=== PATIENT | male | born 1955 | race Caucasian/White ===

== ENCOUNTER 2017-08-03 15:54 | Inpatient (IN) | payer MEDICAID ==
[~2017-08-03] VITALS: Ht 175.3 cm; Wt 81.0 kg
[2017-08-03] MEDS ORDERED: WARFARIN SODIUM1 MG ORAL ×2 (16:07)
[2017-08-03] MEDS ORDERED: SIMVASTATIN20 MG ORAL (16:16)
[2017-08-03] MEDS ORDERED: PROAIR HFA8.5 GM INH (16:16)
[2017-08-03] MEDS ORDERED: SPIRIVA18 MCG INH (16:16)
[2017-08-03] MEDS ORDERED: TRAZODONE HCL150 MG ORAL (16:16)
[2017-08-03] MEDS ORDERED: DEPAKOTE250 MG PO (16:16)
[2017-08-03] MEDS ORDERED: RISPERDAL2 MG ORAL (16:16)
[2017-08-03] MEDS ORDERED: VITAMIN D400 INTLU ORAL (16:16)
[2017-08-03] MEDS ORDERED: CITALOPRAM HBR40 M1 ORAL (16:16)
[2017-08-03] MEDS ORDERED: Ampicillin/Sulbactam Sod 3 GM in NS 110 ML IV ONE (16:30)
[2017-08-03 16:40] LABS: BASOPHILS % (AUTO) 2.1 % (0.0-2.0); EOSINOPHILS % (AUTO) 0.2 % (0.0-3.0); HEMATOCRIT 51.7 % (42.0-52.0); HEMOGLOBIN 16.6 G/DL (14.2-18.0); LYMPHOCYTES % (AUTO) 15.5 % (20.0-45.0); MEAN CORPUSCULAR VOLUME 94 FL (80-99); MONOCYTES % (AUTO) 15.9 % (1.0-10.0); NEUTROPHILS % (AUTO) 66.4 % (45.0-75.0); PLATELET COUNT 142 K/UL (150-450); RED BLOOD COUNT 5.53 M/UL (4.70-6.10); RED CELL DISTRIBUTION WIDTH 15.4 % (11.6-14.8); WHITE BLOOD COUNT 5.3 K/UL (4.8-10.8)
[2017-08-03 16:42] VITALS: BP 136/78
[2017-08-03] MEDS ORDERED: Albuterol/Ipratropium 3ml neb HHN ONE (16:45)
--- NOTE | 2017-08-03 17:04 | Emergency Room Report ---
History of Present Illness General Chief Complaint: Shortness of breath Source: Patient, EMS Present Illness HPI Patient is a 62-year-old male brought in by EMS after increased difficulty breathing. Patient had been noted to have decreased oxygen saturation was started on nonrebreather by EMS. The patient had prior history of psychiatric disease as well as COPD. The patient had been noted to be on steroid inhalers as well as albuterol. Patient noted have increased difficulty with breathing. The per EMS patient had the crackles or his lung ramon.History is markedly limited by patient being poor historian Allergies: Coded Allergies: No Known Allergies (Unverified , 08/03/17) Patient History Past Medical History: see triage record Reviewed Nursing Documentation: PMH: Agreed; PSxH: Agreed Nursing Documentation-PMH Past Medical History: No History, Except For Hx Cardiac Problems: Yes Hx Asthma: Yes Review of Systems All Other Systems: negative except mentioned in HPI Physical Exam Vital Signs Date Time Temp Pulse Resp B/P (MAP) Pulse Ox O2 Delivery O2 Flow Rate FiO2 08/03/17 15:53 98.5 108 20 126/81 95 Non-Rebreather 98.4 08/03/17 16:00 100 08/03/17 16:00 15.0 Sp02 EP Interpretation: reviewed, normal General Appearance: normal inspection, alert, moderate distress, Chronically Ill Head: atraumatic ENT: normal ENT inspection, hearing grossly normal, normal voice Neck: normal inspection, full range of motion, supple, no bony tend Respiratory: normal inspection, no respiratory distress, no retraction, no wheezing, rhonchi Cardiovascular #1: regular rate, rhythm, no edema Gastrointestinal: normal inspection, normal bowel sounds, non tender, soft, no guarding, no hernia Genitourinary: no CVA tenderness Musculoskeletal: normal inspection, back normal, normal range of motion Neurologic: normal inspection, alert, responsive Psychiatric: normal inspection, judgement/insight normal, mood/affect normal Skin: normal inspection, normal color, no rash Medical Decision Making Diagnostic Impression: Primary Impression: Pleural effusion, right Additional Impression: COPD (chronic obstructive pulmonary disease) ER Course patient presented for shortness of breath. Differential included but was not limited to anemia, pneumonia, pneumothorax, myocardial infarction, pericardial effusion, congestive heart failure, acidosis. Because of complexity of patient' s case laboratory testing and imaging studies were ordered.EKG interpreted by me showed normal sinus rhythm patient was noted to have incomplete right bundle -branch block. Chest x-ray one view interpreted by me showed large right-sided pleural effusion versus complete atelectasis. The trachea is deviated to the right. The patient was continued on supplemental oxygen. Dr. Richardson Mitchell was contacted for capitated physician Labs Test 08/03/17 16:25 White Blood Count 5.3 K/UL (4.8-10.8) Red Blood Count 5.53 M/UL (4.70-6.10) Hemoglobin 16.6 G/DL (14.2-18.0) Hematocrit 51.7 % (42.0-52.0) Mean Corpuscular Volume 94 FL (80-99) Mean Corpuscular Hemoglobin 30.1 PG (27.0-31.0) Mean Corpuscular Hemoglobin Concent 32.1 G/DL (32.0-36.0) Red Cell Distribution Width 15.4 % (11.6-14.8) Platelet Count 142 K/UL (150-450) Mean Platelet Volume 6.2 FL (6.5-10.1) Neutrophils (%) (Auto) 66.4 % (45.0-75.0) Lymphocytes (%) (Auto) 15.5 % (20.0-45.0) Monocytes (%) (Auto) 15.9 % (1.0-10.0) Eosinophils (%) (Auto) 0.2 % (0.0-3.0) Basophils (%) (Auto) 2.1 % (0.0-2.0) Prothrombin Time 77.1 SEC (9.30-11.50) Prothromb Time International Ratio 7.2 (0.9-1.1) Activated Partial Thromboplast Time 83 SEC (23-33) Urine Color Yellow Urine Appearance Clear Urine pH 6 (4.5-8.0) Urine Specific [place] 1.020 (1.005-1.035) Urine Protein Negative (NEGATIVE) Urine Glucose (UA) Negative (NEGATIVE) Urine Ketones 1+ (NEGATIVE) Urine Occult Blood 1+ (NEGATIVE) Urine Nitrite Negative (NEGATIVE) Urine Bilirubin Negative (NEGATIVE) Urine Urobilinogen 1 MG/DL (0.0-1.0) Urine Leukocyte Esterase 1+ (NEGATIVE) Lactic Acid Level 0.60 mmol/L (0.66-2.22) Troponin I 0.005 ng/mL (0.000-0.056) Last Vital Signs Date Time Temp Pulse Resp B/P (MAP) Pulse Ox O2 Delivery O2 Flow Rate FiO2 08/03/17 16:42 107 31 Non-Rebreather 15.0 08/03/17 16:42 97.2 136/78 97 97.2 08/03/17 16:00 94 Status: unchanged Disposition: XFER SHT-TRM HOSP Condition: Serious Referrals: NOT CHOSEN IPA/,REFERRING (PCP) Dilip Huerta MD August 03, 2017 17:04
[2017-08-03 17:05] LABS: INR 7.2 (0.9-1.1)
[2017-08-03 17:34] LABS: APPEARANCE,URINE CLEAR; BILIRUBIN, URINE NEGATIVE (NEGATIVE); GLUCOSE, URINE (UA) NEGATIVE (NEGATIVE); KETONES,URINE 1+ (NEGATIVE); LEUKOCYTE ESTERASE ,URINE 1+ (NEGATIVE); NITRITE,URINE NEGATIVE (NEGATIVE); PH,URINE 6 (4.5-8.0); PROTEIN,URINE NEGATIVE (NEGATIVE); UROBILINOGEN,URINE 1 MG/DL (0.0-1.0)
[2017-08-03 17:36] LABS: ALANINE AMINOTRANSFERASE 18 U/L (12-78); ALBUMIN 2.7 G/DL (3.4-5.0); ALBUMIN/GLOBULIN RATIO 0.7 (1.0-2.7); ALKALINE PHOSPHATASE 65 U/L (46-116); ANION GAP 0 mmol/L (5-15); ASPARTATE AMINO TRANSFERASE 20 U/L (15-37); BILIRUBIN,TOTAL 0.3 MG/DL (0.2-1.0); BLOOD UREA NITROGEN 9 mg/dL (7-18); CALCIUM 8.6 MG/DL (8.5-10.1); CHLORIDE 96 MMOL/L (98-107); CKMB 0.7 NG/ML (0.0-3.6); COLOR,URINE YELLOW; CREATINE KINASE 70 U/L (26-308); CREATININE 0.6 MG/DL (0.55-1.30); POTASSIUM 5.3 MMOL/L (3.5-5.1); SODIUM 137 MMOL/L (136-145)
[2017-08-03 17:38] LABS: CARBON DIOXIDE 41 MMOL/L (21-32)
[2017-08-03] MEDS ORDERED: Phytonadione 10 mg/mL 1ml amp SUBQ ONE (17:45)
[2017-08-03 19:30] VITALS: BP 131/76
[2017-08-03 20:15] VITALS: BP 131/80
[2017-08-03] MEDS ORDERED: Albuterol 90mcg Inhaler 8gm INH SCH (22:00)
[2017-08-03] MEDS ORDERED: TraZODone 100mg tab ORAL SCH ×2 (22:00→22:30)
[2017-08-03] MEDS ORDERED: Albuterol 90mcg Inhaler 8gm INH PRN ×3 (22:15→22:30)
[2017-08-04] VITALS (21 sets, daily range): BP systolic 105–151; BP diastolic 64–85
--- NOTE | 2017-08-04 04:37 | Emergency Room Report ---
History of Present Illness General Chief Complaint: Upper Respiratory Illness Source: Medical Record, EMS Present Illness HPI This is a 62-year-old male with a history of schizophrenia, COPD, 3 packs a day smoker, atrial ablation on Coumadin who presents to the ER with rest or distress and was admitted to stepdown unit on BiPAP. He continue to have rest or distress and not improving. I received a call from respiratory therapist who said that even on BiPAP he was desaturating in the repeat ABG showed a pH of 7.11 with CO2 of 142. Because of this, I decided to intubate the patient. Patient was intubated and transferred to the ICU. Allergies: Coded Allergies: No Known Allergies (Unverified , 08/03/17) Patient History Past Medical History: see triage record, old chart reviewed, CHF, AFib, COPD, psych hx Past Surgical History: other - tracheostomy Pertinent Family History: none Social History: Reports: smoking - 3ppd Immunizations: other Reviewed Nursing Documentation: PMH: Agreed; PSxH: Agreed Nursing Documentation-PMH Past Medical History: No History, Except For Hx Cardiac Problems: Yes Hx Hypertension: Yes Hx Asthma: Yes Hx COPD: Yes Hx Cancer: No Hx Gastrointestinal Problems: No Hx Neurological Problems: No Review of Systems Respiratory: Reports: shortness of breath All Other Systems: limited - secondary to his condition/respiratory distress Physical Exam Vital Signs Date Time Temp Pulse Resp B/P (MAP) Pulse Ox O2 Delivery O2 Flow Rate FiO2 08/03/17 15:53 98.5 108 20 126/81 95 Non-Rebreather 98.4 08/03/17 16:00 100 08/03/17 16:00 15.0 vitals showed hypoxia Sp02 EP Interpretation: abnormal General Appearance: severe distress, Stupor - on BiPAP Head: normocephalic, atraumatic Eyes: bilateral eye EOMI ENT: dry mucus membranes Neck: supple, tracheotomy Respiratory: respiratory distress, decreased breath sounds, accessory muscle use, wheezing Cardiovascular #1: regular rate, rhythm, tachycardia Gastrointestinal: soft, other - abdominal breathing Musculoskeletal: back normal Neurologic: grossly normal - patient moving all extremities Skin: no rash Procedures Critical Care Time Critical Care Time Critical care is mandated in this patient who presented with respiratory failure. Patient require my urgent intervention to attenuate the risks of metabolic collapse which may lead to cardiovascular collapse and . Critical care time is 35 minutes excluding any reportable procedure. Critical care time included evaluation, multiple reevaluation, looking at old charts, interpreting laboratory and diagnostic data, discussing case with patient and family and consultants, and charting. Intubation Intubation : Consent: Emergent Intubation Method: orotracheal Tube Size (cm): 7.0 Medications: Etomidate, Succinylcholine Breath Sounds after Intubation: equal Intubation Complications: no complications Post Intubation Xray: Yes Progress/Xray Impression: endotracheal tube at level of sternal notch. no ptx Attempts: One Patient Tolerated: Well Complications: None Medical Decision Making Diagnostic Impression: Primary Impression: Pleural effusion, right Additional Impressions: COPD (chronic obstructive pulmonary disease) Qualified Codes: J44.9 - Chronic obstructive pulmonary disease, unspecified Respiratory failure requiring intubation Respiratory failure with hypoxia and hypercapnia Qualified Codes: J96.21 - Acute and chronic respiratory failure with hypoxia; J96.22 - Acute and chronic respiratory failure with hypercapnia ER Course Patient with respiratory failure requiring intubation. Patient intubated with a 7.0 endotracheal tube because of his tracheostomy. There was some slight stenosis with me pushing the endotracheal tube through the vocal cord. There was no evidence of fluid overloaded or frothy sputum with intubation. I suspect that he has a mass causing an obstructive process/malignant effusion to the right lungs. There is tracheal deviation to the right from a mediastinal mass. Patient is smoking history this may be pulmonary neoplasm. Discussed the case with Dr. Mitchell. Chest X-Ray Diagnostic Results Chest X-Ray Diagnostic Results : Chest X-Ray Ordered: Yes # of Views/Limited/Complete: 1 View Indication: Shortness of Breath EP Interpretation: Yes Interpretation: no pneumothorax, other - Endotracheal tube at level of the sternal notch. This will be pushed further 2 cm. There is tracheal deviation to the right. There is almost complete opacification of the right lung. Large gastric bubble. No pneumothorax. Impression: Other - Post intubation. no ptx. ETT at sternal notch Electronically Signed by: Efren Jung MD Last Vital Signs Date Time Temp Pulse Resp B/P (MAP) Pulse Ox O2 Delivery O2 Flow Rate FiO2 08/04/17 00:39 105 20 92 Facial 100 08/04/17 00:00 97.5 134/85 15.0 97.5 Status: improved Disposition: ADMITTED INPATIENT Condition: Critical Referrals: NOT CHOSEN IPA/,REFERRING (PCP) EFREN JUNG M.D. August 04, 2017 04:37
[2017-08-04] MEDS: LORazepam Inj 2mg/ml 1ml IV PRN ×3 (07:48→20:47)
[2017-08-04] MEDS ORDERED: Albuterol 90mcg Inhaler 8gm INH PRN (09:00)
[2017-08-04] MEDS ORDERED: Citalopram 20mg Tab ORAL SCH (09:00)
[2017-08-04] MEDS: Depakote 500mg tab ORAL SCH ×2 (09:27→20:40)
[2017-08-04 09:57] LABS: EOSINOPHILS % (AUTO) 0.1 % (0.0-3.0); HEMATOCRIT 50.2 % (42.0-52.0); HEMOGLOBIN 15.3 G/DL (14.2-18.0); LYMPHOCYTES % (AUTO) 6.6 % (20.0-45.0); MEAN CORPUSCULAR VOLUME 96 FL (80-99); MONOCYTES % (AUTO) 15.1 % (1.0-10.0); NEUTROPHILS % (AUTO) 77.3 % (45.0-75.0); PLATELET COUNT 134 K/UL (150-450); RED BLOOD COUNT 5.21 M/UL (4.70-6.10); RED CELL DISTRIBUTION WIDTH 15.6 % (11.6-14.8); WHITE BLOOD COUNT 7.6 K/UL (4.8-10.8)
[2017-08-04 10:04] LABS: INR 3.7 (0.9-1.1)
--- NOTE | 2017-08-04 10:23 | Diagnostic Imaging Report ---
Indication: Headache Technique: Contiguous 5 mm thick transaxial imaging of the head obtained in a Siemens Sensation [address] scanner. Soft tissue and bone windows generated. Automatic Exposure Control was utilized. Total Dose length Product (DLP): 1590.[address] Dose Index Volume (CTDIvol): 70.38 mGy Comparison: none Findings: The size and configuration of the cortical sulci, basal cisterns, and ventricles are within normal limits for age. There is no mass effect, midline shift, or edema identified. There is no evidence of acute hemorrhage or abnormal intra-axial or extra-axial fluid collections. The bones and soft tissues are unremarkable. Impression: No mass effect, edema or acute bleed. Note: The study is significantly degraded by motion [facility] has communicated the preliminary results to the Emergency Department. Their findings are largely concordant with this report. The CT scanner at [facility] is accredited by the [employer] and the scans are performed using dose optimization techniques as appropriate to a performed exam including Automatic Exposure control.
[2017-08-04 10:31] LABS: ALBUMIN 2.3 G/DL (3.4-5.0); ALBUMIN/GLOBULIN RATIO 0.7 (1.0-2.7); ALKALINE PHOSPHATASE 59 U/L (46-116); ANION GAP 0 mmol/L (5-15); ASPARTATE AMINO TRANSFERASE 13 U/L (15-37); BILIRUBIN,TOTAL 0.5 MG/DL (0.2-1.0); BLOOD UREA NITROGEN 10 mg/dL (7-18); CALCIUM 8.4 MG/DL (8.5-10.1); CARBON DIOXIDE 39 MMOL/L (21-32); CHLORIDE 98 MMOL/L (98-107); CREATININE 0.5 MG/DL (0.55-1.30); PHOSPHORUS 2.8 MG/DL (2.5-4.9); POTASSIUM 4.9 MMOL/L (3.5-5.1); SODIUM 137 MMOL/L (136-145)
--- NOTE | 2017-08-04 10:39 | Diagnostic Imaging Report ---
Indication: Intubation Comparison: 08/03/2017 A single view chest radiograph was obtained. Findings: Endotracheal tube is in good position about 4 cm above the joelle. There is persistent complete opacification of the right hemithorax. Little to no shift of the mediastinum and heart to the right. NG tube tip is in the stomach which is distended. The proximal port is just above the stomach. IMPRESSION: Endotracheal tube in good position. No significant change otherwise
[2017-08-04 10:45] LABS: ALANINE AMINOTRANSFERASE 21 U/L (12-78)
[2017-08-04] MEDS: Citalopram 20mg Tab ORAL SCH (10:52)
--- NOTE | 2017-08-04 10:54 | Diagnostic Imaging Report ---
Indication: Dyspnea Comparison: None A single view chest radiograph was obtained. Findings: The right hemithorax is completely opacified. There is mild volume loss in the upper lobe with slight deviation of the trachea toward the right. There is suggestion of interstitial edema within the left lung. Bones are osteopenic. IMPRESSION: Completely opacified right hemithorax. Suspect pleural effusion and atelectasis. Pneumonia not excluded. Suspected interstitial edema
[2017-08-04] MEDS: Piperacillin/Tazobactam 3.375 GM in D5W 110 ML IVPB SCH ×2 (11:00→21:52)
--- NOTE | 2017-08-04 13:00 | History and Physical Report ---
DATE OF ADMISSION: 08/03/2017 HISTORY OF PRESENT ILLNESS: The patient is a 62-year-old male, who was brought to the emergency room with difficulty breathing. He was found to be hypoxic. There is no other history obtainable from [facility] or by paramedics. The patient apparently has a previous history of COPD and underlying psychiatric condition. He is noted to be on inhalers. He was admitted to the hospital. Overnight the patient decompensated and was started on BiPAP and early this morning was intubated by the ER physician. Per review of his old records, I note the patient has a history of long-term Coumadin usage, etiology of use unknown. He has previously had a gastrostomy and tracheostomy. He has a history of schizophrenia, hypertension, cardiomyopathy, cardiac arrhythmias, COPD, previous gastrointestinal bleeding, scoliosis, previous urinary tract infection, previous history of respiratory failure, previous pleural effusion diagnosed as far back as 2011, atrial fibrillation, anemia, oxygen dependence. MEDICATIONS: His list of home medications include Coumadin, vitamin D3, Spiriva, Celexa, risperidone, ProAir, simvastatin, Depakote and trazodone. His primary physician listed as DINA Bailey at [phone]. REVIEW OF SYSTEMS: Unobtainable. PHYSICAL EXAMINATION: GENERAL: Reveals a middle-aged male. At this time, he is intubated. Old tracheostomy NG-tube site is noted. VITAL SIGNS: Blood pressure 120/80, heart rate 104, respirations 26, afebrile. CHEST: Decreased breath sounds bilaterally. ABDOMEN: Soft. EXTREMITIES: There is no edema. NEUROLOGIC: Exam at this time is difficult because of intubation. LABORATORY DATA: Lab testing shows normal CBC. Platelet count is 140,000. ABG, pH 7.31, pCO2 72, PO2 54. Chemistries are notable for bicarb 41, potassium 5.3, glucose 120, proBNP 984. Coags INR 7.2. Toxicology is negative. negative. Chest x-ray shows a complete opacification of right lung field with some aeration of the right apex. Endotracheal tube is in place. Trachea's deviation towards the right indicative of loss of volume. There is also shift to the right. Left lung field is clear. IMPRESSION: 1. Acute respiratory failure. 2. Right hemithorax opacification. 3. History of right pleural effusion. 4. Schizophrenia, chronic Coumadin usage. DISCUSSION: The patient is a candidate for bronchoscopy. I need to get old records. I will attempt to contact his family physician to obtain more information. Start broad-spectrum antibiotics. Continue vent, intravenous fluids, Protonix. We will follow carefully. Richardson Mitchell M.D. DR: TEZ JOB#: [id number] CC:
--- NOTE | 2017-08-04 13:11 | Diagnostic Imaging Report ---
APPROVED REPORT CPT Code: 42571 Present Symptoms Shortness of breath BILATERAL: Imaging reveals a patent deep venous system bilaterally. There is no evidence of thrombus within the femoral, popliteal or tibial segments. The greater saphenous veins are also within normal limits. Doppler indicates normal spontaneous flow within these segments.
--- NOTE | 2017-08-04 13:18 | Cardiology Report ---
APPROVED REPORT EXAM: Two-dimensional and M-mode echocardiogram with Doppler and color Doppler. INDICATION ALTERED MENTAL STATUS M-Mode DIMENSIONS IVSd1.3 (0.7-1.1cm)Left Atrium (MM)4.7 (1.6-4.0cm) LVDd7.4 (3.5-5.6cm)Aortic Root4.1 (2.0-3.7cm) PWd1.5 (0.7-1.1cm)Aortic Cusp Exc.2.1 (1.5-2.0cm) IVSs2.1 cm LVDs5.1 (2.5-4.0cm) PWs1.6 cm Normal left ventricular chamber size, systolic function and wall motion. Left ventricular ejection fraction estimated to be 65-70 %. No evidence of left ventricular hypertrophy. Small posterior pericardial effusion. Mild left atrial enlargements . Right cardiac chamber sizes are within normal limits. Focal aortic valve sclerosis with adequate cusp excursion. Moderately Thickened mitral valve leaflets with normal excursion. Moderately Mitral annulus and aortic root calcification. Normal pulmonic valve structure. Normal tricuspid valve structure. IVC dilated at 2.7cm with physiologic collapse suggestive of increased RA pressure. A color flow and spectral Doppler study was performed and revealed: No aortic regurgitation. Trace mitral regurgitation. Mitral diastolic velocities suggest reduced left ventricular relaxation c/w mild LV diastolic dysfunction (Grade I ). Mild tricuspid regurgitation. Tricuspid systolic velocities suggests peak right ventricular systolic pressure of 36 mmHg,consistent with mild pulmonary hypertension. No Pulmonic regurgitation present.
--- NOTE | 2017-08-04 13:50 | Cardiology Report ---
APPROVED REPORT EKG Measurement Heart [id number] PA [id number] Normal sinus rhythm Incomplete right bundle branch block Borderline ECG
[2017-08-04] MEDS: TraZODone 100mg tab ORAL SCH (20:41)
[2017-08-04] MEDS ORDERED: TraZODone 100mg tab ORAL SCH (21:00)
[2017-08-05] VITALS (24 sets, daily range): BP systolic 100–128; BP diastolic 64–87
[2017-08-05] MEDS: Piperacillin/Tazobactam 3.375 GM in D5W 110 ML IVPB SCH ×3 (05:33→22:17)
[2017-08-05 06:09] LABS: EOSINOPHILS % (AUTO) 0.9 % (0.0-3.0); LYMPHOCYTES % (AUTO) 12.3 % (20.0-45.0); MEAN CORPUSCULAR VOLUME 94 FL (80-99); MONOCYTES % (AUTO) 12.7 % (1.0-10.0); NEUTROPHILS % (AUTO) 73.1 % (45.0-75.0); PLATELET COUNT 129 K/UL (150-450); RED BLOOD COUNT 5.31 M/UL (4.70-6.10); RED CELL DISTRIBUTION WIDTH 15.1 % (11.6-14.8); WHITE BLOOD COUNT 5.9 K/UL (4.8-10.8)
[2017-08-05 06:19] LABS: ANION GAP 2 mmol/L (5-15); BLOOD UREA NITROGEN 12 mg/dL (7-18); CALCIUM 8.5 MG/DL (8.5-10.1); CARBON DIOXIDE 36 MMOL/L (21-32); CHLORIDE 96 MMOL/L (98-107); CREATININE 0.6 MG/DL (0.55-1.30); POTASSIUM 4.6 MMOL/L (3.5-5.1); SODIUM 134 MMOL/L (136-145)
[2017-08-05] MEDS: Depakote 500mg tab ORAL SCH (08:21)
[2017-08-05] MEDS: LORazepam Inj 2mg/ml 1ml IV PRN ×3 (08:21→22:58)
[2017-08-05] MEDS: Citalopram 20mg Tab ORAL SCH (08:22)
--- NOTE | 2017-08-05 09:40 | Pulmonology Progress Note ---
Assessment/Plan Assessment/Plan 1. Acute respiratory failure. 2. Right hemithorax opacification. 3. History of right pleural effusion. 4. Schizophrenia, chronic Coumadin usage. DISCUSSION: Will do bronchoscopy. I still need to get old records. I will attempt to contact his family physician to obtain more information. Start broad-spectrum antibiotics. Continue vent, intravenous fluids, Protonix. I will follow carefully. Cons[facility] bronch [facility] from [facility] Subjective Interval Events: Much better overall; still intubated Constitutional: Reports: no symptoms HEENT: Repors: no symptoms Respiratory: Reports: no symptoms Gastrointestinal/Abdominal: Reports: no symptoms Allergies: Coded Allergies: No Known Allergies (Unverified , 08/03/17) Objective Last 24 Hour Vital Signs Date Time Temp Pulse Resp B/P (MAP) Pulse Ox O2 Delivery O2 Flow Rate FiO2 08/05/17 09:16 94 15 100 08/05/17 09:00 95 15 110/71 95 Mechanical Ventilator 100 08/05/17 08:00 99 08/05/17 08:00 100 08/05/17 08:00 98.3 95 15 121/75 95 Mechanical Ventilator 100 98.3 08/05/17 07:00 114 21 128/87 95 Mechanical Ventilator 100 08/05/17 06:57 93 15 100 08/05/17 06:00 94 16 120/78 95 Mechanical Ventilator 100 08/05/17 05:00 95 16 100 08/05/17 05:00 97 16 128/77 91 Mechanical Ventilator 100 08/05/17 04:04 75 08/05/17 04:04 86 08/05/17 04:00 98.0 90 15 117/73 96 Mechanical Ventilator 75 98.0 08/05/17 03:00 89 15 126/74 97 Mechanical Ventilator 75 08/05/17 02:51 85 16 80 08/05/17 02:00 90 15 127/76 96 Mechanical Ventilator 80 08/05/17 01:00 87 15 122/73 97 Mechanical Ventilator 80 08/05/17 00:43 88 15 80 08/05/17 00:00 98.6 86 15 119/69 97 Mechanical Ventilator 90 98.6 08/05/17 00:00 90 08/04/17 23:04 91 15 90 08/04/17 23:00 90 15 124/74 97 Mechanical Ventilator 100 08/04/17 22:00 89 15 119/68 97 Mechanical Ventilator 100 08/04/17 21:13 92 15 100 08/04/17 21:00 93 15 127/74 98 Mechanical Ventilator 100 08/04/17 20:00 90 08/04/17 20:00 100 08/04/17 20:00 98.5 90 15 124/74 97 Mechanical Ventilator 100 98.5 08/04/17 19:39 91 15 100 08/04/17 19:00 91 15 124/76 96 Mechanical Ventilator 100 08/04/17 18:00 89 16 126/75 96 Mechanical Ventilator 100 08/04/17 17:00 95 16 116/68 96 Mechanical Ventilator 100 08/04/17 16:12 100 20 100 08/04/17 16:00 85 08/04/17 16:00 108 16 148/85 94 Mechanical Ventilator 100 08/04/17 15:20 101 20 100 08/04/17 15:00 101 16 143/77 94 Mechanical Ventilator 100 08/04/17 14:00 85 15 128/74 94 Mechanical Ventilator 100 08/04/17 13:00 84 15 121/69 95 Mechanical Ventilator 100 08/04/17 12:33 79 15 100 08/04/17 12:00 91 08/04/17 12:00 98.9 84 15 123/74 95 Mechanical Ventilator 100 98.9 08/04/17 11:00 81 15 120/70 95 Mechanical Ventilator 100 08/04/17 10:31 81 15 100 08/04/17 10:00 81 15 120/69 94 Mechanical Ventilator 100 Intake and Output 08/04/17 08/05/17 19:00 07:00 Intake Total 480 ml 167.5 ml Output Total 350 ml 640 ml Balance 130 ml -472.5 ml Intake IV Total 330 ml 137.5 ml Other 150 ml 30 ml Output Urine Total 350 ml 640 ml General Appearance: no acute distress HEENT: normocephalic Respiratory/Chest: chest wall non-tender, decreased breath sounds Cardiovascular: normal peripheral pulses, normal rate Abdomen: normal bowel sounds Microbiology Date/Time Source Procedure Growth Status 08/03/17 16:25 Blood Blood Culture - Preliminary NO GROWTH AFTER 24 HOURS Resulted 08/03/17 16:15 Blood Blood Culture - Preliminary NO GROWTH AFTER 24 HOURS Resulted 08/04/17 04:00 Sputum Induced Gram Stain Pending Resulted 08/04/17 04:00 Sputum Culture - Preliminary Gram Negative Bacillus 1 Resulted Laboratory Tests 08/05/17 05:10: White Blood Count 5.9, Red Blood Count 5.31, Hemoglobin 16.0, Hematocrit 50.0, Mean Corpuscular Volume 94, Mean Corpuscular Hemoglobin 30.2, Mean Corpuscular Hemoglobin Concent 32.0, Red Cell Distribution Width 15.1H, Platelet Count 129L , Mean Platelet Volume 6.4L, Neutrophils (%) (Auto) 73.1, Lymphocytes (%) (Auto ) 12.3L, Monocytes (%) (Auto) 12.7H, Eosinophils (%) (Auto) 0.9, Basophils (%) ( Auto) 1.0, Sodium Level 134L, Potassium Level 4.6, Chloride Level 96L, Carbon Dioxide Level 36H, Anion Gap 2L, Blood Urea Nitrogen 12, Creatinine 0.6, Estimat Glomerular Filtration Rate > 60, Glucose Level 68L, Calcium Level 8.5 Current Medications Medications (Trade) Dose Ordered Sig/Kika Route PRN Reason Start Time Stop Time Status Last Admin Dose Admin Albuterol Sulfate (Proventil MDI) 2 puff Q6H PRN INH shortness of breath or wheezin 08/04/17 09:00 09/03/17 08:59 Atorvastatin Calcium (Lipitor) 10 mg BEDTIME ORAL 08/04/17 21:00 09/02/17 21:59 08/04/17 20:41 Citalopram Hydrobromide (celeXA) 40 mg DAILY ORAL 08/04/17 09:00 09/03/17 08:59 08/05/17 08:22 Dextrose/Sodium Chloride 1,000 ml @ 50 mls/hr Q20H IV 08/05/17 09:45 09/04/17 09:44 UNV Divalproex Sodium (Depakote) 500 mg Q12HR ORAL 08/04/17 09:00 09/03/17 08:59 08/05/17 08:21 Lorazepam (Ativan 2mg/ml 1ml) 2 mg Q2H PRN IV For Anxiety 08/04/17 07:15 08/11/17 07:14 08/05/17 08:21 Piperacillin Sod/ Tazobactam Sod 3.375 gm/Dextrose 110 ml @ 27.5 mls/hr EVERY 8 HOURS IVPB 08/04/17 11:00 08/09/17 10:59 08/05/17 05:33 Risperidone (RisperDAL) 2 mg BID ORAL 08/04/17 09:00 09/02/17 21:59 08/05/17 08:21 Trazodone HCl (Desyrel) 200 mg BEDTIME ORAL 08/04/17 21:00 09/02/17 22:29 08/04/17 20:41 Richardson Mitchell MD August 05, 2017 09:40
--- NOTE | 2017-08-05 09:42 | Pre-Procedure Note/Attestation ---
Pre-Procedure Note/Attestation Complete Prior to Procedure Planned Procedure: bilateral Procedure Narrative: Bronchoscopy Indications for Procedure Pre-Operative Diagnosis: R lung collapse Attestation I attest that I discussed the nature of the procedure; its benefits; risks and complications; and alternatives (and the risks and benefits of such alternatives ), prior to the procedure, with the patient (or the patient's legal human resources hr representative). I attest that, if there was a reasonable possibility of needing a blood transfusion, the patient (or the patient's legal human resources hr representative) was given the [facility] standardized written summary, pursuant to the Nicolas Dayanara Blood Safety Act ([place] Health and Safety Code # 1645, as amended). I attest that I re-evaluated the patient just prior to the surgery and that there has been no change in the patient's H&P, except as documented below: Richardson Mitchell MD August 05, 2017 09:42
[2017-08-05] MEDS: Heparin 5000 units/ml inj SUBQ SCH ×2 (09:45→20:15)
[2017-08-05] MEDS: D5NS 1,000 ML IV SCH (09:45)
--- NOTE | 2017-08-05 11:09 | Diagnostic Imaging Report ---
Indication: Dyspnea Technique: One view of the chest Comparison: 08/04/2017 Findings: There is markedly improved aeration of the right lung. Hazy opacity is seen in the right mid and lower lung. The right upper lung is currently clear. There is also left perihilar hazy opacity which is increased from the prior study. The heart is enlarged. Endotracheal and nasogastric tubes are again demonstrated Impression: Over one day, marked improvement of previously essentially completely opacified right lung. Residual hazy opacity over the right mid and lower lung may reflect infiltrate, pleural fluid, or both Suggestion of increased hazy left perihilar and basilar infiltrate Other findings as noted
--- NOTE | 2017-08-05 13:00 | Procedure Note ---
DATE OF PROCEDURE: 08/05/2017 SURGEON: Richardson Mitchell M.D. PROCEDURE: Bronchoscopy. INDICATION: Right lung collapse. DESCRIPTION OF PROCEDURE: After informed consent was obtained from the patient's shelter/windows administrator, a disposable bronchoscope was inserted through the existing endotracheal tube down to the left joelle. Joelle was sharp. The right and left side bronchial tubes inspected sequentially and copious secretion removed from the right side. These were lavaged. Post-lavage, the second bronchi remained open without any obvious mucus plugging, irregular masses noted. Procedure was completed and a postprocedure x-ray was ordered. Richardson Mitchell M.D. DR: SOCO JOB#: [id number] CC:
[2017-08-05] MEDS: TraZODone 100mg tab ORAL SCH (20:03)
[2017-08-05] MEDS: Pantoprazole Inj IVP SCH (20:15)
[2017-08-05] MEDS: Depakote 125mg Sprinkles GT SCH (20:15)
[2017-08-06] VITALS (25 sets, daily range): BP systolic 102–154; BP diastolic 65–90
[2017-08-06 04:50] LABS: BASOPHILS % (AUTO) 0.6 % (0.0-2.0); EOSINOPHILS % (AUTO) 1.5 % (0.0-3.0); HEMATOCRIT 50.3 % (42.0-52.0); HEMOGLOBIN 15.9 G/DL (14.2-18.0); LYMPHOCYTES % (AUTO) 14.4 % (20.0-45.0); MEAN CORPUSCULAR VOLUME 93 FL (80-99); NEUTROPHILS % (AUTO) 65.5 % (45.0-75.0); PLATELET COUNT 143 K/UL (150-450); RED BLOOD COUNT 5.38 M/UL (4.70-6.10); RED CELL DISTRIBUTION WIDTH 15.2 % (11.6-14.8); WHITE BLOOD COUNT 5.1 K/UL (4.8-10.8)
[2017-08-06 05:11] LABS: ANION GAP 1 mmol/L (5-15); BLOOD UREA NITROGEN 9 mg/dL (7-18); CALCIUM 8.7 MG/DL (8.5-10.1); CARBON DIOXIDE 36 MMOL/L (21-32); CHLORIDE 95 MMOL/L (98-107); CREATININE 0.6 MG/DL (0.55-1.30); POTASSIUM 4.5 MMOL/L (3.5-5.1); SODIUM 132 MMOL/L (136-145)
[2017-08-06] MEDS: D5NS 1,000 ML IV SCH (05:30)
[2017-08-06] MEDS: Piperacillin/Tazobactam 3.375 GM in D5W 110 ML IVPB SCH ×3 (05:31→22:09)
[2017-08-06] MEDS: Pantoprazole Inj IVP SCH ×2 (08:50→21:58)
[2017-08-06] MEDS: Depakote 125mg Sprinkles GT SCH ×2 (08:51→21:00)
[2017-08-06] MEDS: Citalopram 20mg Tab ORAL SCH (08:51)
[2017-08-06] MEDS: Heparin 5000 units/ml inj SUBQ SCH ×2 (08:53→22:02)
--- NOTE | 2017-08-06 09:23 | Pulmonology Progress Note ---
Assessment/Plan Assessment/Plan 1. Acute respiratory failure. 2. Right hemithorax opacification. Now resolved after bronchoscopy 3. History of right pleural effusion. 4. Schizophrenia, chronic Coumadin usage. DISCUSSION: Continue Zosyn Further history obtainerd from Dr Negrete Has history of PE in 2011 Will wean Subjective Interval Events: Remains intubated; CXR much improved Constitutional: Reports: no symptoms HEENT: Repors: no symptoms Cardiovascular: Reports: no symptoms Gastrointestinal/Abdominal: Reports: no symptoms Allergies: Coded Allergies: No Known Allergies (Unverified , 08/03/17) Objective Last 24 Hour Vital Signs Date Time Temp Pulse Resp B/P (MAP) Pulse Ox O2 Delivery O2 Flow Rate FiO2 08/06/17 08:00 98.4 94 17 125/75 96 Mechanical Ventilator 70 98.4 08/06/17 07:29 90 15 70 08/06/17 07:00 91 15 132/79 96 Mechanical Ventilator 70 08/06/17 06:00 85 15 126/79 94 Mechanical Ventilator 70 08/06/17 05:25 78 15 70 08/06/17 05:00 84 16 109/69 95 Mechanical Ventilator 70 08/06/17 04:00 98.6 80 16 137/90 94 Mechanical Ventilator 70 98.6 08/06/17 04:00 74 08/06/17 04:00 70 08/06/17 03:18 76 15 70 08/06/17 03:00 72 15 109/70 94 Mechanical Ventilator 70 08/06/17 02:00 74 16 102/65 92 Mechanical Ventilator 70 08/06/17 01:00 78 15 109/69 93 Mechanical Ventilator 70 08/06/17 00:56 73 15 70 08/06/17 00:00 72 08/06/17 00:00 97.5 72 15 109/71 95 Mechanical Ventilator 70 97.5 08/06/17 00:00 70 08/05/17 23:00 98.3 76 15 100/64 94 Mechanical Ventilator 70 98.3 08/05/17 22:40 79 15 70 08/05/17 22:17 99.8 08/05/17 22:00 77 16 102/65 94 Mechanical Ventilator 70 08/05/17 21:10 91 15 70 08/05/17 21:00 85 16 120/70 93 Mechanical Ventilator 70 08/05/17 20:02 100.5 08/05/17 20:00 87 08/05/17 20:00 100.5 94 15 114/66 93 Mechanical Ventilator 70 100.5 08/05/17 19:29 97 15 70 08/05/17 19:00 96 16 118/74 93 Mechanical Ventilator 70 08/05/17 18:00 95 16 106/72 93 Mechanical Ventilator 70 08/05/17 17:00 70 08/05/17 17:00 94 15 119/76 93 Mechanical Ventilator 70 08/05/17 16:46 99 16 70 08/05/17 16:30 70 08/05/17 16:00 101 08/05/17 16:00 98.6 100 15 105/65 93 Mechanical Ventilator 70 98.6 08/05/17 15:30 70 08/05/17 15:18 109 19 70 08/05/17 15:11 101 13 70 08/05/17 15:00 101 13 110/79 92 Mechanical Ventilator 70 08/05/17 14:00 70 08/05/17 14:00 99 16 124/78 94 Mechanical Ventilator 70 08/05/17 13:25 98 14 70 08/05/17 13:00 99 16 119/76 94 Mechanical Ventilator 75 08/05/17 12:00 75 08/05/17 12:00 98 08/05/17 12:00 98.6 99 15 123/74 94 Mechanical Ventilator 75 98.6 08/05/17 11:20 75 08/05/17 11:16 100 14 80 08/05/17 11:00 99 13 115/71 93 Mechanical Ventilator 75 08/05/17 10:00 108 16 128/68 95 Mechanical Ventilator 100 08/05/17 10:00 75 08/05/17 09:41 80 Intake and Output 08/05/17 08/06/17 19:00 07:00 Intake Total 1140 ml 382.5 ml Output Total 960 ml 175 ml Balance 180 ml 207.5 ml Intake IV Total 940 ml 382.5 ml Other 200 ml Output Urine Total 960 ml 175 ml General Appearance: no acute distress HEENT: normocephalic Respiratory/Chest: chest wall non-tender, lungs clear Cardiovascular: normal peripheral pulses, normal rate Microbiology Date/Time Source Procedure Growth Status 08/03/17 16:25 Blood Blood Culture - Preliminary NO GROWTH AFTER 48 HOURS Resulted 08/03/17 16:15 Blood Blood Culture - Preliminary NO GROWTH AFTER 48 HOURS Resulted 08/04/17 04:00 Sputum Induced Gram Stain - Final Complete 08/04/17 04:00 Sputum Culture - Final Klebsiella Pneumoniae Complete 08/03/17 19:15 Nasal Nares MRSA Culture - Final NO METHICILLIN RESISTANT STAPH AUREUS... Complete 08/03/17 19:15 Rectum VRE Culture - Final NO VANCOMYCIN RESISTANT ENTEROCOCCUS ... Complete Laboratory Tests 08/05/17 16:30: Arterial Blood pH 7.350, Arterial Blood Partial Pressure CO2 70.5*H, Arterial Blood Partial Pressure O2 60.4L, Arterial Blood HCO3 38.1H, Arterial Blood Oxygen Saturation 88.8L, Arterial Blood Base Excess 9.1, Roosevelt Test Positive 08/06/17 04:00: White Blood Count 5.1, Red Blood Count 5.38, Hemoglobin 15.9, Hematocrit 50.3, Mean Corpuscular Volume 93, Mean Corpuscular Hemoglobin 29.5, Mean Corpuscular Hemoglobin Concent 31.6L, Red Cell Distribution Width 15.2H, Platelet Count 143L , Mean Platelet Volume 6.5, Neutrophils (%) (Auto) 65.5, Lymphocytes (%) (Auto) 14.4L, Monocytes (%) (Auto) 18.0H, Eosinophils (%) (Auto) 1.5, Basophils (%) ( Auto) 0.6, Sodium Level 132L, Potassium Level 4.5, Chloride Level 95L, Carbon Dioxide Level 36H, Anion Gap 1L, Blood Urea Nitrogen 9, Creatinine 0.6, Estimat Glomerular Filtration Rate > 60, Glucose Level 88, Calcium Level 8.7 Current Medications Medications (Trade) Dose Ordered Sig/Kika Route PRN Reason Start Time Stop Time Status Last Admin Dose Admin Acetaminophen (Tylenol) 650 mg Q4H PRN ORAL Mild Pain/Temp > 100.5 08/05/17 19:30 09/04/17 19:29 08/05/17 20:02 Albuterol Sulfate (Proventil MDI) 2 puff Q6H PRN INH shortness of breath or wheezin 08/04/17 09:00 09/03/17 08:59 Atorvastatin Calcium (Lipitor) 10 mg BEDTIME ORAL 08/04/17 21:00 09/02/17 21:59 08/05/17 20:03 Citalopram Hydrobromide (celeXA) 40 mg DAILY ORAL 08/04/17 09:00 09/03/17 08:59 08/06/17 08:51 Dextrose/Sodium Chloride 1,000 ml @ 50 mls/hr Q20H IV 08/05/17 09:45 09/04/17 09:44 08/06/17 05:30 Divalproex Sodium (Depakote Sprinkles) 500 mg EVERY 12 HOURS GT 08/05/17 21:00 09/04/17 20:59 08/06/17 08:51 Heparin Sodium (Porcine) (Heparin 5000 units/ml) 5,000 units EVERY 12 HOURS SUBQ 08/05/17 09:45 09/04/17 09:44 08/06/17 08:53 Lorazepam (Ativan 2mg/ml 1ml) 2 mg Q2H PRN IV For Anxiety 08/04/17 07:15 08/11/17 07:14 08/05/17 22:58 Pantoprazole (Protonix) 40 mg EVERY 12 HOURS IVP 08/05/17 21:00 09/04/17 20:59 08/06/17 08:50 Piperacillin Sod/ Tazobactam Sod 3.375 gm/Dextrose 110 ml @ 27.5 mls/hr EVERY 8 HOURS IVPB 08/04/17 11:00 08/09/17 10:59 08/06/17 05:31 Risperidone (RisperDAL) 2 mg BID ORAL 08/04/17 09:00 09/02/17 21:59 08/06/17 08:51 Trazodone HCl (Desyrel) 200 mg BEDTIME ORAL 08/04/17 21:00 09/02/17 22:29 08/05/17 20:03 Richardson Mitchell MD August 06, 2017 09:23
--- NOTE | 2017-08-06 11:42 | Diagnostic Imaging Report ---
Indication: Abnormal breath sounds Comparison: 08/05/2017 A single view chest radiograph was obtained. Findings: Prominent vascularity and interstitial edema demonstrated. Hazy basilar opacities noted. The heart is enlarged. Endotracheal tube in good position. Nasogastric tube is slightly high and should be advanced about 5 6 cm further. IMPRESSION: Congestive heart failure. Bilateral pleural effusion suspected.
[2017-08-06] MEDS: LORazepam Inj 2mg/ml 1ml IV PRN (12:45)
[2017-08-06] MEDS: TraZODone 100mg tab ORAL SCH (22:00)
[2017-08-07] VITALS (25 sets, daily range): BP systolic 98–134; BP diastolic 63–88
[2017-08-07] MEDS: D5NS 1,000 ML IV SCH (01:45)
[2017-08-07 06:06] LABS: HEMATOCRIT 49.9 % (42.0-52.0); HEMOGLOBIN 16.3 G/DL (14.2-18.0); MEAN CORPUSCULAR VOLUME 92 FL (80-99); PLATELET COUNT 159 K/UL (150-450); RED BLOOD COUNT 5.41 M/UL (4.70-6.10); RED CELL DISTRIBUTION WIDTH 15.2 % (11.6-14.8); WHITE BLOOD COUNT 4.8 K/UL (4.8-10.8)
[2017-08-07] MEDS: Piperacillin/Tazobactam 3.375 GM in D5W 110 ML IVPB SCH ×3 (06:14→22:03)
[2017-08-07 06:29] LABS: ANION GAP 3 mmol/L (5-15); BLOOD UREA NITROGEN 7 mg/dL (7-18); CALCIUM 8.9 MG/DL (8.5-10.1); CARBON DIOXIDE 35 MMOL/L (21-32); CHLORIDE 96 MMOL/L (98-107); CREATININE 0.6 MG/DL (0.55-1.30); POTASSIUM 4.2 MMOL/L (3.5-5.1); SODIUM 134 MMOL/L (136-145)
[2017-08-07] MEDS: Citalopram 20mg Tab ORAL SCH (09:24)
[2017-08-07] MEDS: Pantoprazole Inj IVP SCH ×2 (09:25→21:05)
[2017-08-07] MEDS: Heparin 5000 units/ml inj SUBQ SCH ×2 (09:32→21:10)
--- NOTE | 2017-08-07 09:38 | Pulmonology Progress Note ---
Assessment/Plan Assessment/Plan 1. Acute respiratory failure. 2. Right hemithorax opacification. Now resolved after bronchoscopy 3. History of right pleural effusion. 4. Schizophrenia, chronic Coumadin usage. DISCUSSION: Continue Zosyn Further history obtained from Dr Negrete Has history of PE in 2011 Will continue weaning attempts Previous tracheostomy noted Will begin feeding ID eval Subjective Interval Events: Unable to wean Constitutional: Reports: no symptoms HEENT: Repors: no symptoms Respiratory: Reports: no symptoms Cardiovascular: Reports: no symptoms Genitourinary: Reports: no symptoms Allergies: Coded Allergies: No Known Allergies (Unverified , 08/03/17) Objective Last 24 Hour Vital Signs Date Time Temp Pulse Resp B/P (MAP) Pulse Ox O2 Delivery O2 Flow Rate FiO2 08/07/17 08:30 80 15 70 08/07/17 08:00 70 08/07/17 06:54 83 15 70 08/07/17 06:00 88 18 121/72 Mechanical Ventilator 08/07/17 05:13 80 15 70 08/07/17 05:00 90 18 104/64 Mechanical Ventilator 08/07/17 04:05 Mechanical Ventilator 08/07/17 04:00 70 08/07/17 04:00 98.0 82 15 134/88 92 Mechanical Ventilator 70 98.0 08/07/17 04:00 80 08/07/17 03:29 78 15 70 08/07/17 03:00 81 15 134/88 92 Mechanical Ventilator 70 08/07/17 02:00 80 15 98/63 92 Mechanical Ventilator 70 08/07/17 01:29 81 15 70 08/07/17 01:02 80 15 108/71 92 Mechanical Ventilator 70 08/07/17 00:00 70 08/07/17 00:00 80 08/07/17 00:00 97.6 80 15 109/69 92 Mechanical Ventilator 70 97.6 08/06/17 23:00 82 15 104/70 93 Mechanical Ventilator 70 08/06/17 22:48 85 15 70 08/06/17 22:00 82 15 107/69 93 Mechanical Ventilator 70 08/06/17 21:00 84 15 107/68 93 Mechanical Ventilator 70 08/06/17 20:54 91 15 70 08/06/17 20:32 98.2 109 18 121/79 93 Mechanical Ventilator 70 98.2 08/06/17 20:00 109 08/06/17 20:00 98.2 95 18 121/79 93 Mechanical Ventilator 70 98.2 08/06/17 20:00 70 08/06/17 19:02 106 19 70 08/06/17 19:00 95 18 109/70 93 Mechanical Ventilator 70 08/06/17 18:00 97 18 111/72 93 Mechanical Ventilator 70 08/06/17 17:31 92 16 70 08/06/17 17:00 96 15 118/74 93 Mechanical Ventilator 70 08/06/17 16:00 99 08/06/17 16:00 99.2 95 16 117/70 93 Mechanical Ventilator 70 99.2 08/06/17 16:00 70 08/06/17 15:20 98 17 70 08/06/17 15:00 98 15 120/78 96 Mechanical Ventilator 70 08/06/17 14:00 89 15 120/74 96 Mechanical Ventilator 70 08/06/17 13:26 90 15 70 08/06/17 13:00 99.3 85 17 132/81 96 Mechanical Ventilator 70 99.3 08/06/17 12:00 93 15 143/82 96 Mechanical Ventilator 70 08/06/17 12:00 70 08/06/17 12:00 84 08/06/17 11:29 85 15 70 08/06/17 11:00 92 15 122/77 96 Mechanical Ventilator 70 08/06/17 10:00 94 15 118/76 96 Mechanical Ventilator 70 Intake and Output 08/06/17 08/07/17 19:00 07:00 Intake Total 477.5 ml 560.0 ml Output Total 1320 ml 750 ml Balance -842.5 ml -190.0 ml Intake IV Total 477.5 ml 560.0 ml Output Urine Total 1320 ml 750 ml General Appearance: no acute distress HEENT: normocephalic Respiratory/Chest: chest wall non-tender, lungs clear, chest wall tender Cardiovascular: normal rate Abdomen: normal bowel sounds Laboratory Tests 08/06/17 09:38: Arterial Blood pH 7.380, Arterial Blood Partial Pressure CO2 64.7*H, Arterial Blood Partial Pressure O2 56.5L, Arterial Blood HCO3 37.6H, Arterial Blood Oxygen Saturation 88.3L, Arterial Blood Base Excess 9.4, Roosevelt Test Positive 08/07/17 05:05: White Blood Count 4.8, Red Blood Count 5.41, Hemoglobin 16.3, Hematocrit 49.9, Mean Corpuscular Volume 92, Mean Corpuscular Hemoglobin 30.2, Mean Corpuscular Hemoglobin Concent 32.7, Red Cell Distribution Width 15.2H, Platelet Count 159, Mean Platelet Volume 7.2, Neutrophils (%) (Auto) , Lymphocytes (%) (Auto) , Monocytes (%) (Auto) , Eosinophils (%) (Auto) , Basophils (%) (Auto) , Sodium Level 134L, Potassium Level 4.2, Chloride Level 96L, Carbon Dioxide Level 35H, Anion Gap 3L, Blood Urea Nitrogen 7, Creatinine 0.6, Estimat Glomerular Filtration Rate > 60, Glucose Level 89, Calcium Level 8.9 08/07/17 08:25: Arterial Blood pH 7.380, Arterial Blood Partial Pressure CO2 66.3*H, Arterial Blood Partial Pressure O2 61.2L, Arterial Blood HCO3 38.3H, Arterial Blood Oxygen Saturation 88.1L, Arterial Blood Base Excess 9.8, Roosevelt Test Positive Current Medications Medications (Trade) Dose Ordered Sig/Kika Route PRN Reason Start Time Stop Time Status Last Admin Dose Admin Acetaminophen (Tylenol) 650 mg Q4H PRN ORAL Mild Pain/Temp > 100.5 08/05/17 19:30 09/04/17 19:29 08/05/17 20:02 Albuterol Sulfate (Proventil MDI) 2 puff Q6H PRN INH shortness of breath or wheezin 08/04/17 09:00 09/03/17 08:59 Atorvastatin Calcium (Lipitor) 10 mg BEDTIME ORAL 08/04/17 21:00 09/02/17 21:59 08/06/17 21:58 Citalopram Hydrobromide (celeXA) 40 mg DAILY ORAL 08/04/17 09:00 09/03/17 08:59 08/07/17 09:24 Dextrose/Sodium Chloride 1,000 ml @ 50 mls/hr Q20H IV 08/05/17 09:45 09/04/17 09:44 08/07/17 01:45 Divalproex Sodium (Depakote Sprinkles) 500 mg EVERY 12 HOURS GT 08/05/17 21:00 09/04/17 20:59 08/06/17 21:00 Heparin Sodium (Porcine) (Heparin 5000 units/ml) 5,000 units EVERY 12 HOURS SUBQ 08/05/17 09:45 09/04/17 09:44 08/07/17 09:32 Lorazepam (Ativan 2mg/ml 1ml) 2 mg Q2H PRN IV For Anxiety 08/04/17 07:15 08/11/17 07:14 08/06/17 12:45 Pantoprazole (Protonix) 40 mg EVERY 12 HOURS IVP 08/05/17 21:00 09/04/17 20:59 08/07/17 09:25 Piperacillin Sod/ Tazobactam Sod 3.375 gm/Dextrose 110 ml @ 27.5 mls/hr EVERY 8 HOURS IVPB 08/04/17 11:00 08/09/17 10:59 08/07/17 06:14 Risperidone (RisperDAL) 2 mg BID ORAL 08/07/17 09:00 09/05/17 18:29 08/07/17 09:25 Trazodone HCl (Desyrel) 200 mg BEDTIME ORAL 08/04/17 21:00 09/02/17 22:29 08/06/17 22:00 Richardson Mitchell MD August 07, 2017 09:38
[2017-08-07] MEDS: Depakote 125mg Sprinkles GT SCH ×2 (10:02→21:05)
--- NOTE | 2017-08-07 11:17 | Diagnostic Imaging Report ---
Indication: Dyspnea Comparison: 08/06/2017 A single view chest radiograph was obtained. Findings: Similar findings demonstrated with hazy basilar opacities likely pleural effusions especially on the right. Heart is enlarged. Interstitial edema is suspected although probably slightly improved. IMPRESSION: Marginal improvement in interstitial edema.
[2017-08-07] MEDS: LORazepam Inj 2mg/ml 1ml IV PRN ×2 (11:22→16:14)
[2017-08-07] MEDS: TraZODone 100mg tab ORAL SCH (21:06)
[2017-08-08] VITALS (24 sets, daily range): BP systolic 91–132; BP diastolic 62–86
[2017-08-08] MEDS: Piperacillin/Tazobactam 3.375 GM in D5W 110 ML IVPB SCH (05:31)
[2017-08-08 06:03] LABS: HEMATOCRIT 51.4 % (42.0-52.0); HEMOGLOBIN 16.3 G/DL (14.2-18.0); MEAN CORPUSCULAR VOLUME 92 FL (80-99); PLATELET COUNT 174 K/UL (150-450); RED BLOOD COUNT 5.56 M/UL (4.70-6.10); RED CELL DISTRIBUTION WIDTH 15.6 % (11.6-14.8); WHITE BLOOD COUNT 4.7 K/UL (4.8-10.8)
[2017-08-08 06:15] LABS: ANION GAP 2 mmol/L (5-15); BLOOD UREA NITROGEN 9 mg/dL (7-18); CALCIUM 8.9 MG/DL (8.5-10.1); CARBON DIOXIDE 36 MMOL/L (21-32); CHLORIDE 97 MMOL/L (98-107); CREATININE 0.6 MG/DL (0.55-1.30); SODIUM 135 MMOL/L (136-145)
[2017-08-08] MEDS: Pantoprazole Inj IVP SCH ×2 (08:20→20:45)
[2017-08-08] MEDS: Citalopram 20mg Tab ORAL SCH (08:21)
[2017-08-08] MEDS: Depakote 125mg Sprinkles GT SCH ×2 (08:27→20:45)
--- NOTE | 2017-08-08 08:43 | Pulmonology Progress Note ---
Assessment/Plan Assessment/Plan 1. Acute respiratory failure. 2. Right hemithorax opacification. Now resolved after bronchoscopy 3. History of right pleural effusion. 4. Schizophrenia, chronic Coumadin usage. DISCUSSION: Continue abx Further history obtained from Dr Negrete Has history of PE in 2011 Will continue weaning attempts Previous tracheostomy noted Will begin feeding ID eval requested Begin Lasix gtt Subjective Interval Events: Unable to wean; still on 100% FiO2 Constitutional: Reports: no symptoms HEENT: Repors: no symptoms Respiratory: Reports: no symptoms Cardiovascular: Reports: no symptoms Gastrointestinal/Abdominal: Reports: no symptoms Genitourinary: Reports: no symptoms Neurologic: Reports: no symptoms Allergies: Coded Allergies: No Known Allergies (Unverified , 08/03/17) Objective Last 24 Hour Vital Signs Date Time Temp Pulse Resp B/P (MAP) Pulse Ox O2 Delivery O2 Flow Rate FiO2 08/08/17 07:00 98.1 95 15 115/72 90 Mechanical Ventilator 90 98.1 08/08/17 06:59 99 18 90 08/08/17 06:00 82 15 119/78 90 Mechanical Ventilator 90 08/08/17 05:30 79 16 70 08/08/17 05:00 81 15 126/65 90 Mechanical Ventilator 90 08/08/17 04:00 83 08/08/17 04:00 90 08/08/17 04:00 98.6 83 15 132/74 90 Mechanical Ventilator 90 98.6 08/08/17 03:30 91 15 70 08/08/17 03:00 82 15 108/67 90 Mechanical Ventilator 90 08/08/17 02:00 82 15 96/65 90 Mechanical Ventilator 90 08/08/17 01:30 83 14 70 08/08/17 01:00 82 15 118/75 90 Mechanical Ventilator 90 08/08/17 00:00 98.4 82 15 104/70 90 Mechanical Ventilator 90 98.4 08/08/17 00:00 90 08/07/17 23:30 89 15 70 08/07/17 23:00 80 15 117/73 90 Mechanical Ventilator 90 08/07/17 22:00 80 15 98/68 92 Mechanical Ventilator 90 08/07/17 21:30 84 15 70 08/07/17 21:00 80 16 113/76 92 Mechanical Ventilator 70 08/07/17 20:00 98.5 82 15 102/71 92 Mechanical Ventilator 70 98.5 5/24/18 20:00 70 08/07/17 20:00 82 08/07/17 19:30 81 15 70 08/07/17 19:00 80 17 112/76 92 Mechanical Ventilator 70 08/07/17 18:00 77 17 115/75 92 Mechanical Ventilator 70 08/07/17 17:15 92 15 70 08/07/17 17:00 81 17 105/69 92 Mechanical Ventilator 70 08/07/17 16:00 70 08/07/17 16:00 94 08/07/17 16:00 98.2 99 15 112/79 92 Mechanical Ventilator 70 98.2 08/07/17 15:23 93 15 70 08/07/17 15:00 93 16 120/80 92 Mechanical Ventilator 70 08/07/17 14:00 87 15 115/67 96 Mechanical Ventilator 70 08/07/17 13:00 90 15 114/75 93 Mechanical Ventilator 70 08/07/17 12:44 93 15 70 08/07/17 12:00 98.4 82 15 107/79 97 Mechanical Ventilator 70 98.4 08/07/17 12:00 70 08/07/17 12:00 82 08/07/17 11:01 100 16 70 08/07/17 11:00 91 15 106/73 95 Mechanical Ventilator 70 08/07/17 10:00 100 16 101/77 94 Mechanical Ventilator 70 08/07/17 09:00 94 16 123/75 98 Mechanical Ventilator 70 Intake and Output 08/07/17 08/08/17 19:00 07:00 Intake Total 592.5 ml 977.5 ml Output Total 2070 ml 2370 ml Balance -1477.5 ml -1392.5 ml Intake Free Water 50 ml IV Total 332.5 ml 487.5 ml Tube Feeding 60 ml 440 ml Other 200 ml Output Urine Total 2070 ml 2370 ml General Appearance: no acute distress HEENT: normocephalic Respiratory/Chest: chest wall non-tender, lungs clear Cardiovascular: normal peripheral pulses, normal rate Laboratory Tests 08/08/17 04:35: White Blood Count 4.7L, Red Blood Count 5.56, Hemoglobin 16.3, Hematocrit 51.4, Mean Corpuscular Volume 92, Mean Corpuscular Hemoglobin 29.2, Mean Corpuscular Hemoglobin Concent 31.7L, Red Cell Distribution Width 15.6H, Platelet Count 174 , Mean Platelet Volume 6.5, Neutrophils (%) (Auto) , Lymphocytes (%) (Auto) , Monocytes (%) (Auto) , Eosinophils (%) (Auto) , Basophils (%) (Auto) , Sodium Level 135L, Potassium Level 4.0, Chloride Level 97L, Carbon Dioxide Level 36H, Anion Gap 2L, Blood Urea Nitrogen 9, Creatinine 0.6, Estimat Glomerular Filtration Rate > 60, Glucose Level 125H, Calcium Level 8.9, Pro-B-Type Natriuretic Peptide 129H 08/08/17 07:35: Arterial Blood pH 7.440, Arterial Blood Partial Pressure CO2 57.2*H, Arterial Blood Partial Pressure O2 53.1L, Arterial Blood HCO3 38.3H, Arterial Blood Oxygen Saturation 86.3L, Arterial Blood Base Excess 11.3, Roosevelt Test Positive Current Medications Medications (Trade) Dose Ordered Sig/Kika Route PRN Reason Start Time Stop Time Status Last Admin Dose Admin Acetaminophen (Tylenol) 650 mg Q4H PRN ORAL Mild Pain/Temp > 100.5 08/05/17 19:30 09/04/17 19:29 08/05/17 20:02 Albuterol Sulfate (Proventil MDI) 2 puff Q6H PRN INH shortness of breath or wheezin 08/04/17 09:00 09/03/17 08:59 Atorvastatin Calcium (Lipitor) 10 mg BEDTIME ORAL 08/04/17 21:00 09/02/17 21:59 08/07/17 21:07 Citalopram Hydrobromide (celeXA) 40 mg DAILY ORAL 08/04/17 09:00 09/03/17 08:59 08/07/17 09:24 Dextrose/ Electrolytes 1,000 ml @ 50 mls/hr Q20H IV 08/07/17 11:00 09/06/17 10:59 08/07/17 12:00 Divalproex Sodium (Depakote Sprinkles) 500 mg EVERY 12 HOURS GT 08/05/17 21:00 09/04/17 20:59 08/07/17 21:05 Furosemide (Lasix) 40 mg EVERY 8 HOURS IV 08/07/17 14:00 09/06/17 13:59 08/08/17 05:32 Heparin Sodium (Porcine) (Heparin 5000 units/ml) 5,000 units EVERY 12 HOURS SUBQ 08/05/17 09:45 09/04/17 09:44 08/07/17 21:10 Lorazepam (Ativan 2mg/ml 1ml) 2 mg Q2H PRN IV For Anxiety 08/04/17 07:15 08/11/17 07:14 08/07/17 16:14 Pantoprazole (Protonix) 40 mg EVERY 12 HOURS IVP 08/05/17 21:00 09/04/17 20:59 08/07/17 21:05 Piperacillin Sod/ Tazobactam Sod 3.375 gm/Dextrose 110 ml @ 27.5 mls/hr EVERY 8 HOURS IVPB 08/04/17 11:00 08/09/17 10:59 08/08/17 05:31 Risperidone (RisperDAL) 2 mg BID ORAL 08/07/17 09:00 09/05/17 18:29 08/07/17 18:30 Trazodone HCl (Desyrel) 200 mg BEDTIME ORAL 08/04/17 21:00 09/02/17 22:29 08/07/17 21:06 Richardson Mitchell MD August 08, 2017 08:43
[2017-08-08] MEDS: Heparin 5000 units/ml inj SUBQ SCH (09:10)
[2017-08-08] MEDS: cefTRIAXone 1 GM in D5W 110 ML IVPB SCH (12:30)
--- NOTE | 2017-08-08 13:31 | Diagnostic Imaging Report ---
Indication: Dyspnea Technique: One view of the chest Comparison: 08/07/2017 Findings: The heart size is normal. There are again demonstrated are bilateral pleural effusions and bilateral interstitial edema. Stable satisfactory position of endotracheal tube. There is a nasogastric tube in place, proximal port of which is probably above the gastroesophageal junction. Impression: Somewhat high position of nasogastric tube. Advancement recommended Otherwise stable over one day, findings as described
--- NOTE | 2017-08-08 16:23 | Diagnostic Imaging Report ---
Indication: Status post advancement of nasogastric tube Technique: One view of the chest Comparison: 7 1/2 hours earlier Findings: . Advancement of nasogastric tube, tip which now projects beyond the edge of image, presumably well within the stomach. Bilateral pleural effusions and congestive changes and cardiomegaly are unchanged. Stable satisfactory position of endotracheal tube Impression: Improved and now satisfactory position of nasogastric
--- NOTE | 2017-08-08 18:00 | Consultation ---
DATE OF CONSULTATION: 08/08/2017 INFECTIOUS DISEASES CONSULTATION CONSULTING PHYSICIAN: Noel Yan M.D. REFERRING PHYSICIAN: Richardson Mitchell M.D. REASON FOR CONSULTATION: Pneumonia. HISTORY OF PRESENTING ILLNESS: This is a 62-year-old gentleman with history of COPD and a psychiatric condition, who came in because he had difficulty breathing. He was started on a BiPAP, but then was subsequently intubated in the emergency room. He has been admitted to the ICU and an Infectious Diseases consultation has been obtained for antibiotics. PAST MEDICAL HISTORY: 1. History of schizophrenia. 2. Prior history of tracheostomy. 3. History of G-tube placement. 4. History of hypertension. 5. Cardiomyopathy. 6. Cardiac arrhythmia. 7. COPD. 8. GI bleeding. 9. Scoliosis. 10. Urinary tract infection. 11. Pleural effusion. 12. Atrial fibrillation. 13. Anemia. SOCIAL HISTORY: Unknown. FAMILY HISTORY: Unknown. REVIEW OF SYSTEMS: Unable to obtain currently. MEDICATIONS: As an inpatient, he is on furosemide, warfarin, Risperdal, Protonix, Depakote, Tylenol, subcutaneous heparin, Lipitor, trazodone, Zosyn, albuterol, Celexa, Ativan. ALLERGIES: No known drug allergies. PHYSICAL EXAMINATION: VITAL SIGNS: Temperature of 98.1, T-max of 98.6, pulse of 91, respiratory rate 15, blood pressure 102/67, O2 saturation of 92%. HEENT: Pupils equally reactive to light and accommodation. Mouth appears clean. The patient is intubated. NECK: Supple. No adenopathy. No JVD. CARDIOVASCULAR: Regular rate and rhythm. No murmurs. LUNGS: Clear to auscultation bilaterally. No crackles. No wheezes. ABDOMEN: Soft and nontender. No organomegaly. EXTREMITIES: No cyanosis, no clubbing, no edema. LABORATORY DATA: White count 4.7, hemoglobin 16.3, hematocrit 51.4, MCV 92, platelet count of 174,000. Sodium 135, potassium 4, chloride 97, bicarbonate 36, BUN 9, creatinine 0.6, glucose 125, calcium 8.9. Beta-natriuretic peptide 129. On 08/04/2017, total protein 5.8, albumin 2.3, AST 13, ALT 21, alkaline phosphatase 59. UA showing 0 to 2 white cells on 08/03/2017. Blood cultures are negative on 08/03/2017. On 08/03/2017, nasal swab was negative for MRSA. On 08/03/2017, rectal swab was negative for VRE. On 08/04/2017, sputum culture is growing Klebsiella which is susceptible to ceftriaxone, Cipro, ertapenem, imipenem, Levaquin, piperacillin, tazobactam. Chest x-ray showing marginal improvement in interstitial edema, hazy basilar opacities like pleural effusions noted. Echocardiogram done on 08/04/2017, showed trace mitral regurgitation, mild tricuspid regurgitation. CT of head showing no mass effect, edema, or bleed. ASSESSMENT: This is a 62-year-old gentleman with history of schizophrenia, COPD, hypertension, who comes in and was found to have: 1. Klebsiella pneumonia. 2. Respiratory failure. 3. Hypertension. PLAN: 1. Discontinue Zosyn. 2. We will start the patient on ceftriaxone. 3. We will follow up cultures. I would like to thank, Dr. Mitchell, for this consultation. Noel Yan M.D. DR: Clair JOB#: [id number] CC: Richardson Mitchell M.D.; Fax#: [phone]
[2017-08-08] MEDS ORDERED: Warfarin Sodium 2.5mg ORAL ONE (20:00)
[2017-08-08] MEDS: TraZODone 100mg tab ORAL SCH (20:46)
[2017-08-09] VITALS (24 sets, daily range): BP systolic 96–135; BP diastolic 63–81
[2017-08-09 06:02] LABS: INR 1.1 (0.9-1.1)
[2017-08-09 06:05] LABS: HEMATOCRIT 53.7 % (42.0-52.0); HEMOGLOBIN 16.8 G/DL (14.2-18.0); MEAN CORPUSCULAR VOLUME 93 FL (80-99); PLATELET COUNT 178 K/UL (150-450); RED BLOOD COUNT 5.78 M/UL (4.70-6.10); RED CELL DISTRIBUTION WIDTH 16.2 % (11.6-14.8); WHITE BLOOD COUNT 7.4 K/UL (4.8-10.8)
[2017-08-09 06:19] LABS: ANION GAP 3 mmol/L (5-15); BLOOD UREA NITROGEN 10 mg/dL (7-18); CALCIUM 9.3 MG/DL (8.5-10.1); CARBON DIOXIDE 39 MMOL/L (21-32); CHLORIDE 94 MMOL/L (98-107); CREATININE 0.7 MG/DL (0.55-1.30); POTASSIUM 4.1 MMOL/L (3.5-5.1); SODIUM 136 MMOL/L (136-145)
[2017-08-09] MEDS: Albuterol/Ipratropium 3ml neb IN-LINE SCH ×3 (06:57→19:30)
--- NOTE | 2017-08-09 09:00 | Diagnostic Imaging Report ---
PORTABLE AP CXR: HISTORY: 62-year-old male with SOB. COMPARISON: 08/08/2017, 08/04/2017. FINDINGS: Compared to the most recent exam, there has been further decreased density and extent of ill-defined confluent opacity in the right lung base; the right hemidiaphragm is now visible. There is persistent minimal ill-defined groundglass and reticular opacity in the left lung base as well, also mildly decreased. There is minimal blunting of the lateral costophrenic sulci bilaterally. Cardiomegaly is grossly stable. Endotracheal and enteric tubes are in grossly stable and satisfactory positions. IMPRESSION: Decreased bibasilar lung opacities, right greater than left, since the recent exam; otherwise, no significant interval change.
[2017-08-09] MEDS: Citalopram 20mg Tab ORAL SCH (09:57)
[2017-08-09] MEDS: Pantoprazole Inj IVP SCH ×2 (09:57→20:22)
[2017-08-09] MEDS: Depakote 125mg Sprinkles GT SCH ×2 (09:57→20:23)
[2017-08-09] MEDS ORDERED: Tubing IV Secondary IV ONE ×2 (11:05→11:07)
[2017-08-09] MEDS ORDERED: NS 500ML ONE (11:05)
[2017-08-09] MEDS ORDERED: D5NS 1000ml IV ONE (11:07)
[2017-08-09] MEDS ORDERED: NS 275ml ONE (11:07)
[2017-08-09] MEDS ORDERED: D5W 275ml ONE (11:07)
[2017-08-09] MEDS: cefTRIAXone 1 GM in D5W 110 ML IVPB SCH (12:30)
[2017-08-09] MEDS: LORazepam Inj 2mg/ml 1ml IV PRN ×2 (14:27→17:21)
--- NOTE | 2017-08-09 16:09 | Pulmonology Progress Note ---
Assessment/Plan Assessment/Plan 1. Chronic respiratory failure. with hypoxemia 2. hypotension 3. History of right pleural effusion. 4. Schizophrenia, PLAN vent add PEEP on coumadin feeds likely needs trach and gt impression, plan, and exam edited and reviewed in detail care discussed with RN Subjective Allergies: Coded Allergies: No Known Allergies (Unverified , 08/03/17) Subjective on vent on 100% Objective Last 24 Hour Vital Signs Date Time Temp Pulse Resp B/P (MAP) Pulse Ox O2 Delivery O2 Flow Rate FiO2 08/09/17 15:00 96 17 116/66 93 Mechanical Ventilator 100 08/09/17 14:43 87 20 100 08/09/17 14:00 98 17 104/67 90 Mechanical Ventilator 100 08/09/17 13:00 91 15 111/69 91 Mechanical Ventilator 100 08/09/17 12:45 102 16 92 Mechanical Ventilator 100 08/09/17 12:35 100 21 90 Mechanical Ventilator 100 08/09/17 12:32 98 23 100 08/09/17 12:00 100 15 118/72 91 Mechanical Ventilator 100 08/09/17 12:00 93 08/09/17 12:00 100 08/09/17 11:00 93 15 103/68 90 Mechanical Ventilator 100 08/09/17 10:47 103 14 100 08/09/17 10:00 99 15 101/70 89 Mechanical Ventilator 100 08/09/17 09:00 84 15 97/63 89 Mechanical Ventilator 100 08/09/17 08:58 84 18 100 08/09/17 08:00 95 08/09/17 08:00 100 08/09/17 08:00 99.1 90 15 110/68 89 Mechanical Ventilator 100 99.1 08/09/17 07:08 86 15 90 Mechanical Ventilator 100 08/09/17 07:00 83 15 96/64 89 Mechanical Ventilator 100 08/09/17 06:57 83 15 89 Mechanical Ventilator 100 08/09/17 06:54 84 15 100 08/09/17 06:00 84 15 97/63 88 Mechanical Ventilator 100 08/09/17 05:11 83 16 100 08/09/17 05:00 83 15 135/81 87 Mechanical Ventilator 100 08/09/17 04:00 98.7 84 15 109/70 88 Mechanical Ventilator 100 98.7 08/09/17 04:00 100 08/09/17 04:00 84 08/09/17 03:07 85 15 100 08/09/17 03:00 84 15 107/68 88 Mechanical Ventilator 100 08/09/17 02:00 86 15 110/71 88 Mechanical Ventilator 100 08/09/17 01:21 86 15 100 08/09/17 01:00 87 15 107/70 88 Mechanical Ventilator 100 08/09/17 00:00 100 08/09/17 00:00 98.6 85 15 97/65 91 Mechanical Ventilator 100 98.6 08/09/17 00:00 87 08/08/17 23:00 95 15 105/69 89 Mechanical Ventilator 100 08/08/17 22:54 93 17 100 08/08/17 22:00 91 16 95/63 90 Mechanical Ventilator 100 08/08/17 21:16 91 15 100 08/08/17 21:00 93 17 102/65 89 Mechanical Ventilator 100 08/08/17 20:00 98.3 104 21 119/67 90 Mechanical Ventilator 100 98.3 08/08/17 20:00 100 08/08/17 20:00 104 08/08/17 19:16 107 26 100 08/08/17 19:00 94 17 105/70 88 Mechanical Ventilator 100 08/08/17 18:00 93 16 103/68 91 Mechanical Ventilator 100 08/08/17 17:27 96 18 100 08/08/17 17:00 96 17 117/86 91 Mechanical Ventilator 100 Intake and Output 08/08/17 08/09/17 19:00 07:00 Intake Total 1418.25 ml 1320.0 ml Output Total 1370 ml 1180 ml Balance 48.25 ml 140.0 ml Intake Free Water 60 ml 80 ml IV Total 808.25 ml 690.0 ml Tube Feeding 550 ml 550 ml Output Urine Total 1370 ml 1180 ml Objective WDWN oral ETT reduced breath sounds bilaterally without rhonchi or wheeze [id number] without MRG NABS nontender no HSM no CC; mild edema weak Laboratory Tests 08/08/17 17:25: Prothrombin Time 10.9, Prothromb Time International Ratio 1.0 08/09/17 04:00: Arterial Blood pH 7.440, Arterial Blood Partial Pressure CO2 58.4*H, Arterial Blood Partial Pressure O2 59.0L, Arterial Blood HCO3 39.4H, Arterial Blood Oxygen Saturation 87.9L, Arterial Blood Base Excess 12.2, [place] Test Positive 08/09/17 04:30: Prothrombin Time 11.2, Prothromb Time International Ratio 1.1, White Blood Count 7.4#, Red Blood Count 5.78, Hemoglobin 16.8, Hematocrit 53.7H, Mean Corpuscular Volume 93, Mean Corpuscular Hemoglobin 29.0, Mean Corpuscular Hemoglobin Concent 31.2L, Red Cell Distribution Width 16.2H, Platelet Count 178 , Mean Platelet Volume 6.9, Neutrophils (%) (Auto) , Lymphocytes (%) (Auto) , Monocytes (%) (Auto) , Eosinophils (%) (Auto) , Basophils (%) (Auto) , Differential Total Cells Counted 100, Neutrophils % (Manual) 67, Lymphocytes % ( Manual) 12L, Monocytes % (Manual) 19H, Eosinophils % (Manual) 1, Basophils % ( Manual) 0, Band Neutrophils 1, Platelet Estimate Adequate, Platelet Morphology Normal, Anisocytosis 1+, D-Dimer 0.44, Sodium Level 136, Potassium Level 4.1, Chloride Level 94L, Carbon Dioxide Level 39H, Anion Gap 3L, Blood Urea Nitrogen 10, Creatinine 0.7, Estimat Glomerular Filtration Rate > 60, Glucose Level 85, Calcium Level 9.3, Pro-B-Type Natriuretic Peptide 80 Current Medications Medications (Trade) Dose Ordered Sig/Kika Route PRN Reason Start Time Stop Time Status Last Admin Dose Admin Acetaminophen (Tylenol) 650 mg Q4H PRN ORAL Mild Pain/Temp > 100.5 08/05/17 19:30 09/04/17 19:29 08/05/17 20:02 Albuterol Sulfate (Proventil MDI) 2 puff Q6H PRN INH shortness of breath or wheezin 08/04/17 09:00 09/03/17 08:59 Albuterol/ Ipratropium (Albuterol/ Ipratropium) 3 ml Q6HRT IN-LINE 08/09/17 07:00 08/14/17 06:59 08/09/17 12:35 Atorvastatin Calcium (Lipitor) 10 mg BEDTIME ORAL 08/04/17 21:00 09/02/17 21:59 08/08/17 20:46 Ceftriaxone Sodium 1 gm/ Dextrose 110 ml @ 220 mls/hr Q24H IVPB 08/08/17 12:30 08/15/17 12:29 08/09/17 12:30 Citalopram Hydrobromide (celeXA) 40 mg DAILY ORAL 08/04/17 09:00 09/03/17 08:59 08/09/17 09:57 Dextrose/ Electrolytes 1,000 ml @ 50 mls/hr Q20H IV 08/07/17 11:00 09/06/17 10:59 08/09/17 03:01 Divalproex Sodium (Depakote Sprinkles) 500 mg EVERY 12 HOURS GT 08/05/17 21:00 09/04/17 20:59 08/09/17 09:57 Furosemide 100 mg/ Dextrose 100 ml @ 7.5 mls/hr [id number] IV 08/08/17 11:30 09/07/17 11:29 08/09/17 14:08 Lorazepam (Ativan 2mg/ml 1ml) 2 mg Q2H PRN IV For Anxiety 08/04/17 07:15 08/11/17 07:14 08/09/17 14:27 Pantoprazole (Protonix) 40 mg EVERY 12 HOURS IVP 08/05/17 21:00 09/04/17 20:59 08/09/17 09:57 Risperidone (RisperDAL) 2 mg BID ORAL 08/07/17 09:00 09/05/17 18:29 08/09/17 09:58 Trazodone HCl (Desyrel) 200 mg BEDTIME ORAL 08/04/17 21:00 09/02/17 22:29 08/08/17 20:46 Warfarin Sodium (Coumadin per pharmacy) 1 ea DAILY PRN MISC Per rx protocol 08/08/17 08:45 09/07/17 08:44 Warfarin Sodium (Coumadin) 3 mg COUMADIN ONCE ORAL 08/09/17 17:00 08/09/17 17:01 Ramana Flores MD August 09, 2017 16:09
[2017-08-09] MEDS ORDERED: Warfarin Sodium 3mg ORAL ONE (17:00)
[2017-08-09] MEDS: TraZODone 100mg tab ORAL SCH (20:23)
[2017-08-10] VITALS (24 sets, daily range): BP systolic 91–126; BP diastolic 56–83
[2017-08-10] MEDS: Albuterol/Ipratropium 3ml neb IN-LINE SCH ×4 (01:12→19:19)
[2017-08-10 06:38] LABS: INR 1.2 (0.9-1.1)
--- NOTE | 2017-08-10 07:05 | Pulmonology Progress Note ---
Assessment/Plan Assessment/Plan 1. Chronic respiratory failure. with hypoxemia, diffuse pulmonary infiltrates 2. hypotension 3. History of right pleural effusion. 4. Schizophrenia, PLAN vent on PEEP on coumadin feeds likely needs trach and gt if unable to wean taper oxygen as able monitor imaging for change ID follow up impression, plan, and exam edited and reviewed in detail care discussed with RN Subjective ROS Limited/Unobtainable: Yes Allergies: Coded Allergies: No Known Allergies (Unverified , 08/03/17) Subjective on vent on 100% and PEEP Objective Last 24 Hour Vital Signs Date Time Temp Pulse Resp B/P (MAP) Pulse Ox O2 Delivery O2 Flow Rate FiO2 08/10/17 06:00 101 15 98/63 92 Mechanical Ventilator 100 08/10/17 05:27 94 21 100 08/10/17 05:00 104 18 126/67 92 Mechanical Ventilator 100 08/10/17 04:00 96 08/10/17 04:00 100 08/10/17 04:00 98.3 96 15 106/71 91 Mechanical Ventilator 100 98.3 08/10/17 03:01 101 16 100 08/10/17 03:00 103 16 106/65 90 Mechanical Ventilator 100 08/10/17 02:00 96 15 106/65 91 Mechanical Ventilator 100 08/10/17 01:18 92 20 91 Mechanical Ventilator 100 08/10/17 01:17 94 19 100 08/10/17 01:11 94 19 88 Mechanical Ventilator 100 08/10/17 01:00 92 15 99/64 89 Mechanical Ventilator 100 08/10/17 00:00 94 08/10/17 00:00 100 08/10/17 00:00 97.6 94 16 104/65 88 Mechanical Ventilator 100 97.6 08/09/17 23:29 96 22 100 08/09/17 23:00 101 17 108/64 92 Mechanical Ventilator 100 08/09/17 22:00 97 17 109/66 93 Mechanical Ventilator 100 08/09/17 21:26 97 20 100 08/09/17 21:00 100 16 113/68 93 Mechanical Ventilator 100 08/09/17 20:00 97.8 101 17 117/72 92 Mechanical Ventilator 100 97.8 08/09/17 20:00 101 08/09/17 20:00 100 08/09/17 19:16 100 15 92 Mechanical Ventilator 100 08/09/17 19:11 98 16 92 Mechanical Ventilator 100 08/09/17 19:10 102 16 100 08/09/17 19:00 100 16 113/69 92 Mechanical Ventilator 100 08/09/17 18:00 90 22 111/73 94 Mechanical Ventilator 100 08/09/17 17:00 97.6 98 20 105/64 91 Mechanical Ventilator 100 97.6 08/09/17 16:34 96 19 100 08/09/17 16:00 98 17 119/65 88 Mechanical Ventilator 100 08/09/17 16:00 102 08/09/17 16:00 100 08/09/17 15:00 96 17 116/66 93 Mechanical Ventilator 100 08/09/17 14:43 87 20 100 08/09/17 14:00 98 17 104/67 90 Mechanical Ventilator 100 08/09/17 13:00 91 15 111/69 91 Mechanical Ventilator 100 08/09/17 12:45 102 16 92 Mechanical Ventilator 100 08/09/17 12:35 100 21 90 Mechanical Ventilator 100 08/09/17 12:32 98 23 100 08/09/17 12:00 100 15 118/72 91 Mechanical Ventilator 100 08/09/17 12:00 93 08/09/17 12:00 100 08/09/17 11:00 93 15 103/68 90 Mechanical Ventilator 100 08/09/17 10:47 103 14 100 08/09/17 10:00 99 15 101/70 89 Mechanical Ventilator 100 08/09/17 09:00 84 15 97/63 89 Mechanical Ventilator 100 08/09/17 08:58 84 18 100 08/09/17 08:00 95 08/09/17 08:00 100 08/09/17 08:00 99.1 90 15 110/68 89 Mechanical Ventilator 100 99.1 08/09/17 07:08 86 15 90 Mechanical Ventilator 100 Intake and Output 08/09/17 08/10/17 19:00 07:00 Intake Total 1392.5 ml 1292.5 ml Output Total 1280 ml 1350 ml Balance 112.5 ml -57.5 ml Intake Free Water 110 ml IV Total 792.5 ml 632.5 ml Tube Feeding 600 ml 550 ml Output Urine Total 1280 ml 1350 ml # Bowel Movements 1 Objective WDWN oral ETT reduced breath sounds bilaterally without rhonchi or wheeze [id number] without MRG NABS nontender no HSM no CC; mild edema weak Laboratory Tests 08/10/17 04:00: Prothrombin Time 12.7H, Prothromb Time International Ratio 1.2H Current Medications Medications (Trade) Dose Ordered Sig/Kika Route PRN Reason Start Time Stop Time Status Last Admin Dose Admin Acetaminophen (Tylenol) 650 mg Q4H PRN ORAL Mild Pain/Temp > 100.5 08/05/17 19:30 09/04/17 19:29 08/05/17 20:02 Albuterol Sulfate (Proventil MDI) 2 puff Q6H PRN INH shortness of breath or wheezin 08/04/17 09:00 09/03/17 08:59 Albuterol/ Ipratropium (Albuterol/ Ipratropium) 3 ml Q6HRT IN-LINE 08/09/17 07:00 08/14/17 06:59 08/10/17 01:12 Atorvastatin Calcium (Lipitor) 10 mg BEDTIME ORAL 08/04/17 21:00 09/02/17 21:59 08/09/17 20:23 Ceftriaxone Sodium 1 gm/ Dextrose 110 ml @ 220 mls/hr Q24H IVPB 08/08/17 12:30 08/15/17 12:29 08/09/17 12:30 Citalopram Hydrobromide (celeXA) 40 mg DAILY ORAL 08/04/17 09:00 09/03/17 08:59 08/09/17 09:57 Dextrose/ Electrolytes 1,000 ml @ 50 mls/hr Q20H IV 08/07/17 11:00 09/06/17 10:59 08/09/17 22:52 Divalproex Sodium (Depakote Sprinkles) 500 mg EVERY 12 HOURS GT 08/05/17 21:00 09/04/17 20:59 08/09/17 20:23 Furosemide 100 mg/ Dextrose 100 ml @ 7.5 mls/hr [id number] IV 08/08/17 11:30 09/07/17 11:29 08/10/17 06:19 Lorazepam (Ativan 2mg/ml 1ml) 2 mg Q2H PRN IV For Anxiety 08/04/17 07:15 08/11/17 07:14 08/09/17 17:21 Pantoprazole (Protonix) 40 mg EVERY 12 HOURS IVP 08/05/17 21:00 09/04/17 20:59 08/09/17 20:22 Risperidone (RisperDAL) 2 mg BID ORAL 08/07/17 09:00 09/05/17 18:29 08/09/17 17:21 Trazodone HCl (Desyrel) 200 mg BEDTIME ORAL 08/04/17 21:00 09/02/17 22:29 08/09/17 20:23 Warfarin Sodium (Coumadin per pharmacy) 1 ea DAILY PRN MISC Per rx protocol 08/08/17 08:45 09/07/17 08:44 Ramana Flores MD August 10, 2017 07:05
[2017-08-10] MEDS: Pantoprazole Inj IVP SCH ×2 (08:32→21:27)
[2017-08-10] MEDS: Depakote 125mg Sprinkles GT SCH ×2 (08:33→21:27)
[2017-08-10] MEDS ORDERED: Citalopram Hydrobromide 10mg Tab ORAL SCH (10:00)
--- NOTE | 2017-08-10 11:13 | Infectious Diseases Prog Note ---
Assessment/Plan Assessment/Plan A; Pneumonia New fever Hypercapnic respiratory failure COPD Schizophrenia P: Continue Rocephin add Vancomycin Repeat CXR, UA, UC & blood cultures Subjective ROS Limited/Unobtainable: Yes Constitutional: Reports: fever Neurologic: Reports: confusion, other - on restraint Allergies: Coded Allergies: No Known Allergies (Unverified , 08/03/17) Objective Vital Signs Last 24 Hour Vital Signs Date Time Temp Pulse Resp B/P (MAP) Pulse Ox O2 Delivery O2 Flow Rate FiO2 08/10/17 10:40 101 17 100 08/10/17 10:07 102.3 08/10/17 10:00 107 15 109/67 92 Mechanical Ventilator 94 08/10/17 09:14 102 17 100 08/10/17 09:00 102.3 101 13 102/68 92 Mechanical Ventilator 100 102.3 08/10/17 08:00 102.2 101 15 108/83 92 Mechanical Ventilator 100 102.2 08/10/17 08:00 100 08/10/17 08:00 100 08/10/17 07:36 101 16 91 Mechanical Ventilator 100 08/10/17 07:27 104 19 92 Mechanical Ventilator 100 08/10/17 07:20 104 19 100 08/10/17 07:00 101 15 111/66 92 Mechanical Ventilator 100 08/10/17 06:00 101 15 98/63 92 Mechanical Ventilator 100 08/10/17 05:27 94 21 100 08/10/17 05:00 104 18 126/67 92 Mechanical Ventilator 100 08/10/17 04:00 96 08/10/17 04:00 100 08/10/17 04:00 98.3 96 15 106/71 91 Mechanical Ventilator 100 98.3 08/10/17 03:01 101 16 100 08/10/17 03:00 103 16 106/65 90 Mechanical Ventilator 100 08/10/17 02:00 96 15 106/65 91 Mechanical Ventilator 100 08/10/17 01:18 92 20 91 Mechanical Ventilator 100 08/10/17 01:17 94 19 100 08/10/17 01:11 94 19 88 Mechanical Ventilator 100 08/10/17 01:00 92 15 99/64 89 Mechanical Ventilator 100 08/10/17 00:00 94 08/10/17 00:00 100 08/10/17 00:00 97.6 94 16 104/65 88 Mechanical Ventilator 100 97.6 08/09/17 23:29 96 22 100 08/09/17 23:00 101 17 108/64 92 Mechanical Ventilator 100 08/09/17 22:00 97 17 109/66 93 Mechanical Ventilator 100 08/09/17 21:26 97 20 100 08/09/17 21:00 100 16 113/68 93 Mechanical Ventilator 100 08/09/17 20:00 97.8 101 17 117/72 92 Mechanical Ventilator 100 97.8 08/09/17 20:00 101 08/09/17 20:00 100 08/09/17 19:16 100 15 92 Mechanical Ventilator 100 08/09/17 19:11 98 16 92 Mechanical Ventilator 100 08/09/17 19:10 102 16 100 08/09/17 19:00 100 16 113/69 92 Mechanical Ventilator 100 08/09/17 18:00 90 22 111/73 94 Mechanical Ventilator 100 08/09/17 17:00 97.6 98 20 105/64 91 Mechanical Ventilator 100 97.6 08/09/17 16:34 96 19 100 08/09/17 16:00 98 17 119/65 88 Mechanical Ventilator 100 08/09/17 16:00 102 08/09/17 16:00 100 08/09/17 15:00 96 17 116/66 93 Mechanical Ventilator 100 08/09/17 14:43 87 20 100 08/09/17 14:00 98 17 104/67 90 Mechanical Ventilator 100 08/09/17 13:00 91 15 111/69 91 Mechanical Ventilator 100 08/09/17 12:45 102 16 92 Mechanical Ventilator 100 08/09/17 12:35 100 21 90 Mechanical Ventilator 100 08/09/17 12:32 98 23 100 08/09/17 12:00 100 15 118/72 91 Mechanical Ventilator 100 08/09/17 12:00 93 08/09/17 12:00 100 Height (Feet): 5 Height (Inches): 9.00 Weight (Pounds): 178 HEENT: other - orally intubated Respiratory/Chest: lungs clear, other - on ventiltor Cardiovascular: tachycardia Abdomen: soft, non tender, other - orogstric tube feeding Genitourinary: other - condom catheter Extremities: no edema Neurologic/Psychiatric: disoriented Laboratory Tests Test 08/10/17 04:00 Prothrombin Time 12.7 SEC (9.30-11.50) H Prothromb Time International Ratio 1.2 (0.9-1.1) H Current Medications Medications (Trade) Dose Ordered Sig/Kika Route PRN Reason Start Time Stop Time Status Last Admin Dose Admin Acetaminophen (Tylenol) 650 mg Q4H PRN ORAL Mild Pain/Temp > 100.5 08/05/17 19:30 09/04/17 19:29 08/10/17 10:07 Albuterol Sulfate (Proventil MDI) 2 puff Q6H PRN INH shortness of breath or wheezin 08/04/17 09:00 09/03/17 08:59 Albuterol/ Ipratropium (Albuterol/ Ipratropium) 3 ml Q6HRT IN-LINE 08/09/17 07:00 08/14/17 06:59 08/10/17 07:26 Atorvastatin Calcium (Lipitor) 10 mg BEDTIME ORAL 08/04/17 21:00 09/02/17 21:59 08/09/17 20:23 Ceftriaxone Sodium 1 gm/ Dextrose 110 ml @ 220 mls/hr Q24H IVPB 08/08/17 12:30 08/15/17 12:29 08/09/17 12:30 Citalopram Hydrobromide (celeXA) 40 mg DAILY ORAL 08/11/17 09:00 09/10/17 08:59 Dextrose/ Electrolytes 1,000 ml @ 50 mls/hr Q20H IV 08/07/17 11:00 09/06/17 10:59 08/09/17 22:52 Divalproex Sodium (Depakote Sprinkles) 500 mg EVERY 12 HOURS GT 08/05/17 21:00 09/04/17 20:59 08/10/17 08:33 Furosemide 100 mg/ Dextrose 100 ml @ 7.5 mls/hr [id number] IV 08/08/17 11:30 09/07/17 11:29 08/10/17 06:19 Lorazepam (Ativan 2mg/ml 1ml) 2 mg Q2H PRN IV For Anxiety 08/04/17 07:15 08/11/17 07:14 08/09/17 17:21 Pantoprazole (Protonix) 40 mg EVERY 12 HOURS IVP 08/05/17 21:00 09/04/17 20:59 08/10/17 08:32 Risperidone (RisperDAL) 2 mg BID ORAL 08/07/17 09:00 09/05/17 18:29 08/10/17 08:33 Trazodone HCl (Desyrel) 200 mg BEDTIME ORAL 08/04/17 21:00 09/02/17 22:29 08/09/17 20:23 Warfarin Sodium (Coumadin per pharmacy) 1 ea DAILY PRN MISC Per rx protocol 08/08/17 08:45 09/07/17 08:44 Warfarin Sodium (Coumadin) 3 mg COUMADIN ONCE ORAL 08/10/17 17:00 08/10/17 17:01 ROMARIO AVALOS August 10, 2017 11:13
[2017-08-10] MEDS: LORazepam Inj 2mg/ml 1ml IV PRN ×2 (13:09→16:49)
[2017-08-10] MEDS: cefTRIAXone 1 GM in D5W 110 ML IVPB SCH (13:13)
[2017-08-10] MEDS: Vancomycin 1gm/D5W 275ml IVPB SCH ×4 (14:44→21:27)
[2017-08-10] MEDS ORDERED: Warfarin Sodium 3mg ORAL ONE (17:00)
[2017-08-10] MEDS: TraZODone 100mg tab ORAL SCH (21:27)
[2017-08-10 21:59] LABS: APPEARANCE,URINE SLIGHTLY CLOUDY; BILIRUBIN, URINE NEGATIVE (NEGATIVE); GLUCOSE, URINE (UA) NEGATIVE (NEGATIVE); KETONES,URINE NEGATIVE (NEGATIVE); LEUKOCYTE ESTERASE ,URINE 1+ (NEGATIVE); NITRITE,URINE NEGATIVE (NEGATIVE); PH,URINE 5 (4.5-8.0); PROTEIN,URINE 1+ (NEGATIVE); UROBILINOGEN,URINE 1 MG/DL (0.0-1.0)
[2017-08-10 22:06] LABS: COLOR,URINE YELLOW
[2017-08-11] VITALS (24 sets, daily range): BP systolic 80–148; BP diastolic 53–86
[2017-08-11] MEDS: Albuterol/Ipratropium 3ml neb IN-LINE SCH ×4 (00:30→19:15)
[2017-08-11] MEDS: Vancomycin 1gm/D5W 275ml IVPB SCH ×2 (05:17)
[2017-08-11 05:18] LABS: INR 1.8 (0.9-1.1)
[2017-08-11 05:19] LABS: BASOPHILS % (AUTO) 1.6 % (0.0-2.0); EOSINOPHILS % (AUTO) 0.2 % (0.0-3.0); HEMATOCRIT 51.5 % (42.0-52.0); LYMPHOCYTES % (AUTO) 3.6 % (20.0-45.0); MEAN CORPUSCULAR VOLUME 94 FL (80-99); MONOCYTES % (AUTO) 15.1 % (1.0-10.0); NEUTROPHILS % (AUTO) 79.5 % (45.0-75.0); PLATELET COUNT 145 K/UL (150-450); RED BLOOD COUNT 5.48 M/UL (4.70-6.10); RED CELL DISTRIBUTION WIDTH 16.1 % (11.6-14.8); WHITE BLOOD COUNT 12.1 K/UL (4.8-10.8)
[2017-08-11] MEDS: LORazepam Inj 2mg/ml 1ml IV PRN (05:35)
[2017-08-11 05:36] LABS: ALANINE AMINOTRANSFERASE 23 U/L (12-78); ALBUMIN 2.1 G/DL (3.4-5.0); ALBUMIN/GLOBULIN RATIO 0.4 (1.0-2.7); ALKALINE PHOSPHATASE 64 U/L (46-116); ANION GAP -1 mmol/L (5-15); ASPARTATE AMINO TRANSFERASE 23 U/L (15-37); BILIRUBIN,TOTAL 0.9 MG/DL (0.2-1.0); BLOOD UREA NITROGEN 20 mg/dL (7-18); CALCIUM 9.5 MG/DL (8.5-10.1); CHLORIDE 95 MMOL/L (98-107); CREATININE 0.8 MG/DL (0.55-1.30); POTASSIUM 3.8 MMOL/L (3.5-5.1); SODIUM 139 MMOL/L (136-145)
[2017-08-11 05:42] LABS: CARBON DIOXIDE 40 MMOL/L (21-32)
--- NOTE | 2017-08-11 08:34 | Pulmonology Progress Note ---
Assessment/Plan Assessment/Plan 1. Chronic respiratory failure. with hypoxemia, diffuse pulmonary infiltrates 2. hypotension 3. History of right pleural effusion. 4. Schizophrenia, PLAN vent on PEEP on coumadin feeds improved and may be able to start wean in am monitor imaging -ordered supportive care ID follow up impression, plan, and exam edited and reviewed in detail care discussed with RN Subjective ROS Limited/Unobtainable: Yes Allergies: Coded Allergies: No Known Allergies (Unverified , 08/03/17) Subjective on vent on 60% and PEEP Objective Last 24 Hour Vital Signs Date Time Temp Pulse Resp B/P (MAP) Pulse Ox O2 Delivery O2 Flow Rate FiO2 08/11/17 07:47 85 15 96 Mechanical Ventilator 60 08/11/17 07:41 80 15 100 Mechanical Ventilator 100 08/11/17 07:40 95 15 60 08/11/17 07:00 98.8 82 15 103/64 94 Mechanical Ventilator 60 98.8 08/11/17 06:24 98.8 08/11/17 06:00 100.1 90 15 90/58 94 Mechanical Ventilator 80 100.1 08/11/17 05:38 60 08/11/17 05:29 96 21 60 08/11/17 05:25 100.1 08/11/17 05:00 90 19 107/63 98 Mechanical Ventilator 80 08/11/17 04:00 80 08/11/17 04:00 99.4 97 15 103/59 97 Mechanical Ventilator 100 99.4 08/11/17 04:00 93 08/11/17 03:19 91 15 70 08/11/17 03:00 77 15 110/66 100 Mechanical Ventilator 100 08/11/17 02:00 77 15 114/64 100 Mechanical Ventilator 100 08/11/17 01:00 79 15 100/65 100 Mechanical Ventilator 100 08/11/17 00:40 79 15 99 Mechanical Ventilator 80 08/11/17 00:40 76 15 80 08/11/17 00:31 72 15 100 Mechanical Ventilator 100 08/11/17 00:00 100 08/11/17 00:00 75 08/11/17 00:00 98.8 76 15 99/62 100 Mechanical Ventilator 100 98.8 08/10/17 23:00 78 21 110/67 100 Mechanical Ventilator 100 08/10/17 22:43 84 15 100 08/10/17 22:00 100.7 79 16 93/56 100 Mechanical Ventilator 100 100.7 08/10/17 21:00 94 21 105/60 96 Mechanical Ventilator 100 08/10/17 20:46 103 19 100 08/10/17 20:00 100 08/10/17 20:00 98 08/10/17 20:00 102.7 102 23 106/67 99 Mechanical Ventilator 100 102.7 08/10/17 19:32 103 15 98 Mechanical Ventilator 100 08/10/17 19:20 106 20 97 Mechanical Ventilator 100 08/10/17 19:19 108 20 100 08/10/17 19:00 109 21 110/72 96 Mechanical Ventilator 100 08/10/17 18:00 102 15 109/68 96 Mechanical Ventilator 100 08/10/17 17:00 102 16 102/67 96 Mechanical Ventilator 100 08/10/17 16:30 100 15 100 08/10/17 16:00 100 08/10/17 16:00 99 16 112/68 99 Mechanical Ventilator 100 08/10/17 16:00 104 08/10/17 15:00 97 15 116/67 98 Mechanical Ventilator 94 08/10/17 15:00 96 16 100 08/10/17 14:00 85 18 91/63 92 Mechanical Ventilator 94 08/10/17 13:28 87 15 95 Mechanical Ventilator 100 08/10/17 13:17 92 15 100 08/10/17 13:17 92 15 92 Mechanical Ventilator 100 08/10/17 13:00 98.2 91 14 105/67 92 Mechanical Ventilator 94 98.2 08/10/17 12:00 101.8 87 15 98/64 92 Mechanical Ventilator 94 101.8 08/10/17 12:00 100 08/10/17 12:00 103 08/10/17 11:00 99 15 99/63 92 Mechanical Ventilator 94 08/10/17 10:40 101 17 100 08/10/17 10:07 102.3 08/10/17 10:00 107 15 109/67 92 Mechanical Ventilator 94 08/10/17 09:14 102 17 100 08/10/17 09:00 102.3 101 13 102/68 92 Mechanical Ventilator 100 102.3 Intake and Output 08/10/17 08/11/17 19:00 07:00 Intake Total 1967.416 ml 1892.5 ml Output Total 1840 ml 1400 ml Balance 127.416 ml 492.5 ml IV Total 1167.416 ml 1242.5 ml Tube Feeding 600 ml 600 ml Other 200 ml 50 ml Output Urine Total 1840 ml 1400 ml Objective WDWN oral ETT reduced breath sounds bilaterally without rhonchi or wheeze [id number] without MRG NABS nontender no HSM no CC; mild edema weak Microbiology Date/Time Source Procedure Growth Status 08/10/17 21:00 Nasal Nares Influenza Types A,B Antigen ([facility]) - Final Complete Laboratory Tests 08/10/17 21:00: Urine Color Yellow, Urine Appearance Slightly cloudy, Urine pH 5, Urine Specific [place] 1.020, Urine Protein 1+H, Urine Glucose (UA) Negative, Urine Ketones Negative, Urine Occult Blood Negative, Urine Nitrite Negative, Urine Bilirubin Negative, Urine Urobilinogen 1H, Urine Leukocyte Esterase 1+H, Urine RBC 0, Urine WBC 10-15H, Urine Squamous Epithelial Cells Occasional, Urine Bacteria ModerateH, Urine Yeast ModerateH 08/11/17 04:39: White Blood Count 12.1H, Red Blood Count 5.48, Hemoglobin 16.0, Hematocrit 51.5 , Mean Corpuscular Volume 94, Mean Corpuscular Hemoglobin 29.2, Mean Corpuscular Hemoglobin Concent 31.1L, Red Cell Distribution Width 16.1H, Platelet Count 145L, Mean Platelet Volume 6.7, Neutrophils (%) (Auto) 79.5H, Lymphocytes (%) (Auto) 3.6L, Monocytes (%) (Auto) 15.1H, Eosinophils (%) (Auto) 0.2, Basophils (%) (Auto) 1.6, Prothrombin Time 18.1H, Prothromb Time International Ratio 1.8H, Sodium Level 139, Potassium Level 3.8, Chloride Level 95L, Carbon Dioxide Level 40H, Anion Gap -1L, Blood Urea Nitrogen 20H, Creatinine 0.8, Estimat Glomerular Filtration Rate > 60, Glucose Level 154H, Calcium Level 9.5, Total Bilirubin 0.9, Aspartate Amino Transf (AST/SGOT) 23, Alanine Aminotransferase (ALT/SGPT) 23, Alkaline Phosphatase 64, Total Protein 7.3, Albumin 2.1L, Globulin 5.2, Albumin/Globulin Ratio 0.4L Current Medications Medications (Trade) Dose Ordered Sig/Kika Route PRN Reason Start Time Stop Time Status Last Admin Dose Admin Acetaminophen (Tylenol) 650 mg Q4H PRN ORAL Mild Pain/Temp > 100.5 08/05/17 19:30 09/04/17 19:29 08/11/17 05:25 Albuterol Sulfate (Proventil MDI) 2 puff Q6H PRN INH shortness of breath or wheezin 08/04/17 09:00 09/03/17 08:59 Albuterol/ Ipratropium (Albuterol/ Ipratropium) 3 ml Q6HRT IN-LINE 08/09/17 07:00 08/14/17 06:59 08/11/17 07:39 Atorvastatin Calcium (Lipitor) 10 mg BEDTIME ORAL 08/04/17 21:00 09/02/17 21:59 08/10/17 21:27 Ceftriaxone Sodium 1 gm/ Dextrose 110 ml @ 220 mls/hr Q24H IVPB 08/08/17 12:30 08/15/17 12:29 08/10/17 13:13 Citalopram Hydrobromide (celeXA) 40 mg DAILY ORAL 08/11/17 09:00 09/10/17 08:59 Dextrose/ Electrolytes 1,000 ml @ 50 mls/hr Q20H IV 08/07/17 11:00 09/06/17 10:59 08/10/17 18:08 Divalproex Sodium (Depakote Sprinkles) 500 mg EVERY 12 HOURS GT 08/05/17 21:00 09/04/17 20:59 08/10/17 21:27 Furosemide 100 mg/ Dextrose 100 ml @ 7.5 mls/hr [id number] IV 08/08/17 11:30 09/07/17 11:29 08/11/17 07:00 Pantoprazole (Protonix) 40 mg EVERY 12 HOURS IVP 08/05/17 21:00 09/04/17 20:59 08/10/17 21:27 Risperidone (RisperDAL) 2 mg BID ORAL 08/07/17 09:00 09/05/17 18:29 08/10/17 18:03 Trazodone HCl (Desyrel) 200 mg BEDTIME ORAL 08/04/17 21:00 09/02/17 22:29 08/10/17 21:27 Vancomycin HCl (Vanco rx to dose) 1 ea DAILY PRN MISC Per rx protocol 5/27/18 12:00 09/09/17 11:59 Vancomycin HCl 1 gm/Dextrose 275 ml @ 183.708 mls/hr EVERY 8 HOURS IVPB 08/10/17 14:00 08/15/17 13:59 08/11/17 05:17 Warfarin Sodium (Coumadin per pharmacy) 1 ea DAILY PRN MISC Per rx protocol 08/08/17 08:45 09/07/17 08:44 Ramana Flores MD August 11, 2017 08:34
[2017-08-11] MEDS ORDERED: Citalopram 20mg Tab ORAL SCH (09:00)
[2017-08-11] MEDS: Pantoprazole Inj IVP SCH ×2 (09:07→20:35)
[2017-08-11] MEDS: Depakote 125mg Sprinkles GT SCH ×2 (09:08→20:34)
[2017-08-11] MEDS: Citalopram 20mg Tab ORAL SCH (09:08)
--- NOTE | 2017-08-11 10:17 | Diagnostic Imaging Report ---
Indication: Chest pain Technique: XRAY Chest 1v Comparison: 08/09/2017 Findings: The cardiomediastinal silhouette is unchanged. There is decreased atelectasis in the right lung base. Opacification of the left base is noted which appears left hemidiaphragm. An endotracheal tube remains in place. No other change. Impression: Resolution of atelectasis in the right base. Left basilar airspace disease versus volume loss. No other change.
--- NOTE | 2017-08-11 10:21 | Infectious Diseases Prog Note ---
Assessment/Plan Assessment/Plan A; Pneumonia New fever, decreased Pyuria Hypercapnic respiratory failure COPD Schizophrenia P: Continue Rocephin and Vancomycin will f/u cultures Subjective ROS Limited/Unobtainable: Yes Constitutional: Reports: fever Neurologic: Reports: confusion, other - on restraint Allergies: Coded Allergies: No Known Allergies (Unverified , 08/03/17) Objective Vital Signs Last 24 Hour Vital Signs Date Time Temp Pulse Resp B/P (MAP) Pulse Ox O2 Delivery O2 Flow Rate FiO2 08/11/17 10:00 87 13 94/62 95 Mechanical Ventilator 80 08/11/17 09:23 95 16 60 08/11/17 09:00 85 17 96/58 94 Mechanical Ventilator 80 08/11/17 08:00 98.8 85 18 94/59 94 Mechanical Ventilator 60 98.8 08/11/17 08:00 80 08/11/17 07:47 85 15 96 Mechanical Ventilator 60 08/11/17 07:41 80 15 100 Mechanical Ventilator 100 08/11/17 07:40 95 15 60 08/11/17 07:00 98.8 82 15 103/64 94 Mechanical Ventilator 60 98.8 08/11/17 06:24 98.8 08/11/17 06:00 100.1 90 15 90/58 94 Mechanical Ventilator 80 100.1 08/11/17 05:38 60 08/11/17 05:29 96 21 60 08/11/17 05:25 100.1 08/11/17 05:00 90 19 107/63 98 Mechanical Ventilator 80 08/11/17 04:00 80 08/11/17 04:00 99.4 97 15 103/59 97 Mechanical Ventilator 100 99.4 08/11/17 04:00 93 08/11/17 03:19 91 15 70 08/11/17 03:00 77 15 110/66 100 Mechanical Ventilator 100 08/11/17 02:00 77 15 114/64 100 Mechanical Ventilator 100 08/11/17 01:00 79 15 100/65 100 Mechanical Ventilator 100 08/11/17 00:40 79 15 99 Mechanical Ventilator 80 08/11/17 00:40 76 15 80 08/11/17 00:31 72 15 100 Mechanical Ventilator 100 08/11/17 00:00 100 08/11/17 00:00 75 08/11/17 00:00 98.8 76 15 99/62 100 Mechanical Ventilator 100 98.8 08/10/17 23:00 78 21 110/67 100 Mechanical Ventilator 100 08/10/17 22:43 84 15 100 08/10/17 22:00 100.7 79 16 93/56 100 Mechanical Ventilator 100 100.7 08/10/17 21:00 94 21 105/60 96 Mechanical Ventilator 100 08/10/17 20:46 103 19 100 08/10/17 20:00 100 08/10/17 20:00 98 08/10/17 20:00 102.7 102 23 106/67 99 Mechanical Ventilator 100 102.7 08/10/17 19:32 103 15 98 Mechanical Ventilator 100 08/10/17 19:20 106 20 97 Mechanical Ventilator 100 08/10/17 19:19 108 20 100 08/10/17 19:00 109 21 110/72 96 Mechanical Ventilator 100 08/10/17 18:00 102 15 109/68 96 Mechanical Ventilator 100 08/10/17 17:00 102 16 102/67 96 Mechanical Ventilator 100 08/10/17 16:30 100 15 100 08/10/17 16:00 100 08/10/17 16:00 99 16 112/68 99 Mechanical Ventilator 100 08/10/17 16:00 104 08/10/17 15:00 97 15 116/67 98 Mechanical Ventilator 94 08/10/17 15:00 96 16 100 08/10/17 14:00 85 18 91/63 92 Mechanical Ventilator 94 08/10/17 13:28 87 15 95 Mechanical Ventilator 100 08/10/17 13:17 92 15 100 08/10/17 13:17 92 15 92 Mechanical Ventilator 100 08/10/17 13:00 98.2 91 14 105/67 92 Mechanical Ventilator 94 98.2 08/10/17 12:00 101.8 87 15 98/64 92 Mechanical Ventilator 94 101.8 08/10/17 12:00 100 08/10/17 12:00 103 08/10/17 11:00 99 15 99/63 92 Mechanical Ventilator 94 08/10/17 10:40 101 17 100 Height (Feet): 5 Height (Inches): 9.00 Weight (Pounds): 170 HEENT: other - orally intubated Respiratory/Chest: lungs clear, other - on ventilator Cardiovascular: normal rate Abdomen: soft, non tender, other - orogastric tbe Extremities: other - edema of hands Neurologic/Psychiatric: other - opens eyes Microbiology Date/Time Source Procedure Growth Status 08/10/17 21:00 Nasal Nares Influenza Types A,B Antigen (CONSTANCE) - Final Complete Laboratory Tests Test 08/10/17 21:00 08/11/17 04:39 Urine Color Yellow Urine Appearance Slightly cloudy Urine pH 5 (4.5-8.0) Urine Specific Dequincy 1.020 (1.005-1.035) Urine Protein 1+ (NEGATIVE) H Urine Glucose (UA) Negative (NEGATIVE) Urine Ketones Negative (NEGATIVE) Urine Occult Blood Negative (NEGATIVE) Urine Nitrite Negative (NEGATIVE) Urine Bilirubin Negative (NEGATIVE) Urine Urobilinogen 1 MG/DL (0.0-1.0) H Urine Leukocyte Esterase 1+ (NEGATIVE) H Urine RBC 0 /HPF (0 - 0) Urine WBC 10-15 /HPF (0 - 0) H Urine Squamous Epithelial Cells Occasional /LPF Urine Bacteria Moderate /HPF (NONE) H Urine Yeast Moderate /HPF (NONE) H White Blood Count 12.1 K/UL (4.8-10.8) H Red Blood Count 5.48 M/UL (4.70-6.10) Hemoglobin 16.0 G/DL (14.2-18.0) Hematocrit 51.5 % (42.0-52.0) Mean Corpuscular Volume 94 FL (80-99) Mean Corpuscular Hemoglobin 29.2 PG (27.0-31.0) Mean Corpuscular Hemoglobin Concent 31.1 G/DL (32.0-36.0) L Red Cell Distribution Width 16.1 % (11.6-14.8) H Platelet Count 145 K/UL (150-450) L Mean Platelet Volume 6.7 FL (6.5-10.1) Neutrophils (%) (Auto) 79.5 % (45.0-75.0) H Lymphocytes (%) (Auto) 3.6 % (20.0-45.0) L Monocytes (%) (Auto) 15.1 % (1.0-10.0) H Eosinophils (%) (Auto) 0.2 % (0.0-3.0) Basophils (%) (Auto) 1.6 % (0.0-2.0) Prothrombin Time 18.1 SEC (9.30-11.50) H Prothromb Time International Ratio 1.8 (0.9-1.1) H Sodium Level 139 MMOL/L (136-145) Potassium Level 3.8 MMOL/L (3.5-5.1) Chloride Level 95 MMOL/L (98-107) L Carbon Dioxide Level 40 MMOL/L (21-32) H Anion Gap -1 mmol/L (5-15) L Blood Urea Nitrogen 20 mg/dL (7-18) H Creatinine 0.8 MG/DL (0.55-1.30) Estimat Glomerular Filtration Rate > 60 mL/min (>60) Glucose Level 154 MG/DL (74-106) H Calcium Level 9.5 MG/DL (8.5-10.1) Total Bilirubin 0.9 MG/DL (0.2-1.0) Aspartate Amino Transf (AST/SGOT) 23 U/L (15-37) Alanine Aminotransferase (ALT/SGPT) 23 U/L (12-78) Alkaline Phosphatase 64 U/L (46-116) Total Protein 7.3 G/DL (6.4-8.2) Albumin 2.1 G/DL (3.4-5.0) L Globulin 5.2 g/dL Albumin/Globulin Ratio 0.4 (1.0-2.7) L Current Medications Medications (Trade) Dose Ordered Sig/Kika Route PRN Reason Start Time Stop Time Status Last Admin Dose Admin Acetaminophen (Tylenol) 650 mg Q4H PRN ORAL Mild Pain/Temp > 100.5 08/05/17 19:30 09/04/17 19:29 08/11/17 05:25 Albuterol Sulfate (Proventil MDI) 2 puff Q6H PRN INH shortness of breath or wheezin 08/04/17 09:00 09/03/17 08:59 Albuterol/ Ipratropium (Albuterol/ Ipratropium) 3 ml Q6HRT IN-LINE 08/09/17 07:00 08/14/17 06:59 08/11/17 07:39 Atorvastatin Calcium (Lipitor) 10 mg BEDTIME ORAL 08/04/17 21:00 09/02/17 21:59 08/10/17 21:27 Ceftriaxone Sodium 1 gm/ Dextrose 110 ml @ 220 mls/hr Q24H IVPB 5/25/18 12:30 08/15/17 12:29 08/10/17 13:13 Citalopram Hydrobromide (celeXA) 40 mg DAILY ORAL 08/11/17 09:00 09/10/17 08:59 08/11/17 09:08 Dextrose/ Electrolytes 1,000 ml @ 50 mls/hr Q20H IV 08/07/17 11:00 09/06/17 10:59 08/10/17 18:08 Divalproex Sodium (Depakote Sprinkles) 500 mg EVERY 12 HOURS GT 08/05/17 21:00 09/04/17 20:59 08/11/17 09:08 Furosemide 100 mg/ Dextrose 100 ml @ 7.5 mls/hr [id number] IV 08/08/17 11:30 09/07/17 11:29 08/11/17 07:00 Pantoprazole (Protonix) 40 mg EVERY 12 HOURS IVP 08/05/17 21:00 09/04/17 20:59 08/11/17 09:07 Risperidone (RisperDAL) 2 mg BID ORAL 08/07/17 09:00 09/05/17 18:29 08/11/17 09:07 Trazodone HCl (Desyrel) 200 mg BEDTIME ORAL 08/04/17 21:00 09/02/17 22:29 08/10/17 21:27 Vancomycin HCl (Vanco rx to dose) 1 ea DAILY PRN MISC Per rx protocol 08/10/17 12:00 09/09/17 11:59 Vancomycin HCl 1 gm/Dextrose 275 ml @ 183.708 mls/hr EVERY 8 HOURS IVPB 08/10/17 14:00 08/15/17 13:59 08/11/17 05:17 Warfarin Sodium (Coumadin per pharmacy) 1 ea DAILY PRN MISC Per rx protocol 08/08/17 08:45 09/07/17 08:44 Warfarin Sodium (Coumadin) 3 mg COUMADIN ORAL 08/11/17 17:00 08/16/17 16:59 ROMARIO AVALOS August 11, 2017 10:21
[2017-08-11] MEDS: cefTRIAXone 1 GM in D5W 110 ML IVPB SCH (12:20)
[2017-08-11] MEDS: Vancomycin 1250mg/D5W 250ml IVPB SCH ×2 (15:10→21:00)
[2017-08-11] MEDS ORDERED: NS 275ml ONE (16:22)
[2017-08-11] MEDS ORDERED: Tubing IV Secondary IV ONE (16:22)
[2017-08-11] MEDS ORDERED: Warfarin Sodium 3mg ORAL SCH (17:00)
[2017-08-11] MEDS: TraZODone 100mg tab ORAL SCH (20:35)
[2017-08-11] MEDS: Morphine Sulfate 4mg/ml Inj IVP PRN ×2 (20:36)
[2017-08-12] VITALS (24 sets, daily range): BP systolic 91–124; BP diastolic 55–82
[2017-08-12] MEDS: Albuterol/Ipratropium 3ml neb IN-LINE SCH ×4 (00:36→20:04)
[2017-08-12] MEDS: Morphine Sulfate 4mg/ml Inj IVP PRN ×2 (04:01→17:24)
[2017-08-12 04:37] LABS: BASOPHILS % (AUTO) 0.7 % (0.0-2.0); EOSINOPHILS % (AUTO) 1.1 % (0.0-3.0); HEMATOCRIT 46.4 % (42.0-52.0); HEMOGLOBIN 14.4 G/DL (14.2-18.0); MEAN CORPUSCULAR VOLUME 94 FL (80-99); MONOCYTES % (AUTO) 14.8 % (1.0-10.0); NEUTROPHILS % (AUTO) 77.4 % (45.0-75.0); PLATELET COUNT 146 K/UL (150-450); RED BLOOD COUNT 4.92 M/UL (4.70-6.10); RED CELL DISTRIBUTION WIDTH 15.8 % (11.6-14.8); WHITE BLOOD COUNT 9.3 K/UL (4.8-10.8)
[2017-08-12 04:45] LABS: INR 2.5 (0.9-1.1)
[2017-08-12 04:56] LABS: ANION GAP 0 mmol/L (5-15); BLOOD UREA NITROGEN 22 mg/dL (7-18); CALCIUM 9.3 MG/DL (8.5-10.1); CHLORIDE 96 MMOL/L (98-107); CREATININE 0.8 MG/DL (0.55-1.30); SODIUM 138 MMOL/L (136-145)
[2017-08-12 05:12] LABS: CARBON DIOXIDE 43 MMOL/L (21-32)
[2017-08-12] MEDS: Vancomycin 1250mg/D5W 250ml IVPB SCH ×3 (06:01→21:37)
[2017-08-12] MEDS: Pantoprazole Inj IVP SCH ×2 (08:34→21:35)
[2017-08-12] MEDS: Depakote 125mg Sprinkles GT SCH ×2 (08:35→21:35)
[2017-08-12] MEDS: Citalopram 20mg Tab ORAL SCH (08:35)
--- NOTE | 2017-08-12 09:40 | Pulmonology Progress Note ---
Assessment/Plan Assessment/Plan 1. Acute respiratory failure. 2. Right hemithorax opacification. Now resolved after bronchoscopy 3. History of right pleural effusion. 4. Schizophrenia, chronic Coumadin usage. 5. Pulmonary edema; improving on Lasix gtt DISCUSSION: Continue abx Further history obtained from Dr Negrete Has history of PE in 2011 Will continue weaning attempts Previous tracheostomy noted Will continue feeding ID eval noted On Lasix gtt Add Halodol Subjective Interval Events: Improved; weaning Constitutional: Reports: no symptoms HEENT: Repors: no symptoms Respiratory: Reports: no symptoms Cardiovascular: Reports: no symptoms Gastrointestinal/Abdominal: Reports: no symptoms Allergies: Coded Allergies: No Known Allergies (Unverified , 08/03/17) Objective Last 24 Hour Vital Signs Date Time Temp Pulse Resp B/P (MAP) Pulse Ox O2 Delivery O2 Flow Rate FiO2 08/12/17 07:55 88 18 96 Mechanical Ventilator 60 08/12/17 07:45 89 15 94 Mechanical Ventilator 50 08/12/17 07:29 99 15 50 08/12/17 07:00 84 15 118/68 94 Mechanical Ventilator 50 08/12/17 06:00 80 15 104/61 96 Mechanical Ventilator 50 08/12/17 05:30 50 08/12/17 05:20 79 16 60 08/12/17 05:00 84 15 94/58 96 Mechanical Ventilator 60 08/12/17 04:00 98.6 83 18 102/72 98 Mechanical Ventilator 60 98.6 08/12/17 04:00 74 08/12/17 04:00 60 08/12/17 03:11 89 19 60 08/12/17 03:00 90 18 107/61 98 Mechanical Ventilator 60 08/12/17 02:00 86 16 104/55 99 Mechanical Ventilator 60 08/12/17 01:00 75 15 99/62 100 Mechanical Ventilator 60 08/12/17 00:58 72 18 98 Mechanical Ventilator 60 08/12/17 00:37 71 15 95 Mechanical Ventilator 60 08/12/17 00:37 71 15 60 08/12/17 00:00 98.8 75 15 91/59 96 Mechanical Ventilator 60 98.8 08/12/17 00:00 60 08/12/17 00:00 75 08/11/17 23:30 77 15 60 08/11/17 23:00 76 15 105/63 95 Mechanical Ventilator 60 08/11/17 22:00 75 15 101/59 96 Mechanical Ventilator 60 08/11/17 21:10 100 20 60 08/11/17 21:00 100 15 117/64 100 Mechanical Ventilator 60 08/11/17 20:00 99.0 104 15 111/71 100 Mechanical Ventilator 60 99.0 08/11/17 20:00 60 08/11/17 20:00 97 08/11/17 19:27 92 23 100 Mechanical Ventilator 60 08/11/17 19:15 90 20 100 Mechanical Ventilator 60 08/11/17 19:15 90 21 60 08/11/17 19:00 96 19 110/70 100 Mechanical Ventilator 60 08/11/17 18:00 93 15 148/86 100 Mechanical Ventilator 60 08/11/17 17:28 85 21 60 08/11/17 17:00 89 15 95/68 98 Mechanical Ventilator 60 08/11/17 16:00 98.2 85 15 110/53 94 Mechanical Ventilator 60 98.2 08/11/17 16:00 83 08/11/17 16:00 60 08/11/17 15:00 87 15 96/57 95 Mechanical Ventilator 60 08/11/17 14:51 85 16 60 08/11/17 14:00 89 16 93/56 96 Mechanical Ventilator 60 08/11/17 13:18 82 18 99 Mechanical Ventilator 60 08/11/17 13:12 82 15 97 Mechanical Ventilator 100 08/11/17 13:11 82 15 60 08/11/17 13:00 85 17 103/64 98 Mechanical Ventilator 60 08/11/17 12:00 77 08/11/17 12:00 98.6 73 15 80/53 94 Mechanical Ventilator 60 98.6 08/11/17 12:00 60 08/11/17 11:08 96 15 60 08/11/17 11:00 78 15 93/60 95 Mechanical Ventilator 80 08/11/17 10:00 87 13 94/62 95 Mechanical Ventilator 80 Intake and Output 08/11/17 08/12/17 19:00 07:00 Intake Total 1808.334 ml 1535.0 ml Output Total 1085 ml 1375 ml Balance 723.334 ml 160.0 ml Intake Free Water 100 ml IV Total 1108.334 ml 935.0 ml Tube Feeding 600 ml 600 ml Output Urine Total 1085 ml 1375 ml # Bowel Movements 1 1 General Appearance: no acute distress HEENT: normocephalic Respiratory/Chest: chest wall non-tender, lungs clear Cardiovascular: normal peripheral pulses, normal rate Abdomen: normal bowel sounds Microbiology Date/Time Source Procedure Growth Status 08/10/17 21:00 Blood Blood Culture - Preliminary NO GROWTH AFTER 24 HOURS Resulted 08/10/17 21:00 Blood Blood Culture - Preliminary NO GROWTH AFTER 24 HOURS Resulted 08/10/17 12:15 Blood Blood Culture - Preliminary NO GROWTH AFTER 24 HOURS Resulted 08/10/17 12:00 Blood Blood Culture - Preliminary NO GROWTH AFTER 24 HOURS Resulted 08/10/17 21:00 Nasal Nares Influenza Types A,B Antigen (CONSTANCE) - Final Complete 08/10/17 21:00 Urine,Clean Catch Urine Culture - Preliminary Mixed Gram Positive Organism Resulted Laboratory Tests 08/11/17 13:10: Vancomycin Level Trough 10.8 08/12/17 04:00: White Blood Count 9.3, Red Blood Count 4.92, Hemoglobin 14.4, Hematocrit 46.4, Mean Corpuscular Volume 94, Mean Corpuscular Hemoglobin 29.2, Mean Corpuscular Hemoglobin Concent 31.0L, Red Cell Distribution Width 15.8H, Platelet Count 146L , Mean Platelet Volume 6.6, Neutrophils (%) (Auto) 77.4H, Lymphocytes (%) (Auto ) 6.0L, Monocytes (%) (Auto) 14.8H, Eosinophils (%) (Auto) 1.1, Basophils (%) ( Auto) 0.7, Prothrombin Time 25.9H, Prothromb Time International Ratio 2.5H, Sodium Level 138, Potassium Level 4.0, Chloride Level 96L, Carbon Dioxide Level 43*H, Anion Gap 0L, Blood Urea Nitrogen 22H, Creatinine 0.8, Estimat Glomerular Filtration Rate > 60, Glucose Level 154H, Calcium Level 9.3 08/12/17 08:10: Arterial Blood pH 7.385, Arterial Blood Partial Pressure CO2 70.6*H, Arterial Blood Partial Pressure O2 74.5L, Arterial Blood HCO3 41.3H, Arterial Blood Oxygen Saturation 93.9, Arterial Blood Base Excess 12.6, Roosevelt Test Positive Current Medications Medications (Trade) Dose Ordered Sig/Kika Route PRN Reason Start Time Stop Time Status Last Admin Dose Admin Acetaminophen (Tylenol) 650 mg Q4H PRN ORAL Mild Pain/Temp > 100.5 08/05/17 19:30 09/04/17 19:29 08/11/17 20:38 Albuterol Sulfate (Proventil MDI) 2 puff Q6H PRN INH shortness of breath or wheezin 08/04/17 09:00 09/03/17 08:59 Albuterol/ Ipratropium (Albuterol/ Ipratropium) 3 ml Q6HRT IN-LINE 08/09/17 07:00 08/14/17 06:59 08/12/17 08:01 Atorvastatin Calcium (Lipitor) 10 mg BEDTIME ORAL 08/04/17 21:00 09/02/17 21:59 08/11/17 20:35 Ceftriaxone Sodium 1 gm/ Dextrose 110 ml @ 220 mls/hr Q24H IVPB 08/08/17 12:30 08/15/17 12:29 08/11/17 12:20 Citalopram Hydrobromide (celeXA) 40 mg DAILY ORAL 08/11/17 09:00 09/10/17 08:59 08/12/17 08:35 Dextrose/ Electrolytes 1,000 ml @ 50 mls/hr Q20H IV 08/07/17 11:00 09/06/17 10:59 08/11/17 14:23 Divalproex Sodium (Depakote Sprinkles) 500 mg EVERY 12 HOURS GT 08/05/17 21:00 09/04/17 20:59 08/12/17 08:35 Furosemide 100 mg/ Dextrose 100 ml @ 7.5 mls/hr [id number] IV 08/08/17 11:30 09/07/17 11:29 08/11/17 21:00 Morphine Sulfate (Morphine Sulfate) 2 mg Q3H PRN IVP Moderate Pain (Pain Scale 4-6) 08/11/17 20:00 08/18/17 19:59 08/11/17 20:36 Morphine Sulfate (Morphine Sulfate) 4 mg Q4H PRN IVP Severe Pain (Pain Scale 7-10) 08/11/17 20:00 08/18/17 19:59 08/12/17 04:01 Pantoprazole (Protonix) 40 mg EVERY 12 HOURS IVP 08/05/17 21:00 09/04/17 20:59 08/12/17 08:34 Risperidone (RisperDAL) 2 mg BID ORAL 08/07/17 09:00 09/05/17 18:29 08/12/17 08:35 Trazodone HCl (Desyrel) 200 mg BEDTIME ORAL 08/04/17 21:00 09/02/17 22:29 08/11/17 20:35 Vancomycin HCl (Vanco rx to dose) 1 ea DAILY PRN MISC Per rx protocol 08/10/17 12:00 09/09/17 11:59 Vancomycin HCl/ Dextrose 250 ml @ 166.667 mls/hr Q8HR IVPB 08/11/17 15:00 08/16/17 14:59 08/12/17 06:01 Warfarin Sodium (Coumadin per pharmacy) 1 ea DAILY PRN MISC Per rx protocol 08/08/17 08:45 09/07/17 08:44 Warfarin Sodium (Coumadin) 2 mg COUMADIN ONCE ORAL 08/12/17 17:00 08/12/17 17:01 Richardson Mitchell MD August 12, 2017 09:40
[2017-08-12] MEDS: cefTRIAXone 1 GM in D5W 110 ML IVPB SCH (11:15)
--- NOTE | 2017-08-12 11:39 | Diagnostic Imaging Report ---
Indication: Dyspnea Comparison: 08/03/2017 A single view chest radiograph was obtained. Findings: Interstitial edema/prominent vascularity and cardiomegaly noted. Endotracheal tube is in good position. There is a probable left pleural effusion. IMPRESSION: No change from the prior day
--- NOTE | 2017-08-12 11:48 | Infectious Diseases Prog Note ---
Assessment/Plan Assessment/Plan antibiotics : vancomycin iv, ceftriaxone A 1. klebsiella pneumonia 2. respiratory failure 3. fever improving 4. COPD 5. hypertension P 1. continue vancomycin iv, ceftriaxone 2, will follow up cultures Subjective ROS Limited/Unobtainable: Yes Allergies: Coded Allergies: No Known Allergies (Unverified , 08/03/17) Objective Vital Signs Last 24 Hour Vital Signs Date Time Temp Pulse Resp B/P (MAP) Pulse Ox O2 Delivery O2 Flow Rate FiO2 08/12/17 10:48 97 14 50 08/12/17 09:29 94 14 50 08/12/17 09:00 96 16 115/69 94 Mechanical Ventilator 50 08/12/17 08:00 98.2 95 19 116/80 94 Mechanical Ventilator 50 98.2 08/12/17 07:55 88 18 96 Mechanical Ventilator 60 08/12/17 07:45 89 15 94 Mechanical Ventilator 50 08/12/17 07:29 99 15 50 08/12/17 07:00 84 15 118/68 94 Mechanical Ventilator 50 08/12/17 06:00 80 15 104/61 96 Mechanical Ventilator 50 08/12/17 05:30 50 08/12/17 05:20 79 16 60 08/12/17 05:00 84 15 94/58 96 Mechanical Ventilator 60 08/12/17 04:00 98.6 83 18 102/72 98 Mechanical Ventilator 60 98.6 08/12/17 04:00 74 08/12/17 04:00 60 08/12/17 03:11 89 19 60 08/12/17 03:00 90 18 107/61 98 Mechanical Ventilator 60 08/12/17 02:00 86 16 104/55 99 Mechanical Ventilator 60 08/12/17 01:00 75 15 99/62 100 Mechanical Ventilator 60 08/12/17 00:58 72 18 98 Mechanical Ventilator 60 08/12/17 00:37 71 15 95 Mechanical Ventilator 60 08/12/17 00:37 71 15 60 08/12/17 00:00 98.8 75 15 91/59 96 Mechanical Ventilator 60 98.8 08/12/17 00:00 60 08/12/17 00:00 75 08/11/17 23:30 77 15 60 08/11/17 23:00 76 15 105/63 95 Mechanical Ventilator 60 08/11/17 22:00 75 15 101/59 96 Mechanical Ventilator 60 08/11/17 21:10 100 20 60 08/11/17 21:00 100 15 117/64 100 Mechanical Ventilator 60 08/11/17 20:00 99.0 104 15 111/71 100 Mechanical Ventilator 60 99.0 08/11/17 20:00 60 08/11/17 20:00 97 08/11/17 19:27 92 23 100 Mechanical Ventilator 60 08/11/17 19:15 90 20 100 Mechanical Ventilator 60 08/11/17 19:15 90 21 60 08/11/17 19:00 96 19 110/70 100 Mechanical Ventilator 60 08/11/17 18:00 93 15 148/86 100 Mechanical Ventilator 60 08/11/17 17:28 85 21 60 08/11/17 17:00 89 15 95/68 98 Mechanical Ventilator 60 08/11/17 16:00 98.2 85 15 110/53 94 Mechanical Ventilator 60 98.2 08/11/17 16:00 83 08/11/17 16:00 60 08/11/17 15:00 87 15 96/57 95 Mechanical Ventilator 60 08/11/17 14:51 85 16 60 08/11/17 14:00 89 16 93/56 96 Mechanical Ventilator 60 08/11/17 13:18 82 18 99 Mechanical Ventilator 60 08/11/17 13:12 82 15 97 Mechanical Ventilator 100 08/11/17 13:11 82 15 60 08/11/17 13:00 85 17 103/64 98 Mechanical Ventilator 60 08/11/17 12:00 77 08/11/17 12:00 98.6 73 15 80/53 94 Mechanical Ventilator 60 98.6 08/11/17 12:00 60 Height (Feet): 5 Height (Inches): 9.00 Weight (Pounds): 166 HEENT: other - intubated Respiratory/Chest: lungs clear Cardiovascular: normal rate, regular rhythm, no gallop/murmur Abdomen: soft, non tender Extremities: no edema Microbiology Date/Time Source Procedure Growth Status 08/10/17 21:00 Blood Blood Culture - Preliminary NO GROWTH AFTER 24 HOURS Resulted 08/10/17 21:00 Blood Blood Culture - Preliminary NO GROWTH AFTER 24 HOURS Resulted 08/10/17 12:15 Blood Blood Culture - Preliminary NO GROWTH AFTER 24 HOURS Resulted 08/10/17 12:00 Blood Blood Culture - Preliminary NO GROWTH AFTER 24 HOURS Resulted 08/10/17 21:00 Nasal Nares Influenza Types A,B Antigen (CONSTANCE) - Final Complete 08/10/17 21:00 Urine,Clean Catch Urine Culture - Preliminary Mixed Gram Positive Organism Resulted Laboratory Tests Test 08/11/17 13:10 08/12/17 04:00 08/12/17 08:10 Vancomycin Level Trough 10.8 ug/mL (5.0-12.0) White Blood Count 9.3 K/UL (4.8-10.8) Red Blood Count 4.92 M/UL (4.70-6.10) Hemoglobin 14.4 G/DL (14.2-18.0) Hematocrit 46.4 % (42.0-52.0) Mean Corpuscular Volume 94 FL (80-99) Mean Corpuscular Hemoglobin 29.2 PG (27.0-31.0) Mean Corpuscular Hemoglobin Concent 31.0 G/DL (32.0-36.0) L Red Cell Distribution Width 15.8 % (11.6-14.8) H Platelet Count 146 K/UL (150-450) L Mean Platelet Volume 6.6 FL (6.5-10.1) Neutrophils (%) (Auto) 77.4 % (45.0-75.0) H Lymphocytes (%) (Auto) 6.0 % (20.0-45.0) L Monocytes (%) (Auto) 14.8 % (1.0-10.0) H Eosinophils (%) (Auto) 1.1 % (0.0-3.0) Basophils (%) (Auto) 0.7 % (0.0-2.0) Prothrombin Time 25.9 SEC (9.30-11.50) H Prothromb Time International Ratio 2.5 (0.9-1.1) H Sodium Level 138 MMOL/L (136-145) Potassium Level 4.0 MMOL/L (3.5-5.1) Chloride Level 96 MMOL/L (98-107) L Carbon Dioxide Level 43 MMOL/L (21-32) *H Anion Gap 0 mmol/L (5-15) L Blood Urea Nitrogen 22 mg/dL (7-18) H Creatinine 0.8 MG/DL (0.55-1.30) Estimat Glomerular Filtration Rate > 60 mL/min (>60) Glucose Level 154 MG/DL (74-106) H Calcium Level 9.3 MG/DL (8.5-10.1) Arterial Blood pH 7.385 (7.350-7.450) Arterial Blood Partial Pressure CO2 70.6 mmHg (35.0-45.0) *H Arterial Blood Partial Pressure O2 74.5 mmHg (75.0-100.0) L Arterial Blood HCO3 41.3 mmol/L (22.0-26.0) H Arterial Blood Oxygen Saturation 93.9 % (92.0-98.0) Arterial Blood Base Excess 12.6 [place] Test Positive Current Medications Medications (Trade) Dose Ordered Sig/Kika Route PRN Reason Start Time Stop Time Status Last Admin Dose Admin Acetaminophen (Tylenol) 650 mg Q4H PRN ORAL Mild Pain/Temp > 100.5 08/05/17 19:30 09/04/17 19:29 08/11/17 20:38 Albuterol Sulfate (Proventil MDI) 2 puff Q6H PRN INH shortness of breath or wheezin 08/04/17 09:00 09/03/17 08:59 Albuterol/ Ipratropium (Albuterol/ Ipratropium) 3 ml Q6HRT IN-LINE 08/09/17 07:00 08/14/17 06:59 08/12/17 08:01 Atorvastatin Calcium (Lipitor) 10 mg BEDTIME ORAL 08/04/17 21:00 09/02/17 21:59 08/11/17 20:35 Ceftriaxone Sodium 1 gm/ Dextrose 110 ml @ 220 mls/hr Q24H IVPB 08/08/17 12:30 08/15/17 12:29 08/12/17 11:15 Citalopram Hydrobromide (celeXA) 40 mg DAILY ORAL 08/11/17 09:00 09/10/17 08:59 08/12/17 08:35 Dextrose/ Electrolytes 1,000 ml @ 50 mls/hr Q20H IV 08/07/17 11:00 09/06/17 10:59 08/12/17 11:29 Divalproex Sodium (Depakote Sprinkles) 500 mg EVERY 12 HOURS GT 08/05/17 21:00 09/04/17 20:59 08/12/17 08:35 Furosemide 100 mg/ Dextrose 100 ml @ 7.5 mls/hr [id number] IV 08/08/17 11:30 09/07/17 11:29 08/12/17 11:15 Haloperidol Lactate 5 mg/ Dextrose 111 ml @ 222 mls/hr Q6H PRN IVPB Agitation 08/12/17 09:45 09/11/17 09:44 Morphine Sulfate (Morphine Sulfate) 2 mg Q3H PRN IVP Moderate Pain (Pain Scale 4-6) 08/11/17 20:00 08/18/17 19:59 08/11/17 20:36 Morphine Sulfate (Morphine Sulfate) 4 mg Q4H PRN IVP Severe Pain (Pain Scale 7-10) 08/11/17 20:00 08/18/17 19:59 08/12/17 04:01 Pantoprazole (Protonix) 40 mg EVERY 12 HOURS IVP 08/05/17 21:00 09/04/17 20:59 08/12/17 08:34 Risperidone (RisperDAL) 2 mg BID ORAL 08/07/17 09:00 09/05/17 18:29 08/12/17 08:35 Trazodone HCl (Desyrel) 200 mg BEDTIME ORAL 08/04/17 21:00 09/02/17 22:29 08/11/17 20:35 Vancomycin HCl (Vanco rx to dose) 1 ea DAILY PRN MISC Per rx protocol 08/10/17 12:00 09/09/17 11:59 Vancomycin HCl/ Dextrose 250 ml @ 166.667 mls/hr Q8HR IVPB 08/11/17 15:00 08/16/17 14:59 08/12/17 06:01 Warfarin Sodium (Coumadin per pharmacy) 1 ea DAILY PRN MISC Per rx protocol 08/08/17 08:45 09/07/17 08:44 Warfarin Sodium (Coumadin) 2 mg COUMADIN ONCE ORAL 08/12/17 17:00 08/12/17 17:01 LALI COCHRAN August 12, 2017 11:48
[2017-08-12] MEDS ORDERED: Warfarin Sodium 2mg ORAL ONE (17:00)
[2017-08-12] MEDS: TraZODone 100mg tab ORAL SCH (21:36)
[2017-08-13] VITALS (24 sets, daily range): BP systolic 94–169; BP diastolic 56–95
[2017-08-13] MEDS: Albuterol/Ipratropium 3ml neb IN-LINE SCH ×4 (02:24→19:08)
[2017-08-13 04:40] LABS: EOSINOPHILS % (AUTO) 0.9 % (0.0-3.0); HEMATOCRIT 47.2 % (42.0-52.0); HEMOGLOBIN 14.7 G/DL (14.2-18.0); LYMPHOCYTES % (AUTO) 10.5 % (20.0-45.0); MEAN CORPUSCULAR VOLUME 95 FL (80-99); MONOCYTES % (AUTO) 17.3 % (1.0-10.0); NEUTROPHILS % (AUTO) 70.3 % (45.0-75.0); PLATELET COUNT 174 K/UL (150-450); RED BLOOD COUNT 4.98 M/UL (4.70-6.10); RED CELL DISTRIBUTION WIDTH 15.8 % (11.6-14.8); WHITE BLOOD COUNT 7.6 K/UL (4.8-10.8)
[2017-08-13 05:06] LABS: INR 3.1 (0.9-1.1)
[2017-08-13 05:11] LABS: ANION GAP -2 mmol/L (5-15); BLOOD UREA NITROGEN 22 mg/dL (7-18); CALCIUM 9.7 MG/DL (8.5-10.1); CHLORIDE 95 MMOL/L (98-107); CREATININE 0.9 MG/DL (0.55-1.30); SODIUM 138 MMOL/L (136-145)
[2017-08-13 05:14] LABS: CARBON DIOXIDE 43 MMOL/L (21-32)
[2017-08-13] MEDS: Morphine Sulfate 4mg/ml Inj IVP PRN ×2 (05:16→14:45)
[2017-08-13] MEDS: Haloperidol Lactate 5 MG in D5W 110 ML IVPB PRN ×2 (05:16→14:45)
[2017-08-13] MEDS: Vancomycin 1250mg/D5W 250ml IVPB SCH ×3 (06:02→22:00)
[2017-08-13] MEDS: Citalopram 20mg Tab ORAL SCH (08:07)
[2017-08-13] MEDS: Depakote 125mg Sprinkles GT SCH ×2 (08:08→20:46)
[2017-08-13] MEDS: Pantoprazole Inj IVP SCH ×2 (08:19→20:46)
--- NOTE | 2017-08-13 10:35 | Diagnostic Imaging Report ---
Indication: Dyspnea Comparison: 08/12/2017 A single view chest radiograph was obtained. Findings: Pulmonary vascular prominence and interstitial edema demonstrated. Heart size is borderline enlarged. No pleural effusion seen. Endotracheal tube is in good position. IMPRESSION: No significant change. CHF
[2017-08-13] MEDS: cefTRIAXone 1 GM in D5W 110 ML IVPB SCH (12:02)
[2017-08-13] MEDS: LORazepam Inj 2mg/ml 1ml IV PRN (16:18)
[2017-08-13] MEDS ORDERED: Warfarin Sodium 1mg ORAL SCH (17:00)
--- NOTE | 2017-08-13 18:34 | Pulmonolgy Critical Care Note ---
Critical Care - Asmt/Plan Problems: (1) Lung collapse Assessment & Plan: RESOLVED AFTER BRONCHOSCOPY (2) COPD exacerbation (3) Respiratory failure requiring intubation Assessment & Plan: D/T Klebsiella PNA (4) Respiratory failure with hypoxia and hypercapnia Respiratory: monitor respiratory rate, adjust FIO2 - Titrate down FiO2 to keep SaO2 > 90%, continue PEEP 5, weaning trial - in am, other Cardiac: continue to monitor HR/BP, other - Decrease lasix gtt to 5mg/hr Renal: decrease IV fluid - D/C IVF Infectious Disease: continue antibiotics - per ID Gastrointestinal: continue feedings/current rate Endocrine: monitor blood sugar Neurologic: keep patient comfortable Prophylaxis: Protonix, other - Coumadin Disposition: keep in ICU Time Spent (Minutes): 40 Notes Reviewed: ID Discussed with: nurses, consultants Critical Care - Objective Last 24 Hour Vital Signs Date Time Temp Pulse Resp B/P (MAP) Pulse Ox O2 Delivery O2 Flow Rate FiO2 08/13/17 17:01 74 15 50 08/13/17 17:00 71 15 102/58 98 Mechanical Ventilator 50 08/13/17 16:00 94 08/13/17 16:00 98.3 81 18 130/79 97 Mechanical Ventilator 50 98.3 08/13/17 15:06 85 18 50 08/13/17 15:00 110 15 109/64 98 Mechanical Ventilator 50 08/13/17 14:08 71 15 95 Mechanical Ventilator 50 08/13/17 14:00 77 24 105/63 98 Mechanical Ventilator 50 08/13/17 14:00 83 12 99 Mechanical Ventilator 50 08/13/17 13:00 67 15 107/57 98 Mechanical Ventilator 50 08/13/17 12:55 50 08/13/17 12:33 79 12 50 08/13/17 12:00 67 08/13/17 12:00 50 08/13/17 12:00 98.3 67 18 105/63 97 Mechanical Ventilator 50 98.3 08/13/17 11:08 74 12 50 08/13/17 11:07 50 08/13/17 11:00 66 15 99/60 98 Mechanical Ventilator 50 08/13/17 10:00 66 15 97/57 96 Mechanical Ventilator 50 08/13/17 09:15 75 15 95 Mechanical Ventilator 50 08/13/17 09:05 68 15 96 Mechanical Ventilator 50 08/13/17 09:00 68 15 102/62 97 Mechanical Ventilator 50 08/13/17 08:33 90 18 50 08/13/17 08:19 99.1 08/13/17 08:00 50 08/13/17 08:00 99.1 75 15 95/56 95 Mechanical Ventilator 50 99.1 08/13/17 08:00 84 08/13/17 07:00 86 15 101/58 91 Mechanical Ventilator 50 08/13/17 06:57 99.7 08/13/17 06:52 94 18 50 08/13/17 06:00 97 20 97/60 90 Mechanical Ventilator 50 08/13/17 05:14 126 18 50 08/13/17 05:00 117 20 108/64 95 Mechanical Ventilator 50 97 08/13/17 04:00 50 08/13/17 04:00 99.5 97 22 169/95 95 Mechanical Ventilator 50 99.5 98 08/13/17 04:00 100 08/13/17 03:00 74 22 115/67 95 Mechanical Ventilator 50 98 08/13/17 02:36 76 15 50 08/13/17 02:00 77 15 94 Mechanical Ventilator 50 08/13/17 02:00 80 15 95 Mechanical Ventilator 50 08/13/17 02:00 74 15 107/64 95 Mechanical Ventilator 50 80 08/13/17 01:30 77 15 50 08/13/17 01:00 74 16 104/60 95 Mechanical Ventilator 50 78 08/13/17 00:00 99.3 74 15 101/60 95 Mechanical Ventilator 50 99.3 08/13/17 00:00 50 08/13/17 00:00 102 08/12/17 23:10 73 15 50 08/12/17 23:00 74 15 107/64 94 Mechanical Ventilator 50 08/12/17 22:00 78 15 98/61 94 Mechanical Ventilator 50 08/12/17 21:29 75 17 50 08/12/17 21:00 89 15 101/65 93 Mechanical Ventilator 50 08/12/17 20:00 80 15 92 Mechanical Ventilator 50 08/12/17 20:00 98 08/12/17 20:00 50 08/12/17 20:00 99.5 80 15 97/60 90 Mechanical Ventilator 50 99.5 08/12/17 20:00 86 15 94 Mechanical Ventilator 50 08/12/17 19:30 92 15 50 08/12/17 19:00 80 15 99/82 93 Mechanical Ventilator 50 Status: sedated Condition: critical HEENT: atraumatic, normocephalic, other - ETT, OGT Neck: other - Supple s LAD or JVD Lungs: clear - but distant with scatttered course Heart: HR/BP stable Abdomen: soft, non-tender, active bowel sounds Extremities: no C/C/E Micro: Microbiology Date/Time Source Procedure Growth Status 08/10/17 21:00 Blood Blood Culture - Preliminary NO GROWTH AFTER 48 HOURS Resulted 08/10/17 21:00 Blood Blood Culture - Preliminary NO GROWTH AFTER 48 HOURS Resulted 08/10/17 21:00 Nasal Nares Influenza Types A,B Antigen (CONSTANCE) - Final Complete 08/10/17 21:00 Urine,Clean Catch Urine Culture - Preliminary Mixed Gram Positive Organism YEAST Resulted Blood Sugars: BS controlled Critical Care - Subjective ROS Limited/Unobtainable: Yes ICU Day: 10 Intubation Day: 10 Interval Events: Failed SBT after 4 hours, became agitated, now better Mod thick secretions Condition: critical IV Access: peripheral EKG Rhythm: Sinus Rhythm FI02: 50 Vent Support Breath Rate: 15 Vent Support Mode: AC Vent Tidal Volume: 500 Sputum Amount: Moderate PEEP: 8.0 PIP: 34 Secretions: Moderate thick creamy secretions Fluids: D5NS@ 50 Drips: Lasix gtt Tube Feeding Amount: 50 Residuals: None I&O: Intake and Output 08/12/17 08/13/17 19:00 07:00 Intake Total 1983.334 ml 1838.5 ml Output Total 1645 ml 1650 ml Balance 338.334 ml 188.5 ml IV Total 1133.334 ml 1238.5 ml Tube Feeding 650 ml 600 ml Other 200 ml Output Urine Total 1645 ml 1650 ml # Voids 1 Subjective: MEHUL CXR: PVC ET-Tube: 7.0 ET Position: 23 Labs: Laboratory Tests Test 08/13/17 04:10 08/13/17 08:29 08/13/17 13:04 White Blood Count 7.6 K/UL (4.8-10.8) Red Blood Count 4.98 M/UL (4.70-6.10) Hemoglobin 14.7 G/DL (14.2-18.0) Hematocrit 47.2 % (42.0-52.0) Mean Corpuscular Volume 95 FL (80-99) Mean Corpuscular Hemoglobin 29.6 PG (27.0-31.0) Mean Corpuscular Hemoglobin Concent 31.2 G/DL (32.0-36.0) L Red Cell Distribution Width 15.8 % (11.6-14.8) H Platelet Count 174 K/UL (150-450) Mean Platelet Volume 7.5 FL (6.5-10.1) Neutrophils (%) (Auto) 70.3 % (45.0-75.0) Lymphocytes (%) (Auto) 10.5 % (20.0-45.0) L Monocytes (%) (Auto) 17.3 % (1.0-10.0) H Eosinophils (%) (Auto) 0.9 % (0.0-3.0) Basophils (%) (Auto) 1.0 % (0.0-2.0) Prothrombin Time 31.6 SEC (9.30-11.50) H Prothromb Time International Ratio 3.1 (0.9-1.1) H Sodium Level 138 MMOL/L (136-145) Potassium Level 4.0 MMOL/L (3.5-5.1) Chloride Level 95 MMOL/L (98-107) L Carbon Dioxide Level 43 MMOL/L (21-32) *H Anion Gap -2 mmol/L (5-15) L Blood Urea Nitrogen 22 mg/dL (7-18) H Creatinine 0.9 MG/DL (0.55-1.30) Estimat Glomerular Filtration Rate > 60 mL/min (>60) Glucose Level 112 MG/DL (74-106) H Calcium Level 9.7 MG/DL (8.5-10.1) Pro-B-Type Natriuretic Peptide 294 pg/mL (0-125) H Arterial Blood pH 7.403 (7.350-7.450) 7.390 (7.350-7.450) Arterial Blood Partial Pressure CO2 79.2 mmHg (35.0-45.0) *H 81.0 mmHg (35.0-45.0) *H Arterial Blood Partial Pressure O2 59.1 mmHg (75.0-100.0) L 76.3 mmHg (75.0-100.0) Arterial Blood HCO3 48.0 mmol/L (22.0-26.0) H 47.9 mmol/L (22.0-26.0) H Arterial Blood Oxygen Saturation 89.5 % (92.0-98.0) L 94.4 % (92.0-98.0) Arterial Blood Base Excess 18.5 18.2 Roosevelt Test Positive Positive DENISHA CRAWLEY M.D. August 13, 2017 18:34
[2017-08-13] MEDS: TraZODone 100mg tab ORAL SCH (20:47)
[2017-08-14] VITALS (24 sets, daily range): BP systolic 91–123; BP diastolic 50–73
[2017-08-14] MEDS: Albuterol/Ipratropium 3ml neb IN-LINE SCH (01:05)
[2017-08-14] MEDS: Vancomycin 1250mg/D5W 250ml IVPB SCH ×3 (06:24→21:56)
[2017-08-14 06:52] LABS: INR 2.9 (0.9-1.1)
[2017-08-14] MEDS: Citalopram 20mg Tab ORAL SCH (09:00)
[2017-08-14] MEDS: Depakote 125mg Sprinkles GT SCH ×2 (09:04→20:31)
[2017-08-14] MEDS: Haloperidol Lactate 5 MG in D5W 110 ML IVPB PRN (09:04)
[2017-08-14] MEDS: Pantoprazole Inj IVP SCH ×2 (09:04→20:32)
--- NOTE | 2017-08-14 09:40 | Pulmonology Progress Note ---
Assessment/Plan Assessment/Plan 1. Acute respiratory failure. 2. Right hemithorax opacification. Now resolved after bronchoscopy 3. History of right pleural effusion. 4. Schizophrenia, chronic Coumadin usage. 5. Pulmonary edema; improving on Lasix gtt DISCUSSION: Continue abx Further history obtained from Dr Negrete Has history of PE in 2011 Will continue weaning attempts Previous tracheostomy noted Will continue feeding ID eval noted On Lasix gtt Added Halodol hope to extubate soon Subjective Interval Events: Weaning well; pH 7.39/PCO2 81; still on Lasix Constitutional: Reports: no symptoms HEENT: Repors: no symptoms Respiratory: Reports: no symptoms Cardiovascular: Reports: no symptoms Gastrointestinal/Abdominal: Reports: no symptoms Allergies: Coded Allergies: No Known Allergies (Unverified , 08/03/17) Objective Last 24 Hour Vital Signs Date Time Temp Pulse Resp B/P (MAP) Pulse Ox O2 Delivery O2 Flow Rate FiO2 08/14/17 09:00 82 16 121/70 96 Mechanical Ventilator 45 08/14/17 08:37 86 15 45 08/14/17 08:00 77 08/14/17 08:00 50 08/14/17 08:00 98.5 80 18 110/65 96 Mechanical Ventilator 50 98.5 08/14/17 07:17 76 15 50 08/14/17 07:00 98.5 78 16 102/63 96 Mechanical Ventilator 50 98.5 08/14/17 06:00 80 16 109/67 97 Mechanical Ventilator 50 08/14/17 05:00 80 16 104/62 97 Mechanical Ventilator 50 08/14/17 04:50 74 15 50 08/14/17 04:00 73 08/14/17 04:00 50 08/14/17 04:00 74 16 95/58 96 Mechanical Ventilator 50 08/14/17 03:17 76 18 50 08/14/17 03:00 77 16 101/63 96 Mechanical Ventilator 50 08/14/17 02:00 79 16 99/60 96 Mechanical Ventilator 50 08/14/17 01:14 72 15 97 Mechanical Ventilator 50 08/14/17 01:04 82 17 50 08/14/17 01:04 82 17 96 Mechanical Ventilator 50 08/14/17 01:00 98.4 75 16 97/59 96 Mechanical Ventilator 50 98.4 08/14/17 00:00 71 16 97/59 96 Mechanical Ventilator 50 08/13/17 23:05 69 15 50 08/13/17 23:00 68 16 101/56 94 Mechanical Ventilator 50 08/13/17 22:00 68 16 103/61 96 Mechanical Ventilator 50 08/13/17 21:01 77 15 50 08/13/17 21:00 74 16 97/56 96 Mechanical Ventilator 50 08/13/17 20:00 81 08/13/17 20:00 50 08/13/17 20:00 98.4 81 16 100/57 97 Mechanical Ventilator 50 98.4 08/13/17 19:18 76 15 100 Mechanical Ventilator 50 08/13/17 19:08 84 15 50 08/13/17 19:08 84 15 100 Mechanical Ventilator 50 08/13/17 19:00 81 16 98/62 97 Mechanical Ventilator 50 08/13/17 18:00 69 16 94/68 97 Mechanical Ventilator 50 08/13/17 17:01 74 15 50 08/13/17 17:00 71 15 102/58 98 Mechanical Ventilator 50 08/13/17 16:00 94 08/13/17 16:00 98.3 81 18 130/79 97 Mechanical Ventilator 50 98.3 08/13/17 15:06 85 18 50 08/13/17 15:00 110 15 109/64 98 Mechanical Ventilator 50 08/13/17 14:08 71 15 95 Mechanical Ventilator 50 08/13/17 14:00 77 24 105/63 98 Mechanical Ventilator 50 08/13/17 14:00 83 12 99 Mechanical Ventilator 50 08/13/17 13:00 67 15 107/57 98 Mechanical Ventilator 50 08/13/17 12:55 50 08/13/17 12:33 79 12 50 08/13/17 12:00 67 08/13/17 12:00 50 08/13/17 12:00 98.3 67 18 105/63 97 Mechanical Ventilator 50 98.3 08/13/17 11:08 74 12 50 08/13/17 11:07 50 08/13/17 11:00 66 15 99/60 98 Mechanical Ventilator 50 08/13/17 10:00 66 15 97/57 96 Mechanical Ventilator 50 Intake and Output 08/13/17 08/14/17 19:00 07:00 Intake Total 1927.7 ml 965.000 ml Output Total 1825 ml 900 ml Balance 102.7 ml 65.000 ml Intake Free Water 60 ml IV Total 1327.7 ml 305.000 ml Tube Feeding 600 ml 600 ml Output Urine Total 1825 ml 900 ml General Appearance: no acute distress HEENT: normocephalic Respiratory/Chest: chest wall non-tender, lungs clear Cardiovascular: normal peripheral pulses, normal rate Abdomen: normal bowel sounds Laboratory Tests 08/13/17 13:04: Arterial Blood pH 7.390, Arterial Blood Partial Pressure CO2 81.0*H, Arterial Blood Partial Pressure O2 76.3, Arterial Blood HCO3 47.9H, Arterial Blood Oxygen Saturation 94.4, Arterial Blood Base Excess 18.2, Roosevelt Test Positive 08/14/17 05:25: Prothrombin Time 30.9H, Prothromb Time International Ratio 2.9H Current Medications Medications (Trade) Dose Ordered Sig/Kika Route PRN Reason Start Time Stop Time Status Last Admin Dose Admin Acetaminophen (Tylenol) 650 mg Q4H PRN ORAL Mild Pain/Temp > 100.5 08/05/17 19:30 09/04/17 19:29 08/13/17 06:57 Albuterol Sulfate (Proventil MDI) 2 puff Q6H PRN INH shortness of breath or wheezin 08/04/17 09:00 09/03/17 08:59 Atorvastatin Calcium (Lipitor) 10 mg BEDTIME ORAL 08/04/17 21:00 09/02/17 21:59 08/13/17 20:47 Ceftriaxone Sodium 1 gm/ Dextrose 110 ml @ 220 mls/hr Q24H IVPB 08/08/17 12:30 08/15/17 23:59 08/13/17 12:02 Citalopram Hydrobromide (celeXA) 40 mg DAILY ORAL 08/11/17 09:00 09/10/17 08:59 08/13/17 08:07 Divalproex Sodium (Depakote Sprinkles) 500 mg EVERY 12 HOURS GT 08/05/17 21:00 09/04/17 20:59 08/14/17 09:04 Furosemide 100 mg/ Dextrose 0 ml @ 5 mls/hr Q0M IV 08/13/17 18:30 09/12/17 18:29 08/13/17 19:23 Haloperidol Lactate 5 mg/ Dextrose 111 ml @ 222 mls/hr Q6H PRN IVPB Agitation 08/12/17 09:45 09/11/17 09:44 08/14/17 09:04 Lorazepam (Ativan 2mg/ml 1ml) 1 mg Q4H PRN IV For Anxiety 08/13/17 15:30 08/20/17 15:29 08/13/17 16:18 Morphine Sulfate (Morphine Sulfate) 2 mg Q3H PRN IVP Moderate Pain (Pain Scale 4-6) 08/11/17 20:00 08/18/17 19:59 08/13/17 14:45 Morphine Sulfate (Morphine Sulfate) 4 mg Q4H PRN IVP Severe Pain (Pain Scale 7-10) 08/11/17 20:00 08/18/17 19:59 08/13/17 05:16 Pantoprazole (Protonix) 40 mg EVERY 12 HOURS IVP 08/05/17 21:00 09/04/17 20:59 08/14/17 09:04 Risperidone (RisperDAL) 2 mg BID ORAL 08/07/17 09:00 09/05/17 18:29 08/14/17 09:04 Trazodone HCl (Desyrel) 200 mg BEDTIME ORAL 08/04/17 21:00 09/02/17 22:29 08/13/17 20:47 Vancomycin HCl (Vanco rx to dose) 1 ea DAILY PRN MISC Per rx protocol 08/10/17 12:00 09/09/17 11:59 Vancomycin HCl/ Dextrose 250 ml @ 166.667 mls/hr Q8HR IVPB 08/11/17 15:00 08/16/17 14:59 08/14/17 06:24 Warfarin Sodium (Coumadin per pharmacy) 1 ea DAILY PRN MISC Per rx protocol 08/08/17 08:45 09/07/17 08:44 Warfarin Sodium (Coumadin) 1 mg COUMADIN ONCE ORAL 08/14/17 17:00 08/14/17 17:01 Richardson Mitchell MD August 14, 2017 09:40
--- NOTE | 2017-08-14 11:27 | Infectious Diseases Prog Note ---
Assessment/Plan Assessment/Plan A; Pneumonia New fever, decreased Pyuria Hypercapnic respiratory failure COPD Schizophrenia P: Continue Rocephin and Vancomycin will f/u cultures Subjective ROS Limited/Unobtainable: Yes Respiratory: Reports: other - started on weaning Neurologic: Reports: other - on restrint Allergies: Coded Allergies: No Known Allergies (Unverified , 08/03/17) Objective Vital Signs Last 24 Hour Vital Signs Date Time Temp Pulse Resp B/P (MAP) Pulse Ox O2 Delivery O2 Flow Rate FiO2 08/14/17 10:58 88 15 40 08/14/17 10:57 93 08/14/17 09:00 82 16 121/70 96 Mechanical Ventilator 45 08/14/17 08:37 86 15 45 08/14/17 08:00 77 08/14/17 08:00 50 08/14/17 08:00 98.5 80 18 110/65 96 Mechanical Ventilator 50 98.5 08/14/17 07:17 76 15 50 08/14/17 07:00 98.5 78 16 102/63 96 Mechanical Ventilator 50 98.5 08/14/17 06:00 80 16 109/67 97 Mechanical Ventilator 50 08/14/17 05:00 80 16 104/62 97 Mechanical Ventilator 50 08/14/17 04:50 74 15 50 08/14/17 04:00 73 08/14/17 04:00 50 08/14/17 04:00 74 16 95/58 96 Mechanical Ventilator 50 08/14/17 03:17 76 18 50 08/14/17 03:00 77 16 101/63 96 Mechanical Ventilator 50 08/14/17 02:00 79 16 99/60 96 Mechanical Ventilator 50 08/14/17 01:14 72 15 97 Mechanical Ventilator 50 08/14/17 01:04 82 17 50 08/14/17 01:04 82 17 96 Mechanical Ventilator 50 08/14/17 01:00 98.4 75 16 97/59 96 Mechanical Ventilator 50 98.4 08/14/17 00:00 71 16 97/59 96 Mechanical Ventilator 50 08/13/17 23:05 69 15 50 08/13/17 23:00 68 16 101/56 94 Mechanical Ventilator 50 08/13/17 22:00 68 16 103/61 96 Mechanical Ventilator 50 08/13/17 21:01 77 15 50 08/13/17 21:00 74 16 97/56 96 Mechanical Ventilator 50 08/13/17 20:00 81 08/13/17 20:00 50 08/13/17 20:00 98.4 81 16 100/57 97 Mechanical Ventilator 50 98.4 08/13/17 19:18 76 15 100 Mechanical Ventilator 50 08/13/17 19:08 84 15 50 08/13/17 19:08 84 15 100 Mechanical Ventilator 50 08/13/17 19:00 81 16 98/62 97 Mechanical Ventilator 50 08/13/17 18:00 69 16 94/68 97 Mechanical Ventilator 50 08/13/17 17:01 74 15 50 08/13/17 17:00 71 15 102/58 98 Mechanical Ventilator 50 08/13/17 16:00 94 08/13/17 16:00 98.3 81 18 130/79 97 Mechanical Ventilator 50 98.3 08/13/17 15:06 85 18 50 08/13/17 15:00 110 15 109/64 98 Mechanical Ventilator 50 08/13/17 14:08 71 15 95 Mechanical Ventilator 50 08/13/17 14:00 77 24 105/63 98 Mechanical Ventilator 50 08/13/17 14:00 83 12 99 Mechanical Ventilator 50 08/13/17 13:00 67 15 107/57 98 Mechanical Ventilator 50 08/13/17 12:55 50 08/13/17 12:33 79 12 50 08/13/17 12:00 67 08/13/17 12:00 50 08/13/17 12:00 98.3 67 18 105/63 97 Mechanical Ventilator 50 98.3 Height (Feet): 5 Height (Inches): 9.00 Weight (Pounds): 174 HEENT: other - orally intubated Respiratory/Chest: lungs clear, other - on ventilator Cardiovascular: normal rate Abdomen: soft, non tender, other - orogastric tube Extremities: other - mild hand edema Neurologic/Psychiatric: alert, responsive Laboratory Tests Test 08/13/17 13:04 08/14/17 05:25 Arterial Blood pH 7.390 (7.350-7.450) Arterial Blood Partial Pressure CO2 81.0 mmHg (35.0-45.0) *H Arterial Blood Partial Pressure O2 76.3 mmHg (75.0-100.0) Arterial Blood HCO3 47.9 mmol/L (22.0-26.0) H Arterial Blood Oxygen Saturation 94.4 % (92.0-98.0) Arterial Blood Base Excess 18.2 Roosevelt Test Positive Prothrombin Time 30.9 SEC (9.30-11.50) H Prothromb Time International Ratio 2.9 (0.9-1.1) H Current Medications Medications (Trade) Dose Ordered Sig/Kika Route PRN Reason Start Time Stop Time Status Last Admin Dose Admin Acetaminophen (Tylenol) 650 mg Q4H PRN ORAL Mild Pain/Temp > 100.5 08/05/17 19:30 09/04/17 19:29 08/13/17 06:57 Albuterol Sulfate (Proventil MDI) 2 puff Q6H PRN INH shortness of breath or wheezin 08/04/17 09:00 09/03/17 08:59 Atorvastatin Calcium (Lipitor) 10 mg BEDTIME ORAL 08/04/17 21:00 09/02/17 21:59 08/13/17 20:47 Ceftriaxone Sodium 1 gm/ Dextrose 110 ml @ 220 mls/hr Q24H IVPB 08/08/17 12:30 08/15/17 23:59 08/13/17 12:02 Citalopram Hydrobromide (celeXA) 40 mg DAILY ORAL 08/11/17 09:00 09/10/17 08:59 08/13/17 08:07 Divalproex Sodium (Depakote Sprinkles) 500 mg EVERY 12 HOURS GT 08/05/17 21:00 09/04/17 20:59 08/14/17 09:04 Furosemide 100 mg/ Dextrose 0 ml @ 5 mls/hr Q0M IV 08/13/17 18:30 09/12/17 18:29 08/13/17 19:23 Haloperidol Lactate 5 mg/ Dextrose 111 ml @ 222 mls/hr Q6H PRN IVPB Agitation 08/12/17 09:45 09/11/17 09:44 08/14/17 09:04 Lorazepam (Ativan 2mg/ml 1ml) 1 mg Q4H PRN IV For Anxiety 08/13/17 15:30 08/20/17 15:29 08/13/17 16:18 Morphine Sulfate (Morphine Sulfate) 2 mg Q3H PRN IVP Moderate Pain (Pain Scale 4-6) 08/11/17 20:00 08/18/17 19:59 08/13/17 14:45 Morphine Sulfate (Morphine Sulfate) 4 mg Q4H PRN IVP Severe Pain (Pain Scale 7-10) 08/11/17 20:00 08/18/17 19:59 08/13/17 05:16 Pantoprazole (Protonix) 40 mg EVERY 12 HOURS IVP 08/05/17 21:00 09/04/17 20:59 08/14/17 09:04 Risperidone (RisperDAL) 2 mg BID ORAL 08/07/17 09:00 09/05/17 18:29 08/14/17 09:04 Trazodone HCl (Desyrel) 200 mg BEDTIME ORAL 08/04/17 21:00 09/02/17 22:29 08/13/17 20:47 Vancomycin HCl (Vanco rx to dose) 1 ea DAILY PRN MISC Per rx protocol 08/10/17 12:00 09/09/17 11:59 Vancomycin HCl/ Dextrose 250 ml @ 166.667 mls/hr Q8HR IVPB 08/11/17 15:00 08/16/17 14:59 08/14/17 06:24 Warfarin Sodium (Coumadin per pharmacy) 1 ea DAILY PRN MISC Per rx protocol 08/08/17 08:45 09/07/17 08:44 Warfarin Sodium (Coumadin) 1 mg COUMADIN ONCE ORAL 08/14/17 17:00 08/14/17 17:01 ROMARIO AVALOS August 14, 2017 11:27
[2017-08-14] MEDS: cefTRIAXone 1 GM in D5W 110 ML IVPB SCH (12:12)
[2017-08-14] MEDS: Morphine Sulfate 4mg/ml Inj IVP PRN (12:12)
[2017-08-14] MEDS: LORazepam Inj 2mg/ml 1ml IV PRN ×2 (12:12→16:43)
[2017-08-14] MEDS ORDERED: Warfarin Sodium 1mg ORAL ONE (17:00)
[2017-08-14] MEDS: TraZODone 100mg tab ORAL SCH (20:32)
[2017-08-15] VITALS (25 sets, daily range): BP systolic 93–128; BP diastolic 51–68
[2017-08-15 05:06] LABS: INR 2.8 (0.9-1.1)
[2017-08-15] MEDS: Vancomycin 1250mg/D5W 250ml IVPB SCH (05:43)
[2017-08-15] MEDS: Pantoprazole Inj IVP SCH ×2 (08:48→20:48)
[2017-08-15] MEDS: Citalopram 20mg Tab ORAL SCH (08:49)
[2017-08-15] MEDS: Depakote 125mg Sprinkles GT SCH ×2 (08:49→20:48)
--- NOTE | 2017-08-15 10:32 | Diagnostic Imaging Report ---
Indication: Abnormal breath sounds Comparison: 08/13/2017 A single view chest radiograph was obtained. Findings: Interstitial opacities are prominent within the lungs bilaterally. Endotracheal tube is in good position. Bones are osteopenic. Pulmonary vascularity is prominent. The heart is mildly enlarged. IMPRESSION: Interstitial edema appearing worse compared to the prior study
--- NOTE | 2017-08-15 11:38 | Infectious Diseases Prog Note ---
Assessment/Plan Assessment/Plan antibiotics : vancomycin iv, ceftriaxone A 1. klebsiella pneumonia 2. respiratory failure 3. fungal UTI 4. COPD 5. hypertension P 1. continue ceftriaxone 2 more days 2, d/c iv vancomycin 3. start fluconazole 4. will follow up cultures Subjective ROS Limited/Unobtainable: Yes Allergies: Coded Allergies: No Known Allergies (Unverified , 08/03/17) Objective Vital Signs Last 24 Hour Vital Signs Date Time Temp Pulse Resp B/P (MAP) Pulse Ox O2 Delivery O2 Flow Rate FiO2 08/15/17 11:00 67 15 50 08/15/17 10:00 70 15 94/57 92 Mechanical Ventilator 50 08/15/17 09:00 72 15 110/62 96 Mechanical Ventilator 50 08/15/17 08:58 69 15 50 08/15/17 08:00 98.4 78 16 102/56 94 Mechanical Ventilator 50 98.4 08/15/17 08:00 78 08/15/17 08:00 50 08/15/17 07:01 72 19 50 08/15/17 07:00 70 16 99/59 96 Mechanical Ventilator 50 08/15/17 06:00 73 16 94/57 90 Mechanical Ventilator 50 08/15/17 05:08 80 15 50 08/15/17 05:00 81 15 98/54 90 Mechanical Ventilator 50 08/15/17 04:00 81 17 106/51 90 Mechanical Ventilator 50 08/15/17 04:00 75 08/15/17 04:00 50 08/15/17 03:25 88 19 50 08/15/17 03:00 98.4 78 15 93/54 90 Mechanical Ventilator 50 98.4 08/15/17 02:00 81 16 95/57 90 Mechanical Ventilator 50 08/15/17 01:16 94 16 50 08/15/17 01:00 82 16 103/64 95 Mechanical Ventilator 50 08/15/17 00:00 50 08/15/17 00:00 81 08/15/17 00:00 82 16 104/60 97 Mechanical Ventilator 50 08/14/17 23:14 87 20 50 08/14/17 23:00 81 16 110/62 97 Mechanical Ventilator 50 08/14/17 22:00 81 16 111/64 95 Mechanical Ventilator 50 08/14/17 21:00 80 16 108/66 95 Mechanical Ventilator 50 08/14/17 20:55 77 18 40 08/14/17 20:00 98.2 79 16 101/60 95 Mechanical Ventilator 50 98.2 08/14/17 20:00 50 08/14/17 20:00 81 08/14/17 19:23 85 19 50 08/14/17 19:00 80 16 100/59 93 Mechanical Ventilator 50 08/14/17 18:00 75 15 99/59 90 Mechanical Ventilator 50 08/14/17 17:00 72 15 94/56 92 Mechanical Ventilator 50 08/14/17 16:49 92 16 50 08/14/17 16:00 97.6 97 20 91/59 91 Mechanical Ventilator 50 97.6 08/14/17 16:00 92 08/14/17 16:00 50 08/14/17 15:00 82 16 99/50 92 Mechanical Ventilator 50 08/14/17 14:31 76 15 50 08/14/17 14:00 80 15 100/58 90 Mechanical Ventilator 50 08/14/17 13:00 91 15 96/62 91 Mechanical Ventilator 50 08/14/17 12:42 98.5 08/14/17 12:33 96 15 50 08/14/17 12:12 98.5 08/14/17 12:00 108 08/14/17 12:00 97.7 108 18 123/73 89 Mechanical Ventilator 50 97.7 08/14/17 11:40 50 Height (Feet): 5 Height (Inches): 9.00 Weight (Pounds): 174 HEENT: other - intubated Respiratory/Chest: lungs clear Cardiovascular: normal rate, regular rhythm, no gallop/murmur Abdomen: soft, non tender Extremities: no edema Laboratory Tests Test 08/15/17 04:00 Prothrombin Time 29.7 SEC (9.30-11.50) H Prothromb Time International Ratio 2.8 (0.9-1.1) H Arterial Blood pH 7.440 (7.350-7.450) Arterial Blood Partial Pressure CO2 71.4 mmHg (35.0-45.0) *H Arterial Blood Partial Pressure O2 69.4 mmHg (75.0-100.0) L Arterial Blood HCO3 48.2 mmol/L (22.0-26.0) H Arterial Blood Oxygen Saturation 92.9 % (92.0-98.0) Arterial Blood Base Excess 19.9 [place] Test Positive Current Medications Medications (Trade) Dose Ordered Sig/Kika Route PRN Reason Start Time Stop Time Status Last Admin Dose Admin Acetaminophen (Tylenol) 650 mg Q4H PRN ORAL Mild Pain/Temp > 100.5 08/05/17 19:30 09/04/17 19:29 08/13/17 06:57 Albuterol Sulfate (Proventil MDI) 2 puff Q6H PRN INH shortness of breath or wheezin 08/04/17 09:00 09/03/17 08:59 Atorvastatin Calcium (Lipitor) 10 mg BEDTIME ORAL 08/04/17 21:00 09/02/17 21:59 08/14/17 20:32 Ceftriaxone Sodium 1 gm/ Dextrose 110 ml @ 220 mls/hr Q24H IVPB 08/08/17 12:30 08/15/17 23:59 08/14/17 12:12 Citalopram Hydrobromide (celeXA) 40 mg DAILY ORAL 08/11/17 09:00 09/10/17 08:59 08/15/17 08:49 Divalproex Sodium (Depakote Sprinkles) 500 mg EVERY 12 HOURS GT 08/05/17 21:00 09/04/17 20:59 08/15/17 08:49 Furosemide 100 mg/ Dextrose 100 ml @ 5 mls/hr Q20H IV 08/14/17 19:00 09/12/17 18:29 08/14/17 19:07 Haloperidol Lactate 5 mg/ Dextrose 111 ml @ 222 mls/hr Q6H PRN IVPB Agitation 08/12/17 09:45 09/11/17 09:44 08/14/17 09:04 Lorazepam (Ativan 2mg/ml 1ml) 1 mg Q4H PRN IV For Anxiety 08/13/17 15:30 08/20/17 15:29 08/14/17 16:43 Morphine Sulfate (Morphine Sulfate) 2 mg Q3H PRN IVP Moderate Pain (Pain Scale 4-6) 08/11/17 20:00 08/18/17 19:59 08/13/17 14:45 Morphine Sulfate (Morphine Sulfate) 4 mg Q4H PRN IVP Severe Pain (Pain Scale 7-10) 08/11/17 20:00 08/18/17 19:59 08/14/17 12:12 Pantoprazole (Protonix) 40 mg EVERY 12 HOURS IVP 08/05/17 21:00 09/04/17 20:59 08/15/17 08:48 Risperidone (RisperDAL) 2 mg BID ORAL 08/07/17 09:00 09/05/17 18:29 08/15/17 08:49 Trazodone HCl (Desyrel) 200 mg BEDTIME ORAL 08/04/17 21:00 09/02/17 22:29 08/14/17 20:32 Vancomycin HCl (Vanco rx to dose) 1 ea DAILY PRN MISC Per rx protocol 08/10/17 12:00 09/09/17 11:59 Vancomycin HCl/ Dextrose 250 ml @ 166.667 mls/hr Q8HR IVPB 08/11/17 15:00 08/16/17 14:59 08/15/17 05:43 Warfarin Sodium (Coumadin per pharmacy) 1 ea DAILY PRN MISC Per rx protocol 08/08/17 08:45 09/07/17 08:44 Warfarin Sodium (Coumadin) 1 mg COUMADIN ORAL 08/15/17 17:00 08/15/17 18:00 LALI COCHRAN Aug 15, 2017 11:38
[2017-08-15] MEDS: cefTRIAXone 1 GM in D5W 110 ML IVPB SCH (12:41)
[2017-08-15] MEDS: Fluconazole 100mg tab ORAL SCH (12:41)
[2017-08-15] MEDS ORDERED: Warfarin Sodium 1mg ORAL SCH (17:00)
--- NOTE | 2017-08-15 17:54 | Pulmonolgy Critical Care Note ---
Critical Care - Asmt/Plan Problems: (1) Lung collapse Assessment & Plan: RESOLVED AFTER BRONCHOSCOPY (2) COPD exacerbation (3) Respiratory failure requiring intubation Assessment & Plan: D/T Klebsiella PNA Self extubated 08/15 (4) Respiratory failure with hypoxia and hypercapnia (5) Chronic hypercapnic respiratory failure Assessment & Plan: Likely 2/2 underlying COPD (6) Altered mental status Assessment & Plan: Toxic Metabolic encephalopathy (7) UTI (urinary tract infection) Assessment & Plan: Fungal Respiratory: adjust FIO2 - Titrate down FiO2 to keep SaO2 > 90%, CXR, ABG, other - RTC and PRN HHN's, BiPAP qHS and PRN Cardiac: continue to monitor HR/BP, other - continue lasix gtt Renal: F/U I&O, check electrolytes Infectious Disease: continue antibiotics - Ctx and Flucon per ID Gastrointestinal: other - SPOOL SORTER eval, then advance diet Endocrine: monitor blood sugar Hematologic: monitor H/H Neurologic: PRN Ativan, keep patient comfortable - monitor MS, PRN Haldol, other - restraints Prophylaxis: Protonix, other - Coumadin Disposition: keep in ICU Time Spent (Minutes): 60 Notes Reviewed: reproduction technician, ID Discussed with: nurses, consultants Critical Care - Objective Last 24 Hour Vital Signs Date Time Temp Pulse Resp B/P (MAP) Pulse Ox O2 Delivery O2 Flow Rate FiO2 08/15/17 17:00 75 16 116/64 100 Simple Mask 12.0 50 08/15/17 16:00 98.2 78 15 112/55 99 Simple Mask 12.0 50 98.2 08/15/17 15:44 100 Venturi Mask 12.0 50 08/15/17 15:30 Non-Rebreather 15.0 100 08/15/17 15:30 100 08/15/17 15:30 15.0 08/15/17 15:30 78 15 97/58 100 Non-Rebreather 15.0 08/15/17 15:13 94 23 45 08/15/17 15:00 75 15 100/55 92 Mechanical Ventilator 50 08/15/17 14:00 77 15 101/57 92 Mechanical Ventilator 50 08/15/17 13:35 94 19 50 08/15/17 13:00 81 15 99/62 92 Mechanical Ventilator 50 08/15/17 12:00 98.4 78 16 102/60 94 Mechanical Ventilator 50 98.4 6/1/18 12:00 72 08/15/17 12:00 50 08/15/17 11:00 72 16 106/58 92 Mechanical Ventilator 50 08/15/17 11:00 67 15 50 08/15/17 10:00 70 15 94/57 92 Mechanical Ventilator 50 08/15/17 09:00 72 15 110/62 96 Mechanical Ventilator 50 08/15/17 08:58 69 15 50 08/15/17 08:00 98.4 78 16 102/56 94 Mechanical Ventilator 50 98.4 08/15/17 08:00 78 08/15/17 08:00 50 08/15/17 07:01 72 19 50 08/15/17 07:00 70 16 99/59 96 Mechanical Ventilator 50 08/15/17 06:00 73 16 94/57 90 Mechanical Ventilator 50 08/15/17 05:08 80 15 50 08/15/17 05:00 81 15 98/54 90 Mechanical Ventilator 50 08/15/17 04:00 81 17 106/51 90 Mechanical Ventilator 50 08/15/17 04:00 75 08/15/17 04:00 50 08/15/17 03:25 88 19 50 08/15/17 03:00 98.4 78 15 93/54 90 Mechanical Ventilator 50 98.4 08/15/17 02:00 81 16 95/57 90 Mechanical Ventilator 50 08/15/17 01:16 94 16 50 08/15/17 01:00 82 16 103/64 95 Mechanical Ventilator 50 08/15/17 00:00 50 08/15/17 00:00 81 08/15/17 00:00 82 16 104/60 97 Mechanical Ventilator 50 08/14/17 23:14 87 20 50 08/14/17 23:00 81 16 110/62 97 Mechanical Ventilator 50 08/14/17 22:00 81 16 111/64 95 Mechanical Ventilator 50 08/14/17 21:00 80 16 108/66 95 Mechanical Ventilator 50 08/14/17 20:55 77 18 40 08/14/17 20:00 98.2 79 16 101/60 95 Mechanical Ventilator 50 98.2 08/14/17 20:00 50 08/14/17 20:00 81 08/14/17 19:23 85 19 50 08/14/17 19:00 80 16 100/59 93 Mechanical Ventilator 50 08/14/17 18:00 75 15 99/59 90 Mechanical Ventilator 50 Status: sedated - confused Condition: improving HEENT: atraumatic, normocephalic Lungs: clear Heart: HR/BP stable Abdomen: soft, non-tender, active bowel sounds Extremities: no C/C/E Blood Sugars: BS controlled Critical Care - Subjective ICU Day: 12 Intubation Day: self extubated Interval Events: Self extubated Confused Attempting to get OOB Oxygenation stable on FM ABG pending Denies cough, congestion, SOB or wheezing, no F/C Pulled out OGT as well Condition: stable IV Access: peripheral - x2 EKG Rhythm: Sinus Rhythm FI02: 50 Vent Support Breath Rate: 15 Vent Support Mode: AC Vent Tidal Volume: 500 Sputum Amount: None PEEP: 5.0 PIP: 35 Secretions: None Drips: Lasix gtt Tube Feeding Amount: 50 I&O: Intake and Output 08/14/17 08/15/17 19:00 07:00 Intake Total 1071.000 ml 965.000 ml Output Total 1110 ml 980 ml Balance -39.000 ml -15.000 ml Intake Free Water 60 ml IV Total 471.000 ml 305.000 ml Tube Feeding 600 ml 600 ml Output Urine Total 1110 ml 980 ml Subjective: MEHUL ET-Tube: 7.0 ET Position: 23 Labs: Laboratory Tests Test 08/15/17 04:00 Prothrombin Time 29.7 SEC (9.30-11.50) H Prothromb Time International Ratio 2.8 (0.9-1.1) H Arterial Blood pH 7.440 (7.350-7.450) Arterial Blood Partial Pressure CO2 71.4 mmHg (35.0-45.0) *H Arterial Blood Partial Pressure O2 69.4 mmHg (75.0-100.0) L Arterial Blood HCO3 48.2 mmol/L (22.0-26.0) H Arterial Blood Oxygen Saturation 92.9 % (92.0-98.0) Arterial Blood Base Excess 19.9 Roosevelt Test Positive Dale Keane MD Aug 15, 2017 17:54
[2017-08-15] MEDS: LORazepam Inj 2mg/ml 1ml IV PRN (17:56)
[2017-08-15] MEDS ORDERED: Albuterol/Ipratropium 3ml neb HHN PRN (17:56)
[2017-08-15] MEDS: Haloperidol Lactate 5 MG in D5W 110 ML IVPB PRN (18:13)
[2017-08-15] MEDS: TraZODone 100mg tab ORAL SCH (20:49)
[2017-08-15] MEDS: Albuterol/Ipratropium 3ml neb HHN SCH (21:15)
[2017-08-16] VITALS (24 sets, daily range): BP systolic 90–115; BP diastolic 55–70
[2017-08-16] MEDS: Morphine Sulfate 4mg/ml Inj IVP PRN (01:52)
[2017-08-16] MEDS: LORazepam Inj 2mg/ml 1ml IV PRN ×3 (02:03→20:19)
[2017-08-16] MEDS: Albuterol/Ipratropium 3ml neb HHN SCH ×4 (02:18→19:44)
[2017-08-16 05:12] LABS: BASOPHILS % (AUTO) 1.8 % (0.0-2.0); EOSINOPHILS % (AUTO) 0.7 % (0.0-3.0); HEMATOCRIT 43.3 % (42.0-52.0); HEMOGLOBIN 13.5 G/DL (14.2-18.0); LYMPHOCYTES % (AUTO) 6.7 % (20.0-45.0); MEAN CORPUSCULAR VOLUME 94 FL (80-99); MONOCYTES % (AUTO) 16.6 % (1.0-10.0); NEUTROPHILS % (AUTO) 74.2 % (45.0-75.0); PLATELET COUNT 208 K/UL (150-450); RED BLOOD COUNT 4.63 M/UL (4.70-6.10); RED CELL DISTRIBUTION WIDTH 15.9 % (11.6-14.8)
[2017-08-16 05:13] LABS: INR 2.2 (0.9-1.1)
[2017-08-16 05:33] LABS: ALANINE AMINOTRANSFERASE 12 U/L (12-78); ALBUMIN 1.9 G/DL (3.4-5.0); ALBUMIN/GLOBULIN RATIO 0.4 (1.0-2.7); ALKALINE PHOSPHATASE 75 U/L (46-116); ASPARTATE AMINO TRANSFERASE 18 U/L (15-37); BILIRUBIN,TOTAL 0.6 MG/DL (0.2-1.0); BLOOD UREA NITROGEN 42 mg/dL (7-18); CALCIUM 9.3 MG/DL (8.5-10.1); CHLORIDE 95 MMOL/L (98-107); CREATININE 1.6 MG/DL (0.55-1.30); POTASSIUM 3.9 MMOL/L (3.5-5.1); SODIUM 140 MMOL/L (136-145)
[2017-08-16 05:34] LABS: CARBON DIOXIDE > 45 MMOL/L (21-32)
[2017-08-16] MEDS: Citalopram 20mg Tab ORAL SCH (08:34)
[2017-08-16] MEDS: Depakote 125mg Sprinkles GT SCH ×2 (08:34→20:19)
[2017-08-16] MEDS: Fluconazole 100mg tab ORAL SCH (08:34)
[2017-08-16] MEDS: Pantoprazole Inj IVP SCH ×2 (08:40→20:20)
[2017-08-16] MEDS: Haloperidol Lactate 5 MG in D5W 110 ML IVPB PRN (08:41)
--- NOTE | 2017-08-16 11:14 | General Progress Note ---
Assessment/Plan Status: unchanged Assessment/Plan IM COVERAGE FOR DR GALAN Assessment/Plan Assessment/Plan 1. Acute respiratory failure. 2. Right hemithorax opacification. Now resolved after bronchoscopy 3. History of right pleural effusion. 4. Schizophrenia, chronic Coumadin usage. 5. Pulmonary edema; improving on Lasix gtt 5. ARF DISCUSSION: DC Lasix gtt Bolus NS x 1 Renal US Added Halodol Subjective Constitutional: Reports: no symptoms HEENT: Repors: no symptoms Respiratory: Reports: no symptoms Cardiovascular: Reports: no symptoms General Appearance: no acute distress HEENT: normocephalic Respiratory/Chest: chest wall non-tender, lungs clear Cardiovascular: normal peripheral pulses, normal rate Abdomen: normal bowel sounds Subjective Allergies: Coded Allergies: No Known Allergies (Unverified , 08/03/17) Objective Last 24 Hour Vital Signs Date Time Temp Pulse Resp B/P (MAP) Pulse Ox O2 Delivery O2 Flow Rate FiO2 08/16/17 10:00 83 15 101/58 97 Venturi Mask 55 08/16/17 09:00 98.5 80 17 98/55 97 Venturi Mask 55 98.5 08/16/17 08:00 85 08/16/17 08:00 85 17 95/58 97 Venturi Mask 55 08/16/17 07:21 82 20 96 Bi-pap 08/16/17 07:11 77 22 92 Facial 50 08/16/17 07:11 77 22 92 Bi-pap 08/16/17 07:11 Bi-pap 08/16/17 07:10 92 Bi-pap 08/16/17 07:00 79 17 95/57 93 Bi-pap 50 08/16/17 06:00 77 17 94/56 96 Bi-pap 50 08/16/17 05:15 80 21 94 Facial 50 08/16/17 05:00 81 19 92/57 98 Bi-pap 50 08/16/17 04:00 98.3 86 21 94/55 95 Bi-pap 50 98.3 08/16/17 04:00 50.0 08/16/17 04:00 87 08/16/17 03:30 74 20 100 Facial 50 08/16/17 03:00 83 20 102/62 92 Bi-pap 50 08/16/17 02:22 97.9 08/16/17 02:00 82 20 98 Bi-pap 08/16/17 02:00 79 21 100 Full Face 50 08/16/17 02:00 80 20 96/59 99 Bi-pap 50 08/16/17 02:00 79 20 96 Bi-pap 08/16/17 01:52 97.8 08/16/17 01:00 79 20 100/64 97 Bi-pap 50 08/16/17 00:00 97.9 82 19 110/70 99 Bi-pap 50 97.9 08/16/17 00:00 82 08/16/17 00:00 50.0 08/15/17 23:04 79 21 100 Facial 50 08/15/17 23:00 78 17 118/68 98 Bi-pap 50 08/15/17 22:00 76 18 115/61 98 Bi-pap 50 08/15/17 21:17 79 20 95 Full Face 50 08/15/17 21:00 87 19 96/60 96 Bi-pap 50 08/15/17 20:17 77 21 95 Facial 50 08/15/17 20:00 98.4 87 15 128/60 97 Bi-pap 50 98.4 08/15/17 20:00 Bi-pap 08/15/17 20:00 87 08/15/17 20:00 50.0 08/15/17 19:40 79 21 96 Bi-pap 08/15/17 19:30 95 Bi-pap 08/15/17 19:30 78 20 95 Bi-pap 08/15/17 19:00 80 16 113/55 98 Simple Mask 12.0 50 08/15/17 18:00 80 15 102/53 96 Simple Mask 12.0 50 08/15/17 17:00 75 16 116/64 100 Simple Mask 12.0 50 08/15/17 16:00 98.2 78 15 112/55 99 Simple Mask 12.0 50 98.2 08/15/17 16:00 75 08/15/17 15:44 100 Venturi Mask 12.0 50 08/15/17 15:30 Non-Rebreather 15.0 100 08/15/17 15:30 100 08/15/17 15:30 15.0 08/15/17 15:30 78 15 97/58 100 Non-Rebreather 15.0 08/15/17 15:13 94 23 45 08/15/17 15:00 75 15 100/55 92 Mechanical Ventilator 50 08/15/17 14:00 77 15 101/57 92 Mechanical Ventilator 50 08/15/17 13:35 94 19 50 08/15/17 13:00 81 15 99/62 92 Mechanical Ventilator 50 08/15/17 12:00 98.4 78 16 102/60 94 Mechanical Ventilator 50 98.4 08/15/17 12:00 72 08/15/17 12:00 50 Intake and Output 08/15/17 08/16/17 19:00 07:00 Intake Total 415 ml 90 ml Output Total 1130 ml 810 ml Balance -715 ml -720 ml Intake Oral 30 ml IV Total 15 ml 60 ml Tube Feeding 400 ml Output Urine Total 1130 ml 810 ml Laboratory Tests 08/15/17 18:30: Arterial Blood pH 7.434, Arterial Blood Partial Pressure CO2 71.9*H, Arterial Blood Partial Pressure O2 76.8, Arterial Blood HCO3 47.1H, Arterial Blood Oxygen Saturation 94.7, Arterial Blood Base Excess 18.6, Roosevelt Test Positive 08/16/17 04:00: White Blood Count 9.0, Red Blood Count 4.63L, Hemoglobin 13.5L, Hematocrit 43.3 , Mean Corpuscular Volume 94, Mean Corpuscular Hemoglobin 29.1, Mean Corpuscular Hemoglobin Concent 31.1L, Red Cell Distribution Width 15.9H, Platelet Count 208, Mean Platelet Volume 7.3, Neutrophils (%) (Auto) 74.2, Lymphocytes (%) (Auto) 6.7L, Monocytes (%) (Auto) 16.6H, Eosinophils (%) (Auto) 0.7, Basophils (%) (Auto) 1.8, Prothrombin Time 22.9H, Prothromb Time International Ratio 2.2H, Sodium Level 140, Potassium Level 3.9, Chloride Level 95L, Carbon Dioxide Level > 45*H, Blood Urea Nitrogen 42H, Creatinine 1.6H, Estimat Glomerular Filtration Rate 44.3, Glucose Level 96, Calcium Level 9.3, Total Bilirubin 0.6, Aspartate Amino Transf (AST/SGOT) 18, Alanine Aminotransferase (ALT/SGPT) 12, Alkaline Phosphatase 75, Pro-B-Type Natriuretic Peptide 545H, Total Protein 6.9, Albumin 1.9L, Globulin 5.0, Albumin/Globulin Ratio 0.4L 08/16/17 07:10: Arterial Blood pH 7.410, Arterial Blood Partial Pressure CO2 86.9*H, Arterial Blood Partial Pressure O2 65.7L, Arterial Blood HCO3 54.1H, Arterial Blood Oxygen Saturation 91.8L, Arterial Blood Base Excess 23.8, Roosevelt Test Positive 08/16/17 10:22: Arterial Blood pH 7.410, Arterial Blood Partial Pressure CO2 81.7*H, Arterial Blood Partial Pressure O2 66.2L, Arterial Blood HCO3 51.7H, Arterial Blood Oxygen Saturation 92.0, Arterial Blood Base Excess 21.9, Roosevelt Test Positive Height (Feet): 5 Height (Inches): 9.00 Weight (Pounds): 168 Stefany Rose MD Aug 16, 2017 11:14
[2017-08-16] MEDS ORDERED: Sodium Chloride 500ML 500 ML IV ONE (11:15)
[2017-08-16] MEDS: cefTRIAXone 1 GM in D5W 110 ML IVPB SCH (12:30)
[2017-08-16] MEDS ORDERED: NS 275ml ONE (16:24)
[2017-08-16] MEDS ORDERED: Tubing IV Secondary IV ONE (16:24)
[2017-08-16] MEDS ORDERED: Warfarin Sodium 2mg ORAL ONE (17:00)
[2017-08-16] MEDS: TraZODone 100mg tab ORAL SCH (20:20)
[2017-08-17] VITALS (24 sets, daily range): BP systolic 96–131; BP diastolic 52–84
[2017-08-17] MEDS: Haloperidol Lactate 5 MG in D5W 110 ML IVPB PRN ×3 (01:19→23:41)
[2017-08-17] MEDS: Albuterol/Ipratropium 3ml neb HHN SCH ×4 (01:34→20:32)
[2017-08-17 05:01] LABS: BASOPHILS % (AUTO) 1.2 % (0.0-2.0); EOSINOPHILS % (AUTO) 1.3 % (0.0-3.0); HEMATOCRIT 44.6 % (42.0-52.0); HEMOGLOBIN 14.2 G/DL (14.2-18.0); LYMPHOCYTES % (AUTO) 11.1 % (20.0-45.0); MEAN CORPUSCULAR VOLUME 95 FL (80-99); MONOCYTES % (AUTO) 17.9 % (1.0-10.0); NEUTROPHILS % (AUTO) 68.5 % (45.0-75.0); PLATELET COUNT 208 K/UL (150-450); RED BLOOD COUNT 4.72 M/UL (4.70-6.10); RED CELL DISTRIBUTION WIDTH 15.7 % (11.6-14.8); WHITE BLOOD COUNT 8.1 K/UL (4.8-10.8)
[2017-08-17 05:36] LABS: INR 2.6 (0.9-1.1)
[2017-08-17 06:09] LABS: ALANINE AMINOTRANSFERASE 14 U/L (12-78); ALBUMIN/GLOBULIN RATIO 0.4 (1.0-2.7); ALKALINE PHOSPHATASE 75 U/L (46-116); ANION GAP 2 mmol/L (5-15); ASPARTATE AMINO TRANSFERASE 19 U/L (15-37); BILIRUBIN,TOTAL 0.5 MG/DL (0.2-1.0); BLOOD UREA NITROGEN 37 mg/dL (7-18); CALCIUM 9.7 MG/DL (8.5-10.1); CHLORIDE 98 MMOL/L (98-107); CREATININE 1.5 MG/DL (0.55-1.30); POTASSIUM 3.6 MMOL/L (3.5-5.1); SODIUM 145 MMOL/L (136-145)
[2017-08-17] MEDS: LORazepam Inj 2mg/ml 1ml IV PRN ×3 (06:12→19:39)
[2017-08-17 06:27] LABS: CARBON DIOXIDE 45 MMOL/L (21-32)
--- NOTE | 2017-08-17 09:26 | General Progress Note ---
Assessment/Plan Status: stable Assessment/Plan IM COVERAGE FOR DR GALAN Assessment/Plan Assessment/Plan 1. Acute respiratory failure. 2. Right hemithorax opacification. Now resolved after bronchoscopy 3. History of right pleural effusion. 4. Schizophrenia, chronic Coumadin usage. 5. Pulmonary edema; improving on Lasix gtt 5. ARF DISCUSSION: DC Lasix gtt Bolus NS x 1 Renal US Added Halodol Improving Cr level. Subjective Constitutional: Reports: no symptoms HEENT: Repors: no symptoms Respiratory: Reports: no symptoms Cardiovascular: Reports: no symptoms General Appearance: no acute distress HEENT: normocephalic Respiratory/Chest: chest wall non-tender, lungs clear Cardiovascular: normal peripheral pulses, normal rate Abdomen: normal bowel sounds Subjective Allergies: Coded Allergies: No Known Allergies (Unverified , 08/03/17) Objective Last 24 Hour Vital Signs Date Time Temp Pulse Resp B/P (MAP) Pulse Ox O2 Delivery O2 Flow Rate FiO2 08/17/17 07:32 Venturi Mask 14.0 55 08/17/17 07:31 95 Venturi Mask 14.0 55 08/17/17 07:28 81 20 98 Bi-pap 08/17/17 07:20 82 22 7 Bi-pap 08/17/17 06:00 79 19 124/74 98 Bi-pap 50 08/17/17 05:25 71 20 98 Full Face 60 08/17/17 05:00 83 20 131/75 100 Bi-pap 50 08/17/17 04:00 98.5 72 18 114/66 100 Bi-pap 50 98.5 08/17/17 04:00 73 08/17/17 03:22 64 20 100 Full Face 60 08/17/17 03:00 66 12 111/67 100 Bi-pap 50 08/17/17 02:00 66 12 106/69 99 Bi-pap 50 08/17/17 01:35 86 23 100 Bi-pap 08/17/17 01:34 74 22 99 Bi-pap 08/17/17 01:30 74 21 98 Facial 60 08/17/17 01:00 68 16 101/61 100 Bi-pap 50 08/17/17 00:00 69 08/17/17 00:00 98.9 65 11 113/84 98 Bi-pap 50 98.9 08/16/17 23:00 68 13 97/63 98 Bi-pap 50 08/16/17 22:30 71 20 98 Facial 60 08/16/17 22:00 72 11 90/57 98 Bi-pap 50 08/16/17 21:18 99.1 08/16/17 21:00 81 18 96/59 96 Bi-pap 50 08/16/17 20:19 99.5 08/16/17 20:00 72 21 92 Facial 60 08/16/17 20:00 99.5 88 20 109/64 97 Bi-pap 50 99.5 08/16/17 20:00 83 08/16/17 19:46 88 21 98 Bi-pap 08/16/17 19:46 Bi-pap 08/16/17 19:46 96 Bi-pap 08/16/17 19:45 82 21 96 Bi-pap 08/16/17 19:00 88 18 105/66 89 Nasal Cannula 10.0 08/16/17 18:00 86 18 102/60 90 Nasal Cannula 10.0 08/16/17 17:00 98.7 82 16 93/59 98 Nasal Cannula 10.0 98.7 08/16/17 16:00 81 08/16/17 16:00 89 18 106/64 98 Venturi Mask 55 08/16/17 15:00 90 15 102/63 98 Venturi Mask 55 08/16/17 14:00 77 15 108/66 97 Venturi Mask 55 08/16/17 13:22 Nasal Cannula 5.0 08/16/17 13:21 Nasal Cannula 5.0 08/16/17 13:00 98.8 81 17 100/61 94 Venturi Mask 55 98.8 08/16/17 12:00 81 15 105/65 97 Venturi Mask 55 08/16/17 12:00 80 08/16/17 11:00 80 15 115/62 97 Venturi Mask 55 08/16/17 10:00 83 15 101/58 97 Venturi Mask 55 Intake and Output 08/16/17 08/17/17 19:00 07:00 Intake Total 1441 ml 111 ml Output Total 930 ml 780 ml Balance 511 ml -669 ml IV Total 1441 ml 111 ml Output Urine Total 930 ml 780 ml Laboratory Tests 08/16/17 10:22: Arterial Blood pH 7.410, Arterial Blood Partial Pressure CO2 81.7*H, Arterial Blood Partial Pressure O2 66.2L, Arterial Blood HCO3 51.7H, Arterial Blood Oxygen Saturation 92.0, Arterial Blood Base Excess 21.9, Roosevelt Test Positive 08/17/17 04:05: White Blood Count 8.1, Red Blood Count 4.72, Hemoglobin 14.2, Hematocrit 44.6, Mean Corpuscular Volume 95, Mean Corpuscular Hemoglobin 30.0, Mean Corpuscular Hemoglobin Concent 31.7L, Red Cell Distribution Width 15.7H, Platelet Count 208 , Mean Platelet Volume 6.9, Neutrophils (%) (Auto) 68.5, Lymphocytes (%) (Auto) 11.1L, Monocytes (%) (Auto) 17.9H, Eosinophils (%) (Auto) 1.3, Basophils (%) ( Auto) 1.2, Prothrombin Time 27.7H, Prothromb Time International Ratio 2.6H, Sodium Level 145, Potassium Level 3.6, Chloride Level 98, Carbon Dioxide Level 45*H, Anion Gap 2L, Blood Urea Nitrogen 37H, Creatinine 1.5H, Estimat Glomerular Filtration Rate 47.7, Glucose Level 95, Calcium Level 9.7, Total Bilirubin 0.5, Aspartate Amino Transf (AST/SGOT) 19, Alanine Aminotransferase ( ALT/SGPT) 14, Alkaline Phosphatase 75, Total Protein 7.3, Albumin 2.0L, Globulin 5.3, Albumin/Globulin Ratio 0.4L 08/17/17 08:15: Arterial Blood pH 7.395, Arterial Blood Partial Pressure CO2 72.8*H, Arterial Blood Partial Pressure O2 98.6, Arterial Blood HCO3 43.6H, Arterial Blood Oxygen Saturation 97.0, Arterial Blood Base Excess 14.9, Roosevelt Test Positive Height (Feet): 5 Height (Inches): 9.00 Weight (Pounds): 172 Stefany Rose MD Aug 17, 2017 09:26
[2017-08-17] MEDS: Fluconazole 100mg tab ORAL SCH (09:41)
[2017-08-17] MEDS: Depakote 125mg Sprinkles GT SCH ×2 (09:41→20:59)
[2017-08-17] MEDS: Citalopram 20mg Tab ORAL SCH (09:41)
[2017-08-17] MEDS: Pantoprazole Inj IVP SCH ×2 (09:41→21:00)
--- NOTE | 2017-08-17 10:43 | Diagnostic Imaging Report ---
INDICATION: Asthma COMPARISON: Chest x-ray dated 08/15/17 FINDINGS: Single frontal view demonstrates a prominent heart size. Removal of endotracheal tube. Stable increased pulmonary vascular markings suggestive of congestion with unchanged right lower lung zone opacity. The visualized osseous structures are within normal limits. IMPRESSION: Removal of endotracheal tube. Stable increased pulmonary vascular markings suggestive of congestion with unchanged right lower lung zone opacity.
[2017-08-17] MEDS ORDERED: Tubing IV Secondary IV ONE (11:08)
--- NOTE | 2017-08-17 11:24 | Diagnostic Imaging Report ---
INDICATION: Asthma TECHNIQUE: Real time imaging of the kidneys is performed in sagittal and transverse projections. COMPARISON: None FINDINGS: The kidneys are normal in size, with the left kidney measuring 13.4 cm and the right measuring 12.6 cm. There is no evidence of hydronephrosis or solid mass lesions. 18 mm right renal cyst. 10 mm left renal cyst. Bilateral likely nonobstructing renal parenchymal calcifications, in the right kidney measuring 2 mm and the left kidney measuring 10 mm. No sonographic evidence of renal calculi. IMPRESSION: 1. 18 mm right renal cyst. 10 mm left renal cyst. 2. Bilateral likely nonobstructing renal parenchymal calcifications, in the right kidney measuring 2 mm and the left kidney measuring 10 mm.
--- NOTE | 2017-08-17 11:47 | Infectious Diseases Prog Note ---
Assessment/Plan Assessment/Plan A; Pneumonia New fever, decreased Pyuria Hypercapnic respiratory failure COPD Schizophrenia P: Continue Rocephin until expiration today Continue Fluconazole will f/u cultures Subjective ROS Limited/Unobtainable: Yes Neurologic: Reports: confusion, other - on restraint Allergies: Coded Allergies: No Known Allergies (Unverified , 08/03/17) Objective Vital Signs Last 24 Hour Vital Signs Date Time Temp Pulse Resp B/P (MAP) Pulse Ox O2 Delivery O2 Flow Rate FiO2 08/17/17 10:00 72 18 104/56 98 Venturi Mask 55 08/17/17 09:00 75 19 105/75 97 Venturi Mask 55 08/17/17 08:00 97.6 70 17 117/75 98 Venturi Mask 55 97.6 08/17/17 08:00 75 08/17/17 07:32 Venturi Mask 14.0 55 08/17/17 07:31 95 Venturi Mask 14.0 55 08/17/17 07:28 81 20 98 Bi-pap 08/17/17 07:20 82 22 7 Bi-pap 08/17/17 07:00 82 18 120/72 98 Bi-pap 50 08/17/17 06:00 79 19 124/74 98 Bi-pap 50 08/17/17 05:25 71 20 98 Full Face 60 08/17/17 05:00 83 20 131/75 100 Bi-pap 50 08/17/17 04:00 98.5 72 18 114/66 100 Bi-pap 50 98.5 08/17/17 04:00 73 08/17/17 03:22 64 20 100 Full Face 60 08/17/17 03:00 66 12 111/67 100 Bi-pap 50 08/17/17 02:00 66 12 106/69 99 Bi-pap 50 08/17/17 01:35 86 23 100 Bi-pap 08/17/17 01:34 74 22 99 Bi-pap 08/17/17 01:30 74 21 98 Facial 60 08/17/17 01:00 68 16 101/61 100 Bi-pap 50 08/17/17 00:00 69 08/17/17 00:00 98.9 65 11 113/84 98 Bi-pap 50 98.9 08/16/17 23:00 68 13 97/63 98 Bi-pap 50 08/16/17 22:30 71 20 98 Facial 60 08/16/17 22:00 72 11 90/57 98 Bi-pap 50 08/16/17 21:18 99.1 08/16/17 21:00 81 18 96/59 96 Bi-pap 50 08/16/17 20:19 99.5 08/16/17 20:00 72 21 92 Facial 60 08/16/17 20:00 99.5 88 20 109/64 97 Bi-pap 50 99.5 08/16/17 20:00 83 08/16/17 19:46 88 21 98 Bi-pap 08/16/17 19:46 Bi-pap 08/16/17 19:46 96 Bi-pap 08/16/17 19:45 82 21 96 Bi-pap 08/16/17 19:00 88 18 105/66 89 Nasal Cannula 10.0 08/16/17 18:00 86 18 102/60 90 Nasal Cannula 10.0 08/16/17 17:00 98.7 82 16 93/59 98 Nasal Cannula 10.0 98.7 08/16/17 16:00 81 08/16/17 16:00 89 18 106/64 98 Venturi Mask 55 08/16/17 15:00 90 15 102/63 98 Venturi Mask 55 08/16/17 14:00 77 15 108/66 97 Venturi Mask 55 08/16/17 13:22 Nasal Cannula 5.0 08/16/17 13:21 Nasal Cannula 5.0 08/16/17 13:00 98.8 81 17 100/61 94 Venturi Mask 55 98.8 08/16/17 12:00 81 15 105/65 97 Venturi Mask 55 08/16/17 12:00 80 Height (Feet): 5 Height (Inches): 9.00 Weight (Pounds): 172 General Appearance: no acute distress HEENT: mucous membranes moist Respiratory/Chest: decreased breath sounds, other - O2 by mask Cardiovascular: normal rate Abdomen: soft, non tender Extremities: no edema Neurologic/Psychiatric: other - sleeping Laboratory Tests Test 08/17/17 04:05 08/17/17 08:15 White Blood Count 8.1 K/UL (4.8-10.8) Red Blood Count 4.72 M/UL (4.70-6.10) Hemoglobin 14.2 G/DL (14.2-18.0) Hematocrit 44.6 % (42.0-52.0) Mean Corpuscular Volume 95 FL (80-99) Mean Corpuscular Hemoglobin 30.0 PG (27.0-31.0) Mean Corpuscular Hemoglobin Concent 31.7 G/DL (32.0-36.0) L Red Cell Distribution Width 15.7 % (11.6-14.8) H Platelet Count 208 K/UL (150-450) Mean Platelet Volume 6.9 FL (6.5-10.1) Neutrophils (%) (Auto) 68.5 % (45.0-75.0) Lymphocytes (%) (Auto) 11.1 % (20.0-45.0) L Monocytes (%) (Auto) 17.9 % (1.0-10.0) H Eosinophils (%) (Auto) 1.3 % (0.0-3.0) Basophils (%) (Auto) 1.2 % (0.0-2.0) Prothrombin Time 27.7 SEC (9.30-11.50) H Prothromb Time International Ratio 2.6 (0.9-1.1) H Sodium Level 145 MMOL/L (136-145) Potassium Level 3.6 MMOL/L (3.5-5.1) Chloride Level 98 MMOL/L (98-107) Carbon Dioxide Level 45 MMOL/L (21-32) *H Anion Gap 2 mmol/L (5-15) L Blood Urea Nitrogen 37 mg/dL (7-18) H Creatinine 1.5 MG/DL (0.55-1.30) H Estimat Glomerular Filtration Rate 47.7 mL/min (>60) Glucose Level 95 MG/DL (74-106) Calcium Level 9.7 MG/DL (8.5-10.1) Total Bilirubin 0.5 MG/DL (0.2-1.0) Aspartate Amino Transf (AST/SGOT) 19 U/L (15-37) Alanine Aminotransferase (ALT/SGPT) 14 U/L (12-78) Alkaline Phosphatase 75 U/L (46-116) Total Protein 7.3 G/DL (6.4-8.2) Albumin 2.0 G/DL (3.4-5.0) L Globulin 5.3 g/dL Albumin/Globulin Ratio 0.4 (1.0-2.7) L Arterial Blood pH 7.395 (7.350-7.450) Arterial Blood Partial Pressure CO2 72.8 mmHg (35.0-45.0) *H Arterial Blood Partial Pressure O2 98.6 mmHg (75.0-100.0) Arterial Blood HCO3 43.6 mmol/L (22.0-26.0) H Arterial Blood Oxygen Saturation 97.0 % (92.0-98.0) Arterial Blood Base Excess 14.9 Roosevelt Test Positive Current Medications Medications (Trade) Dose Ordered Sig/Kika Route PRN Reason Start Time Stop Time Status Last Admin Dose Admin Acetaminophen (Tylenol) 650 mg Q4H PRN ORAL Mild Pain/Temp > 100.5 08/05/17 19:30 09/04/17 19:29 08/16/17 20:19 Albuterol Sulfate (Proventil MDI) 2 puff Q6H PRN INH shortness of breath or wheezin 08/04/17 09:00 09/03/17 08:59 Albuterol/ Ipratropium (Albuterol/ Ipratropium) 3 ml Q4H PRN HHN Shortness of Breath 08/15/17 17:56 08/20/17 17:55 Albuterol/ Ipratropium (Albuterol/ Ipratropium) 3 ml Q6HRT HHN 08/15/17 19:00 08/20/17 18:59 08/17/17 07:26 Atorvastatin Calcium (Lipitor) 10 mg BEDTIME ORAL 08/04/17 21:00 09/02/17 21:59 08/16/17 20:20 Ceftriaxone Sodium 1 gm/ Dextrose 110 ml @ 220 mls/hr Q24H IVPB 08/16/17 12:30 08/17/17 12:59 08/16/17 12:30 Citalopram Hydrobromide (celeXA) 40 mg DAILY ORAL 08/11/17 09:00 09/10/17 08:59 08/17/17 09:41 Divalproex Sodium (Depakote Sprinkles) 500 mg EVERY 12 HOURS GT 08/05/17 21:00 09/04/17 20:59 08/17/17 09:41 Fluconazole (Diflucan) 100 mg DAILY ORAL 08/15/17 12:15 08/22/17 12:14 08/17/17 09:41 Haloperidol Lactate 5 mg/ Dextrose 111 ml @ 222 mls/hr Q6H PRN IVPB Agitation 08/12/17 09:45 09/11/17 09:44 08/17/17 09:42 Lorazepam (Ativan 2mg/ml 1ml) 1 mg Q4H PRN IV For Anxiety 08/13/17 15:30 08/20/17 15:29 08/17/17 06:12 Morphine Sulfate (Morphine Sulfate) 2 mg Q3H PRN IVP Moderate Pain (Pain Scale 4-6) 08/11/17 20:00 08/18/17 19:59 08/13/17 14:45 Morphine Sulfate (Morphine Sulfate) 4 mg Q4H PRN IVP Severe Pain (Pain Scale 7-10) 08/11/17 20:00 08/18/17 19:59 08/16/17 01:52 Pantoprazole (Protonix) 40 mg EVERY 12 HOURS IVP 08/05/17 21:00 09/04/17 20:59 08/17/17 09:41 Risperidone (RisperDAL) 2 mg BID ORAL 08/07/17 09:00 09/05/17 18:29 08/17/17 09:41 Trazodone HCl (Desyrel) 200 mg BEDTIME ORAL 08/04/17 21:00 09/02/17 22:29 08/16/17 20:20 Warfarin Sodium (Coumadin per pharmacy) 1 ea DAILY PRN MISC Per rx protocol 08/08/17 08:45 09/07/17 08:44 Warfarin Sodium (Coumadin) 1 mg COUMADIN ONCE ORAL 08/17/17 17:00 08/17/17 17:01 Joseph Joseph MD Aug 17, 2017 11:47
[2017-08-17] MEDS: cefTRIAXone 1 GM in D5W 110 ML IVPB SCH (12:30)
[2017-08-17] MEDS ORDERED: Warfarin Sodium 1mg ORAL ONE (17:00)
[2017-08-17] MEDS: TraZODone 100mg tab ORAL SCH (20:59)
[2017-08-18] VITALS (22 sets, daily range): BP systolic 103–150; BP diastolic 52–96
[2017-08-18] MEDS: Albuterol/Ipratropium 3ml neb HHN SCH ×4 (01:49→19:18)
[2017-08-18] MEDS: LORazepam Inj 2mg/ml 1ml IV PRN ×2 (04:17→22:48)
[2017-08-18 05:07] LABS: BASOPHILS % (AUTO) 0.8 % (0.0-2.0); EOSINOPHILS % (AUTO) 1.1 % (0.0-3.0); HEMATOCRIT 43.2 % (42.0-52.0); HEMOGLOBIN 13.2 G/DL (14.2-18.0); LYMPHOCYTES % (AUTO) 10.6 % (20.0-45.0); MEAN CORPUSCULAR VOLUME 95 FL (80-99); MONOCYTES % (AUTO) 16.3 % (1.0-10.0); NEUTROPHILS % (AUTO) 71.2 % (45.0-75.0); PLATELET COUNT 236 K/UL (150-450); RED BLOOD COUNT 4.54 M/UL (4.70-6.10); RED CELL DISTRIBUTION WIDTH 15.6 % (11.6-14.8); WHITE BLOOD COUNT 7.3 K/UL (4.8-10.8)
[2017-08-18 05:24] LABS: INR 2.7 (0.9-1.1)
[2017-08-18 05:31] LABS: ALANINE AMINOTRANSFERASE 14 U/L (12-78); ALBUMIN 2.2 G/DL (3.4-5.0); ALBUMIN/GLOBULIN RATIO 0.4 (1.0-2.7); ALKALINE PHOSPHATASE 74 U/L (46-116); ASPARTATE AMINO TRANSFERASE 19 U/L (15-37); BILIRUBIN,TOTAL 0.4 MG/DL (0.2-1.0); BLOOD UREA NITROGEN 31 mg/dL (7-18); CALCIUM 9.2 MG/DL (8.5-10.1); CHLORIDE 102 MMOL/L (98-107); CREATININE 1.4 MG/DL (0.55-1.30); POTASSIUM 3.7 MMOL/L (3.5-5.1); SODIUM 146 MMOL/L (136-145)
[2017-08-18 05:35] LABS: CARBON DIOXIDE 46 MMOL/L (21-32)
[2017-08-18] MEDS: Citalopram 20mg Tab ORAL SCH (08:09)
[2017-08-18] MEDS: Depakote 125mg Sprinkles GT SCH ×2 (08:10→20:47)
[2017-08-18] MEDS: Fluconazole 100mg tab ORAL SCH (08:10)
[2017-08-18] MEDS: Pantoprazole Inj IVP SCH ×2 (08:11→20:46)
--- NOTE | 2017-08-18 09:21 | Pulmonology Progress Note ---
Assessment/Plan Assessment/Plan 1. Acute respiratory failure. 2. Right hemithorax opacification. Now resolved after bronchoscopy 3. History of right pleural effusion. 4. Schizophrenia, chronic Coumadin usage. 5. Pulmonary edema; resolved; CXR clear now DISCUSSION: Continue abx Will transfer to tele/[facility] Requiring multiple psych meds Continue present medications Subjective Interval Events: Extubated and off BiPAP during the day; using BiPPA q pm Constitutional: Reports: no symptoms HEENT: Repors: no symptoms Respiratory: Reports: no symptoms Cardiovascular: Reports: no symptoms Gastrointestinal/Abdominal: Reports: no symptoms Allergies: Coded Allergies: No Known Allergies (Unverified , 08/03/17) Objective Last 24 Hour Vital Signs Date Time Temp Pulse Resp B/P (MAP) Pulse Ox O2 Delivery O2 Flow Rate FiO2 08/18/17 08:35 94 Venturi Mask 14.0 55 08/18/17 08:35 Venturi Mask 14.0 55 08/18/17 08:00 98.5 99 22 129/72 95 Bi-pap 60 98.5 08/18/17 07:00 95 23 127/70 98 Bi-pap 60 08/18/17 06:57 101 21 97 Full Face 60 08/18/17 06:57 100 21 99 Bi-pap 60 08/18/17 06:50 101 21 96 Bi-pap 60 08/18/17 06:00 102 23 150/84 96 Bi-pap 60 08/18/17 05:35 100 23 99 Full Face 60 08/18/17 05:00 98.7 97 22 134/96 95 Bi-pap 60 98.7 08/18/17 04:00 87 08/18/17 04:00 98.7 87 16 123/75 95 Bi-pap 60 98.7 08/18/17 03:30 94 21 96 Facial 60 08/18/17 03:00 91 20 110/91 95 Bi-pap 60 08/18/17 02:00 91 20 113/65 95 Bi-pap 60 08/18/17 01:51 86 21 99 Bi-pap 60 08/18/17 01:50 81 21 98 Bi-pap 60 08/18/17 01:30 80 20 98 Full Face 60 08/18/17 01:00 87 18 120/69 95 Bi-pap 60 08/18/17 00:00 95 08/18/17 00:00 98.0 87 18 104/70 95 Bi-pap 60 98.0 08/17/17 23:30 83 23 98 Full Face 60 08/17/17 23:00 87 18 109/68 95 Bi-pap 60 08/17/17 22:00 92 18 98/52 95 Bi-pap 60 08/17/17 21:30 90 20 95 Full Face 60 08/17/17 21:00 97 18 111/56 95 Bi-pap 60 08/17/17 20:00 60 08/17/17 20:00 85 18 94 Venturi Mask 14.0 55 08/17/17 20:00 93 20 95 Venturi Mask 14.0 55 08/17/17 20:00 Venturi Mask 14.0 55 08/17/17 20:00 104 08/17/17 20:00 98.2 87 18 109/68 95 Bi-pap 60 98.2 08/17/17 19:30 94 Venturi Mask 14.0 55 08/17/17 19:00 88 16 105/60 95 Venturi Mask 55 08/17/17 18:00 92 15 102/58 95 Venturi Mask 55 08/17/17 17:00 91 11 104/58 92 Venturi Mask 55 08/17/17 16:00 84 08/17/17 16:00 98.5 83 12 104/58 94 Venturi Mask 55 98.5 08/17/17 15:00 84 12 104/61 95 Venturi Mask 55 08/17/17 14:00 89 13 99/58 95 Venturi Mask 55 08/17/17 13:00 86 11 104/56 95 Venturi Mask 55 08/17/17 12:53 79 16 95 Venturi Mask 14.0 55 08/17/17 12:39 87 16 95 Venturi Mask 14.0 55 08/17/17 12:00 85 08/17/17 12:00 97.5 79 12 96/56 94 Venturi Mask 55 97.5 08/17/17 11:00 75 11 98/55 93 Venturi Mask 55 08/17/17 10:00 72 18 104/56 98 Venturi Mask 55 Intake and Output 08/17/17 08/18/17 19:00 07:00 Intake Total 111 ml Output Total 460 ml 540 ml Balance -460 ml -429 ml IV Total 111 ml Output Urine Total 460 ml 540 ml General Appearance: no acute distress HEENT: normocephalic Respiratory/Chest: chest wall non-tender, lungs clear Cardiovascular: normal peripheral pulses, normal rate Abdomen: normal bowel sounds Laboratory Tests 08/18/17 04:20: White Blood Count 7.3, Red Blood Count 4.54L, Hemoglobin 13.2L, Hematocrit 43.2 , Mean Corpuscular Volume 95, Mean Corpuscular Hemoglobin 29.0, Mean Corpuscular Hemoglobin Concent 30.5L, Red Cell Distribution Width 15.6H, Platelet Count 236, Mean Platelet Volume 7.1, Neutrophils (%) (Auto) 71.2, Lymphocytes (%) (Auto) 10.6L, Monocytes (%) (Auto) 16.3H, Eosinophils (%) (Auto ) 1.1, Basophils (%) (Auto) 0.8, Prothrombin Time 28.4H, Prothromb Time International Ratio 2.7H, Sodium Level 146H, Potassium Level 3.7, Chloride Level 102, Carbon Dioxide Level 46*H, Blood Urea Nitrogen 31H, Creatinine 1.4H, Estimat Glomerular Filtration Rate 51.7, Glucose Level 133H, Calcium Level 9.2, Total Bilirubin 0.4, Aspartate Amino Transf (AST/SGOT) 19, Alanine Aminotransferase (ALT/SGPT) 14, Alkaline Phosphatase 74, Total Protein 7.5, Albumin 2.2L, Globulin 5.3, Albumin/Globulin Ratio 0.4L Current Medications Medications (Trade) Dose Ordered Sig/Kika Route PRN Reason Start Time Stop Time Status Last Admin Dose Admin Acetaminophen (Tylenol) 650 mg Q4H PRN ORAL Mild Pain/Temp > 100.5 08/05/17 19:30 09/04/17 19:29 08/16/17 20:19 Albuterol Sulfate (Proventil MDI) 2 puff Q6H PRN INH shortness of breath or wheezin 08/04/17 09:00 09/03/17 08:59 Albuterol/ Ipratropium (Albuterol/ Ipratropium) 3 ml Q4H PRN HHN Shortness of Breath 08/15/17 17:56 08/20/17 17:55 Albuterol/ Ipratropium (Albuterol/ Ipratropium) 3 ml Q6HRT HHN 08/15/17 19:00 08/20/17 18:59 08/18/17 06:57 Atorvastatin Calcium (Lipitor) 10 mg BEDTIME ORAL 08/04/17 21:00 09/02/17 21:59 08/17/17 20:59 Citalopram Hydrobromide (celeXA) 40 mg DAILY ORAL 08/11/17 09:00 09/10/17 08:59 08/18/17 08:09 Divalproex Sodium (Depakote Sprinkles) 500 mg EVERY 12 HOURS GT 08/05/17 21:00 09/04/17 20:59 08/18/17 08:10 Fluconazole (Diflucan) 100 mg DAILY ORAL 08/15/17 12:15 08/22/17 12:14 08/18/17 08:10 Haloperidol Lactate 5 mg/ Dextrose 111 ml @ 222 mls/hr Q6H PRN IVPB Agitation 08/12/17 09:45 09/11/17 09:44 08/17/17 23:41 Lorazepam (Ativan 2mg/ml 1ml) 1 mg Q4H PRN IV For Anxiety 08/13/17 15:30 08/20/17 15:29 08/18/17 04:17 Morphine Sulfate (Morphine Sulfate) 2 mg Q3H PRN IVP Moderate Pain (Pain Scale 4-6) 08/11/17 20:00 08/18/17 19:59 08/13/17 14:45 Morphine Sulfate (Morphine Sulfate) 4 mg Q4H PRN IVP Severe Pain (Pain Scale 7-10) 08/11/17 20:00 08/18/17 19:59 08/16/17 01:52 Pantoprazole (Protonix) 40 mg EVERY 12 HOURS IVP 08/05/17 21:00 09/04/17 20:59 08/18/17 08:11 Risperidone (RisperDAL) 2 mg BID ORAL 08/07/17 09:00 09/05/17 18:29 08/18/17 08:10 Trazodone HCl (Desyrel) 200 mg BEDTIME ORAL 08/04/17 21:00 09/02/17 22:29 08/17/17 20:59 Warfarin Sodium (Coumadin per pharmacy) 1 ea DAILY PRN MISC Per rx protocol 08/08/17 08:45 09/07/17 08:44 Warfarin Sodium (Coumadin) 1 mg COUMADIN ORAL 08/18/17 17:00 08/18/17 18:00 Richardson Mitchell MD Aug 18, 2017 09:21
--- NOTE | 2017-08-18 10:46 | Infectious Diseases Prog Note ---
Assessment/Plan Assessment/Plan A; Pneumonia, treated New fever, resolved Fungal UTI Hypercapnic respiratory failure COPD Schizophrenia P: Continue Fluconazole will f/u cultures Subjective ROS Limited/Unobtainable: Yes Neurologic: Reports: confusion, other - on restraint Allergies: Coded Allergies: No Known Allergies (Unverified , 08/03/17) Objective Vital Signs Last 24 Hour Vital Signs Date Time Temp Pulse Resp B/P (MAP) Pulse Ox O2 Delivery O2 Flow Rate FiO2 08/18/17 10:00 86 21 115/66 94 Venturi Mask 50 08/18/17 09:00 89 23 118/64 94 Bi-pap 60 08/18/17 08:35 94 Venturi Mask 14.0 55 08/18/17 08:35 Venturi Mask 14.0 55 08/18/17 08:00 99 08/18/17 08:00 98.5 99 22 129/72 95 Bi-pap 60 98.5 08/18/17 07:00 95 23 127/70 98 Bi-pap 60 08/18/17 06:57 101 21 97 Full Face 60 08/18/17 06:57 100 21 99 Bi-pap 60 08/18/17 06:50 101 21 96 Bi-pap 60 08/18/17 06:00 102 23 150/84 96 Bi-pap 60 08/18/17 05:35 100 23 99 Full Face 60 08/18/17 05:00 98.7 97 22 134/96 95 Bi-pap 60 98.7 08/18/17 04:00 87 08/18/17 04:00 98.7 87 16 123/75 95 Bi-pap 60 98.7 08/18/17 03:30 94 21 96 Facial 60 08/18/17 03:00 91 20 110/91 95 Bi-pap 60 08/18/17 02:00 91 20 113/65 95 Bi-pap 60 08/18/17 01:51 86 21 99 Bi-pap 60 08/18/17 01:50 81 21 98 Bi-pap 60 08/18/17 01:30 80 20 98 Full Face 60 08/18/17 01:00 87 18 120/69 95 Bi-pap 60 08/18/17 00:00 95 08/18/17 00:00 98.0 87 18 104/70 95 Bi-pap 60 98.0 08/17/17 23:30 83 23 98 Full Face 60 08/17/17 23:00 87 18 109/68 95 Bi-pap 60 08/17/17 22:00 92 18 98/52 95 Bi-pap 60 08/17/17 21:30 90 20 95 Full Face 60 08/17/17 21:00 97 18 111/56 95 Bi-pap 60 08/17/17 20:00 60 08/17/17 20:00 85 18 94 Venturi Mask 14.0 55 08/17/17 20:00 93 20 95 Venturi Mask 14.0 55 08/17/17 20:00 Venturi Mask 14.0 55 08/17/17 20:00 104 08/17/17 20:00 98.2 87 18 109/68 95 Bi-pap 60 98.2 08/17/17 19:30 94 Venturi Mask 14.0 55 08/17/17 19:00 88 16 105/60 95 Venturi Mask 55 08/17/17 18:00 92 15 102/58 95 Venturi Mask 55 08/17/17 17:00 91 11 104/58 92 Venturi Mask 55 08/17/17 16:00 84 08/17/17 16:00 98.5 83 12 104/58 94 Venturi Mask 55 98.5 08/17/17 15:00 84 12 104/61 95 Venturi Mask 55 08/17/17 14:00 89 13 99/58 95 Venturi Mask 55 08/17/17 13:00 86 11 104/56 95 Venturi Mask 55 08/17/17 12:53 79 16 95 Venturi Mask 14.0 55 08/17/17 12:39 87 16 95 Venturi Mask 14.0 55 08/17/17 12:00 85 08/17/17 12:00 97.5 79 12 96/56 94 Venturi Mask 55 97.5 08/17/17 11:00 75 11 98/55 93 Venturi Mask 55 Height (Feet): 5 Height (Inches): 9.00 Weight (Pounds): 179 General Appearance: no acute distress HEENT: mucous membranes moist Respiratory/Chest: other - few rhonchi, Oxygen by venturi mask Cardiovascular: normal rate Abdomen: soft, non tender Extremities: no edema Neurologic/Psychiatric: other - sleeping Laboratory Tests Test 08/18/17 04:20 White Blood Count 7.3 K/UL (4.8-10.8) Red Blood Count 4.54 M/UL (4.70-6.10) L Hemoglobin 13.2 G/DL (14.2-18.0) L Hematocrit 43.2 % (42.0-52.0) Mean Corpuscular Volume 95 FL (80-99) Mean Corpuscular Hemoglobin 29.0 PG (27.0-31.0) Mean Corpuscular Hemoglobin Concent 30.5 G/DL (32.0-36.0) L Red Cell Distribution Width 15.6 % (11.6-14.8) H Platelet Count 236 K/UL (150-450) Mean Platelet Volume 7.1 FL (6.5-10.1) Neutrophils (%) (Auto) 71.2 % (45.0-75.0) Lymphocytes (%) (Auto) 10.6 % (20.0-45.0) L Monocytes (%) (Auto) 16.3 % (1.0-10.0) H Eosinophils (%) (Auto) 1.1 % (0.0-3.0) Basophils (%) (Auto) 0.8 % (0.0-2.0) Prothrombin Time 28.4 SEC (9.30-11.50) H Prothromb Time International Ratio 2.7 (0.9-1.1) H Sodium Level 146 MMOL/L (136-145) H Potassium Level 3.7 MMOL/L (3.5-5.1) Chloride Level 102 MMOL/L (98-107) Carbon Dioxide Level 46 MMOL/L (21-32) *H Blood Urea Nitrogen 31 mg/dL (7-18) H Creatinine 1.4 MG/DL (0.55-1.30) H Estimat Glomerular Filtration Rate 51.7 mL/min (>60) Glucose Level 133 MG/DL (74-106) H Calcium Level 9.2 MG/DL (8.5-10.1) Total Bilirubin 0.4 MG/DL (0.2-1.0) Aspartate Amino Transf (AST/SGOT) 19 U/L (15-37) Alanine Aminotransferase (ALT/SGPT) 14 U/L (12-78) Alkaline Phosphatase 74 U/L (46-116) Total Protein 7.5 G/DL (6.4-8.2) Albumin 2.2 G/DL (3.4-5.0) L Globulin 5.3 g/dL Albumin/Globulin Ratio 0.4 (1.0-2.7) L Current Medications Medications (Trade) Dose Ordered Sig/Kika Route PRN Reason Start Time Stop Time Status Last Admin Dose Admin Acetaminophen (Tylenol) 650 mg Q4H PRN ORAL Mild Pain/Temp > 100.5 08/05/17 19:30 09/04/17 19:29 08/16/17 20:19 Albuterol Sulfate (Proventil MDI) 2 puff Q6H PRN INH shortness of breath or wheezin 08/04/17 09:00 09/03/17 08:59 Albuterol/ Ipratropium (Albuterol/ Ipratropium) 3 ml Q4H PRN HHN Shortness of Breath 08/15/17 17:56 08/20/17 17:55 Albuterol/ Ipratropium (Albuterol/ Ipratropium) 3 ml Q6HRT HHN 08/15/17 19:00 08/20/17 18:59 08/18/17 06:57 Atorvastatin Calcium (Lipitor) 10 mg BEDTIME ORAL 08/04/17 21:00 09/02/17 21:59 08/17/17 20:59 Citalopram Hydrobromide (celeXA) 40 mg DAILY ORAL 08/11/17 09:00 09/10/17 08:59 08/18/17 08:09 Divalproex Sodium (Depakote Sprinkles) 500 mg EVERY 12 HOURS GT 08/05/17 21:00 09/04/17 20:59 08/18/17 08:10 Fluconazole (Diflucan) 100 mg DAILY ORAL 08/15/17 12:15 08/22/17 12:14 08/18/17 08:10 Haloperidol Lactate 5 mg/ Dextrose 111 ml @ 222 mls/hr Q6H PRN IVPB Agitation 08/12/17 09:45 09/11/17 09:44 08/17/17 23:41 Lorazepam (Ativan 2mg/ml 1ml) 1 mg Q4H PRN IV For Anxiety 08/13/17 15:30 08/20/17 15:29 08/18/17 04:17 Morphine Sulfate (Morphine Sulfate) 2 mg Q3H PRN IVP Moderate Pain (Pain Scale 4-6) 08/11/17 20:00 08/18/17 19:59 08/13/17 14:45 Morphine Sulfate (Morphine Sulfate) 4 mg Q4H PRN IVP Severe Pain (Pain Scale 7-10) 08/11/17 20:00 08/18/17 19:59 08/16/17 01:52 Olanzapine (ZyPREXA) 5 mg DAILY ORAL 08/19/17 09:00 09/18/17 08:59 Olanzapine (ZyPREXA) 5 mg ONCE ORAL 08/18/17 10:30 08/18/17 12:00 Pantoprazole (Protonix) 40 mg EVERY 12 HOURS IVP 08/05/17 21:00 09/04/17 20:59 08/18/17 08:11 Risperidone (RisperDAL) 2 mg BID ORAL 08/07/17 09:00 09/05/17 18:29 08/18/17 08:10 Trazodone HCl (Desyrel) 200 mg BEDTIME ORAL 08/04/17 21:00 09/02/17 22:29 08/17/17 20:59 Warfarin Sodium (Coumadin per pharmacy) 1 ea DAILY PRN MISC Per rx protocol 08/08/17 08:45 09/07/17 08:44 Warfarin Sodium (Coumadin) 1 mg COUMADIN ORAL 08/18/17 17:00 08/18/17 18:00 Joseph Joseph MD Aug 18, 2017 10:46
[2017-08-18] MEDS ORDERED: Warfarin Sodium 1mg ORAL SCH (17:00)
[2017-08-18] MEDS: Haloperidol Lactate 5 MG in D5W 110 ML IVPB PRN (19:48)
[2017-08-18] MEDS: TraZODone 100mg tab ORAL SCH (20:46)
[2017-08-18] MEDS ORDERED: Haloperidol Lactate 5 MG in D5W 110 ML IVPB PRN (21:45)
[2017-08-18] MEDS ORDERED: Albuterol/Ipratropium 3ml neb HHN PRN (22:00)
[2017-08-19] VITALS: BP 133/81
[2017-08-19] MEDS: Albuterol/Ipratropium 3ml neb HHN SCH ×4 (01:18→21:41)
[2017-08-19] MEDS: LORazepam Inj 2mg/ml 1ml IV PRN ×2 (02:47→17:57)
[2017-08-19] MEDS ORDERED: Albuterol 90mcg Inhaler 8gm INH PRN (03:00)
[2017-08-19 04:00] VITALS: BP 137/85
[2017-08-19 05:00] LABS: BASOPHILS % (AUTO) 0.8 % (0.0-2.0); HEMATOCRIT 44.2 % (42.0-52.0); HEMOGLOBIN 13.3 G/DL (14.2-18.0); LYMPHOCYTES % (AUTO) 13.4 % (20.0-45.0); MEAN CORPUSCULAR VOLUME 96 FL (80-99); MONOCYTES % (AUTO) 13.4 % (1.0-10.0); NEUTROPHILS % (AUTO) 70.4 % (45.0-75.0); PLATELET COUNT 220 K/UL (150-450); RED BLOOD COUNT 4.61 M/UL (4.70-6.10); RED CELL DISTRIBUTION WIDTH 15.7 % (11.6-14.8); WHITE BLOOD COUNT 6.2 K/UL (4.8-10.8)
[2017-08-19 08:00] VITALS: BP 116/76
[2017-08-19] MEDS: Depakote 125mg Sprinkles GT SCH ×2 (09:21→20:19)
[2017-08-19] MEDS: Pantoprazole Inj IVP SCH ×2 (09:23→20:19)
[2017-08-19] MEDS: Fluconazole 100mg tab ORAL SCH (09:23)
[2017-08-19] MEDS: Citalopram 20mg Tab ORAL SCH (09:32)
--- NOTE | 2017-08-19 09:45 | Pulmonology Progress Note ---
Assessment/Plan Assessment/Plan 1. Acute respiratory failure. 2. Right hemithorax opacification. Now resolved after bronchoscopy 3. History of right pleural effusion. 4. Schizophrenia, chronic Coumadin usage. 5. Pulmonary edema; resolved; CXR clear now DISCUSSION: Continue abx Now on KEN Requiring multiple psych meds; will decrease due to sedation Continue other medications Subjective Interval Events: Very drowsy; ABG better Constitutional: Reports: no symptoms HEENT: Repors: no symptoms Respiratory: Reports: no symptoms Cardiovascular: Reports: no symptoms Genitourinary: Reports: no symptoms Allergies: Coded Allergies: No Known Allergies (Unverified , 08/03/17) Objective Last 24 Hour Vital Signs Date Time Temp Pulse Resp B/P (MAP) Pulse Ox O2 Delivery O2 Flow Rate FiO2 08/19/17 07:51 91 18 95 Nasal Cannula 5.0 40 08/19/17 07:47 75 08/19/17 07:45 90 16 97 Venturi Mask 50 08/19/17 05:20 86 20 96 Facial 60 08/19/17 04:00 60 08/19/17 04:00 96 08/19/17 04:00 98.2 89 20 137/85 99 Bi-pap 60 98.2 08/19/17 01:26 95 20 96 Bi-pap 60 08/19/17 01:15 93 16 97 Bi-pap 60 08/19/17 00:00 60 08/19/17 00:00 98.3 102 22 133/81 96 Bi-pap 60 98.3 08/18/17 23:34 100 08/18/17 21:54 105 21 97 Facial 60 08/18/17 21:52 98 08/18/17 21:00 102 20 112/52 99 Venturi Mask 50 08/18/17 20:00 50 08/18/17 20:00 98.8 102 16 116/87 98 Venturi Mask 50 98.8 08/18/17 20:00 50 08/18/17 19:29 94 18 99 Venturi Mask 14.0 55 08/18/17 19:18 93 16 97 Venturi Mask 14.0 55 08/18/17 19:00 94 18 104/70 100 Venturi Mask 50 08/18/17 18:00 94 18 103/87 95 Venturi Mask 50 08/18/17 17:00 96 19 111/68 96 Venturi Mask 50 08/18/17 16:00 98.2 88 22 112/64 94 Venturi Mask 50 98.2 08/18/17 16:00 75 08/18/17 15:00 79 22 119/66 96 Venturi Mask 50 08/18/17 14:00 85 21 116/65 95 Venturi Mask 50 08/18/17 13:00 83 21 113/72 94 Venturi Mask 50 08/18/17 12:41 83 21 94 Venturi Mask 14.0 55 08/18/17 12:36 84 21 94 Venturi Mask 14.0 55 08/18/17 12:00 88 08/18/17 12:00 98.4 84 22 106/66 94 Venturi Mask 50 98.4 08/18/17 11:00 88 21 111/68 95 Venturi Mask 50 08/18/17 10:00 86 21 115/66 94 Venturi Mask 50 Intake and Output 08/18/17 08/19/17 19:00 07:00 Intake Total 650 ml 231 ml Output Total 655 ml 110 ml Balance -5 ml 121 ml Intake Oral 650 ml IV Total 111 ml Other 120 ml Output Urine Total 655 ml 110 ml # Bowel Movements 2 2 General Appearance: no acute distress HEENT: normocephalic Respiratory/Chest: chest wall non-tender, lungs clear Cardiovascular: normal peripheral pulses, normal rate Abdomen: normal bowel sounds Laboratory Tests 08/19/17 03:35: White Blood Count 6.2, Red Blood Count 4.61L, Hemoglobin 13.3L, Hematocrit 44.2 , Mean Corpuscular Volume 96, Mean Corpuscular Hemoglobin 28.8, Mean Corpuscular Hemoglobin Concent 30.0L, Red Cell Distribution Width 15.7H, Platelet Count 220, Mean Platelet Volume 6.2L, Neutrophils (%) (Auto) 70.4, Lymphocytes (%) (Auto) 13.4L, Monocytes (%) (Auto) 13.4H, Eosinophils (%) (Auto ) 2.0, Basophils (%) (Auto) 0.8, Prothrombin Time 20.9H, Prothromb Time International Ratio 2.0H Current Medications Medications (Trade) Dose Ordered Sig/Kika Route PRN Reason Start Time Stop Time Status Last Admin Dose Admin Acetaminophen (Tylenol) 650 mg Q4H PRN ORAL Mild Pain/Temp > 100.5 08/18/17 23:30 09/04/17 19:29 Albuterol Sulfate (Proventil MDI) 2 puff Q6H PRN INH shortness of breath or wheezin 08/19/17 03:00 09/03/17 08:59 Albuterol/ Ipratropium (Albuterol/ Ipratropium) 3 ml Q4H PRN HHN Shortness of Breath 08/18/17 22:00 08/20/17 17:55 Albuterol/ Ipratropium (Albuterol/ Ipratropium) 3 ml Q6HRT HHN 08/19/17 01:00 08/20/17 18:59 08/19/17 07:46 Atorvastatin Calcium (Lipitor) 10 mg BEDTIME ORAL 08/19/17 21:00 09/02/17 21:59 Citalopram Hydrobromide (celeXA) 40 mg DAILY ORAL 08/19/17 09:00 09/10/17 08:59 08/19/17 09:32 Divalproex Sodium (Depakote Sprinkles) 500 mg EVERY 12 HOURS GT 08/19/17 09:00 09/04/17 20:59 08/19/17 09:21 Fluconazole (Diflucan) 100 mg DAILY ORAL 08/19/17 09:00 08/22/17 12:14 08/19/17 09:23 Haloperidol Lactate 5 mg/ Dextrose 111 ml @ 222 mls/hr Q6H PRN IVPB Agitation 08/18/17 21:45 09/11/17 09:44 08/19/17 01:07 Lorazepam (Ativan 2mg/ml 1ml) 1 mg Q4H PRN IV For Anxiety 08/18/17 23:30 08/20/17 15:29 08/19/17 02:47 Olanzapine (ZyPREXA) 5 mg DAILY ORAL 08/19/17 09:00 09/18/17 08:59 08/19/17 09:32 Pantoprazole (Protonix) 40 mg EVERY 12 HOURS IVP 08/19/17 09:00 09/04/17 20:59 08/19/17 09:23 Risperidone (RisperDAL) 2 mg BID ORAL 08/19/17 09:00 09/05/17 18:29 08/19/17 09:32 Trazodone HCl (Desyrel) 200 mg BEDTIME ORAL 08/19/17 21:00 09/02/17 22:29 Warfarin Sodium (Coumadin per pharmacy) 1 ea DAILY PRN MISC Per rx protocol 08/19/17 09:00 09/07/17 08:44 Warfarin Sodium (Coumadin) 2 mg COUMADIN ONCE ORAL 08/19/17 17:00 08/19/17 17:01 Richardson Mitchell MD Aug 19, 2017 09:45
--- NOTE | 2017-08-19 10:26 | Infectious Diseases Prog Note ---
Assessment/Plan Assessment/Plan antibiotics : fluconazole A 1. klebsiella pneumonia s/p rx 2. respiratory failure resolved 3. fungal UTI 4. COPD 5. hypertension P 1. continue fluconazole 2 more days 2, will follow up cultures Subjective ROS Limited/Unobtainable: Yes Allergies: Coded Allergies: No Known Allergies (Unverified , 08/03/17) Objective Vital Signs Last 24 Hour Vital Signs Date Time Temp Pulse Resp B/P (MAP) Pulse Ox O2 Delivery O2 Flow Rate FiO2 08/19/17 08:00 97.8 86 10 116/76 97 Bi-pap 60 97.8 08/19/17 07:51 91 18 95 Nasal Cannula 5.0 40 08/19/17 07:47 75 08/19/17 07:45 90 16 97 Venturi Mask 50 08/19/17 05:20 86 20 96 Facial 60 08/19/17 04:00 60 08/19/17 04:00 96 08/19/17 04:00 98.2 89 20 137/85 99 Bi-pap 60 98.2 08/19/17 01:26 95 20 96 Bi-pap 60 08/19/17 01:15 93 16 97 Bi-pap 60 08/19/17 00:00 60 08/19/17 00:00 98.3 102 22 133/81 96 Bi-pap 60 98.3 08/18/17 23:34 100 08/18/17 21:54 105 21 97 Facial 60 08/18/17 21:52 98 08/18/17 21:00 102 20 112/52 99 Venturi Mask 50 08/18/17 20:00 50 08/18/17 20:00 98.8 102 16 116/87 98 Venturi Mask 50 98.8 08/18/17 20:00 50 08/18/17 19:29 94 18 99 Venturi Mask 14.0 55 08/18/17 19:18 93 16 97 Venturi Mask 14.0 55 08/18/17 19:00 94 18 104/70 100 Venturi Mask 50 08/18/17 18:00 94 18 103/87 95 Venturi Mask 50 08/18/17 17:00 96 19 111/68 96 Venturi Mask 50 08/18/17 16:00 98.2 88 22 112/64 94 Venturi Mask 50 98.2 08/18/17 16:00 75 08/18/17 15:00 79 22 119/66 96 Venturi Mask 50 08/18/17 14:00 85 21 116/65 95 Venturi Mask 50 08/18/17 13:00 83 21 113/72 94 Venturi Mask 50 08/18/17 12:41 83 21 94 Venturi Mask 14.0 55 08/18/17 12:36 84 21 94 Venturi Mask 14.0 55 08/18/17 12:00 88 08/18/17 12:00 98.4 84 22 106/66 94 Venturi Mask 50 98.4 08/18/17 11:00 88 21 111/68 95 Venturi Mask 50 Height (Feet): 5 Height (Inches): 9.00 Weight (Pounds): 181 Respiratory/Chest: lungs clear Cardiovascular: normal rate, regular rhythm, no gallop/murmur Abdomen: soft, non tender Extremities: no edema Laboratory Tests Test 08/19/17 03:35 White Blood Count 6.2 K/UL (4.8-10.8) Red Blood Count 4.61 M/UL (4.70-6.10) L Hemoglobin 13.3 G/DL (14.2-18.0) L Hematocrit 44.2 % (42.0-52.0) Mean Corpuscular Volume 96 FL (80-99) Mean Corpuscular Hemoglobin 28.8 PG (27.0-31.0) Mean Corpuscular Hemoglobin Concent 30.0 G/DL (32.0-36.0) L Red Cell Distribution Width 15.7 % (11.6-14.8) H Platelet Count 220 K/UL (150-450) Mean Platelet Volume 6.2 FL (6.5-10.1) L Neutrophils (%) (Auto) 70.4 % (45.0-75.0) Lymphocytes (%) (Auto) 13.4 % (20.0-45.0) L Monocytes (%) (Auto) 13.4 % (1.0-10.0) H Eosinophils (%) (Auto) 2.0 % (0.0-3.0) Basophils (%) (Auto) 0.8 % (0.0-2.0) Prothrombin Time 20.9 SEC (9.30-11.50) H Prothromb Time International Ratio 2.0 (0.9-1.1) H Current Medications Medications (Trade) Dose Ordered Sig/Kika Route PRN Reason Start Time Stop Time Status Last Admin Dose Admin Acetaminophen (Tylenol) 650 mg Q4H PRN ORAL Mild Pain/Temp > 100.5 08/18/17 23:30 09/04/17 19:29 Albuterol Sulfate (Proventil MDI) 2 puff Q6H PRN INH shortness of breath or wheezin 08/19/17 03:00 09/03/17 08:59 Albuterol/ Ipratropium (Albuterol/ Ipratropium) 3 ml Q4H PRN HHN Shortness of Breath 08/18/17 22:00 08/20/17 17:55 Albuterol/ Ipratropium (Albuterol/ Ipratropium) 3 ml Q6HRT HHN 08/19/17 01:00 08/20/17 18:59 08/19/17 07:46 Atorvastatin Calcium (Lipitor) 10 mg BEDTIME ORAL 08/19/17 21:00 09/02/17 21:59 Citalopram Hydrobromide (celeXA) 40 mg DAILY ORAL 08/19/17 09:00 09/10/17 08:59 08/19/17 09:32 Divalproex Sodium (Depakote Sprinkles) 500 mg EVERY 12 HOURS GT 08/19/17 09:00 09/04/17 20:59 08/19/17 09:21 Fluconazole (Diflucan) 100 mg DAILY ORAL 08/19/17 09:00 08/22/17 12:14 08/19/17 09:23 Lorazepam (Ativan 2mg/ml 1ml) 0.5 mg Q6H PRN IV For Anxiety 08/19/17 09:45 08/26/17 09:44 Olanzapine (ZyPREXA) 5 mg DAILY ORAL 08/19/17 09:00 09/18/17 08:59 08/19/17 09:32 Pantoprazole (Protonix) 40 mg EVERY 12 HOURS IVP 08/19/17 09:00 09/04/17 20:59 08/19/17 09:23 Risperidone (RisperDAL) 1 mg BID ORAL 08/19/17 18:00 09/18/17 17:59 Trazodone HCl (Desyrel) 200 mg BEDTIME ORAL 08/19/17 21:00 09/02/17 22:29 Warfarin Sodium (Coumadin per pharmacy) 1 ea DAILY PRN MISC Per rx protocol 08/19/17 09:00 09/07/17 08:44 Warfarin Sodium (Coumadin) 2 mg COUMADIN ONCE ORAL 08/19/17 17:00 08/19/17 17:01 LALI COCHRAN Aug 19, 2017 10:26
[2017-08-19 12:00] VITALS: BP 118/75
[2017-08-19 12:19] LABS: ANION GAP 2 mmol/L (5-15); BLOOD UREA NITROGEN 26 mg/dL (7-18); CALCIUM 9.5 MG/DL (8.5-10.1); CHLORIDE 104 MMOL/L (98-107); CREATININE 1.1 MG/DL (0.55-1.30); POTASSIUM 4.4 MMOL/L (3.5-5.1); SODIUM 150 MMOL/L (136-145)
[2017-08-19 12:21] LABS: CARBON DIOXIDE 44 MMOL/L (21-32)
[2017-08-19] MEDS ORDERED: Tubing IV Secondary IV ONE ×2 (14:52→15:26)
[2017-08-19] MEDS ORDERED: D5W 275ml ONE (14:52)
[2017-08-19 16:00] VITALS: BP 105/67
[2017-08-19] MEDS ORDERED: Warfarin Sodium 2mg ORAL ONE (17:00)
[2017-08-19 20:00] VITALS: BP 118/68
[2017-08-19] MEDS: TraZODone 100mg tab ORAL SCH (20:20)
[2017-08-20] VITALS: BP 144/77
[2017-08-20] MEDS: Albuterol/Ipratropium 3ml neb HHN SCH ×3 (02:18→13:14)
[2017-08-20 04:00] VITALS: BP 119/71
[2017-08-20] MEDS: LORazepam Inj 2mg/ml 1ml IV PRN ×3 (05:06→23:42)
[2017-08-20 06:11] LABS: BASOPHILS % (AUTO) 0.8 % (0.0-2.0); EOSINOPHILS % (AUTO) 2.3 % (0.0-3.0); HEMATOCRIT 40.9 % (42.0-52.0); HEMOGLOBIN 12.5 G/DL (14.2-18.0); LYMPHOCYTES % (AUTO) 16.3 % (20.0-45.0); MEAN CORPUSCULAR VOLUME 96 FL (80-99); NEUTROPHILS % (AUTO) 66.7 % (45.0-75.0); PLATELET COUNT 206 K/UL (150-450); RED BLOOD COUNT 4.28 M/UL (4.70-6.10); RED CELL DISTRIBUTION WIDTH 16.2 % (11.6-14.8); WHITE BLOOD COUNT 6.3 K/UL (4.8-10.8)
[2017-08-20] MEDS: Citalopram 20mg Tab ORAL SCH (08:31)
[2017-08-20] MEDS: Depakote 125mg Sprinkles GT SCH ×2 (08:32→20:05)
[2017-08-20] MEDS: Fluconazole 100mg tab ORAL SCH (08:32)
[2017-08-20] MEDS: Pantoprazole Inj IVP SCH ×2 (08:33→20:04)
--- NOTE | 2017-08-20 08:44 | Pulmonology Progress Note ---
Assessment/Plan Assessment/Plan 1. Acute respiratory failure. 2. Right hemithorax opacification. Now resolved after bronchoscopy 3. History of right pleural effusion. 4. Schizophrenia, chronic Coumadin usage. 5. Pulmonary edema; resolved; CXR clear now DISCUSSION: Continue abx Now on KEN Requiring multiple psych meds; continue to decrease due to sedation Continue other medications Subjective Interval Events: Less drowsy compared to yesterday; in restraints Constitutional: Reports: no symptoms HEENT: Repors: no symptoms Respiratory: Reports: no symptoms Cardiovascular: Reports: no symptoms Gastrointestinal/Abdominal: Reports: no symptoms Allergies: Coded Allergies: No Known Allergies (Unverified , 08/03/17) Objective Last 24 Hour Vital Signs Date Time Temp Pulse Resp B/P (MAP) Pulse Ox O2 Delivery O2 Flow Rate FiO2 08/20/17 07:27 91 18 96 Nasal Cannula 5.0 40 08/20/17 07:19 Nasal Cannula 5.0 40 08/20/17 07:19 96 Nasal Cannula 5.0 40 08/20/17 07:19 71 20 96 Nasal Cannula 5.0 40 08/20/17 05:30 5.0 08/20/17 04:51 72 20 98 Full Face 60 08/20/17 04:00 60 08/20/17 04:00 97.9 98 18 119/71 96 Bi-pap 60 97.9 08/20/17 03:46 77 08/20/17 02:31 73 20 87 Facial 60 08/20/17 02:30 87 20 97 Bi-pap 60 08/20/17 02:20 74 20 97 Bi-pap 60 08/20/17 01:00 75 20 96 Full Face 60 08/20/17 00:00 97.5 99 20 144/77 98 Bi-pap 60 97.5 08/20/17 00:00 60 08/19/17 23:45 96 08/19/17 22:55 60 08/19/17 22:48 105 23 93 Facial 60 08/19/17 21:43 Nasal Cannula 3.0 32 08/19/17 21:43 94 Nasal Cannula 3.0 32 08/19/17 21:41 101 20 94 Nasal Cannula 3.0 32 08/19/17 21:36 100 20 96 Nasal Cannula 3.0 32 08/19/17 20:00 97.7 98 22 118/68 99 Nasal Cannula 5.0 60 97.7 08/19/17 19:25 101 08/19/17 16:00 101 08/19/17 16:00 99.0 113 29 105/67 92 Bi-pap 60 99.0 08/19/17 13:50 94 18 95 Nasal Cannula 4.0 36 08/19/17 13:40 91 16 97 Nasal Cannula 5.0 40 08/19/17 12:00 98.4 96 12 118/75 94 Bi-pap 60 98.4 08/19/17 12:00 87 Intake and Output 08/19/17 08/20/17 19:00 07:00 Intake Total 500 ml 0 ml Output Total 200 ml 325 ml Balance 300 ml -325 ml Intake Oral 500 ml 0 ml Output Urine Total 200 ml 325 ml General Appearance: no acute distress HEENT: normocephalic Respiratory/Chest: chest wall non-tender, lungs clear Cardiovascular: normal peripheral pulses, normal rate Abdomen: normal bowel sounds Laboratory Tests 08/20/17 05:30: White Blood Count 6.3, Red Blood Count 4.28L, Hemoglobin 12.5L, Hematocrit 40.9L , Mean Corpuscular Volume 96, Mean Corpuscular Hemoglobin 29.3, Mean Corpuscular Hemoglobin Concent 30.6L, Red Cell Distribution Width 16.2H, Platelet Count 206, Mean Platelet Volume 6.4L, Neutrophils (%) (Auto) 66.7, Lymphocytes (%) (Auto) 16.3L, Monocytes (%) (Auto) 14.0H, Eosinophils (%) (Auto ) 2.3, Basophils (%) (Auto) 0.8, Prothrombin Time 21.5H, Prothromb Time International Ratio 2.0H 08/20/17 08:25: Arterial Blood pH 7.446, Arterial Blood Partial Pressure CO2 65.7*H, Arterial Blood Partial Pressure O2 61.3L, Arterial Blood HCO3 44.2H, Arterial Blood Oxygen Saturation 91.1L, Arterial Blood Base Excess 16.7, [place] Test Positive Current Medications Medications (Trade) Dose Ordered Sig/Kika Route PRN Reason Start Time Stop Time Status Last Admin Dose Admin Acetaminophen (Tylenol) 650 mg Q4H PRN ORAL Mild Pain/Temp > 100.5 08/18/17 23:30 09/04/17 19:29 Albuterol Sulfate (Proventil MDI) 2 puff Q6H PRN INH shortness of breath or wheezin 08/19/17 03:00 09/03/17 08:59 Albuterol/ Ipratropium (Albuterol/ Ipratropium) 3 ml Q4H PRN HHN Shortness of Breath 08/18/17 22:00 08/20/17 17:55 Albuterol/ Ipratropium (Albuterol/ Ipratropium) 3 ml Q6HRT HHN 08/19/17 01:00 08/20/17 18:59 08/20/17 07:19 Atorvastatin Calcium (Lipitor) 10 mg BEDTIME ORAL 08/19/17 21:00 09/02/17 21:59 08/19/17 20:20 Citalopram Hydrobromide (celeXA) 40 mg DAILY ORAL 08/19/17 09:00 09/10/17 08:59 08/20/17 08:31 Divalproex Sodium (Depakote Sprinkles) 500 mg EVERY 12 HOURS GT 08/19/17 09:00 09/04/17 20:59 08/20/17 08:32 Fluconazole (Diflucan) 100 mg DAILY ORAL 08/19/17 09:00 08/22/17 12:14 08/20/17 08:32 Lorazepam (Ativan 2mg/ml 1ml) 0.5 mg Q6H PRN IV For Anxiety 08/19/17 09:45 08/26/17 09:44 08/20/17 05:06 Olanzapine (ZyPREXA) 5 mg DAILY ORAL 08/19/17 09:00 09/18/17 08:59 08/20/17 08:32 Pantoprazole (Protonix) 40 mg EVERY 12 HOURS IVP 08/19/17 09:00 09/04/17 20:59 08/20/17 08:33 Risperidone (RisperDAL) 1 mg BID ORAL 08/19/17 18:00 09/18/17 17:59 08/20/17 08:33 Trazodone HCl (Desyrel) 200 mg BEDTIME ORAL 08/19/17 21:00 09/02/17 22:29 08/19/17 20:20 Warfarin Sodium (Coumadin per pharmacy) 1 ea DAILY PRN MISC Per rx protocol 08/19/17 09:00 09/07/17 08:44 Warfarin Sodium (Coumadin) 1 mg COUMADIN ONCE ORAL 08/20/17 17:00 08/20/17 17:01 Richardson Mitchell MD Aug 20, 2017 08:44
[2017-08-20 08:52] VITALS: BP 124/74
--- NOTE | 2017-08-20 10:57 | Infectious Diseases Prog Note ---
Assessment/Plan Assessment/Plan antibiotics : fluconazole A 1. klebsiella pneumonia s/p rx 2. respiratory failure resolved 3. fungal UTI 4. COPD 5. hypertension 6. renal stone P 1. continue fluconazole 1 more day 2, will follow up cultures Subjective ROS Limited/Unobtainable: Yes Allergies: Coded Allergies: No Known Allergies (Unverified , 08/03/17) Objective Vital Signs Last 24 Hour Vital Signs Date Time Temp Pulse Resp B/P (MAP) Pulse Ox O2 Delivery O2 Flow Rate FiO2 08/20/17 08:52 97.0 89 20 124/74 97 Bi-pap 60 97.0 08/20/17 08:00 84 08/20/17 07:27 91 18 96 Nasal Cannula 5.0 40 08/20/17 07:19 Nasal Cannula 5.0 40 08/20/17 07:19 96 Nasal Cannula 5.0 40 08/20/17 07:19 71 20 96 Nasal Cannula 5.0 40 08/20/17 05:30 5.0 08/20/17 04:51 72 20 98 Full Face 60 08/20/17 04:00 60 08/20/17 04:00 97.9 98 18 119/71 96 Bi-pap 60 97.9 08/20/17 03:46 77 08/20/17 02:31 73 20 87 Facial 60 08/20/17 02:30 87 20 97 Bi-pap 60 08/20/17 02:20 74 20 97 Bi-pap 60 08/20/17 01:00 75 20 96 Full Face 60 08/20/17 00:00 97.5 99 20 144/77 98 Bi-pap 60 97.5 08/20/17 00:00 60 08/19/17 23:45 96 08/19/17 22:55 60 08/19/17 22:48 105 23 93 Facial 60 08/19/17 21:43 Nasal Cannula 3.0 32 08/19/17 21:43 94 Nasal Cannula 3.0 32 08/19/17 21:41 101 20 94 Nasal Cannula 3.0 32 08/19/17 21:36 100 20 96 Nasal Cannula 3.0 32 08/19/17 20:00 97.7 98 22 118/68 99 Nasal Cannula 5.0 60 97.7 08/19/17 19:25 101 08/19/17 16:00 101 08/19/17 16:00 99.0 113 29 105/67 92 Bi-pap 60 99.0 08/19/17 13:50 94 18 95 Nasal Cannula 4.0 36 08/19/17 13:40 91 16 97 Nasal Cannula 5.0 40 08/19/17 12:00 98.4 96 12 118/75 94 Bi-pap 60 98.4 08/19/17 12:00 87 Height (Feet): 5 Height (Inches): 9.00 Weight (Pounds): 186 Respiratory/Chest: lungs clear Cardiovascular: normal rate, regular rhythm, no gallop/murmur Abdomen: soft, non tender Extremities: no edema Laboratory Tests Test 08/20/17 05:30 08/20/17 08:25 White Blood Count 6.3 K/UL (4.8-10.8) Red Blood Count 4.28 M/UL (4.70-6.10) L Hemoglobin 12.5 G/DL (14.2-18.0) L Hematocrit 40.9 % (42.0-52.0) L Mean Corpuscular Volume 96 FL (80-99) Mean Corpuscular Hemoglobin 29.3 PG (27.0-31.0) Mean Corpuscular Hemoglobin Concent 30.6 G/DL (32.0-36.0) L Red Cell Distribution Width 16.2 % (11.6-14.8) H Platelet Count 206 K/UL (150-450) Mean Platelet Volume 6.4 FL (6.5-10.1) L Neutrophils (%) (Auto) 66.7 % (45.0-75.0) Lymphocytes (%) (Auto) 16.3 % (20.0-45.0) L Monocytes (%) (Auto) 14.0 % (1.0-10.0) H Eosinophils (%) (Auto) 2.3 % (0.0-3.0) Basophils (%) (Auto) 0.8 % (0.0-2.0) Prothrombin Time 21.5 SEC (9.30-11.50) H Prothromb Time International Ratio 2.0 (0.9-1.1) H Arterial Blood pH 7.446 (7.350-7.450) Arterial Blood Partial Pressure CO2 65.7 mmHg (35.0-45.0) *H Arterial Blood Partial Pressure O2 61.3 mmHg (75.0-100.0) L Arterial Blood HCO3 44.2 mmol/L (22.0-26.0) H Arterial Blood Oxygen Saturation 91.1 % (92.0-98.0) L Arterial Blood Base Excess 16.7 [place] Test Positive Current Medications Medications (Trade) Dose Ordered Sig/Kika Route PRN Reason Start Time Stop Time Status Last Admin Dose Admin Acetaminophen (Tylenol) 650 mg Q4H PRN ORAL Mild Pain/Temp > 100.5 08/18/17 23:30 09/04/17 19:29 Albuterol Sulfate (Proventil MDI) 2 puff Q6H PRN INH shortness of breath or wheezin 08/19/17 03:00 09/03/17 08:59 Albuterol/ Ipratropium (Albuterol/ Ipratropium) 3 ml Q4H PRN HHN Shortness of Breath 08/18/17 22:00 08/20/17 17:55 Albuterol/ Ipratropium (Albuterol/ Ipratropium) 3 ml Q6HRT HHN 08/19/17 01:00 08/20/17 18:59 08/20/17 07:19 Atorvastatin Calcium (Lipitor) 10 mg BEDTIME ORAL 08/19/17 21:00 09/02/17 21:59 08/19/17 20:20 Citalopram Hydrobromide (celeXA) 40 mg DAILY ORAL 08/19/17 09:00 09/10/17 08:59 08/20/17 08:31 Divalproex Sodium (Depakote Sprinkles) 500 mg EVERY 12 HOURS GT 08/19/17 09:00 09/04/17 20:59 08/20/17 08:32 Fluconazole (Diflucan) 100 mg DAILY ORAL 08/19/17 09:00 08/22/17 12:14 08/20/17 08:32 Lorazepam (Ativan 2mg/ml 1ml) 0.5 mg Q6H PRN IV For Anxiety 08/19/17 09:45 08/26/17 09:44 08/20/17 05:06 Olanzapine (ZyPREXA) 5 mg DAILY ORAL 08/19/17 09:00 09/18/17 08:59 08/20/17 08:32 Pantoprazole (Protonix) 40 mg EVERY 12 HOURS IVP 08/19/17 09:00 09/04/17 20:59 08/20/17 08:33 Risperidone (RisperDAL) 1 mg BID ORAL 08/19/17 18:00 09/18/17 17:59 08/20/17 08:33 Trazodone HCl (Desyrel) 200 mg BEDTIME ORAL 08/19/17 21:00 09/02/17 22:29 08/19/17 20:20 Warfarin Sodium (Coumadin per pharmacy) 1 ea DAILY PRN MISC Per rx protocol 08/19/17 09:00 09/07/17 08:44 Warfarin Sodium (Coumadin) 1 mg COUMADIN ONCE ORAL 08/20/17 17:00 08/20/17 17:01 LALI COCHRAN Aug 20, 2017 10:57
[2017-08-20 12:00] VITALS: BP 109/62
[2017-08-20 16:00] VITALS: BP 123/69
[2017-08-20] MEDS ORDERED: Warfarin Sodium 1mg ORAL ONE (17:00)
[2017-08-20 20:00] VITALS: BP 121/74
[2017-08-20] MEDS: TraZODone 100mg tab ORAL SCH (20:04)
[2017-08-21] VITALS (8 sets, daily range): BP systolic 98–127; BP diastolic 64–84
[2017-08-21 07:36] LABS: INR 2.1 (0.9-1.1)
[2017-08-21] MEDS: Citalopram 20mg Tab ORAL SCH (07:59)
[2017-08-21] MEDS: Pantoprazole Inj IVP SCH (08:00)
[2017-08-21] MEDS: Fluconazole 100mg tab ORAL SCH (08:00)
[2017-08-21] MEDS: Depakote 125mg Sprinkles GT SCH ×2 (08:00→20:57)
[2017-08-21] MEDS: LORazepam Inj 2mg/ml 1ml IV PRN ×2 (08:00→23:55)
--- NOTE | 2017-08-21 08:54 | Pulmonology Progress Note ---
Assessment/Plan Assessment/Plan 1. Acute respiratory failure. resolved 2. Right hemithorax opacification. Now resolved after bronchoscopy 3. History of right pleural effusion. 4. Schizophrenia 5. Chronic Coumadin usage. 5. Pulmonary edema; resolved; CXR clear now DISCUSSION: Continue abx Now on KEN; will transfer to 4th floor Requiring multiple psych meds; continue to decrease due to sedation Will increase Zyprexa Na high Will monitor Will liberalize fluid intake Subjective Interval Events: Comfortable; had agitation yesterday again Constitutional: Reports: no symptoms HEENT: Repors: no symptoms Respiratory: Reports: no symptoms Cardiovascular: Reports: no symptoms Gastrointestinal/Abdominal: Reports: no symptoms Genitourinary: Reports: no symptoms Allergies: Coded Allergies: No Known Allergies (Unverified , 08/03/17) Objective Last 24 Hour Vital Signs Date Time Temp Pulse Resp B/P (MAP) Pulse Ox O2 Delivery O2 Flow Rate FiO2 08/21/17 08:40 97.4 95 22 127/70 96 97.4 95 08/21/17 08:00 97.4 95 22 127/70 96 97.4 95 08/21/17 07:08 96 Venturi Mask 14.0 55 08/21/17 07:08 Venturi Mask 14.0 55 08/21/17 04:00 88 08/21/17 04:00 97.7 91 18 121/78 96 Bi-pap 60 97.7 08/21/17 04:00 40 08/21/17 00:00 40 08/21/17 00:00 97.9 95 20 122/84 95 Bi-pap 60 97.9 08/21/17 00:00 86 08/20/17 23:15 83 20 94 Full Face 40 08/20/17 20:00 101 08/20/17 20:00 5.0 08/20/17 20:00 97.7 93 16 121/74 99 Bi-pap 60 97.7 08/20/17 19:20 Venturi Mask 14.0 55 08/20/17 19:19 99 Non-Rebreather 15.0 100 08/20/17 16:00 97.8 88 16 123/69 98 Bi-pap 60 97.8 08/20/17 16:00 5.0 08/20/17 16:00 111 08/20/17 13:20 86 18 95 Nasal Cannula 5.0 40 08/20/17 13:14 79 20 96 Nasal Cannula 5.0 40 08/20/17 12:00 81 08/20/17 12:00 5.0 08/20/17 12:00 97.9 82 20 109/62 91 Bi-pap 60 97.9 08/20/17 08:52 97.0 89 20 124/74 97 Bi-pap 60 97.0 Intake and Output 08/20/17 08/21/17 19:00 07:00 Output Total 1400 ml 800 ml Balance -1400 ml -800 ml Output Urine Total 1400 ml 800 ml General Appearance: no acute distress HEENT: normocephalic Respiratory/Chest: chest wall non-tender, lungs clear Cardiovascular: normal peripheral pulses, normal rate Abdomen: normal bowel sounds, soft, non tender Laboratory Tests 08/21/17 06:20: Prothrombin Time 21.7H, Prothromb Time International Ratio 2.1H Current Medications Medications (Trade) Dose Ordered Sig/Kika Route PRN Reason Start Time Stop Time Status Last Admin Dose Admin Acetaminophen (Tylenol) 650 mg Q4H PRN ORAL Mild Pain/Temp > 100.5 08/18/17 23:30 09/04/17 19:29 Albuterol Sulfate (Proventil MDI) 2 puff Q6H PRN INH shortness of breath or wheezin 08/19/17 03:00 09/03/17 08:59 Atorvastatin Calcium (Lipitor) 10 mg BEDTIME ORAL 08/19/17 21:00 09/02/17 21:59 08/20/17 20:04 Citalopram Hydrobromide (celeXA) 40 mg DAILY ORAL 08/19/17 09:00 09/10/17 08:59 08/21/17 07:59 Divalproex Sodium (Depakote Sprinkles) 500 mg EVERY 12 HOURS GT 08/19/17 09:00 09/04/17 20:59 08/21/17 08:00 Fluconazole (Diflucan) 100 mg DAILY ORAL 08/19/17 09:00 08/22/17 12:14 08/21/17 08:00 Lorazepam (Ativan 2mg/ml 1ml) 0.5 mg Q6H PRN IV For Anxiety 08/19/17 09:45 08/26/17 09:44 08/21/17 08:00 Olanzapine (ZyPREXA) 5 mg BID ORAL 08/21/17 09:00 09/20/17 08:59 UNV Risperidone (RisperDAL) 1 mg BID ORAL 08/19/17 18:00 09/18/17 17:59 08/21/17 07:59 Trazodone HCl (Desyrel) 200 mg BEDTIME ORAL 08/19/17 21:00 09/02/17 22:29 08/20/17 20:04 Warfarin Sodium (Coumadin per pharmacy) 1 ea DAILY PRN MISC Per rx protocol 08/19/17 09:00 09/07/17 08:44 Richardson Mitchell MD Aug 21, 2017 08:54
--- NOTE | 2017-08-21 09:43 | Infectious Diseases Prog Note ---
Assessment/Plan Assessment/Plan A; Pneumonia, treated New fever, resolved Fungal UTI Hypercapnic respiratory failure COPD Schizophrenia P: discontinue Fluconazole Physical therapy Subjective ROS Limited/Unobtainable: Yes Constitutional: Reports: other - doing better, out of ICU Neurologic: Reports: confusion, other - on restraint Allergies: Coded Allergies: No Known Allergies (Unverified , 08/03/17) Objective Vital Signs Last 24 Hour Vital Signs Date Time Temp Pulse Resp B/P (MAP) Pulse Ox O2 Delivery O2 Flow Rate FiO2 08/21/17 08:40 97.4 95 22 127/70 96 97.4 95 08/21/17 08:00 97.4 95 22 127/70 96 97.4 95 08/21/17 08:00 40 08/21/17 07:08 96 Venturi Mask 14.0 55 08/21/17 07:08 Venturi Mask 14.0 55 08/21/17 04:00 88 08/21/17 04:00 97.7 91 18 121/78 96 Bi-pap 60 97.7 08/21/17 04:00 40 08/21/17 00:00 40 08/21/17 00:00 97.9 95 20 122/84 95 Bi-pap 60 97.9 08/21/17 00:00 86 08/20/17 23:15 83 20 94 Full Face 40 08/20/17 20:00 101 08/20/17 20:00 5.0 08/20/17 20:00 97.7 93 16 121/74 99 Bi-pap 60 97.7 08/20/17 19:20 Venturi Mask 14.0 55 08/20/17 19:19 99 Non-Rebreather 15.0 100 08/20/17 16:00 97.8 88 16 123/69 98 Bi-pap 60 97.8 08/20/17 16:00 5.0 08/20/17 16:00 111 08/20/17 13:20 86 18 95 Nasal Cannula 5.0 40 08/20/17 13:14 79 20 96 Nasal Cannula 5.0 40 08/20/17 12:00 81 08/20/17 12:00 5.0 08/20/17 12:00 97.9 82 20 109/62 91 Bi-pap 60 97.9 Height (Feet): 5 Height (Inches): 9.00 Weight (Pounds): 182 HEENT: mucous membranes moist Respiratory/Chest: lungs clear, other - O2 by mask Cardiovascular: normal rate Abdomen: soft, non tender Extremities: no edema Neurologic/Psychiatric: disoriented Laboratory Tests Test 08/21/17 06:20 Prothrombin Time 21.7 SEC (9.30-11.50) H Prothromb Time International Ratio 2.1 (0.9-1.1) H Current Medications Medications (Trade) Dose Ordered Sig/Kika Route PRN Reason Start Time Stop Time Status Last Admin Dose Admin Acetaminophen (Tylenol) 650 mg Q4H PRN ORAL Mild Pain/Temp > 100.5 08/18/17 23:30 09/04/17 19:29 Albuterol Sulfate (Proventil MDI) 2 puff Q6H PRN INH shortness of breath or wheezin 08/19/17 03:00 09/03/17 08:59 Atorvastatin Calcium (Lipitor) 10 mg BEDTIME ORAL 08/19/17 21:00 09/02/17 21:59 08/20/17 20:04 Citalopram Hydrobromide (celeXA) 40 mg DAILY ORAL 08/19/17 09:00 09/10/17 08:59 08/21/17 07:59 Divalproex Sodium (Depakote Sprinkles) 500 mg EVERY 12 HOURS GT 08/19/17 09:00 09/04/17 20:59 08/21/17 08:00 Fluconazole (Diflucan) 100 mg DAILY ORAL 08/19/17 09:00 08/22/17 12:14 08/21/17 08:00 Lorazepam (Ativan 2mg/ml 1ml) 0.5 mg Q6H PRN IV For Anxiety 08/19/17 09:45 08/26/17 09:44 08/21/17 08:00 Olanzapine (ZyPREXA) 5 mg BID ORAL 08/21/17 09:00 09/20/17 08:59 Risperidone (RisperDAL) 1 mg BID ORAL 08/19/17 18:00 09/18/17 17:59 08/21/17 07:59 Trazodone HCl (Desyrel) 200 mg BEDTIME ORAL 08/19/17 21:00 09/02/17 22:29 08/20/17 20:04 Warfarin Sodium (Coumadin per pharmacy) 1 ea DAILY PRN MISC Per rx protocol 08/19/17 09:00 09/07/17 08:44 Joseph Joseph MD Aug 21, 2017 09:43
[2017-08-21] MEDS: Warfarin Sodium 1mg ORAL SCH (17:54)
[2017-08-21] MEDS: TraZODone 100mg tab ORAL SCH (20:58)
[2017-08-22] VITALS (7 sets, daily range): BP systolic 116–135; BP diastolic 72–82
[2017-08-22] MEDS: LORazepam Inj 2mg/ml 1ml IV PRN ×2 (06:52→20:19)
--- NOTE | 2017-08-22 08:48 | Pulmonology Progress Note ---
Assessment/Plan Assessment/Plan 1. Acute respiratory failure. resolved 2. Right hemithorax opacification. Now resolved after bronchoscopy 3. History of right pleural effusion. 4. Schizophrenia 5. Chronic Coumadin usage. 5. Pulmonary edema; resolved; CXR clear now DISCUSSION: Continue abx Now on 4th floor Requiring multiple psych meds;On Zyprexa and Risperidone, Celexa and Trazodone Na high; AM labs pending Will monitor Will liberalize fluid intake Will DC restraints PT gregory; Sitter DC planning to SNF Subjective Interval Events: Still in restraints; is a fall risk Constitutional: Reports: no symptoms HEENT: Repors: no symptoms Respiratory: Reports: no symptoms Cardiovascular: Reports: no symptoms Gastrointestinal/Abdominal: Reports: no symptoms Genitourinary: Reports: no symptoms Neurologic: Reports: no symptoms Allergies: Coded Allergies: No Known Allergies (Unverified , 08/03/17) Objective Last 24 Hour Vital Signs Date Time Temp Pulse Resp B/P (MAP) Pulse Ox O2 Delivery O2 Flow Rate FiO2 08/22/17 04:00 98.2 101 19 117/73 90 Venturi Mask 5.0 98.2 101 08/22/17 00:00 98.1 100 19 116/72 94 Venturi Mask 5.0 98.1 100 08/21/17 20:15 94 Venturi Mask 8.0 40 08/21/17 20:15 Venturi Mask 8.0 40 08/21/17 20:00 98.5 89 19 108/64 93 Nasal Cannula 5.0 98.5 89 08/21/17 17:48 108/68 08/21/17 16:00 98.1 79 19 99/69 91 98.1 79 08/21/17 12:00 98.2 93 20 98/69 92 Nasal Cannula 5.0 98.2 Intake and Output 08/21/17 08/22/17 19:00 07:00 Intake Total 900 ml Output Total 1200 ml Balance -300 ml Intake Oral 900 ml Output Urine Total 1200 ml General Appearance: no acute distress HEENT: normocephalic Respiratory/Chest: chest wall non-tender, lungs clear Cardiovascular: normal peripheral pulses, normal rate Abdomen: normal bowel sounds, soft, non tender Laboratory Tests 08/22/17 08:00: Prothrombin Time [Pending], Prothromb Time International Ratio [Pending], Sodium Level [Pending], Potassium Level [Pending], Chloride Level [Pending], Carbon Dioxide Level [Pending], Blood Urea Nitrogen [Pending], Creatinine [ Pending], Estimat Glomerular Filtration Rate [Pending], Glucose Level [Pending] , Calcium Level [Pending] Current Medications Medications (Trade) Dose Ordered Sig/Kika Route PRN Reason Start Time Stop Time Status Last Admin Dose Admin Acetaminophen (Tylenol) 650 mg Q4H PRN ORAL Mild Pain/Temp > 100.5 08/18/17 23:30 09/04/17 19:29 Albuterol Sulfate (Proventil MDI) 2 puff Q6H PRN INH shortness of breath or wheezin 08/19/17 03:00 09/03/17 08:59 Atorvastatin Calcium (Lipitor) 10 mg BEDTIME ORAL 08/19/17 21:00 09/02/17 21:59 08/21/17 20:58 Citalopram Hydrobromide (celeXA) 40 mg DAILY ORAL 08/19/17 09:00 09/10/17 08:59 08/21/17 07:59 Divalproex Sodium (Depakote Sprinkles) 500 mg EVERY 12 HOURS GT 08/19/17 09:00 09/04/17 20:59 08/21/17 20:57 Lorazepam (Ativan 2mg/ml 1ml) 0.5 mg Q6H PRN IV For Anxiety 08/19/17 09:45 08/26/17 09:44 08/22/17 06:52 Olanzapine (ZyPREXA) 5 mg BID ORAL 08/21/17 09:00 09/20/17 08:59 08/21/17 17:56 Risperidone (RisperDAL) 1 mg BID ORAL 08/19/17 18:00 09/18/17 17:59 08/21/17 17:56 Trazodone HCl (Desyrel) 200 mg BEDTIME ORAL 08/19/17 21:00 09/02/17 22:29 08/21/17 20:58 Warfarin Sodium (Coumadin per pharmacy) 1 ea DAILY PRN MISC Per rx protocol 08/19/17 09:00 09/07/17 08:44 Warfarin Sodium (Coumadin) 1 mg COUMADIN ORAL 08/21/17 17:00 08/26/17 16:59 08/21/17 17:54 Richardson Mitchell MD Aug 22, 2017 08:48
[2017-08-22] MEDS ORDERED: COUMADIN1 MG ORAL (08:49)
[2017-08-22] MEDS ORDERED: LIPITOR10 MG ORAL (08:49)
[2017-08-22] MEDS ORDERED: OLANZAPINE5 MG ORAL (08:49)
[2017-08-22 09:22] LABS: BLOOD UREA NITROGEN 27 mg/dL (7-18); CALCIUM 9.6 MG/DL (8.5-10.1); CHLORIDE 107 MMOL/L (98-107); CREATININE 1.1 MG/DL (0.55-1.30); POTASSIUM 4.3 MMOL/L (3.5-5.1); SODIUM 147 MMOL/L (136-145)
[2017-08-22 09:26] LABS: CARBON DIOXIDE 43 MMOL/L (21-32)
[2017-08-22] MEDS: Citalopram 20mg Tab ORAL SCH (09:33)
[2017-08-22] MEDS: Depakote 125mg Sprinkles GT SCH (09:34)
[2017-08-22] MEDS ORDERED: NS 500ML ONE (09:45)
--- NOTE | 2017-08-22 12:13 | Infectious Diseases Prog Note ---
Assessment/Plan Assessment/Plan A; Pneumonia, treated New fever, resolved Fungal UTI Hypercapnic respiratory failure COPD Schizophrenia P: observe off antibiotic Subjective ROS Limited/Unobtainable: Yes Neurologic: Reports: confusion, other - on restraint Allergies: Coded Allergies: No Known Allergies (Unverified , 08/03/17) Objective Vital Signs Last 24 Hour Vital Signs Date Time Temp Pulse Resp B/P (MAP) Pulse Ox O2 Delivery O2 Flow Rate FiO2 08/22/17 11:57 97.0 104 18 116/74 90 Venturi Mask 5.0 97.0 104 08/22/17 08:03 93 Venturi Mask 8.0 40 08/22/17 08:03 Venturi Mask 8.0 40 08/22/17 08:00 97.2 101 22 116/73 83 Venturi Mask 5.0 97.2 101 08/22/17 04:00 98.2 101 19 117/73 90 Venturi Mask 5.0 98.2 101 08/22/17 00:00 98.1 100 19 116/72 94 Venturi Mask 5.0 98.1 100 08/21/17 20:15 94 Venturi Mask 8.0 40 08/21/17 20:15 Venturi Mask 8.0 40 08/21/17 20:00 98.5 89 19 108/64 93 Nasal Cannula 5.0 98.5 89 08/21/17 17:48 108/68 08/21/17 16:00 98.1 79 19 99/69 91 98.1 79 Height (Feet): 5 Height (Inches): 9.00 Weight (Pounds): 181 General Appearance: no acute distress HEENT: mucous membranes moist Respiratory/Chest: lungs clear Cardiovascular: normal rate Abdomen: soft, non tender Extremities: no edema Neurologic/Psychiatric: alert, responsive, disoriented Laboratory Tests Test 08/22/17 08:00 Prothrombin Time 20.6 SEC (9.30-11.50) H Prothromb Time International Ratio 2.0 (0.9-1.1) H Sodium Level 147 MMOL/L (136-145) H Potassium Level 4.3 MMOL/L (3.5-5.1) Chloride Level 107 MMOL/L (98-107) Carbon Dioxide Level 43 MMOL/L (21-32) *H Blood Urea Nitrogen 27 mg/dL (7-18) H Creatinine 1.1 MG/DL (0.55-1.30) Estimat Glomerular Filtration Rate > 60 mL/min (>60) Glucose Level 105 MG/DL (74-106) Calcium Level 9.6 MG/DL (8.5-10.1) Current Medications Medications (Trade) Dose Ordered Sig/Kika Route PRN Reason Start Time Stop Time Status Last Admin Dose Admin Acetaminophen (Tylenol) 650 mg Q4H PRN ORAL Mild Pain/Temp > 100.5 08/18/17 23:30 09/04/17 19:29 Albuterol Sulfate (Proventil MDI) 2 puff Q6H PRN INH shortness of breath or wheezin 08/19/17 03:00 09/03/17 08:59 Atorvastatin Calcium (Lipitor) 10 mg BEDTIME ORAL 08/19/17 21:00 09/02/17 21:59 08/21/17 20:58 Citalopram Hydrobromide (celeXA) 40 mg DAILY ORAL 08/19/17 09:00 09/10/17 08:59 08/22/17 09:33 Divalproex Sodium (Depakote Sprinkles) 500 mg EVERY 12 HOURS GT 08/19/17 09:00 09/04/17 20:59 08/22/17 09:34 Lorazepam (Ativan 2mg/ml 1ml) 0.5 mg Q6H PRN IV For Anxiety 08/19/17 09:45 08/26/17 09:44 08/22/17 06:52 Olanzapine (ZyPREXA) 5 mg BID ORAL 08/21/17 09:00 09/20/17 08:59 08/22/17 09:34 Risperidone (RisperDAL) 1 mg BID ORAL 08/19/17 18:00 09/18/17 17:59 08/22/17 09:32 Trazodone HCl (Desyrel) 200 mg BEDTIME ORAL 08/19/17 21:00 09/02/17 22:29 08/21/17 20:58 Warfarin Sodium (Coumadin per pharmacy) 1 ea DAILY PRN MISC Per rx protocol 08/19/17 09:00 09/07/17 08:44 Warfarin Sodium (Coumadin) 1 mg COUMADIN ORAL 08/21/17 17:00 08/26/17 16:59 08/21/17 17:54 Joseph Joseph MD Aug 22, 2017 12:13
--- NOTE | 2017-08-22 12:45 | Cardiology Report ---
APPROVED REPORT EKG Measurement Heart [id number] Sinus tachycardia Right bundle branch block Abnormal ECG
[2017-08-22] MEDS: Warfarin Sodium 1mg ORAL SCH (17:51)
[2017-08-22] MEDS: TraZODone 100mg tab ORAL SCH (20:18)
[2017-08-22] MEDS: Depakote 125mg Sprinkles ORAL SCH (20:19)
[2017-08-23] MEDS: LORazepam Inj 2mg/ml 1ml IV PRN (03:39)
[2017-08-23 08:00] VITALS: BP 129/76
--- NOTE | 2017-08-23 08:44 | Pulmonology Progress Note ---
Assessment/Plan Assessment/Plan 1. Acute respiratory failure. resolved 2. Right hemithorax opacification. Now resolved after bronchoscopy 3. History of right pleural effusion. 4. Schizophrenia 5. Chronic Coumadin usage. 5. Pulmonary edema; resolved; CXR clear now DISCUSSION: Continue abx Now on 4th floor Requiring multiple psych meds;On Zyprexa and Risperidone, Celexa and Trazodone Na better Will monitor Will liberalize fluid intake Will DC restraints PT gregory; Sitter DC planning to SNF Subjective Interval Events: Still requiring Ativan prn; twice last night Constitutional: Reports: no symptoms HEENT: Repors: no symptoms Respiratory: Reports: no symptoms Cardiovascular: Reports: no symptoms Gastrointestinal/Abdominal: Reports: no symptoms Allergies: Coded Allergies: No Known Allergies (Unverified , 08/03/17) Objective Last 24 Hour Vital Signs Date Time Temp Pulse Resp B/P (MAP) Pulse Ox O2 Delivery O2 Flow Rate FiO2 08/23/17 07:40 Venturi Mask 8.0 40 08/23/17 07:40 91 Venturi Mask 8.0 40 08/23/17 03:39 Venturi Mask 8.0 40 08/23/17 03:39 92 Venturi Mask 80.0 40 08/23/17 01:00 71 15 96 Full Face 40 08/22/17 23:56 97.7 84 24 135/82 95 Venturi Mask 5.0 40 97.7 84 08/22/17 20:15 Venturi Mask 8.0 40 08/22/17 20:10 96 Venturi Mask 8.0 40 08/22/17 20:00 97.4 99 18 131/74 93 Venturi Mask 5.0 40 97.4 99 08/22/17 16:00 97.0 104 18 116/74 90 Venturi Mask 5.0 40 97.0 104 08/22/17 11:57 97.0 104 18 116/74 90 Venturi Mask 5.0 97.0 104 Intake and Output 08/22/17 08/23/17 19:00 07:00 Intake Total 240 ml Balance 240 ml Intake Oral 240 ml # Voids 6 General Appearance: no acute distress HEENT: normocephalic Respiratory/Chest: chest wall non-tender, lungs clear Cardiovascular: normal peripheral pulses, normal rate Current Medications Medications (Trade) Dose Ordered Sig/Kika Route PRN Reason Start Time Stop Time Status Last Admin Dose Admin Acetaminophen (Tylenol) 650 mg Q4H PRN ORAL Mild Pain/Temp > 100.5 08/18/17 23:30 09/04/17 19:29 Albuterol Sulfate (Proventil MDI) 2 puff Q6H PRN INH shortness of breath or wheezin 08/19/17 03:00 09/03/17 08:59 Atorvastatin Calcium (Lipitor) 10 mg BEDTIME ORAL 08/19/17 21:00 09/02/17 21:59 08/22/17 20:18 Citalopram Hydrobromide (celeXA) 40 mg DAILY ORAL 08/19/17 09:00 09/10/17 08:59 08/22/17 09:33 Divalproex Sodium (Depakote Sprinkles) 500 mg EVERY 12 HOURS ORAL 08/22/17 21:00 09/04/17 20:59 08/22/17 20:19 Lorazepam (Ativan 2mg/ml 1ml) 0.5 mg Q6H PRN IV For Anxiety 08/19/17 09:45 08/26/17 09:44 08/23/17 03:39 Olanzapine (ZyPREXA) 5 mg BID ORAL 08/21/17 09:00 09/20/17 08:59 08/22/17 18:01 Risperidone (RisperDAL) 1 mg BID ORAL 08/19/17 18:00 09/18/17 17:59 08/22/17 18:01 Trazodone HCl (Desyrel) 200 mg BEDTIME ORAL 08/19/17 21:00 09/02/17 22:29 08/22/17 20:18 Warfarin Sodium (Coumadin per pharmacy) 1 ea DAILY PRN MISC Per rx protocol 08/19/17 09:00 09/07/17 08:44 Warfarin Sodium (Coumadin) 1 mg COUMADIN ORAL 08/21/17 17:00 08/26/17 16:59 08/22/17 17:51 Richardson Mitchell MD Aug 23, 2017 08:44
[2017-08-23] MEDS: Depakote 125mg Sprinkles ORAL SCH ×3 (09:00→21:00)
[2017-08-23] MEDS: Citalopram 20mg Tab ORAL SCH (09:00)
[2017-08-23 11:09] LABS: INR 2.3 (0.9-1.1)
--- NOTE | 2017-08-23 11:46 | Infectious Diseases Prog Note ---
Assessment/Plan Assessment/Plan antibiotics : none A 1. klebsiella pneumonia 2. respiratory failure 3. fungal UTI s/p rx 4. COPD 5. hypertension 6. renal stone P 1. start zosyn 2, sputum culture 3. cxr 4. will follow up cultures Subjective ROS Limited/Unobtainable: Yes Allergies: Coded Allergies: No Known Allergies (Unverified , 08/03/17) Objective Vital Signs Last 24 Hour Vital Signs Date Time Temp Pulse Resp B/P (MAP) Pulse Ox O2 Delivery O2 Flow Rate FiO2 08/23/17 09:34 83 15 92 Full Face 40 08/23/17 08:00 97.5 89 19 129/76 94 Simple Mask 10.0 97.5 08/23/17 07:40 Venturi Mask 8.0 40 08/23/17 07:40 91 Venturi Mask 8.0 40 08/23/17 03:39 Venturi Mask 8.0 40 08/23/17 03:39 92 Venturi Mask 80.0 40 08/23/17 01:00 71 15 96 Full Face 40 08/22/17 23:56 97.7 84 24 135/82 95 Venturi Mask 5.0 40 97.7 84 08/22/17 20:15 Venturi Mask 8.0 40 08/22/17 20:10 96 Venturi Mask 8.0 40 08/22/17 20:00 97.4 99 18 131/74 93 Venturi Mask 5.0 40 97.4 99 08/22/17 16:00 97.0 104 18 116/74 90 Venturi Mask 5.0 40 97.0 104 08/22/17 11:57 97.0 104 18 116/74 90 Venturi Mask 5.0 97.0 104 Height (Feet): 5 Height (Inches): 9.00 Weight (Pounds): 178 HEENT: other - on bipap Respiratory/Chest: lungs clear Cardiovascular: normal rate, regular rhythm, no gallop/murmur Abdomen: soft, non tender Extremities: no edema Laboratory Tests Test 08/23/17 10:02 08/23/17 10:25 Arterial Blood pH 7.319 (7.350-7.450) Arterial Blood Partial Pressure CO2 89.0 mmHg (35.0-45.0) *H Arterial Blood Partial Pressure O2 60.2 mmHg (75.0-100.0) L Arterial Blood HCO3 44.7 mmol/L (22.0-26.0) H Arterial Blood Oxygen Saturation 87.6 % (92.0-98.0) L Arterial Blood Base Excess 14.1 Roosevelt Test Positive Prothrombin Time 23.8 SEC (9.30-11.50) H Prothromb Time International Ratio 2.3 (0.9-1.1) H Current Medications Medications (Trade) Dose Ordered Sig/Kika Route PRN Reason Start Time Stop Time Status Last Admin Dose Admin Acetaminophen (Tylenol) 650 mg Q4H PRN ORAL Mild Pain/Temp > 100.5 08/18/17 23:30 09/04/17 19:29 Albuterol Sulfate (Proventil MDI) 2 puff Q6H PRN INH shortness of breath or wheezin 08/19/17 03:00 09/03/17 08:59 Atorvastatin Calcium (Lipitor) 10 mg BEDTIME ORAL 08/19/17 21:00 09/02/17 21:59 08/22/17 20:18 Citalopram Hydrobromide (celeXA) 40 mg DAILY ORAL 08/19/17 09:00 09/10/17 08:59 08/22/17 09:33 Divalproex Sodium (Depakote Sprinkles) 500 mg EVERY 12 HOURS ORAL 08/22/17 21:00 09/04/17 20:59 08/22/17 20:19 Olanzapine (ZyPREXA) 5 mg BID ORAL 08/21/17 09:00 09/20/17 08:59 08/22/17 18:01 Risperidone (RisperDAL) 1 mg BID ORAL 08/19/17 18:00 09/18/17 17:59 08/22/17 18:01 Trazodone HCl (Desyrel) 200 mg BEDTIME ORAL 08/19/17 21:00 09/02/17 22:29 08/22/17 20:18 Warfarin Sodium (Coumadin per pharmacy) 1 ea DAILY PRN MISC Per rx protocol 08/19/17 09:00 09/07/17 08:44 Warfarin Sodium (Coumadin) 1 mg COUMADIN ORAL 08/21/17 17:00 08/26/17 16:59 08/22/17 17:51 LALI COCHRAN Aug 23, 2017 11:46
[2017-08-23 11:59] VITALS: BP 137/73
[2017-08-23] MEDS ORDERED: Piperacillin/Tazobactam 3.375 GM in D5W 110 ML IVPB SCH (14:00)
[2017-08-23 16:17] VITALS: BP 128/76
[2017-08-23] MEDS ORDERED: Warfarin Sodium 1mg ORAL SCH (17:00)
[2017-08-23 20:00] VITALS: BP 105/87
[2017-08-23] MEDS: TraZODone 100mg tab ORAL SCH (21:01)
[2017-08-24] VITALS (15 sets, daily range): BP systolic 90–128; BP diastolic 56–93
[2017-08-24] MEDS: Depakote 125mg Sprinkles ORAL SCH (09:32)
[2017-08-24 09:49] LABS: INR 2.7 (0.9-1.1)
--- NOTE | 2017-08-24 09:50 | Pulmonology Progress Note ---
Assessment/Plan Assessment/Plan 1. Acute respiratory failure. resolved 2. Right hemithorax opacification. Now resolved after bronchoscopy 3. History of right pleural effusion. 4. Schizophrenia 5. Chronic Coumadin usage. 5. Pulmonary edema; resolved; CXR clear now 6. Agitation DISCUSSION: Continue abx Now on 4th floor; will transfer to [facility] Requiring multiple psych meds;On Zyprexa and Risperidone, Celexa and Trazodone Na better Will monitor Will liberalize fluid intake Will transfer to [facility] DC BiPAP 100%Fio2 Haldol IV Avoid benzos Subjective Interval Events: Fightingwith staff; pulling at lines and BiPAP Constitutional: Reports: no symptoms HEENT: Repors: no symptoms Respiratory: Reports: no symptoms Cardiovascular: Reports: no symptoms Gastrointestinal/Abdominal: Reports: no symptoms Genitourinary: Reports: no symptoms Neurologic: Reports: no symptoms Allergies: Coded Allergies: No Known Allergies (Unverified , 08/03/17) Objective Last 24 Hour Vital Signs Date Time Temp Pulse Resp B/P (MAP) Pulse Ox O2 Delivery O2 Flow Rate FiO2 08/24/17 08:30 98 19 92 Full Face 40 08/24/17 06:30 Bi-pap 40 08/24/17 06:30 91 Bi-pap 40 08/24/17 06:30 91 19 90 Facial 40 08/24/17 05:46 90 16 92 Facial 40 08/24/17 04:00 97.5 99 18 104/69 95 97.5 08/24/17 03:12 102 19 94 Facial 40 08/24/17 00:45 91 17 95 Facial 40 08/24/17 00:01 98.1 90 17 101/69 97 98.1 08/24/17 00:01 97 Bi-pap 08/23/17 23:12 92 16 95 Facial 40 08/23/17 20:21 102 23 91 Facial 40 08/23/17 20:00 97.9 93 19 105/87 91 97.9 08/23/17 20:00 91 Bi-pap 08/23/17 19:38 Venturi Mask 8.0 40 08/23/17 19:38 91 Venturi Mask 8.0 40 08/23/17 16:17 97.5 98 20 128/76 93 Nasal Cannula 4.0 97.5 08/23/17 16:17 97.5 98 20 128/76 93 97.5 6/9/18 11:59 97.8 100 20 137/73 91 97.8 Intake and Output 08/23/17 08/24/17 19:00 07:00 Intake Total 840 ml Output Total 350 ml Balance 490 ml Intake Oral 840 ml Output Urine Total 350 ml # Voids 2 General Appearance: no acute distress HEENT: normocephalic Respiratory/Chest: chest wall non-tender, lungs clear Cardiovascular: normal peripheral pulses, normal rate Laboratory Tests 08/23/17 10:02: Arterial Blood pH 7.319L, Arterial Blood Partial Pressure CO2 89.0*H, Arterial Blood Partial Pressure O2 60.2L, Arterial Blood HCO3 44.7H, Arterial Blood Oxygen Saturation 87.6L, Arterial Blood Base Excess 14.1, Roosevelt Test Positive 08/23/17 10:25: Prothrombin Time 23.8H, Prothromb Time International Ratio 2.3H 08/24/17 09:20: Prothrombin Time [Pending], Prothromb Time International Ratio [Pending], Sodium Level [Pending], Potassium Level [Pending], Chloride Level [Pending], Carbon Dioxide Level [Pending], Blood Urea Nitrogen [Pending], Creatinine [ Pending], Estimat Glomerular Filtration Rate [Pending], Glucose Level [Pending] , Calcium Level [Pending] Current Medications Medications (Trade) Dose Ordered Sig/Kika Route PRN Reason Start Time Stop Time Status Last Admin Dose Admin Acetaminophen (Tylenol) 650 mg Q4H PRN ORAL Mild Pain/Temp > 100.5 08/18/17 23:30 09/04/17 19:29 Albuterol Sulfate (Proventil MDI) 2 puff Q6H PRN INH shortness of breath or wheezin 08/19/17 03:00 09/03/17 08:59 Atorvastatin Calcium (Lipitor) 10 mg BEDTIME ORAL 08/19/17 21:00 09/02/17 21:59 08/23/17 21:00 Citalopram Hydrobromide (celeXA) 40 mg DAILY ORAL 08/19/17 09:00 09/10/17 08:59 08/22/17 09:33 Divalproex Sodium (Depakote Sprinkles) 500 mg EVERY 12 HOURS ORAL 08/22/17 21:00 09/04/17 20:59 08/24/17 09:32 Olanzapine (ZyPREXA) 5 mg BID ORAL 08/21/17 09:00 09/20/17 08:59 08/23/17 17:28 Risperidone (RisperDAL) 1 mg BID ORAL 08/19/17 18:00 09/18/17 17:59 08/24/17 09:31 Trazodone HCl (Desyrel) 200 mg BEDTIME ORAL 08/19/17 21:00 09/02/17 22:29 08/23/17 21:01 Warfarin Sodium (Coumadin per pharmacy) 1 ea DAILY PRN MISC Per rx protocol 08/19/17 09:00 09/07/17 08:44 Richardson Mitchell MD Aug 24, 2017 09:50
[2017-08-24 09:57] LABS: ANION GAP 1 mmol/L (5-15); BLOOD UREA NITROGEN 28 mg/dL (7-18); CALCIUM 9.3 MG/DL (8.5-10.1); CHLORIDE 105 MMOL/L (98-107); CREATININE 1.2 MG/DL (0.55-1.30); POTASSIUM 4.1 MMOL/L (3.5-5.1); SODIUM 148 MMOL/L (136-145)
[2017-08-24 09:58] LABS: CARBON DIOXIDE 43 MMOL/L (21-32)
[2017-08-24] MEDS ORDERED: Haloperidol Lactate 5 MG in D5W 55 ML IVPB PRN (10:00)
--- NOTE | 2017-08-24 10:29 | Diagnostic Imaging Report ---
Single frontal view INDICATION: Dyspnea COMPARISON: Chest x-ray dated 08/17/17 FINDINGS: Single frontal view. The cardiomediastinal silhouette is within normal limits. Increasing opacity within the right lower lung zone. Stable increased pulmonary vessel markings. No pleural effusions. Bony elements are within normal limits. IMPRESSION: Increasing opacity within the right lower lung zone. Stable increased pulmonary vascular markings.
[2017-08-24] MEDS: Citalopram 20mg Tab ORAL SCH (10:30)
[2017-08-24] MEDS ORDERED: LORazepam Inj 2mg/ml 1ml IV PRN (11:15)
[2017-08-24] MEDS ORDERED: Albuterol ud Inhalation HHN SCH (11:45)
[2017-08-24] MEDS ORDERED: Albuterol 90mcg Inhaler 8gm INH PRN (12:15)
[2017-08-24] MEDS: Haloperidol Lactate 5 MG in D5W 110 ML IVPB PRN (20:03)
[2017-08-24] MEDS: TraZODone 100mg tab ORAL SCH (20:55)
[2017-08-24] MEDS: Depakote 125mg Sprinkles GT SCH (20:55)
[2017-08-24] MEDS ORDERED: TraZODone 100mg tab ORAL SCH (21:00)
[2017-08-24] MEDS: LORazepam Inj 2mg/ml 1ml IV PRN (21:28)
[2017-08-25] VITALS (24 sets, daily range): BP systolic 83–130; BP diastolic 52–85
[2017-08-25] MEDS: Haloperidol Lactate 5 MG in D5W 110 ML IVPB PRN ×4 (01:54→23:25)
[2017-08-25] MEDS: LORazepam Inj 2mg/ml 1ml IV PRN ×4 (03:50→23:25)
[2017-08-25 08:48] LABS: INR 2.3 (0.9-1.1)
[2017-08-25] MEDS ORDERED: Citalopram 20mg Tab ORAL SCH ×2 (09:00)
[2017-08-25] MEDS: Depakote 125mg Sprinkles GT SCH ×2 (09:13→20:41)
--- NOTE | 2017-08-25 09:41 | Pulmonology Progress Note ---
Assessment/Plan Assessment/Plan 1. Acute respiratory failure. resolved 2. Right hemithorax opacification. Now resolved after bronchoscopy 3. History of right pleural effusion. 4. Schizophrenia 5. Chronic Coumadin usage. 5. Pulmonary edema; resolved; CXR clear now 6. Agitation DISCUSSION: Continue abx Now in ICU due to need to give IV Haldol Requiring multiple psych meds;On Zyprexa and Risperidone, Celexa and Trazodone Na better Will monitor Will liberalize fluid intake Off BiPAP 50%Fio2 Haldol IV Avoid benzos Subjective Interval Events: Now in ICU; saturating 92% on 50% VTM Constitutional: Reports: no symptoms HEENT: Repors: no symptoms Respiratory: Reports: no symptoms Cardiovascular: Reports: no symptoms Gastrointestinal/Abdominal: Reports: no symptoms Genitourinary: Reports: no symptoms Allergies: Coded Allergies: No Known Allergies (Unverified , 08/03/17) Objective Last 24 Hour Vital Signs Date Time Temp Pulse Resp B/P (MAP) Pulse Ox O2 Delivery O2 Flow Rate FiO2 08/25/17 09:00 97.6 68 12 103/65 92 Venturi Mask 45 97.6 08/25/17 08:00 77 16 108/64 95 Non-Rebreather 15.0 08/25/17 08:00 74 08/25/17 07:51 Venturi Mask 10.0 45 08/25/17 07:49 95 Venturi Mask 10.0 45 08/25/17 07:00 71 16 90/57 96 Bi-pap 40 08/25/17 06:00 73 16 130/85 95 Bi-pap 40 08/25/17 05:17 88 18 89 Facial 40 08/25/17 05:00 78 15 95/61 94 Bi-pap 40 08/25/17 04:00 97.7 79 14 108/69 92 Bi-pap 40 97.7 08/25/17 03:00 94 19 110/60 93 Bi-pap 40 08/25/17 02:58 95 18 92 Full Face 40 08/25/17 02:00 94 18 109/62 93 Bi-pap 40 08/25/17 01:00 97 20 102/64 93 Bi-pap 40 08/25/17 00:54 87 14 94 Full Face 40 08/25/17 00:19 95 08/25/17 00:00 97.8 92 18 108/69 93 Bi-pap 40 97.8 08/24/17 23:00 92 16 105/61 93 Bi-pap 40 08/24/17 22:08 95 19 91 Full Face 40 08/24/17 22:00 93 21 128/93 100 Non-Rebreather 15.0 08/24/17 21:00 92 21 107/56 94 Non-Rebreather 15.0 08/24/17 20:00 97.7 110 21 101/57 91 Non-Rebreather 15.0 97.7 08/24/17 20:00 100 08/24/17 19:08 Venturi Mask 8.0 40 08/24/17 19:08 100 Venturi Mask 8.0 40 08/24/17 19:00 82 13 105/62 100 Non-Rebreather 15.0 08/24/17 18:00 85 14 101/60 100 Non-Rebreather 15.0 08/24/17 17:00 90 15 90/67 100 Non-Rebreather 15.0 08/24/17 16:00 82 12 99/60 100 Non-Rebreather 15.0 08/24/17 15:00 87 16 101/58 97 Non-Rebreather 15.0 08/24/17 14:00 85 16 110/62 97 Non-Rebreather 15.0 08/24/17 13:00 89 15 101/65 96 Non-Rebreather 15.0 08/24/17 12:00 98.0 90 18 113/60 97 Non-Rebreather 15.0 98.0 Intake and Output 08/24/17 08/25/17 19:00 07:00 Intake Total 472 ml Output Total 2 ml 0 ml Balance -2 ml 472 ml Intake Oral 150 ml IV Total 222 ml Other 100 ml Output Urine Total 2 ml 0 ml # Voids 2 2 General Appearance: no acute distress HEENT: normocephalic Respiratory/Chest: chest wall non-tender, lungs clear Cardiovascular: normal peripheral pulses, normal rate Abdomen: normal bowel sounds Laboratory Tests 08/25/17 06:30: White Blood Count [Pending], Red Blood Count [Pending], Hemoglobin [Pending], Hematocrit [Pending], Mean Corpuscular Volume [Pending], Mean Corpuscular Hemoglobin [Pending], Mean Corpuscular Hemoglobin Concent [Pending], Red Cell Distribution Width [Pending], Platelet Count [Pending], Mean Platelet Volume [ Pending], Neutrophils (%) (Auto) [Pending], Lymphocytes (%) (Auto) [Pending], Monocytes (%) (Auto) [Pending], Eosinophils (%) (Auto) [Pending], Basophils (%) (Auto) [Pending], Prothrombin Time 24.3H, Prothromb Time International Ratio 2.3H, Sodium Level [Pending], Potassium Level [Pending], Chloride Level [Pending ], Carbon Dioxide Level [Pending], Blood Urea Nitrogen [Pending], Creatinine [ Pending], Estimat Glomerular Filtration Rate [Pending], Glucose Level [Pending] , Calcium Level [Pending], Total Bilirubin [Pending], Aspartate Amino Transf ( AST/SGOT) [Pending], Alanine Aminotransferase (ALT/SGPT) [Pending], Alkaline Phosphatase [Pending], Total Protein [Pending], Albumin [Pending], Globulin [ Pending] Current Medications Medications (Trade) Dose Ordered Sig/Kika Route PRN Reason Start Time Stop Time Status Last Admin Dose Admin Acetaminophen (Tylenol) 650 mg Q4H PRN ORAL Mild Pain/Temp > 100.5 08/24/17 12:15 09/23/17 12:14 Albuterol Sulfate (Proventil MDI) 2 puff EVERY 6 HOURS PRN INH Shortness of Breath 08/24/17 12:15 09/23/17 12:14 Atorvastatin Calcium (Lipitor) 10 mg BEDTIME ORAL 08/24/17 21:00 09/23/17 20:59 08/24/17 20:55 Citalopram Hydrobromide (celeXA) 40 mg DAILY ORAL 08/26/17 09:00 09/25/17 08:59 UNV Divalproex Sodium (Depakote Sprinkles) 500 mg EVERY 12 HOURS GT 08/24/17 21:00 09/23/17 20:59 08/25/17 09:13 Haloperidol Lactate 5 mg/ Dextrose 111 ml @ 444 mls/hr Q6H PRN IVPB Agitation 08/24/17 12:00 09/23/17 11:59 08/25/17 01:54 Lorazepam (Ativan 2mg/ml 1ml) 0.5 mg Q6H PRN IV For Anxiety 08/24/17 12:30 09/03/17 12:29 08/25/17 03:50 Olanzapine (ZyPREXA) 5 mg BID ORAL 08/24/17 18:00 09/23/17 17:59 08/25/17 09:14 Quetiapine Fumarate (SEROquel) 25 mg Q12HR ORAL 08/24/17 21:00 09/23/17 20:59 08/25/17 09:14 Risperidone (RisperDAL) 1 mg BID ORAL 08/24/17 18:00 09/23/17 17:59 08/25/17 09:13 Trazodone HCl (Desyrel) 200 mg BEDTIME ORAL 08/24/17 21:00 09/03/17 09:50 08/24/17 20:55 Warfarin Sodium (Coumadin per pharmacy) 1 ea DAILY PRN MISC Per rx protocol 08/24/17 11:45 09/23/17 11:44 Warfarin Sodium (Coumadin) 0.5 mg COUMADIN ONCE ORAL 08/25/17 17:00 08/25/17 17:01 Richardson Mitchell MD Aug 25, 2017 09:41
[2017-08-25 09:47] LABS: BASOPHILS % (AUTO) 0.5 % (0.0-2.0); EOSINOPHILS % (AUTO) 1.2 % (0.0-3.0); HEMOGLOBIN 13.8 G/DL (14.2-18.0); LYMPHOCYTES % (AUTO) 16.4 % (20.0-45.0); MEAN CORPUSCULAR VOLUME 96 FL (80-99); MONOCYTES % (AUTO) 9.2 % (1.0-10.0); NEUTROPHILS % (AUTO) 72.7 % (45.0-75.0); PLATELET COUNT 167 K/UL (150-450); RED BLOOD COUNT 4.79 M/UL (4.70-6.10); RED CELL DISTRIBUTION WIDTH 15.9 % (11.6-14.8); WHITE BLOOD COUNT 6.1 K/UL (4.8-10.8)
[2017-08-25 09:59] LABS: ALANINE AMINOTRANSFERASE 18 U/L (12-78); ALBUMIN 2.4 G/DL (3.4-5.0); ALBUMIN/GLOBULIN RATIO 0.5 (1.0-2.7); ALKALINE PHOSPHATASE 68 U/L (46-116); ANION GAP 0 mmol/L (5-15); ASPARTATE AMINO TRANSFERASE 21 U/L (15-37); BILIRUBIN,TOTAL 0.4 MG/DL (0.2-1.0); BLOOD UREA NITROGEN 18 mg/dL (7-18); CALCIUM 9.4 MG/DL (8.5-10.1); CHLORIDE 105 MMOL/L (98-107); CREATININE 1.1 MG/DL (0.55-1.30); POTASSIUM 3.8 MMOL/L (3.5-5.1); SODIUM 147 MMOL/L (136-145)
[2017-08-25 10:00] LABS: CARBON DIOXIDE 42 MMOL/L (21-32)
[2017-08-25] MEDS ORDERED: Citalopram Hydrobromide 10mg Tab ORAL SCH (11:00)
--- NOTE | 2017-08-25 11:52 | Infectious Diseases Prog Note ---
Assessment/Plan Assessment/Plan antibiotics : none A 1. klebsiella pneumonia s/p rx 2. respiratory failure s/p rx 3. fungal UTI s/p rx 4. COPD 5. hypertension 6. renal stone P 1. observe off antibiotics Subjective ROS Limited/Unobtainable: Yes Allergies: Coded Allergies: No Known Allergies (Unverified , 08/03/17) Objective Vital Signs Last 24 Hour Vital Signs Date Time Temp Pulse Resp B/P (MAP) Pulse Ox O2 Delivery O2 Flow Rate FiO2 08/25/17 11:00 75 14 105/52 92 Non-Rebreather 15.0 08/25/17 10:00 68 14 89/63 93 Non-Rebreather 15.0 08/25/17 09:00 97.6 68 12 103/65 92 Venturi Mask 45 97.6 08/25/17 08:00 77 16 108/64 95 Non-Rebreather 15.0 08/25/17 08:00 74 08/25/17 07:51 Venturi Mask 10.0 45 08/25/17 07:49 95 Venturi Mask 10.0 45 08/25/17 07:00 71 16 90/57 96 Bi-pap 40 08/25/17 06:00 73 16 130/85 95 Bi-pap 40 08/25/17 05:17 88 18 89 Facial 40 08/25/17 05:00 78 15 95/61 94 Bi-pap 40 08/25/17 04:00 97.7 79 14 108/69 92 Bi-pap 40 97.7 08/25/17 03:00 94 19 110/60 93 Bi-pap 40 08/25/17 02:58 95 18 92 Full Face 40 08/25/17 02:00 94 18 109/62 93 Bi-pap 40 08/25/17 01:00 97 20 102/64 93 Bi-pap 40 08/25/17 00:54 87 14 94 Full Face 40 08/25/17 00:19 95 08/25/17 00:00 97.8 92 18 108/69 93 Bi-pap 40 97.8 08/24/17 23:00 92 16 105/61 93 Bi-pap 40 08/24/17 22:08 95 19 91 Full Face 40 08/24/17 22:00 93 21 128/93 100 Non-Rebreather 15.0 08/24/17 21:00 92 21 107/56 94 Non-Rebreather 15.0 08/24/17 20:00 97.7 110 21 101/57 91 Non-Rebreather 15.0 97.7 08/24/17 20:00 100 08/24/17 19:08 Venturi Mask 8.0 40 08/24/17 19:08 100 Venturi Mask 8.0 40 08/24/17 19:00 82 13 105/62 100 Non-Rebreather 15.0 08/24/17 18:00 85 14 101/60 100 Non-Rebreather 15.0 08/24/17 17:00 90 15 90/67 100 Non-Rebreather 15.0 08/24/17 16:00 82 12 99/60 100 Non-Rebreather 15.0 08/24/17 15:00 87 16 101/58 97 Non-Rebreather 15.0 08/24/17 14:00 85 16 110/62 97 Non-Rebreather 15.0 08/24/17 13:00 89 15 101/65 96 Non-Rebreather 15.0 08/24/17 12:00 98.0 90 18 113/60 97 Non-Rebreather 15.0 98.0 Height (Feet): 5 Height (Inches): 9.00 Weight (Pounds): 164 Respiratory/Chest: lungs clear Cardiovascular: normal rate, regular rhythm, no gallop/murmur Abdomen: soft, non tender Extremities: no edema Laboratory Tests Test 08/25/17 06:30 White Blood Count 6.1 K/UL (4.8-10.8) Red Blood Count 4.79 M/UL (4.70-6.10) Hemoglobin 13.8 G/DL (14.2-18.0) L Hematocrit 46.0 % (42.0-52.0) Mean Corpuscular Volume 96 FL (80-99) Mean Corpuscular Hemoglobin 28.7 PG (27.0-31.0) Mean Corpuscular Hemoglobin Concent 29.9 G/DL (32.0-36.0) L Red Cell Distribution Width 15.9 % (11.6-14.8) H Platelet Count 167 K/UL (150-450) Mean Platelet Volume 6.6 FL (6.5-10.1) Neutrophils (%) (Auto) 72.7 % (45.0-75.0) Lymphocytes (%) (Auto) 16.4 % (20.0-45.0) L Monocytes (%) (Auto) 9.2 % (1.0-10.0) Eosinophils (%) (Auto) 1.2 % (0.0-3.0) Basophils (%) (Auto) 0.5 % (0.0-2.0) Prothrombin Time 24.3 SEC (9.30-11.50) H Prothromb Time International Ratio 2.3 (0.9-1.1) H Sodium Level 147 MMOL/L (136-145) H Potassium Level 3.8 MMOL/L (3.5-5.1) Chloride Level 105 MMOL/L (98-107) Carbon Dioxide Level 42 MMOL/L (21-32) *H Anion Gap 0 mmol/L (5-15) L Blood Urea Nitrogen 18 mg/dL (7-18) Creatinine 1.1 MG/DL (0.55-1.30) Estimat Glomerular Filtration Rate > 60 mL/min (>60) Glucose Level 67 MG/DL (74-106) L Calcium Level 9.4 MG/DL (8.5-10.1) Total Bilirubin 0.4 MG/DL (0.2-1.0) Aspartate Amino Transf (AST/SGOT) 21 U/L (15-37) Alanine Aminotransferase (ALT/SGPT) 18 U/L (12-78) Alkaline Phosphatase 68 U/L (46-116) Total Protein 7.6 G/DL (6.4-8.2) Albumin 2.4 G/DL (3.4-5.0) L Globulin 5.2 g/dL Albumin/Globulin Ratio 0.5 (1.0-2.7) L Current Medications Medications (Trade) Dose Ordered Sig/Kika Route PRN Reason Start Time Stop Time Status Last Admin Dose Admin Acetaminophen (Tylenol) 650 mg Q4H PRN ORAL Mild Pain/Temp > 100.5 08/24/17 12:15 09/23/17 12:14 Albuterol Sulfate (Proventil MDI) 2 puff EVERY 6 HOURS PRN INH Shortness of Breath 08/24/17 12:15 09/23/17 12:14 Atorvastatin Calcium (Lipitor) 10 mg BEDTIME ORAL 6/10/18 21:00 09/23/17 20:59 08/24/17 20:55 Citalopram Hydrobromide (celeXA) 40 mg DAILY ORAL 08/26/17 09:00 09/25/17 08:59 Citalopram Hydrobromide (celeXA) 40 mg ONCE ORAL 08/25/17 11:00 08/25/17 12:00 08/25/17 11:32 Divalproex Sodium (Depakote Sprinkles) 500 mg EVERY 12 HOURS GT 08/24/17 21:00 09/23/17 20:59 08/25/17 09:13 Haloperidol Lactate 5 mg/ Dextrose 111 ml @ 444 mls/hr Q6H PRN IVPB Agitation 08/24/17 12:00 09/23/17 11:59 08/25/17 10:39 Lorazepam (Ativan 2mg/ml 1ml) 0.5 mg Q6H PRN IV For Anxiety 08/24/17 12:30 09/03/17 12:29 08/25/17 11:26 Olanzapine (ZyPREXA) 5 mg BID ORAL 08/24/17 18:00 09/23/17 17:59 08/25/17 09:14 Quetiapine Fumarate (SEROquel) 25 mg Q12HR ORAL 08/24/17 21:00 09/23/17 20:59 08/25/17 09:14 Risperidone (RisperDAL) 1 mg BID ORAL 08/24/17 18:00 09/23/17 17:59 08/25/17 09:13 Trazodone HCl (Desyrel) 200 mg BEDTIME ORAL 08/24/17 21:00 09/03/17 09:50 08/24/17 20:55 Warfarin Sodium (Coumadin per pharmacy) 1 ea DAILY PRN MISC Per rx protocol 08/24/17 11:45 09/23/17 11:44 Warfarin Sodium (Coumadin) 0.5 mg COUMADIN ONCE ORAL 08/25/17 17:00 08/25/17 17:01 LALI COCHRAN Aug 25, 2017 11:52
[2017-08-25] MEDS ORDERED: Tubing IV Secondary IV ONE (15:33)
[2017-08-25] MEDS ORDERED: Warfarin Sodium 1mg ORAL ONE (17:00)
[2017-08-25] MEDS: TraZODone 100mg tab ORAL SCH (20:40)
[2017-08-26] VITALS (18 sets, daily range): BP systolic 91–127; BP diastolic 57–86
[2017-08-26] MEDS: Haloperidol Lactate 5 MG in D5W 110 ML IVPB PRN (05:55)
[2017-08-26 06:19] LABS: INR 3.6 (0.9-1.1)
[2017-08-26] MEDS: Depakote 125mg Sprinkles GT SCH ×2 (08:52→20:23)
[2017-08-26] MEDS ORDERED: Citalopram Hydrobromide 10mg Tab ORAL SCH (09:00)
--- NOTE | 2017-08-26 10:02 | Infectious Diseases Prog Note ---
Assessment/Plan Assessment/Plan A; Pneumonia, treated Hypercapnic respiratory failure COPD Schizophrenia P: observe off antibiotic Subjective ROS Limited/Unobtainable: Yes Neurologic: Reports: confusion, other - on restraint Allergies: Coded Allergies: No Known Allergies (Unverified , 08/03/17) Objective Vital Signs Last 24 Hour Vital Signs Date Time Temp Pulse Resp B/P (MAP) Pulse Ox O2 Delivery O2 Flow Rate FiO2 08/26/17 09:00 106 16 105/60 94 Non-Rebreather 100.0 08/26/17 08:00 99.1 108 12 127/68 100 Non-Rebreather 100.0 99.1 08/26/17 08:00 107 08/26/17 07:20 Non-Rebreather 15.0 100 08/26/17 07:20 100 Non-Rebreather 15.0 100 08/26/17 07:20 92 20 100 15.0 100 08/26/17 07:00 103 20 117/65 86 Bi-pap 55 08/26/17 06:00 119 23 99/67 84 Bi-pap 55 08/26/17 05:13 115 21 89 Facial 55 08/26/17 05:00 119 21 103/69 86 Bi-pap 55 08/26/17 04:00 98.9 118 20 101/66 88 Bi-pap 55 98.9 08/26/17 03:16 117 08/26/17 03:12 124 21 89 Facial 55 08/26/17 03:00 118 21 107/69 88 Bi-pap 55 08/26/17 02:00 117 20 99/68 89 Bi-pap 55 08/26/17 01:00 112 15 96/68 89 Bi-pap 55 08/26/17 00:00 100.0 123 23 102/69 89 Bi-pap 55 100.0 08/25/17 23:01 128 08/25/17 23:00 126 17 109/78 85 Bi-pap 55 08/25/17 22:43 137 23 88 Facial 55 08/25/17 22:00 132 20 123/74 87 Bi-pap 55 08/25/17 21:00 121 22 127/72 88 Bi-pap 40 08/25/17 20:30 133 19 99 Full Face 40 08/25/17 20:00 98.9 134 23 102/63 89 Non-Rebreather 15.0 98.9 08/25/17 19:24 125 08/25/17 19:00 93 Non-Rebreather 15.0 100 08/25/17 19:00 Non-Rebreather 15.0 100 08/25/17 19:00 110 12 111/72 98 Non-Rebreather 15.0 08/25/17 18:00 95 14 113/68 98 Non-Rebreather 15.0 08/25/17 17:00 95 12 123/67 98 Non-Rebreather 15.0 08/25/17 16:00 88 08/25/17 16:00 97.8 92 12 116/69 92 Non-Rebreather 15.0 97.8 08/25/17 15:00 89 12 101/64 98 Non-Rebreather 15.0 08/25/17 14:00 86 12 100/60 92 Non-Rebreather 15.0 08/25/17 13:00 81 12 83/57 97 Non-Rebreather 15.0 08/25/17 12:00 97.8 78 12 105/61 92 Venturi Mask 45 97.8 08/25/17 12:00 75 08/25/17 11:00 75 14 105/52 92 Non-Rebreather 15.0 08/25/17 10:00 68 14 89/63 93 Non-Rebreather 15.0 Height (Feet): 5 Height (Inches): 9.00 Weight (Pounds): 171 HEENT: mucous membranes moist Respiratory/Chest: rhonchi - bilaterally, other - Oxygen by rebreathing mask Cardiovascular: tachycardia Abdomen: soft, non tender Extremities: no edema Neurologic/Psychiatric: disoriented Laboratory Tests Test 08/26/17 05:10 Prothrombin Time 38.2 SEC (9.30-11.50) H Prothromb Time International Ratio 3.6 (0.9-1.1) H Current Medications Medications (Trade) Dose Ordered Sig/Kika Route PRN Reason Start Time Stop Time Status Last Admin Dose Admin Acetaminophen (Tylenol) 650 mg Q4H PRN ORAL Mild Pain/Temp > 100.5 08/24/17 12:15 09/23/17 12:14 Albuterol Sulfate (Proventil MDI) 2 puff EVERY 6 HOURS PRN INH Shortness of Breath 08/24/17 12:15 09/23/17 12:14 Atorvastatin Calcium (Lipitor) 10 mg BEDTIME ORAL 08/24/17 21:00 09/23/17 20:59 08/25/17 20:40 Citalopram Hydrobromide (celeXA) 40 mg DAILY ORAL 08/26/17 09:00 09/25/17 08:59 08/26/17 08:53 Divalproex Sodium (Depakote Sprinkles) 500 mg EVERY 12 HOURS GT 08/24/17 21:00 09/23/17 20:59 08/26/17 08:52 Haloperidol Lactate 5 mg/ Dextrose 111 ml @ 444 mls/hr Q6H PRN IVPB Agitation 08/24/17 12:00 09/23/17 11:59 08/26/17 05:55 Lorazepam (Ativan 2mg/ml 1ml) 0.5 mg Q6H PRN IV For Anxiety 08/24/17 12:30 09/03/17 12:29 08/25/17 23:25 Olanzapine (ZyPREXA) 5 mg BID ORAL 08/24/17 18:00 09/23/17 17:59 08/26/17 08:52 Quetiapine Fumarate (SEROquel) 25 mg Q12HR ORAL 08/24/17 21:00 09/23/17 20:59 08/26/17 08:53 Risperidone (RisperDAL) 1 mg BID ORAL 08/24/17 18:00 09/23/17 17:59 08/26/17 08:52 Trazodone HCl (Desyrel) 200 mg BEDTIME ORAL 08/24/17 21:00 09/03/17 09:50 08/25/17 20:40 Warfarin Sodium (Coumadin per pharmacy) 1 ea DAILY PRN MISC Per rx protocol 08/24/17 11:45 09/23/17 11:44 Joseph Joseph MD Aug 26, 2017 10:02
--- NOTE | 2017-08-26 10:11 | Pulmonology Progress Note ---
Assessment/Plan Assessment/Plan 1. Acute respiratory failure. resolved 2. Right hemithorax opacification. Now resolved after bronchoscopy 3. History of right pleural effusion. 4. Schizophrenia 5. Chronic Coumadin usage. 5. Pulmonary edema; resolved; CXR clear now 6. Agitation DISCUSSION: Continue abx Now in ICU due to need to give IV Haldol Requiring multiple psych meds;On Zyprexa and Risperidone, Celexa and Trazodone Discussed with Williams Alcantara protective services case worker Will require transfer to inpatient facility for psych and medical care Na better Will monitor Will liberalize fluid intake Will transfer to floor with restraints and sitter Off BiPAP 50%Fio2 DC Haldol IV Avoid benzos Subjective Interval Events: Still requiring Haldol IV and Ativan IV Constitutional: Reports: no symptoms HEENT: Repors: no symptoms Respiratory: Reports: no symptoms Cardiovascular: Reports: no symptoms Gastrointestinal/Abdominal: Reports: no symptoms Genitourinary: Reports: no symptoms Allergies: Coded Allergies: No Known Allergies (Unverified , 08/03/17) Objective Last 24 Hour Vital Signs Date Time Temp Pulse Resp B/P (MAP) Pulse Ox O2 Delivery O2 Flow Rate FiO2 08/26/17 09:00 106 16 105/60 94 Non-Rebreather 100.0 08/26/17 08:00 99.1 108 12 127/68 100 Non-Rebreather 100.0 99.1 08/26/17 08:00 107 08/26/17 07:20 Non-Rebreather 15.0 100 08/26/17 07:20 100 Non-Rebreather 15.0 100 08/26/17 07:20 92 20 100 15.0 100 08/26/17 07:00 103 20 117/65 86 Bi-pap 55 08/26/17 06:00 119 23 99/67 84 Bi-pap 55 08/26/17 05:13 115 21 89 Facial 55 08/26/17 05:00 119 21 103/69 86 Bi-pap 55 08/26/17 04:00 98.9 118 20 101/66 88 Bi-pap 55 98.9 08/26/17 03:16 117 08/26/17 03:12 124 21 89 Facial 55 08/26/17 03:00 118 21 107/69 88 Bi-pap 55 08/26/17 02:00 117 20 99/68 89 Bi-pap 55 08/26/17 01:00 112 15 96/68 89 Bi-pap 55 08/26/17 00:00 100.0 123 23 102/69 89 Bi-pap 55 100.0 08/25/17 23:01 128 08/25/17 23:00 126 17 109/78 85 Bi-pap 55 08/25/17 22:43 137 23 88 Facial 55 08/25/17 22:00 132 20 123/74 87 Bi-pap 55 08/25/17 21:00 121 22 127/72 88 Bi-pap 40 08/25/17 20:30 133 19 99 Full Face 40 08/25/17 20:00 98.9 134 23 102/63 89 Non-Rebreather 15.0 98.9 08/25/17 19:24 125 08/25/17 19:00 93 Non-Rebreather 15.0 100 08/25/17 19:00 Non-Rebreather 15.0 100 08/25/17 19:00 110 12 111/72 98 Non-Rebreather 15.0 08/25/17 18:00 95 14 113/68 98 Non-Rebreather 15.0 08/25/17 17:00 95 12 123/67 98 Non-Rebreather 15.0 08/25/17 16:00 88 08/25/17 16:00 97.8 92 12 116/69 92 Non-Rebreather 15.0 97.8 08/25/17 15:00 89 12 101/64 98 Non-Rebreather 15.0 08/25/17 14:00 86 12 100/60 92 Non-Rebreather 15.0 08/25/17 13:00 81 12 83/57 97 Non-Rebreather 15.0 08/25/17 12:00 97.8 78 12 105/61 92 Venturi Mask 45 97.8 08/25/17 12:00 75 08/25/17 11:00 75 14 105/52 92 Non-Rebreather 15.0 Intake and Output 08/25/17 08/26/17 19:00 07:00 Intake Total 222 ml 461 ml Output Total 600 ml 430 ml Balance -378 ml 31 ml Intake Oral 300 ml IV Total 222 ml 111 ml Other 50 ml Output Urine Total 600 ml 430 ml General Appearance: no acute distress HEENT: normocephalic Respiratory/Chest: chest wall non-tender, lungs clear Cardiovascular: normal peripheral pulses, normal rate Abdomen: soft, non tender Laboratory Tests 08/26/17 05:10: Prothrombin Time 38.2H, Prothromb Time International Ratio 3.6H Current Medications Medications (Trade) Dose Ordered Sig/Kika Route PRN Reason Start Time Stop Time Status Last Admin Dose Admin Acetaminophen (Tylenol) 650 mg Q4H PRN ORAL Mild Pain/Temp > 100.5 08/24/17 12:15 09/23/17 12:14 Albuterol Sulfate (Proventil MDI) 2 puff EVERY 6 HOURS PRN INH Shortness of Breath 08/24/17 12:15 09/23/17 12:14 Atorvastatin Calcium (Lipitor) 10 mg BEDTIME ORAL 08/24/17 21:00 09/23/17 20:59 08/25/17 20:40 Citalopram Hydrobromide (celeXA) 40 mg DAILY ORAL 08/26/17 09:00 09/25/17 08:59 08/26/17 08:53 Divalproex Sodium (Depakote Sprinkles) 500 mg EVERY 12 HOURS GT 08/24/17 21:00 09/23/17 20:59 08/26/17 08:52 Haloperidol Lactate 5 mg/ Dextrose 111 ml @ 444 mls/hr Q6H PRN IVPB Agitation 08/24/17 12:00 09/23/17 11:59 08/26/17 05:55 Lorazepam (Ativan 2mg/ml 1ml) 0.5 mg Q6H PRN IV For Anxiety 08/24/17 12:30 09/03/17 12:29 08/25/17 23:25 Olanzapine (ZyPREXA) 5 mg BID ORAL 08/24/17 18:00 09/23/17 17:59 08/26/17 08:52 Quetiapine Fumarate (SEROquel) 25 mg Q12HR ORAL 08/24/17 21:00 09/23/17 20:59 08/26/17 08:53 Risperidone (RisperDAL) 1 mg BID ORAL 08/24/17 18:00 09/23/17 17:59 08/26/17 08:52 Trazodone HCl (Desyrel) 200 mg BEDTIME ORAL 08/24/17 21:00 09/03/17 09:50 08/25/17 20:40 Warfarin Sodium (Coumadin per pharmacy) 1 ea DAILY PRN MISC Per rx protocol 08/24/17 11:45 09/23/17 11:44 Richardson Mitchell MD Aug 26, 2017 10:11
[2017-08-26] MEDS: LORazepam Inj 2mg/ml 1ml IV PRN ×3 (12:00→23:40)
[2017-08-26] MEDS ORDERED: Albuterol 90mcg Inhaler 8gm INH PRN (18:00)
[2017-08-26] MEDS: TraZODone 100mg tab ORAL SCH (20:22)
[2017-08-27] VITALS: BP 108/69
[2017-08-27 04:00] VITALS: BP 110/72
[2017-08-27 08:00] VITALS: BP 128/74
--- NOTE | 2017-08-27 08:30 | Pulmonology Progress Note ---
Assessment/Plan Assessment/Plan 1. Acute respiratory failure. resolved 2. Right hemithorax opacification. Now resolved after bronchoscopy 3. History of right pleural effusion. 4. Schizophrenia 5. Chronic Coumadin usage. 5. Pulmonary edema; resolved; CXR clear now 6. Agitation DISCUSSION: Continue abx Now in [facility] Requiring multiple psych meds;On Zyprexa and Risperidone, Celexa and Trazodone Discussed with Williams Alcantara case resolution specialist Will require transfer to inpatient facility for psych and medical care Na better Will monitor Will liberalize fluid intake Off BiPAP 50%Fio2 DC Haldol IV Avoid benzos Requested psych consult-Benji Cortez Subjective Interval Events: Now in [place] Constitutional: Reports: no symptoms HEENT: Repors: no symptoms Respiratory: Reports: no symptoms Cardiovascular: Reports: no symptoms Gastrointestinal/Abdominal: Reports: no symptoms Allergies: Coded Allergies: No Known Allergies (Unverified , 08/03/17) Objective Last 24 Hour Vital Signs Date Time Temp Pulse Resp B/P (MAP) Pulse Ox O2 Delivery O2 Flow Rate FiO2 08/27/17 07:13 103 29 92 Facial 100 08/27/17 07:12 Bi-pap 100 08/27/17 07:11 92 Bi-pap 100 08/27/17 05:24 95 16 92 Facial 100 08/27/17 04:00 98.2 86 17 110/72 Bi-pap 98.2 08/27/17 04:00 50 08/27/17 04:00 88 08/27/17 03:24 89 15 91 Facial 100 08/27/17 01:22 116 14 93 Facial 100 08/27/17 00:57 97.9 97.9 08/27/17 00:57 97.9 08/27/17 00:00 115 08/27/17 00:00 50 08/27/17 00:00 98.6 118 18 108/69 94 Bi-pap 100 98.6 08/26/17 23:58 98.6 08/26/17 23:57 98.6 98.6 08/26/17 23:18 127 20 92 Facial 100 08/26/17 20:30 122 25 92 Facial 80 08/26/17 20:00 50 08/26/17 20:00 97.0 114 16 122/86 95 Bi-pap 100 97.0 08/26/17 20:00 111 08/26/17 18:59 110 17 91 Facial 80 08/26/17 18:59 Bi-pap 08/26/17 18:58 Bi-pap 08/26/17 17:04 110 24 91 Facial 80 08/26/17 16:00 98.6 108 17 118/70 89 Bi-pap 100 98.6 08/26/17 16:00 107 08/26/17 15:22 107 18 94 Facial 80 08/26/17 15:00 111 18 98/63 93 Bi-pap 100 08/26/17 14:00 115 13 94/58 87 Bi-pap 100 08/26/17 13:14 111 18 90 Facial 100 08/26/17 13:00 113 13 107/66 88 Bi-pap 100 08/26/17 12:00 122 08/26/17 12:00 98.3 119 22 105/64 86 Bi-pap 100 98.3 08/26/17 11:45 112 19 91 Facial 100 08/26/17 11:00 111 13 105/64 93 Non-Rebreather 100.0 08/26/17 10:00 106 12 91/57 93 Non-Rebreather 100.0 08/26/17 09:00 106 16 105/60 94 Non-Rebreather 100.0 Intake and Output 08/26/17 08/27/17 19:00 07:00 Intake Total 30 ml Output Total 350 ml 245 ml Balance -320 ml -245 ml Intake Oral 0 ml Other 30 ml Output Urine Total 350 ml 245 ml General Appearance: no acute distress HEENT: normocephalic Respiratory/Chest: chest wall non-tender, lungs clear Cardiovascular: normal peripheral pulses, normal rate Abdomen: normal bowel sounds, soft, non tender Microbiology Date/Time Source Procedure Growth Status 08/26/17 07:30 Sputum Gram Stain Pending Resulted 08/26/17 07:30 Sputum Culture - Preliminary Staphylococcus Aureus Resulted Laboratory Tests 08/27/17 04:20: Prothrombin Time 31.5H, Prothromb Time International Ratio 3.0H Current Medications Medications (Trade) Dose Ordered Sig/Kika Route PRN Reason Start Time Stop Time Status Last Admin Dose Admin Acetaminophen (Tylenol) 650 mg Q4H PRN ORAL Mild Pain/Temp > 100.5 08/26/17 17:00 09/23/17 16:59 08/26/17 23:58 Albuterol Sulfate (Proventil MDI) 2 puff Q6H PRN INH Shortness of Breath 08/26/17 18:00 09/25/17 17:59 Atorvastatin Calcium (Lipitor) 10 mg BEDTIME ORAL 08/26/17 21:00 09/23/17 20:59 08/26/17 20:22 Citalopram Hydrobromide (celeXA) 40 mg DAILY ORAL 08/27/17 09:00 09/25/17 08:59 Divalproex Sodium (Depakote Sprinkles) 500 mg EVERY 12 HOURS GT 08/26/17 21:00 09/23/17 20:59 08/26/17 20:23 Lorazepam (Ativan 2mg/ml 1ml) 0.5 mg Q6H PRN IV For Anxiety 08/26/17 17:00 09/02/17 16:59 08/26/17 23:40 Olanzapine (ZyPREXA) 5 mg BID ORAL 08/26/17 18:00 09/23/17 17:59 08/26/17 18:06 Quetiapine Fumarate (SEROquel) 25 mg Q12HR ORAL 08/26/17 21:00 09/23/17 20:59 08/26/17 20:22 Risperidone (RisperDAL) 1 mg BID ORAL 08/26/17 18:00 09/23/17 17:59 08/26/17 18:06 Trazodone HCl (Desyrel) 200 mg BEDTIME ORAL 08/26/17 21:00 09/03/17 09:50 08/26/17 20:22 Warfarin Sodium (Coumadin per pharmacy) 1 ea DAILY PRN MISC Per rx protocol 08/26/17 17:00 09/25/17 16:59 Richardson Mitchell MD Aug 27, 2017 08:30
[2017-08-27] MEDS: Depakote 125mg Sprinkles GT SCH ×2 (09:04→21:54)
[2017-08-27] MEDS: Citalopram Hydrobromide 10mg Tab ORAL SCH (09:04)
[2017-08-27] MEDS: LORazepam Inj 2mg/ml 1ml IV PRN ×2 (09:26→22:09)
--- NOTE | 2017-08-27 10:48 | Infectious Diseases Prog Note ---
Assessment/Plan Assessment/Plan antibiotics : none A 1. staph aureus pneumonia 2. respiratory failure 3. fungal UTI s/p rx 4. COPD 5. hypertension 6. renal stone P 1. start iv vancomycin 2. will follow up cultures Subjective ROS Limited/Unobtainable: Yes Allergies: Coded Allergies: No Known Allergies (Unverified , 08/03/17) Objective Vital Signs Last 24 Hour Vital Signs Date Time Temp Pulse Resp B/P (MAP) Pulse Ox O2 Delivery O2 Flow Rate FiO2 08/27/17 09:00 108 23 95 Full Face 100 08/27/17 08:00 100.0 103 19 128/74 95 Bi-pap 100 100.0 08/27/17 08:00 50 08/27/17 07:43 114 08/27/17 07:13 103 29 92 Facial 100 08/27/17 07:12 Bi-pap 100 08/27/17 07:11 92 Bi-pap 100 08/27/17 05:24 95 16 92 Facial 100 08/27/17 04:00 98.2 86 17 110/72 Bi-pap 98.2 08/27/17 04:00 50 08/27/17 04:00 88 08/27/17 03:24 89 15 91 Facial 100 08/27/17 01:22 116 14 93 Facial 100 08/27/17 00:57 97.9 97.9 08/27/17 00:57 97.9 08/27/17 00:00 115 08/27/17 00:00 50 08/27/17 00:00 98.6 118 18 108/69 94 Bi-pap 100 98.6 08/26/17 23:58 98.6 08/26/17 23:57 98.6 98.6 08/26/17 23:18 127 20 92 Facial 100 08/26/17 20:30 122 25 92 Facial 80 08/26/17 20:00 50 08/26/17 20:00 97.0 114 16 122/86 95 Bi-pap 100 97.0 08/26/17 20:00 111 08/26/17 18:59 110 17 91 Facial 80 08/26/17 18:59 Bi-pap 08/26/17 18:58 Bi-pap 08/26/17 17:04 110 24 91 Facial 80 08/26/17 16:00 98.6 108 17 118/70 89 Bi-pap 100 98.6 08/26/17 16:00 107 08/26/17 15:22 107 18 94 Facial 80 08/26/17 15:00 111 18 98/63 93 Bi-pap 100 08/26/17 14:00 115 13 94/58 87 Bi-pap 100 08/26/17 13:14 111 18 90 Facial 100 08/26/17 13:00 113 13 107/66 88 Bi-pap 100 08/26/17 12:00 122 08/26/17 12:00 98.3 119 22 105/64 86 Bi-pap 100 98.3 08/26/17 11:45 112 19 91 Facial 100 08/26/17 11:00 111 13 105/64 93 Non-Rebreather 100.0 Height (Feet): 5 Height (Inches): 9.00 Weight (Pounds): 172 HEENT: other - on bipap Respiratory/Chest: lungs clear Cardiovascular: normal rate, regular rhythm, no gallop/murmur Abdomen: soft, non tender Extremities: no edema Microbiology Date/Time Source Procedure Growth Status 08/26/17 07:30 Sputum Gram Stain Pending Resulted 08/26/17 07:30 Sputum Culture - Preliminary Staphylococcus Aureus Resulted Laboratory Tests Test 08/27/17 04:20 Prothrombin Time 31.5 SEC (9.30-11.50) H Prothromb Time International Ratio 3.0 (0.9-1.1) H Current Medications Medications (Trade) Dose Ordered Sig/Kika Route PRN Reason Start Time Stop Time Status Last Admin Dose Admin Acetaminophen (Tylenol) 650 mg Q4H PRN ORAL Mild Pain/Temp > 100.5 08/26/17 17:00 09/23/17 16:59 08/26/17 23:58 Albuterol Sulfate (Proventil MDI) 2 puff Q6H PRN INH Shortness of Breath 08/26/17 18:00 09/25/17 17:59 Atorvastatin Calcium (Lipitor) 10 mg BEDTIME ORAL 08/26/17 21:00 09/23/17 20:59 08/26/17 20:22 Citalopram Hydrobromide (celeXA) 40 mg DAILY ORAL 08/27/17 09:00 09/25/17 08:59 08/27/17 09:04 Divalproex Sodium (Depakote Sprinkles) 500 mg EVERY 12 HOURS GT 08/26/17 21:00 09/23/17 20:59 08/27/17 09:04 Lorazepam (Ativan 2mg/ml 1ml) 1 mg Q6H PRN IV For Anxiety 08/27/17 11:00 09/03/17 10:59 Olanzapine (ZyPREXA) 5 mg BID ORAL 08/26/17 18:00 09/23/17 17:59 08/27/17 09:04 Quetiapine Fumarate (SEROquel) 100 mg TID ORAL 08/27/17 13:00 09/26/17 12:59 Risperidone (RisperDAL) 2 mg BID ORAL 08/27/17 18:00 09/26/17 17:59 Trazodone HCl (Desyrel) 200 mg BEDTIME ORAL 08/26/17 21:00 09/03/17 09:50 08/26/17 20:22 Warfarin Sodium (Coumadin per pharmacy) 1 ea DAILY PRN MISC Per rx protocol 08/26/17 17:00 09/25/17 16:59 LALI COCHRAN Aug 27, 2017 10:48
[2017-08-27 12:11] VITALS: BP 107/69
[2017-08-27] MEDS: Vancomycin 1250mg/D5W 250ml IVPB SCH ×2 (12:40→21:53)
[2017-08-27 16:00] VITALS: BP 115/75
[2017-08-27 20:00] VITALS: BP 114/85
[2017-08-27] MEDS: TraZODone 100mg tab ORAL SCH (21:53)
[2017-08-28] VITALS: BP 109/71
[2017-08-28 04:00] VITALS: BP 114/73
[2017-08-28] MEDS: LORazepam Inj 2mg/ml 1ml IV PRN ×2 (04:37→17:32)
[2017-08-28] MEDS: Vancomycin 1250mg/D5W 250ml IVPB SCH ×2 (04:37→17:48)
[2017-08-28 05:25] LABS: BASOPHILS % (AUTO) 0.3 % (0.0-2.0); EOSINOPHILS % (AUTO) 0.6 % (0.0-3.0); HEMOGLOBIN 13.3 G/DL (14.2-18.0); LYMPHOCYTES % (AUTO) 7.4 % (20.0-45.0); MEAN CORPUSCULAR VOLUME 95 FL (80-99); MONOCYTES % (AUTO) 8.5 % (1.0-10.0); NEUTROPHILS % (AUTO) 83.2 % (45.0-75.0); PLATELET COUNT 136 K/UL (150-450); RED BLOOD COUNT 4.62 M/UL (4.70-6.10); RED CELL DISTRIBUTION WIDTH 16.8 % (11.6-14.8); WHITE BLOOD COUNT 11.1 K/UL (4.8-10.8)
[2017-08-28 05:28] LABS: ANION GAP 0 mmol/L (5-15); BLOOD UREA NITROGEN 21 mg/dL (7-18); CALCIUM 9.5 MG/DL (8.5-10.1); CARBON DIOXIDE 40 MMOL/L (21-32); CHLORIDE 106 MMOL/L (98-107); CREATININE 1.1 MG/DL (0.55-1.30); POTASSIUM 4.3 MMOL/L (3.5-5.1); SODIUM 146 MMOL/L (136-145)
[2017-08-28 05:30] LABS: INR 2.8 (0.9-1.1)
[2017-08-28] MEDS ORDERED: NS 500ML ONE (08:32)
--- NOTE | 2017-08-28 08:33 | Pulmonology Progress Note ---
Assessment/Plan Assessment/Plan 1. Acute respiratory failure. resolved 2. Right hemithorax opacification. Now resolved after bronchoscopy 3. History of right pleural effusion. 4. Schizophrenia 5. Chronic Coumadin usage. 5. Pulmonary edema; resolved; CXR clear now 6. Agitation DISCUSSION: Continue abx Now in [facility] Requiring multiple psych meds;On Zyprexa and Risperidone, Celexa and Trazodone Discussed with Williams Alcantara counseling case manager Will require transfer to inpatient facility for psych and medical care Na better Will monitor Will liberalize fluid intake Off BiPAP 50%Fio2 DC Haldol IV Avoid benzos Requested psych consult-Benji Cortez Requiring Ativan IV round the clock for combativeness Subjective Interval Events: No clinical change Constitutional: Reports: no symptoms HEENT: Repors: no symptoms Respiratory: Reports: no symptoms Cardiovascular: Reports: no symptoms Gastrointestinal/Abdominal: Reports: no symptoms Genitourinary: Reports: no symptoms Allergies: Coded Allergies: No Known Allergies (Unverified , 08/03/17) Objective Last 24 Hour Vital Signs Date Time Temp Pulse Resp B/P (MAP) Pulse Ox O2 Delivery O2 Flow Rate FiO2 08/28/17 08:06 Venturi Mask 14.0 55 08/28/17 08:05 91 Venturi Mask 14.0 55 08/28/17 04:51 103 22 84 Full Face 100 08/28/17 04:00 93 08/28/17 04:00 100 08/28/17 04:00 97.8 86 14 114/73 86 Bi-pap 100 97.8 08/28/17 02:58 96 18 92 Full Face 100 08/28/17 01:25 113 26 85 Full Face 100 08/28/17 00:00 112 08/28/17 00:00 98.2 112 18 109/71 90 Bi-pap 80 98.2 08/28/17 00:00 80 08/27/17 22:53 110 22 85 Full Face 100 08/27/17 21:10 104 26 88 Full Face 80 08/27/17 20:00 98.3 101 19 114/85 84 Bi-pap 80 98.3 08/27/17 20:00 91 08/27/17 20:00 80 08/27/17 18:57 93 15 94 Full Face 35 08/27/17 18:57 94 Bi-pap 35 08/27/17 18:57 Bi-pap 35 08/27/17 16:45 90 14 96 Full Face 80 08/27/17 16:00 90 08/27/17 16:00 94 08/27/17 16:00 98.0 99 19 115/75 94 Bi-pap 90 98.0 08/27/17 14:57 89 14 94 Full Face 90 08/27/17 13:00 96 15 96 Full Face 100 08/27/17 12:11 97.9 94 19 107/69 98 Bi-pap 100 97.9 08/27/17 12:00 100 08/27/17 12:00 96 08/27/17 11:09 98 15 95 Full Face 100 08/27/17 09:00 108 23 95 Full Face 100 Intake and Output 08/27/17 08/28/17 19:00 07:00 Intake Total 433.334 ml 666.668 ml Output Total 100 ml 350 ml Balance 333.334 ml 316.668 ml Intake Oral 100 ml 0 ml IV Total 333.334 ml 666.668 ml Output Urine Total 100 ml 350 ml # Voids 2 General Appearance: no acute distress HEENT: normocephalic Respiratory/Chest: chest wall non-tender, lungs clear Cardiovascular: normal peripheral pulses, normal rate Microbiology Date/Time Source Procedure Growth Status 08/26/17 07:30 Sputum Gram Stain - Final Complete 08/26/17 07:30 Sputum Culture - Final Staphylococcus Aureus - Mrsa Complete Laboratory Tests 08/27/17 22:40: Arterial Blood pH 7.363, Arterial Blood Partial Pressure CO2 74.4*H, Arterial Blood Partial Pressure O2 50.8L, Arterial Blood HCO3 41.4H, Arterial Blood Oxygen Saturation 83.6L, Arterial Blood Base Excess 12.7, [place] Test Positive 08/28/17 04:00: White Blood Count 11.1H, Red Blood Count 4.62L, Hemoglobin 13.3L, Hematocrit 44.0, Mean Corpuscular Volume 95, Mean Corpuscular Hemoglobin 28.7, Mean Corpuscular Hemoglobin Concent 30.1L, Red Cell Distribution Width 16.8H, Platelet Count 136L, Mean Platelet Volume 8.8, Neutrophils (%) (Auto) 83.2H, Lymphocytes (%) (Auto) 7.4L, Monocytes (%) (Auto) 8.5, Eosinophils (%) (Auto) 0.6, Basophils (%) (Auto) 0.3, Prothrombin Time 29.2H, Prothromb Time International Ratio 2.8H, Sodium Level 146H, Potassium Level 4.3, Chloride Level 106, Carbon Dioxide Level 40H, Anion Gap 0L, Blood Urea Nitrogen 21H, Creatinine 1.1, Estimat Glomerular Filtration Rate > 60, Glucose Level 84, Calcium Level 9.5 Current Medications Medications (Trade) Dose Ordered Sig/Kika Route PRN Reason Start Time Stop Time Status Last Admin Dose Admin Acetaminophen (Tylenol) 650 mg Q4H PRN ORAL Mild Pain/Temp > 100.5 08/26/17 17:00 09/23/17 16:59 08/26/17 23:58 Albuterol Sulfate (Proventil MDI) 2 puff Q6H PRN INH Shortness of Breath 08/26/17 18:00 09/25/17 17:59 Atorvastatin Calcium (Lipitor) 10 mg BEDTIME ORAL 08/26/17 21:00 09/23/17 20:59 08/27/17 21:53 Citalopram Hydrobromide (celeXA) 40 mg DAILY ORAL 08/27/17 09:00 09/25/17 08:59 08/27/17 09:04 Divalproex Sodium (Depakote Sprinkles) 500 mg EVERY 12 HOURS GT 08/26/17 21:00 09/23/17 20:59 08/27/17 21:54 Lorazepam (Ativan 2mg/ml 1ml) 1 mg Q6H PRN IV For Anxiety 08/27/17 11:00 09/03/17 10:59 08/28/17 04:37 Olanzapine (ZyPREXA) 5 mg BID ORAL 08/26/17 18:00 09/23/17 17:59 08/27/17 09:04 Quetiapine Fumarate (SEROquel) 100 mg TID ORAL 08/27/17 13:00 09/26/17 12:59 Risperidone (RisperDAL) 2 mg BID ORAL 08/27/17 18:00 09/26/17 17:59 Trazodone HCl (Desyrel) 200 mg BEDTIME ORAL 08/26/17 21:00 09/03/17 09:50 08/27/17 21:53 Vancomycin HCl (Vanco rx to dose) 1 ea DAILY PRN MISC Per rx protocol 08/27/17 11:00 09/26/17 10:59 Vancomycin HCl/ Dextrose 250 ml @ 166.667 mls/hr Q8H IVPB 08/27/17 13:00 09/01/17 12:59 08/28/17 04:37 Warfarin Sodium (Coumadin per pharmacy) 1 ea DAILY PRN MISC Per rx protocol 08/26/17 17:00 09/25/17 16:59 Warfarin Sodium (Coumadin) 0.5 mg COUMADIN ORAL 08/28/17 17:00 08/28/17 18:30 Richardson Mitchell MD Aug 28, 2017 08:33
[2017-08-28 08:37] VITALS: BP 115/61
[2017-08-28] MEDS: Citalopram Hydrobromide 10mg Tab ORAL SCH (08:45)
[2017-08-28] MEDS: Depakote 125mg Sprinkles GT SCH ×2 (08:46→20:52)
--- NOTE | 2017-08-28 10:43 | Infectious Diseases Prog Note ---
Assessment/Plan Assessment/Plan A; Pneumonia with MRSA Hypercapnic respiratory failure COPD Schizophrenia P: Continue IV Vancomycin Subjective ROS Limited/Unobtainable: Yes Neurologic: Reports: confusion, other - onrestraint Allergies: Coded Allergies: No Known Allergies (Unverified , 08/03/17) Objective Vital Signs Last 24 Hour Vital Signs Date Time Temp Pulse Resp B/P (MAP) Pulse Ox O2 Delivery O2 Flow Rate FiO2 08/28/17 09:31 93 16 89 08/28/17 08:48 82 08/28/17 08:37 98.1 109 14 115/61 88 Non-Rebreather 100 98.1 08/28/17 08:06 Venturi Mask 14.0 55 08/28/17 08:05 91 Venturi Mask 14.0 55 08/28/17 08:00 100 08/28/17 04:51 103 22 84 Full Face 100 08/28/17 04:00 93 08/28/17 04:00 100 08/28/17 04:00 97.8 86 14 114/73 86 Bi-pap 100 97.8 08/28/17 02:58 96 18 92 Full Face 100 08/28/17 01:25 113 26 85 Full Face 100 08/28/17 00:00 112 08/28/17 00:00 98.2 112 18 109/71 90 Bi-pap 80 98.2 08/28/17 00:00 80 08/27/17 22:53 110 22 85 Full Face 100 08/27/17 21:10 104 26 88 Full Face 80 08/27/17 20:00 98.3 101 19 114/85 84 Bi-pap 80 98.3 08/27/17 20:00 91 08/27/17 20:00 80 08/27/17 18:57 93 15 94 Full Face 35 08/27/17 18:57 94 Bi-pap 35 08/27/17 18:57 Bi-pap 35 08/27/17 16:45 90 14 96 Full Face 80 08/27/17 16:00 90 08/27/17 16:00 94 08/27/17 16:00 98.0 99 19 115/75 94 Bi-pap 90 98.0 08/27/17 14:57 89 14 94 Full Face 90 08/27/17 13:00 96 15 96 Full Face 100 6/13/18 12:11 97.9 94 19 107/69 98 Bi-pap 100 97.9 08/27/17 12:00 100 08/27/17 12:00 96 08/27/17 11:09 98 15 95 Full Face 100 Height (Feet): 5 Height (Inches): 9.00 Weight (Pounds): 179 General Appearance: no acute distress HEENT: mucous membranes moist Respiratory/Chest: lungs clear, other - O2 by rebreathing mask Cardiovascular: normal rate Abdomen: soft, non tender Extremities: no edema Neurologic/Psychiatric: other - sleeping Microbiology Date/Time Source Procedure Growth Status 08/26/17 07:30 Sputum Gram Stain - Final Complete 08/26/17 07:30 Sputum Culture - Final Staphylococcus Aureus - Mrsa Complete Laboratory Tests Test 08/27/17 22:40 08/28/17 04:00 Arterial Blood pH 7.363 (7.350-7.450) Arterial Blood Partial Pressure CO2 74.4 mmHg (35.0-45.0) *H Arterial Blood Partial Pressure O2 50.8 mmHg (75.0-100.0) L Arterial Blood HCO3 41.4 mmol/L (22.0-26.0) H Arterial Blood Oxygen Saturation 83.6 % (92.0-98.0) L Arterial Blood Base Excess 12.7 [place] Test Positive White Blood Count 11.1 K/UL (4.8-10.8) H Red Blood Count 4.62 M/UL (4.70-6.10) L Hemoglobin 13.3 G/DL (14.2-18.0) L Hematocrit 44.0 % (42.0-52.0) Mean Corpuscular Volume 95 FL (80-99) Mean Corpuscular Hemoglobin 28.7 PG (27.0-31.0) Mean Corpuscular Hemoglobin Concent 30.1 G/DL (32.0-36.0) L Red Cell Distribution Width 16.8 % (11.6-14.8) H Platelet Count 136 K/UL (150-450) L Mean Platelet Volume 8.8 FL (6.5-10.1) Neutrophils (%) (Auto) 83.2 % (45.0-75.0) H Lymphocytes (%) (Auto) 7.4 % (20.0-45.0) L Monocytes (%) (Auto) 8.5 % (1.0-10.0) Eosinophils (%) (Auto) 0.6 % (0.0-3.0) Basophils (%) (Auto) 0.3 % (0.0-2.0) Prothrombin Time 29.2 SEC (9.30-11.50) H Prothromb Time International Ratio 2.8 (0.9-1.1) H Sodium Level 146 MMOL/L (136-145) H Potassium Level 4.3 MMOL/L (3.5-5.1) Chloride Level 106 MMOL/L (98-107) Carbon Dioxide Level 40 MMOL/L (21-32) H Anion Gap 0 mmol/L (5-15) L Blood Urea Nitrogen 21 mg/dL (7-18) H Creatinine 1.1 MG/DL (0.55-1.30) Estimat Glomerular Filtration Rate > 60 mL/min (>60) Glucose Level 84 MG/DL (74-106) Calcium Level 9.5 MG/DL (8.5-10.1) Current Medications Medications (Trade) Dose Ordered Sig/Kika Route PRN Reason Start Time Stop Time Status Last Admin Dose Admin Acetaminophen (Tylenol) 650 mg Q4H PRN ORAL Mild Pain/Temp > 100.5 08/26/17 17:00 09/23/17 16:59 08/26/17 23:58 Albuterol Sulfate (Proventil MDI) 2 puff Q6H PRN INH Shortness of Breath 08/26/17 18:00 09/25/17 17:59 Atorvastatin Calcium (Lipitor) 10 mg BEDTIME ORAL 08/26/17 21:00 09/23/17 20:59 08/27/17 21:53 Citalopram Hydrobromide (celeXA) 40 mg DAILY ORAL 08/27/17 09:00 09/25/17 08:59 08/28/17 08:45 Divalproex Sodium (Depakote Sprinkles) 500 mg EVERY 12 HOURS GT 08/26/17 21:00 09/23/17 20:59 08/28/17 08:46 Lorazepam (Ativan 2mg/ml 1ml) 1 mg Q6H PRN IV For Anxiety 08/27/17 11:00 09/03/17 10:59 08/28/17 04:37 Olanzapine (ZyPREXA) 5 mg BID ORAL 08/26/17 18:00 09/23/17 17:59 08/28/17 08:45 Quetiapine Fumarate (SEROquel) 100 mg TID ORAL 08/27/17 13:00 09/26/17 12:59 08/28/17 08:45 Risperidone (RisperDAL) 2 mg BID ORAL 08/27/17 18:00 09/26/17 17:59 08/28/17 08:47 Trazodone HCl (Desyrel) 200 mg BEDTIME ORAL 08/26/17 21:00 09/03/17 09:50 08/27/17 21:53 Vancomycin HCl (Vanco rx to dose) 1 ea DAILY PRN MISC Per rx protocol 08/27/17 11:00 09/26/17 10:59 Vancomycin HCl/ Dextrose 250 ml @ 166.667 mls/hr Q8H IVPB 08/27/17 13:00 09/01/17 12:59 08/28/17 04:37 Warfarin Sodium (Coumadin per pharmacy) 1 ea DAILY PRN MISC Per rx protocol 08/26/17 17:00 09/25/17 16:59 Warfarin Sodium (Coumadin) 0.5 mg COUMADIN ORAL 08/28/17 17:00 08/28/17 18:30 Joseph Joseph MD Aug 28, 2017 10:43
[2017-08-28 12:20] VITALS: BP 94/64
[2017-08-28 16:00] VITALS: BP 104/71
[2017-08-28] MEDS ORDERED: Warfarin Sodium 1mg ORAL SCH (17:00)
[2017-08-28 20:00] VITALS: BP 108/70
[2017-08-28] MEDS: OLANZapine 10mg tab ORAL SCH (20:52)
[2017-08-28] MEDS: TraZODone 100mg tab ORAL SCH (20:52)
[2017-08-29] VITALS: BP 111/76
[2017-08-29 04:00] VITALS: BP 115/83
[2017-08-29 04:55] LABS: INR 2.2 (0.9-1.1)
[2017-08-29] MEDS: Vancomycin 1250mg/D5W 250ml IVPB SCH ×2 (05:55→17:12)
--- NOTE | 2017-08-29 07:28 | Pulmonology Progress Note ---
Assessment/Plan Assessment/Plan 1. Acute respiratory failure. resolved 2. Right hemithorax opacification. Now resolved after bronchoscopy 3. History of right pleural effusion. 4. Schizophrenia 5. Chronic Coumadin usage. 5. Pulmonary edema; resolved; CXR clear now 6. Agitation DISCUSSION: Continue abx Now in [place] Requiring multiple psych meds;On Zyprexa and Risperidone, Celexa and Trazodone Discussed with [facility] case manager specialist Will require transfer to inpatient facility for psych and medical care Na better Will monitor Will liberalize fluid intake On BiPAP 50%Fio2 DC Haldol IV Avoid benzos Requested psych consult-Benji Cortez Requiring Ativan IV round the clock for combativeness Subjective Interval Events: Still agitated; on multiple psych medications Constitutional: Reports: no symptoms HEENT: Repors: no symptoms Respiratory: Reports: no symptoms Cardiovascular: Reports: no symptoms Gastrointestinal/Abdominal: Reports: no symptoms Genitourinary: Reports: no symptoms Allergies: Coded Allergies: No Known Allergies (Unverified , 08/03/17) Objective Last 24 Hour Vital Signs Date Time Temp Pulse Resp B/P (MAP) Pulse Ox O2 Delivery O2 Flow Rate FiO2 08/29/17 05:27 120 18 89 Full Face 100 08/29/17 04:00 112 08/29/17 04:00 98.0 101 20 115/83 90 Bi-pap 100 98.0 08/29/17 04:00 100 08/29/17 02:56 107 21 87 Full Face 100 08/29/17 01:07 104 16 89 Full Face 100 08/29/17 00:00 98.3 106 20 111/76 91 Bi-pap 100 98.3 08/29/17 00:00 104 08/28/17 22:55 108 15 89 Full Face 100 08/28/17 20:46 112 15 91 Full Face 100 08/28/17 20:00 97.9 111 18 108/70 88 Bi-pap 100 97.9 08/28/17 20:00 100 08/28/17 20:00 97.9 111 18 108/70 88 Non-Rebreather 100 97.9 08/28/17 20:00 114 08/28/17 18:51 115 21 87 Full Face 100 08/28/17 18:51 87 Bi-pap 100 08/28/17 18:51 Bi-pap 100 08/28/17 16:37 107 19 88 Full Face 100 08/28/17 16:00 97.4 98 16 104/71 90 Non-Rebreather 100 97.4 08/28/17 16:00 100 08/28/17 16:00 99 08/28/17 14:53 95 19 92 Full Face 100 08/28/17 13:26 103 22 84 Full Face 100 08/28/17 12:42 82 16 88 08/28/17 12:20 97.3 85 14 94/64 86 Non-Rebreather 100 97.3 08/28/17 12:00 100 08/28/17 12:00 82 08/28/17 11:47 88 16 92 08/28/17 09:31 93 16 89 08/28/17 08:48 82 08/28/17 08:37 98.1 109 14 115/61 88 Non-Rebreather 100 98.1 08/28/17 08:06 Venturi Mask 14.0 55 08/28/17 08:05 91 Venturi Mask 14.0 55 08/28/17 08:00 100 Intake and Output 08/28/17 08/29/17 19:00 07:00 Intake Total 120 ml 0 ml Output Total 270 ml 150 ml Balance -150 ml -150 ml Intake Oral 120 ml 0 ml Output Urine Total 270 ml 150 ml # Bowel Movements 1 General Appearance: no acute distress HEENT: normocephalic Respiratory/Chest: chest wall non-tender, lungs clear Cardiovascular: normal peripheral pulses, normal rate Abdomen: normal bowel sounds Microbiology Date/Time Source Procedure Growth Status 08/26/17 07:30 Sputum Gram Stain - Final Complete 08/26/17 07:30 Sputum Culture - Final Staphylococcus Aureus - Mrsa Complete Laboratory Tests 08/28/17 12:09: Vancomycin Level Trough 26.2H 08/29/17 03:32: Prothrombin Time 22.8H, Prothromb Time International Ratio 2.2H Current Medications Medications (Trade) Dose Ordered Sig/Kika Route PRN Reason Start Time Stop Time Status Last Admin Dose Admin Acetaminophen (Tylenol) 650 mg Q4H PRN ORAL Mild Pain/Temp > 100.5 08/26/17 17:00 09/23/17 16:59 08/26/17 23:58 Albuterol Sulfate (Proventil MDI) 2 puff Q6H PRN INH Shortness of Breath 08/26/17 18:00 09/25/17 17:59 Atorvastatin Calcium (Lipitor) 10 mg BEDTIME ORAL 08/26/17 21:00 09/23/17 20:59 08/28/17 20:53 Citalopram Hydrobromide (celeXA) 40 mg DAILY ORAL 08/27/17 09:00 09/25/17 08:59 08/28/17 08:45 Divalproex Sodium (Depakote Sprinkles) 500 mg EVERY 12 HOURS GT 08/26/17 21:00 09/23/17 20:59 08/28/17 20:52 Lorazepam (Ativan 2mg/ml 1ml) 1 mg Q6H PRN IV For Anxiety 08/27/17 11:00 09/03/17 10:59 08/28/17 17:32 Olanzapine (ZyPREXA) 10 mg Q12HR ORAL 08/28/17 21:00 09/27/17 20:59 08/28/17 20:52 Quetiapine Fumarate (SEROquel) 100 mg TID ORAL 08/27/17 13:00 09/26/17 12:59 08/28/17 17:31 Risperidone (RisperDAL) 2 mg BID ORAL 08/27/17 18:00 09/26/17 17:59 08/28/17 17:31 Trazodone HCl (Desyrel) 200 mg BEDTIME ORAL 08/26/17 21:00 09/03/17 09:50 08/28/17 20:52 Vancomycin HCl (Vanco rx to dose) 1 ea DAILY PRN MISC Per rx protocol 08/27/17 11:00 09/26/17 10:59 Vancomycin HCl/ Dextrose 250 ml @ 166.667 mls/hr Q12H IVPB 08/28/17 18:00 09/02/17 17:59 08/29/17 05:55 Warfarin Sodium (Coumadin per pharmacy) 1 ea DAILY PRN MISC Per rx protocol 08/26/17 17:00 09/25/17 16:59 Richardson Mitchell MD Aug 29, 2017 07:28
[2017-08-29 08:00] VITALS: BP 136/88
[2017-08-29] MEDS: Depakote 125mg Sprinkles GT SCH ×2 (09:48→20:34)
[2017-08-29] MEDS: Citalopram Hydrobromide 10mg Tab ORAL SCH (09:49)
[2017-08-29] MEDS: OLANZapine 10mg tab ORAL SCH ×2 (09:49→20:34)
--- NOTE | 2017-08-29 10:33 | Infectious Diseases Prog Note ---
Assessment/Plan Assessment/Plan A; Pneumonia with MRSA Hypercapnic respiratory failure COPD Schizophrenia P: Continue IV Vancomycin Repeat CXR, f/u CBC Subjective ROS Limited/Unobtainable: Yes Respiratory: Reports: other - started on BIPAP Neurologic: Reports: confusion, other - on restraint Allergies: Coded Allergies: No Known Allergies (Unverified , 08/03/17) Objective Vital Signs Last 24 Hour Vital Signs Date Time Temp Pulse Resp B/P (MAP) Pulse Ox O2 Delivery O2 Flow Rate FiO2 08/29/17 08:00 98.4 109 20 136/88 90 Bi-pap 100 98.4 08/29/17 08:00 100 08/29/17 05:27 120 18 89 Full Face 100 08/29/17 04:00 112 08/29/17 04:00 98.0 101 20 115/83 90 Bi-pap 100 98.0 08/29/17 04:00 100 08/29/17 02:56 107 21 87 Full Face 100 08/29/17 01:07 104 16 89 Full Face 100 08/29/17 00:00 98.3 106 20 111/76 91 Bi-pap 100 98.3 08/29/17 00:00 104 08/28/17 22:55 108 15 89 Full Face 100 08/28/17 20:46 112 15 91 Full Face 100 08/28/17 20:00 97.9 111 18 108/70 88 Bi-pap 100 97.9 08/28/17 20:00 100 08/28/17 20:00 97.9 111 18 108/70 88 Non-Rebreather 100 97.9 08/28/17 20:00 114 08/28/17 18:51 115 21 87 Full Face 100 08/28/17 18:51 87 Bi-pap 100 08/28/17 18:51 Bi-pap 100 08/28/17 16:37 107 19 88 Full Face 100 08/28/17 16:00 97.4 98 16 104/71 90 Non-Rebreather 100 97.4 08/28/17 16:00 100 08/28/17 16:00 99 08/28/17 14:53 95 19 92 Full Face 100 08/28/17 13:26 103 22 84 Full Face 100 08/28/17 12:42 82 16 88 08/28/17 12:20 97.3 85 14 94/64 86 Non-Rebreather 100 97.3 08/28/17 12:00 100 08/28/17 12:00 82 08/28/17 11:47 88 16 92 Height (Feet): 5 Height (Inches): 9.00 Weight (Pounds): 179 HEENT: mucous membranes moist Respiratory/Chest: decreased breath sounds, other - on BIPAP Cardiovascular: tachycardia Abdomen: soft, non tender Extremities: no edema Neurologic/Psychiatric: alert, responsive Laboratory Tests Test 08/28/17 12:09 08/29/17 03:32 Vancomycin Level Trough 26.2 ug/mL (5.0-12.0) H Prothrombin Time 22.8 SEC (9.30-11.50) H Prothromb Time International Ratio 2.2 (0.9-1.1) H Current Medications Medications (Trade) Dose Ordered Sig/Kika Route PRN Reason Start Time Stop Time Status Last Admin Dose Admin Acetaminophen (Tylenol) 650 mg Q4H PRN ORAL Mild Pain/Temp > 100.5 08/26/17 17:00 09/23/17 16:59 08/26/17 23:58 Albuterol Sulfate (Proventil MDI) 2 puff Q6H PRN INH Shortness of Breath 08/26/17 18:00 09/25/17 17:59 Atorvastatin Calcium (Lipitor) 10 mg BEDTIME ORAL 08/26/17 21:00 09/23/17 20:59 08/28/17 20:53 Citalopram Hydrobromide (celeXA) 40 mg DAILY ORAL 08/27/17 09:00 09/25/17 08:59 08/29/17 09:49 Divalproex Sodium (Depakote Sprinkles) 500 mg EVERY 12 HOURS GT 08/26/17 21:00 09/23/17 20:59 08/29/17 09:48 Lorazepam (Ativan 2mg/ml 1ml) 1 mg Q6H PRN IV For Anxiety 08/27/17 11:00 09/03/17 10:59 08/28/17 17:32 Olanzapine (ZyPREXA) 10 mg Q12HR ORAL 08/28/17 21:00 09/27/17 20:59 08/29/17 09:49 Quetiapine Fumarate (SEROquel) 100 mg TID ORAL 08/27/17 13:00 09/26/17 12:59 08/29/17 09:49 Risperidone (RisperDAL) 2 mg BID ORAL 08/27/17 18:00 09/26/17 17:59 08/29/17 09:49 Trazodone HCl (Desyrel) 200 mg BEDTIME ORAL 08/26/17 21:00 09/03/17 09:50 08/28/17 20:52 Vancomycin HCl (Vanco rx to dose) 1 ea DAILY PRN MISC Per rx protocol 08/27/17 11:00 09/26/17 10:59 Vancomycin HCl/ Dextrose 250 ml @ 166.667 mls/hr Q12H IVPB 08/28/17 18:00 09/02/17 17:59 08/29/17 05:55 Warfarin Sodium (Coumadin per pharmacy) 1 ea DAILY PRN MISC Per rx protocol 08/26/17 17:00 09/25/17 16:59 Warfarin Sodium (Coumadin) 1 mg COUMADIN ORAL 08/29/17 17:00 08/29/17 18:01 Joseph Joseph MD Aug 29, 2017 10:33
[2017-08-29 12:00] VITALS: BP 117/80
--- NOTE | 2017-08-29 15:10 | Diagnostic Imaging Report ---
Indication: Dyspnea Technique: One view of the chest Comparison: 08/24/2017 Findings: Patient is rotated to the right. There is a large right pleural effusion now present. There is significant volume loss of the right lung, only a small amount of aerated lung in the right upper lobe. This appearance is probably exaggerated somewhat by the rotation, however. Left lung and pleural space remain clear. The heart size is upper limits of normal. Impression: Large right pleural effusion, new since prior study of 08/24/2017. There is evidence of significant right lung volume loss
[2017-08-29 16:00] VITALS: BP 127/79
[2017-08-29] MEDS ORDERED: Warfarin Sodium 1mg ORAL SCH (17:00)
[2017-08-29 20:00] VITALS: BP 100/64
[2017-08-29] MEDS: TraZODone 100mg tab ORAL SCH (20:34)
[2017-08-30] VITALS: BP 111/77
[2017-08-30 04:00] VITALS: BP 112/73
[2017-08-30 05:52] LABS: BASOPHILS % (AUTO) 0.5 % (0.0-2.0); EOSINOPHILS % (AUTO) 0.8 % (0.0-3.0); HEMATOCRIT 42.8 % (42.0-52.0); HEMOGLOBIN 12.8 G/DL (14.2-18.0); LYMPHOCYTES % (AUTO) 9.5 % (20.0-45.0); MEAN CORPUSCULAR VOLUME 94 FL (80-99); MONOCYTES % (AUTO) 11.9 % (1.0-10.0); NEUTROPHILS % (AUTO) 77.3 % (45.0-75.0); PLATELET COUNT 144 K/UL (150-450); RED BLOOD COUNT 4.55 M/UL (4.70-6.10); RED CELL DISTRIBUTION WIDTH 16.5 % (11.6-14.8); WHITE BLOOD COUNT 9.5 K/UL (4.8-10.8)
[2017-08-30 06:03] LABS: INR 2.6 (0.9-1.1)
[2017-08-30] MEDS: Vancomycin 1250mg/D5W 250ml IVPB SCH (06:05)
[2017-08-30] MEDS: LORazepam Inj 2mg/ml 1ml IV PRN ×2 (06:33→18:17)
[2017-08-30 08:47] VITALS: BP 106/73
[2017-08-30] MEDS: Depakote 125mg Sprinkles GT SCH ×2 (09:11→20:37)
[2017-08-30] MEDS: OLANZapine 10mg tab ORAL SCH ×2 (09:11→20:37)
[2017-08-30] MEDS: Citalopram Hydrobromide 10mg Tab ORAL SCH (09:12)
--- NOTE | 2017-08-30 09:53 | Pulmonology Progress Note ---
Assessment/Plan Assessment/Plan 1. Acute respiratory failure. resolved 2. Right hemithorax opacification. Now resolved after bronchoscopy 3. History of right pleural effusion. 4. Schizophrenia 5. Chronic Coumadin usage. 5. Pulmonary edema; resolved; CXR clear now 6. Agitation PLAN respiratory care psych care ID follow up monitor cxr impression, plan, and exam edited and reviewed in detail care discussed with RN Subjective Allergies: Coded Allergies: No Known Allergies (Unverified , 08/03/17) Subjective care noted agitated abnormal cxr noted Objective Last 24 Hour Vital Signs Date Time Temp Pulse Resp B/P (MAP) Pulse Ox O2 Delivery O2 Flow Rate FiO2 08/30/17 09:06 100 20 92 Full Face 100 08/30/17 08:47 97.7 93 24 106/73 89 Bi-pap 100 97.7 08/30/17 07:14 107 22 93 Full Face 100 08/30/17 07:13 92 Bi-pap 100 08/30/17 07:13 Bi-pap 100 08/30/17 05:08 99 16 95 Full Face 100 08/30/17 04:00 99.7 102 17 112/73 97 Bi-pap 100 99.7 08/30/17 04:00 100 08/30/17 03:36 102 08/30/17 03:24 103 20 94 Full Face 100 08/30/17 01:21 108 20 91 Full Face 100 08/30/17 00:00 100 08/30/17 00:00 99.7 124 19 111/77 86 Bi-pap 100 99.7 08/29/17 23:55 116 08/29/17 23:30 128 19 87 Full Face 100 08/29/17 21:02 115 19 91 Full Face 100 08/29/17 20:00 100 08/29/17 20:00 97.9 118 18 100/64 89 Bi-pap 100 97.9 08/29/17 20:00 118 08/29/17 19:07 Bi-pap 100 08/29/17 19:07 85 Bi-pap 100 08/29/17 19:07 120 16 85 Full Face 100 08/29/17 17:06 104 22 88 Full Face 40 08/29/17 16:00 119 08/29/17 16:00 100 08/29/17 16:00 99.1 100 20 127/79 93 Bi-pap 100 99.1 08/29/17 14:45 104 22 88 Full Face 40 08/29/17 13:24 101 26 89 Full Face 40 08/29/17 12:35 124 08/29/17 12:00 98.9 100 20 117/80 90 Bi-pap 100 98.9 08/29/17 12:00 100 08/29/17 11:29 101 23 86 Full Face 40 Intake and Output 08/29/17 08/30/17 19:00 07:00 Intake Total 666.667 ml 83.333 ml Output Total 700 ml 300 ml Balance -33.333 ml -216.667 ml Intake Oral 500 ml IV Total 166.667 ml 83.333 ml Output Urine Total 700 ml 300 ml Objective WDWN reduced breath sounds R>L without rhonchi or wheeze [id number] without MRG NABS nontender no HSM no CC; mild edema weak Laboratory Tests 08/30/17 05:40: White Blood Count 9.5, Red Blood Count 4.55L, Hemoglobin 12.8L, Hematocrit 42.8 , Mean Corpuscular Volume 94, Mean Corpuscular Hemoglobin 28.1, Mean Corpuscular Hemoglobin Concent 29.8L, Red Cell Distribution Width 16.5H, Platelet Count 144L, Mean Platelet Volume 8.6, Neutrophils (%) (Auto) 77.3H, Lymphocytes (%) (Auto) 9.5L, Monocytes (%) (Auto) 11.9H, Eosinophils (%) (Auto) 0.8, Basophils (%) (Auto) 0.5, Prothrombin Time 27.6H, Prothromb Time International Ratio 2.6H, Vancomycin Level Trough 22.6H Current Medications Medications (Trade) Dose Ordered Sig/Kika Route PRN Reason Start Time Stop Time Status Last Admin Dose Admin Acetaminophen (Tylenol) 650 mg Q4H PRN ORAL Mild Pain/Temp > 100.5 08/26/17 17:00 09/23/17 16:59 08/26/17 23:58 Albuterol Sulfate (Proventil MDI) 2 puff Q6H PRN INH Shortness of Breath 08/26/17 18:00 09/25/17 17:59 Atorvastatin Calcium (Lipitor) 10 mg BEDTIME ORAL 08/26/17 21:00 09/23/17 20:59 08/29/17 20:35 Citalopram Hydrobromide (celeXA) 40 mg DAILY ORAL 08/27/17 09:00 09/25/17 08:59 08/30/17 09:12 Divalproex Sodium (Depakote Sprinkles) 500 mg EVERY 12 HOURS GT 08/26/17 21:00 09/23/17 20:59 08/30/17 09:11 Lorazepam (Ativan 2mg/ml 1ml) 1 mg Q6H PRN IV For Anxiety 08/27/17 11:00 09/03/17 10:59 08/30/17 06:33 Olanzapine (ZyPREXA) 10 mg Q12HR ORAL 08/28/17 21:00 09/27/17 20:59 08/30/17 09:11 Quetiapine Fumarate (SEROquel) 100 mg TID ORAL 08/27/17 13:00 09/26/17 12:59 08/30/17 09:12 Risperidone (RisperDAL) 2 mg BID ORAL 08/27/17 18:00 09/26/17 17:59 08/30/17 09:12 Trazodone HCl (Desyrel) 200 mg BEDTIME ORAL 08/26/17 21:00 09/03/17 09:50 08/29/17 20:34 Vancomycin HCl (Vanco rx to dose) 1 ea DAILY PRN MISC Per rx protocol 08/27/17 11:00 09/26/17 10:59 Vancomycin HCl 1 gm/Dextrose 275 ml @ 183.708 mls/hr Q12HR IVPB 08/30/17 21:00 09/04/17 20:59 Warfarin Sodium (Coumadin per pharmacy) 1 ea DAILY PRN MISC Per rx protocol 08/26/17 17:00 09/25/17 16:59 Warfarin Sodium (Coumadin) 0.5 mg COUMADIN ONCE ORAL 08/30/17 17:00 08/30/17 17:01 Ramana Flores MD Aug 30, 2017 09:53
--- NOTE | 2017-08-30 10:50 | Infectious Diseases Prog Note ---
Assessment/Plan Assessment/Plan antibiotics : vancomycin iv A 1. MRSA pneumonia 2. respiratory failure 3. fungal UTI s/p rx 4. COPD 5. hypertension 6. renal stone P 1. continue iv vancomycin 2. will follow up cultures Subjective ROS Limited/Unobtainable: Yes Allergies: Coded Allergies: No Known Allergies (Unverified , 08/03/17) Objective Vital Signs Last 24 Hour Vital Signs Date Time Temp Pulse Resp B/P (MAP) Pulse Ox O2 Delivery O2 Flow Rate FiO2 08/30/17 09:06 100 20 92 Full Face 100 08/30/17 08:47 97.7 93 24 106/73 89 Bi-pap 100 97.7 08/30/17 07:14 107 22 93 Full Face 100 08/30/17 07:13 92 Bi-pap 100 08/30/17 07:13 Bi-pap 100 08/30/17 05:08 99 16 95 Full Face 100 08/30/17 04:00 99.7 102 17 112/73 97 Bi-pap 100 99.7 08/30/17 04:00 100 08/30/17 03:36 102 08/30/17 03:24 103 20 94 Full Face 100 08/30/17 01:21 108 20 91 Full Face 100 08/30/17 00:00 100 08/30/17 00:00 99.7 124 19 111/77 86 Bi-pap 100 99.7 08/29/17 23:55 116 08/29/17 23:30 128 19 87 Full Face 100 08/29/17 21:02 115 19 91 Full Face 100 08/29/17 20:00 100 08/29/17 20:00 97.9 118 18 100/64 89 Bi-pap 100 97.9 08/29/17 20:00 118 08/29/17 19:07 Bi-pap 100 08/29/17 19:07 85 Bi-pap 100 08/29/17 19:07 120 16 85 Full Face 100 08/29/17 17:06 104 22 88 Full Face 40 08/29/17 16:00 119 08/29/17 16:00 100 08/29/17 16:00 99.1 100 20 127/79 93 Bi-pap 100 99.1 08/29/17 14:45 104 22 88 Full Face 40 08/29/17 13:24 101 26 89 Full Face 40 08/29/17 12:35 124 08/29/17 12:00 98.9 100 20 117/80 90 Bi-pap 100 98.9 08/29/17 12:00 100 08/29/17 11:29 101 23 86 Full Face 40 Height (Feet): 5 Height (Inches): 9.00 Weight (Pounds): 181 HEENT: other - bipap Respiratory/Chest: lungs clear Cardiovascular: normal rate, regular rhythm, no gallop/murmur Abdomen: soft, non tender Extremities: no edema Laboratory Tests Test 08/30/17 05:40 White Blood Count 9.5 K/UL (4.8-10.8) Red Blood Count 4.55 M/UL (4.70-6.10) L Hemoglobin 12.8 G/DL (14.2-18.0) L Hematocrit 42.8 % (42.0-52.0) Mean Corpuscular Volume 94 FL (80-99) Mean Corpuscular Hemoglobin 28.1 PG (27.0-31.0) Mean Corpuscular Hemoglobin Concent 29.8 G/DL (32.0-36.0) L Red Cell Distribution Width 16.5 % (11.6-14.8) H Platelet Count 144 K/UL (150-450) L Mean Platelet Volume 8.6 FL (6.5-10.1) Neutrophils (%) (Auto) 77.3 % (45.0-75.0) H Lymphocytes (%) (Auto) 9.5 % (20.0-45.0) L Monocytes (%) (Auto) 11.9 % (1.0-10.0) H Eosinophils (%) (Auto) 0.8 % (0.0-3.0) Basophils (%) (Auto) 0.5 % (0.0-2.0) Prothrombin Time 27.6 SEC (9.30-11.50) H Prothromb Time International Ratio 2.6 (0.9-1.1) H Vancomycin Level Trough 22.6 ug/mL (5.0-12.0) H Current Medications Medications (Trade) Dose Ordered Sig/Kika Route PRN Reason Start Time Stop Time Status Last Admin Dose Admin Acetaminophen (Tylenol) 650 mg Q4H PRN ORAL Mild Pain/Temp > 100.5 08/26/17 17:00 09/23/17 16:59 08/26/17 23:58 Albuterol Sulfate (Proventil MDI) 2 puff Q6H PRN INH Shortness of Breath 08/26/17 18:00 09/25/17 17:59 Atorvastatin Calcium (Lipitor) 10 mg BEDTIME ORAL 08/26/17 21:00 09/23/17 20:59 08/29/17 20:35 Citalopram Hydrobromide (celeXA) 40 mg DAILY ORAL 08/27/17 09:00 09/25/17 08:59 08/30/17 09:12 Divalproex Sodium (Depakote Sprinkles) 500 mg EVERY 12 HOURS GT 08/26/17 21:00 09/23/17 20:59 08/30/17 09:11 Lorazepam (Ativan 2mg/ml 1ml) 1 mg Q6H PRN IV For Anxiety 08/27/17 11:00 09/03/17 10:59 08/30/17 06:33 Olanzapine (ZyPREXA) 10 mg Q12HR ORAL 08/28/17 21:00 09/27/17 20:59 08/30/17 09:11 Quetiapine Fumarate (SEROquel) 100 mg TID ORAL 08/27/17 13:00 09/26/17 12:59 08/30/17 09:12 Risperidone (RisperDAL) 2 mg BID ORAL 08/27/17 18:00 09/26/17 17:59 08/30/17 09:12 Trazodone HCl (Desyrel) 200 mg BEDTIME ORAL 08/26/17 21:00 09/03/17 09:50 08/29/17 20:34 Vancomycin HCl (Vanco rx to dose) 1 ea DAILY PRN MISC Per rx protocol 08/27/17 11:00 09/26/17 10:59 Vancomycin HCl 1 gm/Dextrose 275 ml @ 183.708 mls/hr Q12HR IVPB 08/30/17 21:00 09/04/17 20:59 Warfarin Sodium (Coumadin per pharmacy) 1 ea DAILY PRN MISC Per rx protocol 08/26/17 17:00 09/25/17 16:59 Warfarin Sodium (Coumadin) 0.5 mg COUMADIN ONCE ORAL 08/30/17 17:00 08/30/17 17:01 LALI COCHRAN Aug 30, 2017 10:50
[2017-08-30 12:00] VITALS: BP 108/66
[2017-08-30] MEDS ORDERED: NS 500ML ONE (13:48)
[2017-08-30 16:00] VITALS: BP 112/69
[2017-08-30] MEDS ORDERED: Warfarin Sodium 1mg ORAL ONE (17:00)
[2017-08-30 20:00] VITALS: BP 117/69
[2017-08-30] MEDS: TraZODone 100mg tab ORAL SCH (20:37)
[2017-08-30] MEDS: Vancomycin 1gm/D5W 275ml IVPB SCH ×2 (21:30)
[2017-08-31] VITALS: BP 105/65
[2017-08-31] MEDS: LORazepam Inj 2mg/ml 1ml IV PRN (00:49)
[2017-08-31 04:00] VITALS: BP 122/65
[2017-08-31 04:58] LABS: INR 3.3 (0.9-1.1)
[2017-08-31 08:00] VITALS: BP 126/77
[2017-08-31] MEDS: OLANZapine 10mg tab ORAL SCH ×2 (08:14→20:33)
[2017-08-31] MEDS: Citalopram Hydrobromide 10mg Tab ORAL SCH (08:15)
[2017-08-31] MEDS: Depakote 125mg Sprinkles GT SCH ×2 (08:15→20:34)
[2017-08-31] MEDS: Vancomycin 1gm/D5W 275ml IVPB SCH ×4 (08:41→20:45)
--- NOTE | 2017-08-31 09:05 | Infectious Diseases Prog Note ---
Assessment/Plan Assessment/Plan A; Pneumonia with MRSA Hypercapnic respiratory failure COPD Schizophrenia Pleural effusion P: Continue IV Vancomycin Subjective Neurologic: Reports: confusion, other - on restraint Allergies: Coded Allergies: No Known Allergies (Unverified , 08/03/17) Objective Vital Signs Last 24 Hour Vital Signs Date Time Temp Pulse Resp B/P (MAP) Pulse Ox O2 Delivery O2 Flow Rate FiO2 08/31/17 04:48 98 15 92 Facial 60 08/31/17 04:00 97.8 97 21 122/65 98 Bi-pap 60 97.8 08/31/17 04:00 96 08/31/17 04:00 60 08/31/17 02:59 97 14 89 Facial 60 08/31/17 01:00 96 14 88 Facial 60 08/31/17 00:00 98.0 101 19 105/65 96 Bi-pap 60 98.0 08/31/17 00:00 60 08/31/17 00:00 100 08/30/17 22:31 105 16 93 Facial 60 08/30/17 21:00 107 17 93 Facial 60 08/30/17 20:00 97.7 103 21 117/69 96 Bi-pap 60 97.7 08/30/17 20:00 60 08/30/17 20:00 109 08/30/17 19:00 Bi-pap 60 08/30/17 19:00 106 14 94 Full Face 60 08/30/17 19:00 94 Bi-pap 60 08/30/17 16:40 90 14 95 Full Face 60 08/30/17 16:00 97 08/30/17 16:00 96.0 96 22 112/69 99 Bi-pap 60 96.0 08/30/17 16:00 60 08/30/17 14:34 102 18 94 Full Face 60 08/30/17 13:00 115 15 95 Full Face 60 08/30/17 12:00 115 08/30/17 12:00 97.8 108 22 108/66 92 Bi-pap 100 97.8 08/30/17 10:47 128 16 97 Full Face 60 08/30/17 10:00 100 08/30/17 09:06 100 20 92 Full Face 100 Height (Feet): 5 Height (Inches): 9.00 Weight (Pounds): 181 General Appearance: no acute distress HEENT: mucous membranes moist Respiratory/Chest: decreased breath sounds, other - on BIPAP Cardiovascular: normal rate Abdomen: soft, non tender Extremities: no edema Neurologic/Psychiatric: alert, responsive Laboratory Tests Test 08/31/17 03:50 Prothrombin Time 35.5 SEC (9.30-11.50) H Prothromb Time International Ratio 3.3 (0.9-1.1) H Current Medications Medications (Trade) Dose Ordered Sig/Kika Route PRN Reason Start Time Stop Time Status Last Admin Dose Admin Acetaminophen (Tylenol) 650 mg Q4H PRN ORAL Mild Pain/Temp > 100.5 08/26/17 17:00 09/23/17 16:59 08/26/17 23:58 Albuterol Sulfate (Proventil MDI) 2 puff Q6H PRN INH Shortness of Breath 08/26/17 18:00 09/25/17 17:59 Atorvastatin Calcium (Lipitor) 10 mg BEDTIME ORAL 08/26/17 21:00 09/23/17 20:59 08/30/17 20:37 Citalopram Hydrobromide (celeXA) 40 mg DAILY ORAL 08/27/17 09:00 09/25/17 08:59 08/31/17 08:15 Divalproex Sodium (Depakote Sprinkles) 500 mg EVERY 12 HOURS GT 08/26/17 21:00 09/23/17 20:59 08/31/17 08:15 Lorazepam (Ativan 2mg/ml 1ml) 1 mg Q6H PRN IV For Anxiety 08/27/17 11:00 09/03/17 10:59 08/31/17 00:49 Olanzapine (ZyPREXA) 10 mg Q12HR ORAL 08/28/17 21:00 09/27/17 20:59 08/31/17 08:14 Quetiapine Fumarate (SEROquel) 100 mg TID ORAL 08/27/17 13:00 09/26/17 12:59 08/31/17 08:14 Risperidone (RisperDAL) 2 mg BID ORAL 08/27/17 18:00 09/26/17 17:59 08/31/17 08:14 Trazodone HCl (Desyrel) 200 mg BEDTIME ORAL 08/26/17 21:00 09/03/17 09:50 08/30/17 20:37 Vancomycin HCl (Vanco rx to dose) 1 ea DAILY PRN MISC Per rx protocol 08/27/17 11:00 09/26/17 10:59 Vancomycin HCl 1 gm/Dextrose 275 ml @ 183.708 mls/hr Q12HR IVPB 08/30/17 21:00 09/04/17 20:59 08/31/17 08:41 Warfarin Sodium (Coumadin per pharmacy) 1 ea DAILY PRN MISC Per rx protocol 08/26/17 17:00 09/25/17 16:59 Joseph Joseph MD Aug 31, 2017 09:05
--- NOTE | 2017-08-31 09:51 | Diagnostic Imaging Report ---
EXAM: XR Chest, 1 View CLINICAL HISTORY: SOB TECHNIQUE: Frontal view of the chest. COMPARISON: Chest x-ray 08/29/17 1048 FINDINGS: Lungs: Right lung base consolidation/volume loss, slightly improved aeration. Pleural space: Continued moderate to large right pleural effusion. No pneumothorax. Heart: Unremarkable. No cardiomegaly. Mediastinum: Unremarkable. Bones/joints: Unremarkable. Vasculature: Slight increased vascular and interstitial prominence. IMPRESSION: 1. Continued moderate to large right pleural effusion. 2. Right lung base consolidation/volume loss, slightly improved aeration. 3. Slight increased vascular and interstitial prominence.
--- NOTE | 2017-08-31 10:07 | Pulmonology Progress Note ---
Assessment/Plan Assessment/Plan 1. Acute respiratory failure. resolved 2. Right hemithorax opacification. effusion? 3. History of right pleural effusion. 4. Schizophrenia 5. Chronic Coumadin usage. 5. Pulmonary edema; resolved; CXR clear now 6. Agitation PLAN respiratory care [facility] post tap impression, plan, and exam edited and reviewed in detail care discussed with RN Subjective ROS Limited/Unobtainable: Yes Allergies: Coded Allergies: No Known Allergies (Unverified , 08/03/17) Subjective care noted ID reviewed cxr ordered Objective Last 24 Hour Vital Signs Date Time Temp Pulse Resp B/P (MAP) Pulse Ox O2 Delivery O2 Flow Rate FiO2 08/31/17 06:58 108 18 88 Facial 60 08/31/17 04:48 98 15 92 Facial 60 08/31/17 04:00 97.8 97 21 122/65 98 Bi-pap 60 97.8 08/31/17 04:00 96 08/31/17 04:00 60 08/31/17 02:59 97 14 89 Facial 60 08/31/17 01:00 96 14 88 Facial 60 08/31/17 00:00 98.0 101 19 105/65 96 Bi-pap 60 98.0 08/31/17 00:00 60 08/31/17 00:00 100 08/30/17 22:31 105 16 93 Facial 60 08/30/17 21:00 107 17 93 Facial 60 08/30/17 20:00 97.7 103 21 117/69 96 Bi-pap 60 97.7 08/30/17 20:00 60 08/30/17 20:00 109 08/30/17 19:00 Bi-pap 60 08/30/17 19:00 106 14 94 Full Face 60 08/30/17 19:00 94 Bi-pap 60 08/30/17 16:40 90 14 95 Full Face 60 08/30/17 16:00 97 08/30/17 16:00 96.0 96 22 112/69 99 Bi-pap 60 96.0 08/30/17 16:00 60 08/30/17 14:34 102 18 94 Full Face 60 08/30/17 13:00 115 15 95 Full Face 60 08/30/17 12:00 115 08/30/17 12:00 97.8 108 22 108/66 92 Bi-pap 100 97.8 08/30/17 10:47 128 16 97 Full Face 60 Intake and Output 08/30/17 08/31/17 19:00 07:00 Intake Total 480 ml 425.000 ml Output Total 350 ml 600 ml Balance 130 ml -175.000 ml Intake Oral 480 ml 150 ml IV Total 275.000 ml Output Urine Total 350 ml 600 ml Objective WDWN reduced breath sounds R>L without rhonchi or wheeze [id number] without MRG NABS nontender no HSM no CC; mild edema weak Laboratory Tests 08/31/17 03:50: Prothrombin Time 35.5H, Prothromb Time International Ratio 3.3H Current Medications Medications (Trade) Dose Ordered Sig/Kika Route PRN Reason Start Time Stop Time Status Last Admin Dose Admin Acetaminophen (Tylenol) 650 mg Q4H PRN ORAL Mild Pain/Temp > 100.5 08/26/17 17:00 09/23/17 16:59 08/26/17 23:58 Albuterol Sulfate (Proventil MDI) 2 puff Q6H PRN INH Shortness of Breath 08/26/17 18:00 09/25/17 17:59 Atorvastatin Calcium (Lipitor) 10 mg BEDTIME ORAL 08/26/17 21:00 09/23/17 20:59 08/30/17 20:37 Citalopram Hydrobromide (celeXA) 40 mg DAILY ORAL 08/27/17 09:00 09/25/17 08:59 08/31/17 08:15 Divalproex Sodium (Depakote Sprinkles) 500 mg EVERY 12 HOURS GT 08/26/17 21:00 09/23/17 20:59 08/31/17 08:15 Lorazepam (Ativan 2mg/ml 1ml) 1 mg Q6H PRN IV For Anxiety 08/27/17 11:00 09/03/17 10:59 08/31/17 00:49 Olanzapine (ZyPREXA) 10 mg Q12HR ORAL 08/28/17 21:00 09/27/17 20:59 08/31/17 08:14 Quetiapine Fumarate (SEROquel) 100 mg TID ORAL 08/27/17 13:00 09/26/17 12:59 08/31/17 08:14 Risperidone (RisperDAL) 2 mg BID ORAL 08/27/17 18:00 09/26/17 17:59 08/31/17 08:14 Trazodone HCl (Desyrel) 200 mg BEDTIME ORAL 08/26/17 21:00 09/03/17 09:50 08/30/17 20:37 Vancomycin HCl (Vanco rx to dose) 1 ea DAILY PRN MISC Per rx protocol 08/27/17 11:00 09/26/17 10:59 Vancomycin HCl 1 gm/Dextrose 275 ml @ 183.708 mls/hr Q12HR IVPB 08/30/17 21:00 09/04/17 20:59 08/31/17 08:41 Warfarin Sodium (Coumadin per pharmacy) 1 ea DAILY PRN MISC Per rx protocol 08/26/17 17:00 09/25/17 16:59 Ramana Flores MD Aug 31, 2017 10:07
[2017-08-31 12:00] VITALS: BP 95/64
[2017-08-31 16:00] VITALS: BP 120/80
[2017-08-31 20:00] VITALS: BP 106/69
[2017-08-31] MEDS: TraZODone 100mg tab ORAL SCH (20:34)
[2017-09-01] VITALS: BP 100/55
[2017-09-01 04:00] VITALS: BP 113/72
[2017-09-01 05:16] LABS: INR 3.1 (0.9-1.1)
[2017-09-01 07:10] LABS: ANION GAP 2 mmol/L (5-15); BLOOD UREA NITROGEN 17 mg/dL (7-18); CALCIUM 9.5 MG/DL (8.5-10.1); CHLORIDE 106 MMOL/L (98-107); CREATININE 1.2 MG/DL (0.55-1.30); POTASSIUM 4.1 MMOL/L (3.5-5.1); SODIUM 149 MMOL/L (136-145)
[2017-09-01 07:18] LABS: BASOPHILS % (AUTO) 0.6 % (0.0-2.0); EOSINOPHILS % (AUTO) 1.2 % (0.0-3.0); HEMATOCRIT 41.2 % (42.0-52.0); HEMOGLOBIN 12.2 G/DL (14.2-18.0); LYMPHOCYTES % (AUTO) 8.8 % (20.0-45.0); MEAN CORPUSCULAR VOLUME 96 FL (80-99); MONOCYTES % (AUTO) 13.4 % (1.0-10.0); NEUTROPHILS % (AUTO) 76.1 % (45.0-75.0); PLATELET COUNT 130 K/UL (150-450); WHITE BLOOD COUNT 9.9 K/UL (4.8-10.8)
[2017-09-01 07:27] LABS: CARBON DIOXIDE 41 MMOL/L (21-32)
[2017-09-01 08:00] VITALS: BP 128/83
--- NOTE | 2017-09-01 09:07 | Pulmonology Progress Note ---
Assessment/Plan Assessment/Plan 1. Acute respiratory failure. resolved 2. Right hemithorax opacification. Has recurrent partial collapse 3. History of right pleural effusion. 4. Schizophrenia 5. Chronic Coumadin usage. 5. Pulmonary edema; resolved; 6. Agitation DISCUSSION: Continue abx Now in [facility] Requiring multiple psych meds;On Zyprexa and Risperidone, Celexa and Trazodone Discussed with Williams Alcantara caser up May require transfer to inpatient facility for psych and medical care Na better Will monitor Will liberalize fluid intake On BiPAP 50%Fio2 DC Haldol IV Avoid benzos Will order IPPB Requested psych consult-Benji Cortez Requiring Ativan IV round the clock for combativeness Subjective Interval Events: partial collpase of RLL noed; pt on BiPAP Constitutional: Reports: no symptoms HEENT: Repors: no symptoms Respiratory: Reports: no symptoms Cardiovascular: Reports: no symptoms Gastrointestinal/Abdominal: Reports: no symptoms Allergies: Coded Allergies: No Known Allergies (Unverified , 08/03/17) Objective Last 24 Hour Vital Signs Date Time Temp Pulse Resp B/P (MAP) Pulse Ox O2 Delivery O2 Flow Rate FiO2 09/01/17 06:50 Bi-pap 60 09/01/17 06:50 106 21 88 Facial 60 09/01/17 06:50 88 Bi-pap 60 09/01/17 05:01 125 19 90 Full Face 70 09/01/17 04:00 60 09/01/17 04:00 115 09/01/17 04:00 97.9 105 14 113/72 16 Bi-pap 60 97.9 09/01/17 03:08 113 20 88 Full Face 60 09/01/17 01:30 107 19 87 Full Face 60 09/01/17 00:00 60 09/01/17 00:00 101 09/01/17 00:00 97.5 104 14 100/55 92 Bi-pap 60 97.5 08/31/17 23:22 113 19 90 Full Face 60 08/31/17 21:21 118 18 90 Full Face 60 08/31/17 20:00 60 08/31/17 20:00 120 08/31/17 20:00 98.1 115 14 106/69 92 Bi-pap 60 98.1 08/31/17 19:02 122 18 88 Full Face 60 08/31/17 19:02 88 Bi-pap 60 08/31/17 19:02 Bi-pap 60 08/31/17 17:00 119 21 90 Full Face 60 08/31/17 16:00 60 08/31/17 16:00 101 08/31/17 16:00 98.0 112 14 120/80 92 Bi-pap 60 98.0 08/31/17 15:11 99 18 94 Full Face 60 08/31/17 12:47 98 16 92 Full Face 60 08/31/17 12:00 60 08/31/17 12:00 97.7 100 16 95/64 92 Bi-pap 60 97.7 08/31/17 11:43 102 08/31/17 10:43 113 18 92 Full Face 60 Intake and Output 08/31/17 09/01/17 19:00 07:00 Intake Total 300 ml 395.0 ml Output Total 550 ml 350 ml Balance -250 ml 45.0 ml Intake Oral 300 ml 120 ml IV Total 275.0 ml Output Urine Total 550 ml 350 ml General Appearance: no acute distress HEENT: normocephalic Respiratory/Chest: chest wall non-tender, lungs clear Cardiovascular: normal peripheral pulses Abdomen: normal bowel sounds Laboratory Tests 09/01/17 04:00: White Blood Count 9.9, Red Blood Count 4.30L, Hemoglobin 12.2L, Hematocrit 41.2L , Mean Corpuscular Volume 96, Mean Corpuscular Hemoglobin 28.3, Mean Corpuscular Hemoglobin Concent 29.6L, Red Cell Distribution Width 17.0H, Platelet Count 130L, Mean Platelet Volume 7.0, Neutrophils (%) (Auto) 76.1H, Lymphocytes (%) (Auto) 8.8L, Monocytes (%) (Auto) 13.4H, Eosinophils (%) (Auto) 1.2, Basophils (%) (Auto) 0.6, Prothrombin Time 32.4H, Prothromb Time International Ratio 3.1H, Activated Partial Thromboplast Time 63H, Sodium Level 149H, Potassium Level 4.1, Chloride Level 106, Carbon Dioxide Level 41*H, Anion Gap 2L, Blood Urea Nitrogen 17, Creatinine 1.2, Estimat Glomerular Filtration Rate > 60, Glucose Level 77, Calcium Level 9.5 09/01/17 08:00: Vancomycin Level Trough 20.8H Current Medications Medications (Trade) Dose Ordered Sig/Kika Route PRN Reason Start Time Stop Time Status Last Admin Dose Admin Acetaminophen (Tylenol) 650 mg Q4H PRN ORAL Mild Pain/Temp > 100.5 08/26/17 17:00 09/23/17 16:59 08/26/17 23:58 Albuterol Sulfate (Proventil MDI) 2 puff Q6H PRN INH Shortness of Breath 08/26/17 18:00 09/25/17 17:59 Atorvastatin Calcium (Lipitor) 10 mg BEDTIME ORAL 08/26/17 21:00 09/23/17 20:59 08/31/17 20:34 Citalopram Hydrobromide (celeXA) 40 mg DAILY ORAL 08/27/17 09:00 09/25/17 08:59 08/31/17 08:15 Divalproex Sodium (Depakote Sprinkles) 500 mg EVERY 12 HOURS GT 08/26/17 21:00 09/23/17 20:59 08/31/17 20:34 Lorazepam (Ativan 2mg/ml 1ml) 1 mg Q6H PRN IV For Anxiety 08/27/17 11:00 09/03/17 10:59 08/31/17 00:49 Olanzapine (ZyPREXA) 10 mg Q12HR ORAL 08/28/17 21:00 09/27/17 20:59 08/31/17 20:33 Quetiapine Fumarate (SEROquel) 100 mg TID ORAL 08/27/17 13:00 09/26/17 12:59 08/31/17 17:19 Risperidone (RisperDAL) 2 mg BID ORAL 08/27/17 18:00 09/26/17 17:59 08/31/17 17:19 Trazodone HCl (Desyrel) 200 mg BEDTIME ORAL 08/26/17 21:00 09/03/17 09:50 08/31/17 20:34 Vancomycin HCl (Vanco rx to dose) 1 ea DAILY PRN MISC Per rx protocol 08/27/17 11:00 09/26/17 10:59 Vancomycin/Sodium Chloride 250 ml @ 166.667 mls/hr Q12H IVPB 09/01/17 09:30 09/06/17 09:29 Warfarin Sodium (Coumadin per pharmacy) 1 ea DAILY PRN MISC Per rx protocol 08/26/17 17:00 09/25/17 16:59 Richardson Mitchell MD Sep 01, 2017 09:07
[2017-09-01] MEDS: LORazepam Inj 2mg/ml 1ml IV PRN ×3 (09:20→22:49)
[2017-09-01] MEDS: Depakote 125mg Sprinkles GT SCH ×2 (10:46→21:00)
[2017-09-01] MEDS: OLANZapine 10mg tab ORAL SCH ×2 (10:46→21:00)
[2017-09-01] MEDS: Citalopram Hydrobromide 10mg Tab ORAL SCH (10:46)
--- NOTE | 2017-09-01 11:16 | Infectious Diseases Prog Note ---
Assessment/Plan Assessment/Plan A; Pneumonia with MRSA Hypercapnic respiratory failure COPD Schizophrenia Pleural effusion P: Continue IV Vancomycin Chest US, consider thoracentesis Subjective ROS Limited/Unobtainable: Yes Neurologic: Reports: confusion, other - on restraint Allergies: Coded Allergies: No Known Allergies (Unverified , 08/03/17) Objective Vital Signs Last 24 Hour Vital Signs Date Time Temp Pulse Resp B/P (MAP) Pulse Ox O2 Delivery O2 Flow Rate FiO2 09/01/17 09:01 113 28 89 Facial 60 09/01/17 08:00 114 09/01/17 08:00 98.2 126 27 128/83 95 Bi-pap 60 98.2 09/01/17 06:50 Bi-pap 60 09/01/17 06:50 106 21 88 Facial 60 09/01/17 06:50 88 Bi-pap 60 09/01/17 05:01 125 19 90 Full Face 70 09/01/17 04:00 60 09/01/17 04:00 115 09/01/17 04:00 97.9 105 14 113/72 16 Bi-pap 60 97.9 09/01/17 03:08 113 20 88 Full Face 60 09/01/17 01:30 107 19 87 Full Face 60 09/01/17 00:00 60 09/01/17 00:00 101 09/01/17 00:00 97.5 104 14 100/55 92 Bi-pap 60 97.5 08/31/17 23:22 113 19 90 Full Face 60 08/31/17 21:21 118 18 90 Full Face 60 08/31/17 20:00 60 08/31/17 20:00 120 08/31/17 20:00 98.1 115 14 106/69 92 Bi-pap 60 98.1 08/31/17 19:02 122 18 88 Full Face 60 08/31/17 19:02 88 Bi-pap 60 08/31/17 19:02 Bi-pap 60 08/31/17 17:00 119 21 90 Full Face 60 08/31/17 16:00 60 08/31/17 16:00 101 08/31/17 16:00 98.0 112 14 120/80 92 Bi-pap 60 98.0 08/31/17 15:11 99 18 94 Full Face 60 08/31/17 12:47 98 16 92 Full Face 60 08/31/17 12:00 60 08/31/17 12:00 97.7 100 16 95/64 92 Bi-pap 60 97.7 08/31/17 11:43 102 Height (Feet): 5 Height (Inches): 9.00 Weight (Pounds): 182 HEENT: other - on BIPAP Respiratory/Chest: decreased breath sounds Cardiovascular: tachycardia Abdomen: soft, non tender Extremities: no edema Neurologic/Psychiatric: other - sleeping Laboratory Tests Test 09/01/17 04:00 09/01/17 08:00 White Blood Count 9.9 K/UL (4.8-10.8) Red Blood Count 4.30 M/UL (4.70-6.10) L Hemoglobin 12.2 G/DL (14.2-18.0) L Hematocrit 41.2 % (42.0-52.0) L Mean Corpuscular Volume 96 FL (80-99) Mean Corpuscular Hemoglobin 28.3 PG (27.0-31.0) Mean Corpuscular Hemoglobin Concent 29.6 G/DL (32.0-36.0) L Red Cell Distribution Width 17.0 % (11.6-14.8) H Platelet Count 130 K/UL (150-450) L Mean Platelet Volume 7.0 FL (6.5-10.1) Neutrophils (%) (Auto) 76.1 % (45.0-75.0) H Lymphocytes (%) (Auto) 8.8 % (20.0-45.0) L Monocytes (%) (Auto) 13.4 % (1.0-10.0) H Eosinophils (%) (Auto) 1.2 % (0.0-3.0) Basophils (%) (Auto) 0.6 % (0.0-2.0) Prothrombin Time 32.4 SEC (9.30-11.50) H Prothromb Time International Ratio 3.1 (0.9-1.1) H Activated Partial Thromboplast Time 63 SEC (23-33) H Sodium Level 149 MMOL/L (136-145) H Potassium Level 4.1 MMOL/L (3.5-5.1) Chloride Level 106 MMOL/L (98-107) Carbon Dioxide Level 41 MMOL/L (21-32) *H Anion Gap 2 mmol/L (5-15) L Blood Urea Nitrogen 17 mg/dL (7-18) Creatinine 1.2 MG/DL (0.55-1.30) Estimat Glomerular Filtration Rate > 60 mL/min (>60) Glucose Level 77 MG/DL (74-106) Calcium Level 9.5 MG/DL (8.5-10.1) Vancomycin Level Trough 20.8 ug/mL (5.0-12.0) H Current Medications Medications (Trade) Dose Ordered Sig/Kika Route PRN Reason Start Time Stop Time Status Last Admin Dose Admin Acetaminophen (Tylenol) 650 mg Q4H PRN ORAL Mild Pain/Temp > 100.5 08/26/17 17:00 09/23/17 16:59 08/26/17 23:58 Albuterol Sulfate (Proventil MDI) 2 puff Q6H PRN INH Shortness of Breath 08/26/17 18:00 09/25/17 17:59 Atorvastatin Calcium (Lipitor) 10 mg BEDTIME ORAL 08/26/17 21:00 09/23/17 20:59 08/31/17 20:34 Citalopram Hydrobromide (celeXA) 40 mg DAILY ORAL 08/27/17 09:00 09/25/17 08:59 09/01/17 10:46 Divalproex Sodium (Depakote Sprinkles) 500 mg EVERY 12 HOURS GT 08/26/17 21:00 09/23/17 20:59 09/01/17 10:46 Lorazepam (Ativan 2mg/ml 1ml) 1 mg Q6H PRN IV For Anxiety 08/27/17 11:00 09/03/17 10:59 09/01/17 09:20 Olanzapine (ZyPREXA) 10 mg Q12HR ORAL 08/28/17 21:00 09/27/17 20:59 09/01/17 10:46 Quetiapine Fumarate (SEROquel) 100 mg TID ORAL 08/27/17 13:00 09/26/17 12:59 09/01/17 10:46 Risperidone (RisperDAL) 2 mg BID ORAL 08/27/17 18:00 09/26/17 17:59 09/01/17 10:46 Trazodone HCl (Desyrel) 200 mg BEDTIME ORAL 08/26/17 21:00 09/03/17 09:50 08/31/17 20:34 Vancomycin HCl (Vanco rx to dose) 1 ea DAILY PRN MISC Per rx protocol 08/27/17 11:00 09/26/17 10:59 Vancomycin/Sodium Chloride 250 ml @ 166.667 mls/hr Q12H IVPB 09/01/17 09:30 09/06/17 09:29 Warfarin Sodium (Coumadin per pharmacy) 1 ea DAILY PRN MISC Per rx protocol 08/26/17 17:00 09/25/17 16:59 Joseph Joseph MD Sep 01, 2017 11:16
[2017-09-01] MEDS: Vancomycin 750mg/NS 250ml IVPB SCH ×2 (11:36→20:59)
[2017-09-01 12:00] VITALS: BP 109/67
[2017-09-01] MEDS: Ipratropium 0.02% Inh Soln 2.5ml UD HHN SCH ×2 (13:41→19:02)
[2017-09-01] MEDS: Albuterol ud Inhalation HHN SCH ×2 (13:41→19:04)
[2017-09-01 16:00] VITALS: BP 123/75
[2017-09-01 20:00] VITALS: BP 114/75
[2017-09-01] MEDS: TraZODone 100mg tab ORAL SCH (21:00)
--- NOTE | 2017-09-01 21:30 | Consultation ---
DATE OF CONSULTATION: 09/01/2017 INITIAL PSYCHIATRIC EVALUATION CONSULTING PHYSICIAN: Jatinder Rosario M.D. REFERRING PHYSICIAN: Richardson Mitchell M.D. HISTORY OF PRESENT ILLNESS: This is a 62-year-old male patient. He has COPD. This patient came in. He has extreme agitation, irritability, and combativeness. He has got no logical plan for his own self-care. He is on restraints, but he still has extreme amount of psychomotor agitation. So, there was a daily psychiatric consultation requested to evaluate this patient. He came in with agitation, irritability, and restlessness low energy, poor appetite, and loss of interest in activity. I saw him and assessed at bedside, but he is very confused. He seems to be generally alert with sternal rub, but he has lot of agitation, irritability, and combativeness mo approach. PAST MEDICAL HISTORY: He has COPD primarily. ALLERGIES: No known drug allergies. SOCIAL HISTORY: The patient is living in a private residence. Financially supported by [employer] and Medicare. SUBSTANCE ABUSE HISTORY: No history of any drug or alcohol use. MENTAL STATUS EXAMINATION: This is a 62-year-old male. Appearance is disheveled. Attitude, irritable and agitated. Affect, guarded and restricted. Intellect poor. Mood, depressed and anxious. Motor activity, psychomotor agitation. Attention span is poor. Orientation x2. Speech is low volume and slurred. Thought process, disorganized and illogical. Insight and judgment is poor. DIAGNOSIS: Schizoaffective, bipolar type. PLAN: Depakote 500 mg per G-tube q.12 h., Celexa 40 mg daily, Zyprexa 10 mg twice a day, Seroquel 100 mg 3 times a day, Risperdal 2 mg now 3 times a day, trazodone 200 mg at bedtime, but in addition to that, I am also going to add a dose of Haldol Decanoate long-acting and we are going to start the patient at 50 mg IM every month to reduce agitation and irritability, and encouraged him to interact appropriately with staff and other patients. 18 to 20 minutes of supportive therapy attempted. He will continue to be followed by Psychiatry throughout his hospital course. Chart reviewed. Discussed with staff. I would like to thank, Dr. Mitchell, for this interesting consultation. Marlene Cortez M.D. DR: CARIE JOB#: [id number] CC:
[2017-09-02] VITALS: BP 120/76
[2017-09-02] MEDS: Albuterol ud Inhalation HHN SCH ×4 (00:29→18:45)
[2017-09-02] MEDS: Ipratropium 0.02% Inh Soln 2.5ml UD HHN SCH ×4 (00:29→18:45)
[2017-09-02 04:00] VITALS: BP 129/81
[2017-09-02] MEDS: LORazepam Inj 2mg/ml 1ml IV PRN ×2 (05:37→12:29)
[2017-09-02 06:43] LABS: INR 4.2 (0.9-1.1)
[2017-09-02 08:00] VITALS: BP_SYST 129; BP_SYST 130; BP_DIAS 81; BP_DIAS 86
[2017-09-02] MEDS: Citalopram Hydrobromide 10mg Tab ORAL SCH (08:10)
[2017-09-02] MEDS: Depakote 125mg Sprinkles GT SCH ×2 (08:10→20:51)
[2017-09-02] MEDS: OLANZapine 10mg tab ORAL SCH ×2 (08:11→21:12)
--- NOTE | 2017-09-02 09:35 | Pulmonology Progress Note ---
Assessment/Plan Assessment/Plan 1. Acute respiratory failure. resolved 2. Right hemithorax opacification. Has recurrent partial collapse 3. History of right pleural effusion. 4. Schizophrenia 5. Chronic Coumadin usage. 5. Pulmonary edema; resolved; 6. Agitation DISCUSSION: Continue abx Now in [facility] Requiring multiple psych meds;On Zyprexa and Risperidone, Celexa and Trazodone Seen by psych Ordered Haldol IM Discussed with Williams Alcantara medical case manager and Dr Barnett May require transfer to inpatient facility for psych and medical care Na better Will monitor Will liberalize fluid intake On BiPAP 60%Fio2 DC Haldol IV Avoid benzos Will order IPPB Subjective Interval Events: Seen by psych; on Haldol IM; on BiPAP Constitutional: Reports: no symptoms HEENT: Repors: no symptoms Respiratory: Reports: no symptoms Cardiovascular: Reports: no symptoms Gastrointestinal/Abdominal: Reports: no symptoms Allergies: Coded Allergies: No Known Allergies (Unverified , 08/03/17) Objective Last 24 Hour Vital Signs Date Time Temp Pulse Resp B/P (MAP) Pulse Ox O2 Delivery O2 Flow Rate FiO2 09/02/17 08:35 110 20 90 Facial 60 09/02/17 08:00 109 09/02/17 07:01 105 21 92 Bi-pap 60 09/02/17 06:47 Bi-pap 60 09/02/17 06:47 86 Bi-pap 60 09/02/17 06:46 99 18 86 Bi-pap 60 09/02/17 06:45 100 18 88 Facial 60 09/02/17 05:28 99 16 89 Facial 60 09/02/17 04:00 94 09/02/17 04:00 80 09/02/17 04:00 97.6 93 5 129/81 92 Bi-pap 60 97.6 09/02/17 02:34 101 23 90 Facial 60 09/02/17 00:42 91 15 92 Bi-pap 60 09/02/17 00:31 89 15 92 Facial 60 09/02/17 00:29 87 15 92 Bi-pap 60 09/02/17 00:00 60 09/02/17 00:00 94 09/02/17 00:00 97.7 92 16 120/76 96 Bi-pap 60 97.7 09/01/17 23:18 104 17 88 Facial 60 09/01/17 20:48 102 16 86 Facial 60 09/01/17 20:00 60 09/01/17 20:00 98.0 110 14 114/75 94 Bi-pap 70 98.0 09/01/17 20:00 122 09/01/17 19:08 106 15 88 Bi-pap 60 09/01/17 19:06 103 15 88 Facial 60 09/01/17 19:01 103 15 87 Bi-pap 60 09/01/17 19:00 Bi-pap 60 09/01/17 19:00 87 Bi-pap 60 09/01/17 16:33 100 15 88 Facial 60 09/01/17 16:00 93 09/01/17 16:00 60 09/01/17 16:00 97.5 101 17 123/75 90 Bi-pap 70 97.5 09/01/17 14:30 95 16 88 Facial 60 09/01/17 13:59 97 16 90 Bi-pap 60 09/01/17 13:41 89 14 90 Bi-pap 60 09/01/17 12:35 100 14 88 Facial 60 09/01/17 12:00 98.6 98 14 109/67 93 Bi-pap 60 98.6 09/01/17 12:00 60 09/01/17 12:00 108 09/01/17 10:58 105 15 88 Facial 60 Intake and Output 09/01/17 09/02/17 19:00 07:00 Intake Total 350.000 ml 363.334 ml Output Total 250 ml 250 ml Balance 100.000 ml 113.334 ml Intake Oral 100 ml 30 ml IV Total 250.000 ml 333.334 ml Output Urine Total 250 ml 250 ml General Appearance: no acute distress HEENT: normocephalic Respiratory/Chest: chest wall non-tender, lungs clear Cardiovascular: normal peripheral pulses, normal rate Abdomen: normal bowel sounds Laboratory Tests 09/02/17 06:00: Prothrombin Time 44.9H, Prothromb Time International Ratio 4.2H Current Medications Medications (Trade) Dose Ordered Sig/Kika Route PRN Reason Start Time Stop Time Status Last Admin Dose Admin Acetaminophen (Tylenol) 650 mg Q4H PRN ORAL Mild Pain/Temp > 100.5 08/26/17 17:00 09/23/17 16:59 08/26/17 23:58 Albuterol Sulfate (Proventil MDI) 2 puff Q6H PRN INH Shortness of Breath 08/26/17 18:00 09/25/17 17:59 Albuterol Sulfate (Proventil) 2.5 mg Q6HRT N 09/01/17 13:00 09/06/17 12:59 09/02/17 06:46 Atorvastatin Calcium (Lipitor) 10 mg BEDTIME ORAL 08/26/17 21:00 09/23/17 20:59 09/01/17 20:59 Citalopram Hydrobromide (celeXA) 40 mg DAILY ORAL 08/27/17 09:00 09/25/17 08:59 09/02/17 08:10 Divalproex Sodium (Depakote Sprinkles) 500 mg EVERY 12 HOURS GT 08/26/17 21:00 09/23/17 20:59 09/02/17 08:10 Ipratropium [place] (Atrovent) 100 mcg Q6HRT N 09/01/17 13:00 09/06/17 12:59 09/02/17 06:46 Lorazepam (Ativan 2mg/ml 1ml) 1 mg Q6H PRN IV For Anxiety 08/27/17 11:00 09/03/17 10:59 09/02/17 05:37 Olanzapine (ZyPREXA) 10 mg Q12HR ORAL 08/28/17 21:00 09/27/17 20:59 09/02/17 08:11 Quetiapine Fumarate (SEROquel) 100 mg TID ORAL 08/27/17 13:00 09/26/17 12:59 09/02/17 08:10 Risperidone (RisperDAL) 2 mg TID ORAL 09/01/17 18:00 09/26/17 17:59 09/02/17 08:11 Trazodone HCl (Desyrel) 200 mg BEDTIME ORAL 08/26/17 21:00 09/03/17 09:50 09/01/17 21:00 Vancomycin HCl (Vanco rx to dose) 1 ea DAILY PRN MISC Per rx protocol 08/27/17 11:00 09/26/17 10:59 Vancomycin/Sodium Chloride 250 ml @ 166.667 mls/hr Q12H IVPB 09/01/17 09:30 09/06/17 09:29 09/01/17 20:59 Warfarin Sodium (Coumadin per pharmacy) 1 ea DAILY PRN MISC Per rx protocol 08/26/17 17:00 09/25/17 16:59 Richardson Mitchell MD Sep 02, 2017 09:34
[2017-09-02] MEDS: Vancomycin 750mg/NS 250ml IVPB SCH ×2 (09:49→20:51)
--- NOTE | 2017-09-02 10:28 | Infectious Diseases Prog Note ---
Assessment/Plan Assessment/Plan antibiotics : vancomycin iv 6.13.18 - A 1. MRSA pneumonia 2. respiratory failure 3. fungal UTI s/p rx 4. COPD 5. hypertension 6. renal stone 7. right pleural effusion P 1. continue iv vancomycin 2. will follow up cultures Subjective ROS Limited/Unobtainable: Yes Allergies: Coded Allergies: No Known Allergies (Unverified , 08/03/17) Objective Vital Signs Last 24 Hour Vital Signs Date Time Temp Pulse Resp B/P (MAP) Pulse Ox O2 Delivery O2 Flow Rate FiO2 09/02/17 08:35 110 20 90 Facial 60 09/02/17 08:00 109 09/02/17 08:00 60 09/02/17 08:00 97.9 103 5 130/86 96 Bi-pap 60 97.9 09/02/17 07:01 105 21 92 Bi-pap 60 09/02/17 06:47 Bi-pap 60 09/02/17 06:47 86 Bi-pap 60 09/02/17 06:46 99 18 86 Bi-pap 60 09/02/17 06:45 100 18 88 Facial 60 09/02/17 05:28 99 16 89 Facial 60 09/02/17 04:00 94 09/02/17 04:00 80 09/02/17 04:00 97.6 93 5 129/81 92 Bi-pap 60 97.6 09/02/17 02:34 101 23 90 Facial 60 09/02/17 00:42 91 15 92 Bi-pap 60 09/02/17 00:31 89 15 92 Facial 60 09/02/17 00:29 87 15 92 Bi-pap 60 09/02/17 00:00 60 09/02/17 00:00 94 09/02/17 00:00 97.7 92 16 120/76 96 Bi-pap 60 97.7 09/01/17 23:18 104 17 88 Facial 60 09/01/17 20:48 102 16 86 Facial 60 09/01/17 20:00 60 09/01/17 20:00 98.0 110 14 114/75 94 Bi-pap 70 98.0 09/01/17 20:00 122 09/01/17 19:08 106 15 88 Bi-pap 60 09/01/17 19:06 103 15 88 Facial 60 09/01/17 19:01 103 15 87 Bi-pap 60 09/01/17 19:00 Bi-pap 60 09/01/17 19:00 87 Bi-pap 60 09/01/17 16:33 100 15 88 Facial 60 09/01/17 16:00 93 09/01/17 16:00 60 09/01/17 16:00 97.5 101 17 123/75 90 Bi-pap 70 97.5 09/01/17 14:30 95 16 88 Facial 60 09/01/17 13:59 97 16 90 Bi-pap 60 09/01/17 13:41 89 14 90 Bi-pap 60 09/01/17 12:35 100 14 88 Facial 60 09/01/17 12:00 98.6 98 14 109/67 93 Bi-pap 60 98.6 09/01/17 12:00 60 09/01/17 12:00 108 09/01/17 10:58 105 15 88 Facial 60 Height (Feet): 5 Height (Inches): 9.00 Weight (Pounds): 180 HEENT: other - on bipap Respiratory/Chest: lungs clear Cardiovascular: normal rate, regular rhythm, no gallop/murmur Abdomen: soft, non tender Extremities: no edema Laboratory Tests Test 09/02/17 06:00 Prothrombin Time 44.9 SEC (9.30-11.50) H Prothromb Time International Ratio 4.2 (0.9-1.1) H Current Medications Medications (Trade) Dose Ordered Sig/Kika Route PRN Reason Start Time Stop Time Status Last Admin Dose Admin Acetaminophen (Tylenol) 650 mg Q4H PRN ORAL Mild Pain/Temp > 100.5 08/26/17 17:00 09/23/17 16:59 08/26/17 23:58 Albuterol Sulfate (Proventil MDI) 2 puff Q6H PRN INH Shortness of Breath 08/26/17 18:00 09/25/17 17:59 Albuterol Sulfate (Proventil) 2.5 mg Q6HRT HHN 09/01/17 13:00 09/06/17 12:59 09/02/17 06:46 Atorvastatin Calcium (Lipitor) 10 mg BEDTIME ORAL 08/26/17 21:00 09/23/17 20:59 09/01/17 20:59 Citalopram Hydrobromide (celeXA) 40 mg DAILY ORAL 08/27/17 09:00 09/25/17 08:59 09/02/17 08:10 Divalproex Sodium (Depakote Sprinkles) 500 mg EVERY 12 HOURS GT 08/26/17 21:00 09/23/17 20:59 09/02/17 08:10 Ipratropium [place] (Atrovent) 100 mcg Q6HRT HHN 09/01/17 13:00 09/06/17 12:59 09/02/17 06:46 Lorazepam (Ativan 2mg/ml 1ml) 1 mg Q6H PRN IV For Anxiety 08/27/17 11:00 09/03/17 10:59 09/02/17 05:37 Olanzapine (ZyPREXA) 10 mg Q12HR ORAL 08/28/17 21:00 09/27/17 20:59 09/02/17 08:11 Quetiapine Fumarate (SEROquel) 100 mg TID ORAL 08/27/17 13:00 09/26/17 12:59 09/02/17 08:10 Risperidone (RisperDAL) 2 mg TID ORAL 09/01/17 18:00 09/26/17 17:59 09/02/17 08:11 Trazodone HCl (Desyrel) 200 mg BEDTIME ORAL 08/26/17 21:00 09/03/17 09:50 09/01/17 21:00 Vancomycin HCl (Vanco rx to dose) 1 ea DAILY PRN MISC Per rx protocol 08/27/17 11:00 09/26/17 10:59 Vancomycin/Sodium Chloride 250 ml @ 166.667 mls/hr Q12H IVPB 09/01/17 09:30 09/06/17 09:29 09/02/17 09:49 Warfarin Sodium (Coumadin per pharmacy) 1 ea DAILY PRN MISC Per rx protocol 08/26/17 17:00 09/25/17 16:59 LALI COCHRAN Sep 02, 2017 10:28
[2017-09-02 12:00] VITALS: BP 143/89
[2017-09-02 16:00] VITALS: BP 135/89
--- NOTE | 2017-09-02 16:21 | Diagnostic Imaging Report ---
Indication: Dyspnea Technique: One view of the chest Comparison: On 08/31/2017 Findings: Interim complete opacification of the right lung. There is probably some shift of the mediastinum to the right, although this is difficult to assess due to patient being rotated to the right. There is suggestion of abrupt cut off of the right mainstem bronchus. There is some hazy opacity in the left infrahilar region. Left lung and pleural space are otherwise clear, appearance stable Impression: Interim complete opacification of the right hemithorax. Suspect due to complete atelectasis of the right lung, particularly given evidence of abrupt cut off of the origin of the right mainstem bronchus Stable left infrahilar hazy opacity, over 2 days Findings discussed by phone with Dr. Mitchell at the time of interpretation
[2017-09-02 20:00] VITALS: BP 126/69
[2017-09-02] MEDS: TraZODone 100mg tab ORAL SCH (20:51)
[2017-09-03] VITALS (24 sets, daily range): BP systolic 95–136; BP diastolic 60–85
[2017-09-03] MEDS: Ipratropium 0.02% Inh Soln 2.5ml UD HHN SCH ×4 (01:03→18:51)
[2017-09-03] MEDS: Albuterol ud Inhalation HHN SCH ×4 (01:03→18:51)
[2017-09-03] MEDS ORDERED: LORazepam Inj 2mg/ml 1ml IV PRN (05:00)
[2017-09-03 05:22] LABS: BASOPHILS % (AUTO) 0.4 % (0.0-2.0); EOSINOPHILS % (AUTO) 1.2 % (0.0-3.0); HEMOGLOBIN 11.7 G/DL (14.2-18.0); LYMPHOCYTES % (AUTO) 8.8 % (20.0-45.0); MEAN CORPUSCULAR VOLUME 96 FL (80-99); MONOCYTES % (AUTO) 15.9 % (1.0-10.0); NEUTROPHILS % (AUTO) 73.6 % (45.0-75.0); PLATELET COUNT 114 K/UL (150-450); RED BLOOD COUNT 4.07 M/UL (4.70-6.10); RED CELL DISTRIBUTION WIDTH 17.1 % (11.6-14.8); WHITE BLOOD COUNT 6.2 K/UL (4.8-10.8)
[2017-09-03 05:30] LABS: INR 2.9 (0.9-1.1)
[2017-09-03 05:36] LABS: ANION GAP 0 mmol/L (5-15); BLOOD UREA NITROGEN 17 mg/dL (7-18); CALCIUM 9.4 MG/DL (8.5-10.1); CHLORIDE 110 MMOL/L (98-107); POTASSIUM 3.7 MMOL/L (3.5-5.1); SODIUM 151 MMOL/L (136-145)
[2017-09-03] MEDS ORDERED: Albuterol 90mcg Inhaler 8gm INH PRN (06:00)
[2017-09-03 06:10] LABS: CARBON DIOXIDE 40 MMOL/L (21-32)
--- NOTE | 2017-09-03 08:16 | Pulmonology Progress Note ---
Assessment/Plan Assessment/Plan 1. Acute respiratory failure. resolved 2. Right hemithorax opacification. Has recurrent partial collapse 3. History of right pleural effusion. 4. Schizophrenia 5. Chronic Coumadin usage. 5. Pulmonary edema; resolved; 6. Agitation DISCUSSION: Continue abx Now in ICU Requiring multiple psych meds;On Zyprexa and Risperidone, Celexa and Trazodone Seen by psych Ordered Haldol IM Discussed with Williams Alcantara field nurse case manager and Dr Barnett May require transfer to inpatient facility for psych and medical care Na worse On BiPAP WIll attempt broncvh and suctioning to open R main stem 60%Fio2 Will again order IPPB; I am being told not available here at [facility] Subjective Interval Events: Has complete opacification of R hemithorax; NA 151 Constitutional: Reports: no symptoms HEENT: Repors: no symptoms Respiratory: Reports: no symptoms Cardiovascular: Reports: no symptoms Gastrointestinal/Abdominal: Reports: no symptoms Genitourinary: Reports: no symptoms Neurologic: Reports: no symptoms Psychiatric: Reports: other - agitation Allergies: Coded Allergies: No Known Allergies (Unverified , 08/03/17) Objective Last 24 Hour Vital Signs Date Time Temp Pulse Resp B/P (MAP) Pulse Ox O2 Delivery O2 Flow Rate FiO2 09/03/17 07:00 104 16 130/78 91 Bi-pap 60 09/03/17 06:00 95 12 105/70 95 Bi-pap 60 09/03/17 05:14 95 14 94 Facial 60 09/03/17 05:00 100 14 127/79 91 Bi-pap 60 09/03/17 04:00 97.8 95 14 104/71 93 Bi-pap 60 97.8 09/03/17 04:00 60 09/03/17 04:00 95 09/03/17 03:29 94 15 92 Facial 60 09/03/17 03:00 97 14 117/76 93 Bi-pap 60 09/03/17 02:00 95 15 104/76 93 Bi-pap 60 09/03/17 01:13 93 14 95 Bi-pap 60 09/03/17 01:01 95 15 93 Bi-pap 60 09/03/17 01:01 95 15 93 Facial 60 09/03/17 01:00 95 15 101/71 91 Bi-pap 60 09/03/17 00:00 97.7 109 17 116/85 88 Bi-pap 60 97.7 09/03/17 00:00 109 09/03/17 00:00 60 09/02/17 23:15 109 16 89 Facial 60 09/02/17 21:25 117 21 89 Facial 60 09/02/17 20:00 60 09/02/17 20:00 116 09/02/17 20:00 97.7 115 15 126/69 87 Bi-pap 60 97.7 09/02/17 19:00 115 16 92 Bi-pap 60 09/02/17 18:42 114 19 88 Bi-pap 60 09/02/17 18:41 114 19 88 60 09/02/17 18:40 Bi-pap 09/02/17 18:40 Bi-pap 09/02/17 16:44 108 19 91 Facial 60 09/02/17 16:00 60 09/02/17 16:00 97.6 81 19 135/89 97 Bi-pap 60 97.6 09/02/17 16:00 101 09/02/17 14:30 105 15 89 Facial 60 09/02/17 14:27 105 14 89 Facial 60 09/02/17 12:57 99 20 92 Bi-pap 60 09/02/17 12:40 98 17 92 Bi-pap 60 09/02/17 12:37 99 17 92 Facial 60 09/02/17 12:00 99 09/02/17 12:00 60 09/02/17 12:00 98.0 74 21 143/89 97 Bi-pap 60 98.0 09/02/17 10:50 106 19 94 Facial 60 09/02/17 08:35 110 20 90 Facial 60 Intake and Output 09/02/17 09/03/17 19:00 07:00 Intake Total 550.000 ml 333.334 ml Output Total 350 ml 415 ml Balance 200.000 ml -81.666 ml Intake Oral 300 ml 0 ml IV Total 250.000 ml 333.334 ml Output Urine Total 350 ml 415 ml General Appearance: no acute distress HEENT: normocephalic Respiratory/Chest: chest wall non-tender, decreased breath sounds Cardiovascular: normal peripheral pulses, normal rate Abdomen: normal bowel sounds, soft, non tender Laboratory Tests 09/03/17 03:33: White Blood Count 6.2, Red Blood Count 4.07L, Hemoglobin 11.7L, Hematocrit 39.0L , Mean Corpuscular Volume 96, Mean Corpuscular Hemoglobin 28.6, Mean Corpuscular Hemoglobin Concent 29.9L, Red Cell Distribution Width 17.1H, Platelet Count 114L, Mean Platelet Volume 7.5, Neutrophils (%) (Auto) 73.6, Lymphocytes (%) (Auto) 8.8L, Monocytes (%) (Auto) 15.9H, Eosinophils (%) (Auto) 1.2, Basophils (%) (Auto) 0.4, Prothrombin Time 30.8H, Prothromb Time International Ratio 2.9H, Sodium Level 151H, Potassium Level 3.7, Chloride Level 110H, Carbon Dioxide Level 40H, Anion Gap 0L, Blood Urea Nitrogen 17, Creatinine 1.0, Estimat Glomerular Filtration Rate > 60, Glucose Level 98, Calcium Level 9.4 09/03/17 06:45: Arterial Blood pH 7.370, Arterial Blood Partial Pressure CO2 73.1*H, Arterial Blood Partial Pressure O2 60.9L, Arterial Blood HCO3 41.3H, Arterial Blood Oxygen Saturation 89.2L, Arterial Blood Base Excess 13.1, [place] Test Positive Current Medications Medications (Trade) Dose Ordered Sig/Kika Route PRN Reason Start Time Stop Time Status Last Admin Dose Admin Acetaminophen (Tylenol) 650 mg Q4H PRN ORAL Mild Pain/Temp > 100.5 09/03/17 01:00 09/23/17 16:59 Albuterol Sulfate (Proventil MDI) 2 puff Q6H PRN INH Shortness of Breath 09/03/17 06:00 09/25/17 17:59 Albuterol Sulfate (Proventil) 2.5 mg Q6HRT HHN 09/03/17 01:00 09/06/17 12:59 09/03/17 06:48 Atorvastatin Calcium (Lipitor) 10 mg BEDTIME ORAL 09/03/17 21:00 09/23/17 20:59 Citalopram Hydrobromide (celeXA) 40 mg DAILY ORAL 09/03/17 09:00 09/25/17 08:59 Divalproex Sodium (Depakote Sprinkles) 500 mg EVERY 12 HOURS GT 09/03/17 09:00 09/23/17 20:59 Ipratropium [place] (Atrovent) 100 mcg Q6HRT HHN 09/03/17 01:00 09/06/17 12:59 09/03/17 06:47 Lorazepam (Ativan 2mg/ml 1ml) 1 mg Q6H PRN IV For Anxiety 09/03/17 05:00 09/03/17 10:59 Olanzapine (ZyPREXA) 10 mg Q12HR ORAL 09/03/17 09:00 09/27/17 20:59 Quetiapine Fumarate (SEROquel) 100 mg TID ORAL 09/03/17 09:00 09/26/17 12:59 Risperidone (RisperDAL) 2 mg TID ORAL 09/03/17 09:00 09/26/17 17:59 Trazodone HCl (Desyrel) 200 mg BEDTIME ORAL 09/03/17 21:00 10/03/17 20:59 Vancomycin HCl (Vanco rx to dose) 1 ea DAILY PRN MISC Per rx protocol 09/03/17 09:00 09/26/17 10:59 Vancomycin/Sodium Chloride 250 ml @ 166.667 mls/hr Q12H IVPB 09/03/17 09:30 09/06/17 09:29 Warfarin Sodium (Coumadin per pharmacy) 1 ea DAILY PRN MISC Per rx protocol 09/03/17 09:00 09/25/17 16:59 Richardson Mitchell MD Sep 03, 2017 08:16
[2017-09-03] MEDS: OLANZapine 10mg tab ORAL SCH ×2 (09:00→20:42)
[2017-09-03] MEDS ORDERED: LORazepam Inj 2mg/ml 1ml IV SCH (09:00)
--- NOTE | 2017-09-03 10:00 | Procedure Note ---
DATE OF PROCEDURE: 09/03/2017 PREOPERATIVE DIAGNOSIS: Rule out endobronchial obstruction. POSTOPERATIVE DIAGNOSIS: Unsuccessful bronchoscopy. PROCEDURE: Bronchoscopy. SURGEON: Richardson Mitchell M.D. INDICATION: Right lung collapse. DESCRIPTION OF PROCEDURE: I was notified by radiologist Dr. Tristin Castillo, that there is complete right lung opacification on x-ray obtained 09/02/2017. At that point, I attempted to contact the board and care construction project administrator to obtain consent for bronchoscopy, however, this individual was not available. It is my opinion that an urgent bronchoscopy is indicated to prevent intubation as there is a complete right lung opacification. Two-physician consent was discussed and obtained. A portable/disposable bronchoscope was inserted through the left naris under light sedation Ativan 1 mg IV. The patient was uncooperative and bronchoscope was withdrawn. Bronchoscope could not be accessed pass vocal cords. Using 14-bore thin endotracheal suction catheter, copious suctioning was obtained from posterior pharynx, naris, as well as distally using blind approach. The patient coughed and few mucous plugs were suctioned using endotracheal catheter. Procedure was completed and postprocedure x-ray was ordered. Richardson Mitchell M.D. DR: SOCO JOB#: [id number] CC:
--- NOTE | 2017-09-03 10:19 | Diagnostic Imaging Report ---
Indication: Dyspnea Technique: One view of the chest Comparison: 09/02/2017 Findings: Interim slight reexpansion of the right lung, with a small amount of aerated lung now visible in the right upper hemithorax. Still complete opacification of the right lower hemithorax. There is suggestion of increasing consolidation in the left infrahilar region. The left pleural space remains clear. Impression: Slightly improved aeration of the right lung, with still evidence of significant volume loss Suspect developing hazy infiltrate in the left infrahilar region
[2017-09-03] MEDS: Vancomycin 750mg/NS 250ml 250 ML IVPB SCH ×2 (11:40→21:41)
[2017-09-03] MEDS: Depakote 125mg Sprinkles GT SCH ×2 (12:16→20:41)
[2017-09-03] MEDS: Citalopram Hydrobromide 10mg Tab ORAL SCH (12:16)
--- NOTE | 2017-09-03 12:26 | Infectious Diseases Prog Note ---
Assessment/Plan Assessment/Plan A; Pneumonia with MRSA Hypercapnic respiratory failure COPD Schizophrenia R lung collapse/atelectasis P: Continue IV Vancomycin Subjective ROS Limited/Unobtainable: Yes Constitutional: Reports: other - transferred to ICU Respiratory: Reports: other - had attempted bronchoscopy today Allergies: Coded Allergies: No Known Allergies (Unverified , 08/03/17) Objective Vital Signs Last 24 Hour Vital Signs Date Time Temp Pulse Resp B/P (MAP) Pulse Ox O2 Delivery O2 Flow Rate FiO2 09/03/17 11:45 109 16 92 Venturi Mask 12.0 50 09/03/17 11:45 108 18 92 12.0 50 09/03/17 11:00 103 8 114/66 90 Bi-pap 60 09/03/17 10:00 103 8 95/61 90 Bi-pap 60 09/03/17 09:00 105 8 127/69 90 Bi-pap 60 09/03/17 08:20 95 20 92 15.0 09/03/17 08:00 60 09/03/17 08:00 97.9 112 16 124/79 89 Bi-pap 60 97.9 09/03/17 07:00 104 16 130/78 91 Bi-pap 60 09/03/17 06:57 98 14 90 Bi-pap 60 09/03/17 06:47 90 Bi-pap 60 09/03/17 06:47 101 18 90 Bi-pap 60 09/03/17 06:47 Bi-pap 60 09/03/17 06:00 95 12 105/70 95 Bi-pap 60 09/03/17 05:14 95 14 94 Facial 60 09/03/17 05:00 100 14 127/79 91 Bi-pap 60 09/03/17 04:00 97.8 95 14 104/71 93 Bi-pap 60 97.8 09/03/17 04:00 60 09/03/17 04:00 95 09/03/17 03:29 94 15 92 Facial 60 09/03/17 03:00 97 14 117/76 93 Bi-pap 60 09/03/17 02:00 95 15 104/76 93 Bi-pap 60 09/03/17 01:13 93 14 95 Bi-pap 60 09/03/17 01:01 95 15 93 Bi-pap 60 09/03/17 01:01 95 15 93 Facial 60 09/03/17 01:00 95 15 101/71 91 Bi-pap 60 09/03/17 00:00 97.7 109 17 116/85 88 Bi-pap 60 97.7 09/03/17 00:00 109 09/03/17 00:00 60 09/02/17 23:15 109 16 89 Facial 60 09/02/17 21:25 117 21 89 Facial 60 09/02/17 20:00 60 09/02/17 20:00 116 09/02/17 20:00 97.7 115 15 126/69 87 Bi-pap 60 97.7 09/02/17 19:00 115 16 92 Bi-pap 60 09/02/17 18:42 114 19 88 Bi-pap 60 09/02/17 18:41 114 19 88 60 09/02/17 18:40 Bi-pap 09/02/17 18:40 Bi-pap 09/02/17 16:44 108 19 91 Facial 60 09/02/17 16:00 60 09/02/17 16:00 97.6 81 19 135/89 97 Bi-pap 60 97.6 09/02/17 16:00 101 09/02/17 14:30 105 15 89 Facial 60 09/02/17 14:27 105 14 89 Facial 60 09/02/17 12:57 99 20 92 Bi-pap 60 09/02/17 12:40 98 17 92 Bi-pap 60 09/02/17 12:37 99 17 92 Facial 60 Height (Feet): 5 Height (Inches): 9.00 Weight (Pounds): 180 HEENT: other - on BIPAP Respiratory/Chest: other - decreased sounds in right side Cardiovascular: tachycardia Abdomen: soft, non tender Extremities: no edema Neurologic/Psychiatric: disoriented Laboratory Tests Test 09/03/17 03:33 09/03/17 06:45 White Blood Count 6.2 K/UL (4.8-10.8) Red Blood Count 4.07 M/UL (4.70-6.10) L Hemoglobin 11.7 G/DL (14.2-18.0) L Hematocrit 39.0 % (42.0-52.0) L Mean Corpuscular Volume 96 FL (80-99) Mean Corpuscular Hemoglobin 28.6 PG (27.0-31.0) Mean Corpuscular Hemoglobin Concent 29.9 G/DL (32.0-36.0) L Red Cell Distribution Width 17.1 % (11.6-14.8) H Platelet Count 114 K/UL (150-450) L Mean Platelet Volume 7.5 FL (6.5-10.1) Neutrophils (%) (Auto) 73.6 % (45.0-75.0) Lymphocytes (%) (Auto) 8.8 % (20.0-45.0) L Monocytes (%) (Auto) 15.9 % (1.0-10.0) H Eosinophils (%) (Auto) 1.2 % (0.0-3.0) Basophils (%) (Auto) 0.4 % (0.0-2.0) Prothrombin Time 30.8 SEC (9.30-11.50) H Prothromb Time International Ratio 2.9 (0.9-1.1) H Sodium Level 151 MMOL/L (136-145) H Potassium Level 3.7 MMOL/L (3.5-5.1) Chloride Level 110 MMOL/L (98-107) H Carbon Dioxide Level 40 MMOL/L (21-32) H Anion Gap 0 mmol/L (5-15) L Blood Urea Nitrogen 17 mg/dL (7-18) Creatinine 1.0 MG/DL (0.55-1.30) Estimat Glomerular Filtration Rate > 60 mL/min (>60) Glucose Level 98 MG/DL (74-106) Calcium Level 9.4 MG/DL (8.5-10.1) Arterial Blood pH 7.370 (7.350-7.450) Arterial Blood Partial Pressure CO2 73.1 mmHg (35.0-45.0) *H Arterial Blood Partial Pressure O2 60.9 mmHg (75.0-100.0) L Arterial Blood HCO3 41.3 mmol/L (22.0-26.0) H Arterial Blood Oxygen Saturation 89.2 % (92.0-98.0) L Arterial Blood Base Excess 13.1 [place] Test Positive Current Medications Medications (Trade) Dose Ordered Sig/Kika Route PRN Reason Start Time Stop Time Status Last Admin Dose Admin Acetaminophen (Tylenol) 650 mg Q4H PRN ORAL Mild Pain/Temp > 100.5 09/03/17 01:00 09/23/17 16:59 Albuterol Sulfate (Proventil MDI) 2 puff Q6H PRN INH Shortness of Breath 09/03/17 06:00 09/25/17 17:59 Albuterol Sulfate (Proventil) 2.5 mg Q6HRT N 09/03/17 01:00 09/06/17 12:59 09/03/17 11:45 Atorvastatin Calcium (Lipitor) 10 mg BEDTIME ORAL 09/03/17 21:00 09/23/17 20:59 Citalopram Hydrobromide (celeXA) 40 mg DAILY ORAL 09/03/17 09:00 09/25/17 08:59 09/03/17 12:16 Divalproex Sodium (Depakote Sprinkles) 500 mg EVERY 12 HOURS GT 09/03/17 09:00 09/23/17 20:59 09/03/17 12:16 Ipratropium [place] (Atrovent) 100 mcg Q6HRT [facility] 09/03/17 01:00 09/06/17 12:59 09/03/17 11:45 Olanzapine (ZyPREXA) 10 mg Q12HR ORAL 09/03/17 09:00 09/27/17 20:59 Quetiapine Fumarate (SEROquel) 100 mg TID ORAL 09/03/17 09:00 09/26/17 12:59 Risperidone (RisperDAL) 2 mg TID ORAL 09/03/17 09:00 09/26/17 17:59 09/03/17 12:15 Trazodone HCl (Desyrel) 200 mg BEDTIME ORAL 09/03/17 21:00 10/03/17 20:59 Vancomycin HCl (Vanco rx to dose) 1 ea DAILY PRN MISC Per rx protocol 09/03/17 09:00 09/26/17 10:59 Vancomycin/Sodium Chloride 250 ml @ 166.667 mls/hr Q12H IVPB 09/03/17 09:30 09/06/17 09:29 09/03/17 11:40 Warfarin Sodium (Coumadin per pharmacy) 1 ea DAILY PRN MISC Per rx protocol 09/03/17 09:00 09/25/17 16:59 Joseph Joseph MD Sep 03, 2017 12:26
[2017-09-03] MEDS: TraZODone 100mg tab ORAL SCH (20:42)
[2017-09-04] VITALS (24 sets, daily range): BP systolic 94–136; BP diastolic 49–79
[2017-09-04] MEDS: Ipratropium 0.02% Inh Soln 2.5ml UD HHN SCH ×4 (01:16→18:46)
[2017-09-04] MEDS: Albuterol ud Inhalation HHN SCH ×4 (01:16→18:46)
[2017-09-04 04:42] LABS: INR 2.4 (0.9-1.1)
[2017-09-04] MEDS: Vancomycin 750mg/NS 250ml 250 ML IVPB SCH ×2 (08:50→21:17)
--- NOTE | 2017-09-04 09:28 | Pulmonology Progress Note ---
Assessment/Plan Assessment/Plan 1. Acute respiratory failure. resolved 2. Right hemithorax opacification. Has recurrent partial collapse 3. History of right pleural effusion. 4. Schizophrenia 5. Chronic Coumadin usage. 5. Pulmonary edema; resolved; 6. Agitation DISCUSSION: Continue abx Now in ICU Requiring multiple psych meds;On Zyprexa and Risperidone, Celexa and Trazodone Seen by psych Ordered Haldol IM Discussed with Williams Alcantara shoe parts caser and Dr Barnett May require transfer to inpatient facility for psych and medical care Na worse On BiPAP WIll consider bronch and suctioning to open R main stem 60%Fio2 Will again order IPPB; I am being told not available here at [facility] Subjective Interval Events: R lung remains atelectatic; partial collapse. Na 151 Constitutional: Reports: no symptoms HEENT: Repors: no symptoms Respiratory: Reports: no symptoms Cardiovascular: Reports: no symptoms Gastrointestinal/Abdominal: Reports: no symptoms Genitourinary: Reports: no symptoms Neurologic: Reports: no symptoms Psychiatric: Reports: other - agitated Allergies: Coded Allergies: No Known Allergies (Unverified , 08/03/17) Objective Last 24 Hour Vital Signs Date Time Temp Pulse Resp B/P (MAP) Pulse Ox O2 Delivery O2 Flow Rate FiO2 09/04/17 09:00 121 15 126/75 90 Bi-pap 70 09/04/17 08:00 70 09/04/17 08:00 122 09/04/17 08:00 122 15 113/77 92 Bi-pap 70 09/04/17 07:46 128 28 90 Bi-pap 70 09/04/17 07:39 129 25 89 Bi-pap 70 09/04/17 07:00 99.1 131 21 124/73 89 Bi-pap 70 99.1 09/04/17 06:30 138 25 89 Facial 70 09/04/17 06:30 90 Bi-pap 14.0 70 09/04/17 06:30 Bi-pap 70 09/04/17 06:00 128 21 131/67 90 Bi-pap 70 09/04/17 05:28 125 23 93 Facial 70 09/04/17 05:00 120 18 115/75 90 Bi-pap 70 09/04/17 04:00 109 09/04/17 04:00 70 09/04/17 04:00 98.4 109 17 127/77 90 Bi-pap 70 98.4 09/04/17 03:06 117 18 91 Facial 70 09/04/17 03:00 116 18 136/79 91 Bi-pap 70 09/04/17 02:00 114 21 119/78 92 Bi-pap 70 09/04/17 01:23 113 20 95 Bi-pap 70 09/04/17 01:14 125 18 88 Bi-pap 70 09/04/17 01:13 125 18 88 Facial 70 09/04/17 01:00 120 20 110/68 93 Bi-pap 70 09/04/17 00:07 98.0 108 16 108/67 94 Bi-pap 70 98.0 09/04/17 00:00 70 09/03/17 23:02 120 19 127/75 92 Bi-pap 70 09/03/17 22:47 117 18 93 Facial 70 09/03/17 22:00 125 20 125/77 91 Bi-pap 70 09/03/17 21:00 122 17 110/76 88 Bi-pap 70 09/03/17 20:57 122 18 90 Facial 70 09/03/17 20:25 55 09/03/17 20:00 120 09/03/17 20:00 100.0 124 12 105/60 85 Venturi Mask 55 100.0 09/03/17 19:06 120 12 93 Venturi Mask 14.0 55 09/03/17 19:00 121 12 105/73 93 Bi-pap 80 09/03/17 18:55 Venturi Mask 14.0 55 09/03/17 18:55 91 Venturi Mask 14.0 55 09/03/17 18:54 118 14 90 14.0 55 09/03/17 18:52 118 14 88 Venturi Mask 14.0 55 09/03/17 18:00 121 24 118/66 93 Bi-pap 80 09/03/17 17:15 113 18 90 12.0 50 09/03/17 17:00 120 25 129/80 93 Bi-pap 80 09/03/17 16:00 60 09/03/17 16:00 97.8 120 19 119/76 89 Bi-pap 50 97.8 09/03/17 16:00 119 09/03/17 15:01 112 15 90 Facial 50 09/03/17 15:00 119 15 122/80 89 Bi-pap 50 09/03/17 14:00 120 15 119/75 90 Bi-pap 50 09/03/17 13:00 112 16 136/80 90 Bi-pap 60 09/03/17 12:30 106 20 92 Facial 100 09/03/17 12:01 107 20 91 Venturi Mask 50 09/03/17 12:00 97.4 110 13 126/74 90 Bi-pap 60 97.4 09/03/17 12:00 123 09/03/17 12:00 60 09/03/17 11:45 109 16 92 Venturi Mask 12.0 50 09/03/17 11:45 108 18 92 12.0 50 09/03/17 11:00 103 8 114/66 90 Bi-pap 60 09/03/17 10:00 103 8 95/61 90 Bi-pap 60 Intake and Output 09/03/17 09/04/17 19:00 07:00 Intake Total 383.334 ml 250.000 ml Output Total 630 ml 430 ml Balance -246.666 ml -180.000 ml Intake Oral 50 ml 0 ml IV Total 333.334 ml 250.000 ml Output Urine Total 630 ml 430 ml General Appearance: no acute distress HEENT: normocephalic Respiratory/Chest: chest wall non-tender, decreased breath sounds Cardiovascular: normal peripheral pulses, normal rate Abdomen: normal bowel sounds, soft, non tender Laboratory Tests 09/04/17 03:23: Prothrombin Time 25.5H, Prothromb Time International Ratio 2.4H Current Medications Medications (Trade) Dose Ordered Sig/Kika Route PRN Reason Start Time Stop Time Status Last Admin Dose Admin Acetaminophen (Tylenol) 650 mg Q4H PRN ORAL Mild Pain/Temp > 100.5 09/03/17 01:00 09/23/17 16:59 Albuterol Sulfate (Proventil MDI) 2 puff Q6H PRN INH Shortness of Breath 09/03/17 06:00 09/25/17 17:59 Albuterol Sulfate (Proventil) 2.5 mg Q6HRT HHN 09/03/17 01:00 09/06/17 12:59 09/04/17 07:38 Atorvastatin Calcium (Lipitor) 10 mg BEDTIME ORAL 09/03/17 21:00 09/23/17 20:59 09/03/17 20:42 Citalopram Hydrobromide (celeXA) 40 mg DAILY ORAL 09/03/17 09:00 09/25/17 08:59 09/03/17 12:16 Divalproex Sodium (Depakote Sprinkles) 500 mg EVERY 12 HOURS GT 09/03/17 09:00 09/23/17 20:59 09/03/17 20:41 Ipratropium [place] (Atrovent) 100 mcg Q6HRT HHN 09/03/17 01:00 09/06/17 12:59 09/04/17 07:38 Olanzapine (ZyPREXA) 10 mg Q12HR ORAL 09/03/17 09:00 09/27/17 20:59 09/03/17 20:42 Quetiapine Fumarate (SEROquel) 100 mg TID ORAL 09/03/17 09:00 09/26/17 12:59 09/03/17 14:52 Risperidone (RisperDAL) 2 mg TID ORAL 09/03/17 09:00 09/26/17 17:59 09/03/17 12:15 Trazodone HCl (Desyrel) 200 mg BEDTIME ORAL 09/03/17 21:00 10/03/17 20:59 09/03/17 20:42 Vancomycin HCl (Vanco rx to dose) 1 ea DAILY PRN MISC Per rx protocol 09/03/17 09:00 09/26/17 10:59 Vancomycin/Sodium Chloride 250 ml @ 166.667 mls/hr Q12H IVPB 09/03/17 09:30 09/06/17 09:29 09/04/17 08:50 Warfarin Sodium (Coumadin per pharmacy) 1 ea DAILY PRN MISC Per rx protocol 09/03/17 09:00 09/25/17 16:59 Warfarin Sodium (Coumadin) 0.5 mg COUMADIN ONCE ORAL 09/04/17 17:00 09/04/17 17:01 Richardson Mitchell MD Sep 04, 2017 09:28
--- NOTE | 2017-09-04 09:42 | Diagnostic Imaging Report ---
Indication: Abnormal chest sounds, dyspnea Technique: One view of the chest Comparison: 09/03/2017 Findings: There is increasing opacification of the right hemithorax with decreased and only minimal aeration of the right upper lobe. There is probably rightward shift of the mediastinum, as previously, although rightward patient rotation limits assessment for such. There is suggestion of determination of the bronchi at the lobar levels. The left lung and pleural space are clear, and the previously demonstrated left infrahilar opacity is no longer evident Impression: Increased opacification right hemithorax, now near complete, with decreased and only minimal aeration of the right lung, presumably due to worsening atelectasis of the right lung. There may also be a component of pleural fluid Improved left lung infiltrate
[2017-09-04] MEDS: Depakote 125mg Sprinkles GT SCH ×2 (09:51→20:55)
[2017-09-04] MEDS: OLANZapine 10mg tab ORAL SCH ×2 (09:51→20:56)
[2017-09-04] MEDS: Citalopram Hydrobromide 10mg Tab ORAL SCH (09:52)
--- NOTE | 2017-09-04 10:36 | Infectious Diseases Prog Note ---
Assessment/Plan Assessment/Plan A; Pneumonia with MRSA Hypoxic respiratory failure COPD Schizophrenia R lung collapse/atelectasis Constipation P: Continue IV Vancomycin Add Colace Consider bronchoscopy with culture Subjective ROS Limited/Unobtainable: Yes Constitutional: Reports: fever, other - T [id number] Neurologic: Reports: confusion, other - on restraint Allergies: Coded Allergies: No Known Allergies (Unverified , 08/03/17) Objective Vital Signs Last 24 Hour Vital Signs Date Time Temp Pulse Resp B/P (MAP) Pulse Ox O2 Delivery O2 Flow Rate FiO2 09/04/17 10:00 119 15 120/68 88 Bi-pap 70 09/04/17 09:52 99.1 09/04/17 09:00 121 15 126/75 90 Bi-pap 70 09/04/17 08:00 70 09/04/17 08:00 122 09/04/17 08:00 122 15 113/77 92 Bi-pap 70 09/04/17 07:46 128 28 90 Bi-pap 70 09/04/17 07:39 129 25 89 Bi-pap 70 09/04/17 07:00 99.1 131 21 124/73 89 Bi-pap 70 99.1 09/04/17 06:30 138 25 89 Facial 70 09/04/17 06:30 90 Bi-pap 14.0 70 09/04/17 06:30 Bi-pap 70 09/04/17 06:00 128 21 131/67 90 Bi-pap 70 09/04/17 05:28 125 23 93 Facial 70 09/04/17 05:00 120 18 115/75 90 Bi-pap 70 09/04/17 04:00 109 09/04/17 04:00 70 09/04/17 04:00 98.4 109 17 127/77 90 Bi-pap 70 98.4 09/04/17 03:06 117 18 91 Facial 70 09/04/17 03:00 116 18 136/79 91 Bi-pap 70 09/04/17 02:00 114 21 119/78 92 Bi-pap 70 09/04/17 01:23 113 20 95 Bi-pap 70 09/04/17 01:14 125 18 88 Bi-pap 70 09/04/17 01:13 125 18 88 Facial 70 09/04/17 01:00 120 20 110/68 93 Bi-pap 70 6/21/18 00:07 98.0 108 16 108/67 94 Bi-pap 70 98.0 09/04/17 00:00 70 09/03/17 23:02 120 19 127/75 92 Bi-pap 70 09/03/17 22:47 117 18 93 Facial 70 09/03/17 22:00 125 20 125/77 91 Bi-pap 70 09/03/17 21:00 122 17 110/76 88 Bi-pap 70 09/03/17 20:57 122 18 90 Facial 70 09/03/17 20:25 55 09/03/17 20:00 120 09/03/17 20:00 100.0 124 12 105/60 85 Venturi Mask 55 100.0 09/03/17 19:06 120 12 93 Venturi Mask 14.0 55 09/03/17 19:00 121 12 105/73 93 Bi-pap 80 09/03/17 18:55 Venturi Mask 14.0 55 09/03/17 18:55 91 Venturi Mask 14.0 55 09/03/17 18:54 118 14 90 14.0 55 09/03/17 18:52 118 14 88 Venturi Mask 14.0 55 09/03/17 18:00 121 24 118/66 93 Bi-pap 80 09/03/17 17:15 113 18 90 12.0 50 09/03/17 17:00 120 25 129/80 93 Bi-pap 80 09/03/17 16:00 60 09/03/17 16:00 97.8 120 19 119/76 89 Bi-pap 50 97.8 09/03/17 16:00 119 09/03/17 15:01 112 15 90 Facial 50 09/03/17 15:00 119 15 122/80 89 Bi-pap 50 09/03/17 14:00 120 15 119/75 90 Bi-pap 50 09/03/17 13:00 112 16 136/80 90 Bi-pap 60 09/03/17 12:30 106 20 92 Facial 100 09/03/17 12:01 107 20 91 Venturi Mask 50 09/03/17 12:00 97.4 110 13 126/74 90 Bi-pap 60 97.4 09/03/17 12:00 123 09/03/17 12:00 60 09/03/17 11:45 109 16 92 Venturi Mask 12.0 50 09/03/17 11:45 108 18 92 12.0 50 09/03/17 11:00 103 8 114/66 90 Bi-pap 60 Height (Feet): 5 Height (Inches): 9.00 Weight (Pounds): 180 HEENT: other - on BIPAP Respiratory/Chest: decreased breath sounds Cardiovascular: tachycardia Abdomen: soft, non tender Extremities: no edema Neurologic/Psychiatric: other - sleeping Laboratory Tests Test 09/04/17 03:23 Prothrombin Time 25.5 SEC (9.30-11.50) H Prothromb Time International Ratio 2.4 (0.9-1.1) H Current Medications Medications (Trade) Dose Ordered Sig/Kika Route PRN Reason Start Time Stop Time Status Last Admin Dose Admin Acetaminophen (Tylenol) 650 mg Q4H PRN ORAL Mild Pain/Temp > 100.5 09/03/17 01:00 09/23/17 16:59 09/04/17 09:52 Albuterol Sulfate (Proventil MDI) 2 puff Q6H PRN INH Shortness of Breath 09/03/17 06:00 09/25/17 17:59 Albuterol Sulfate (Proventil) 2.5 mg Q6HRT N 09/03/17 01:00 09/06/17 12:59 09/04/17 07:38 Atorvastatin Calcium (Lipitor) 10 mg BEDTIME ORAL 09/03/17 21:00 09/23/17 20:59 09/03/17 20:42 Citalopram Hydrobromide (celeXA) 40 mg DAILY ORAL 09/03/17 09:00 09/25/17 08:59 09/04/17 09:52 Divalproex Sodium (Depakote Sprinkles) 500 mg EVERY 12 HOURS GT 09/03/17 09:00 09/23/17 20:59 09/04/17 09:51 Ipratropium [place] (Atrovent) 100 mcg Q6HRT N 09/03/17 01:00 09/06/17 12:59 09/04/17 07:38 Olanzapine (ZyPREXA) 10 mg Q12HR ORAL 09/03/17 09:00 09/27/17 20:59 09/04/17 09:51 Quetiapine Fumarate (SEROquel) 100 mg TID ORAL 09/03/17 09:00 09/26/17 12:59 09/04/17 09:51 Risperidone (RisperDAL) 2 mg TID ORAL 09/03/17 09:00 09/26/17 17:59 09/04/17 09:51 Trazodone HCl (Desyrel) 200 mg BEDTIME ORAL 09/03/17 21:00 10/03/17 20:59 09/03/17 20:42 Vancomycin HCl (Vanco rx to dose) 1 ea DAILY PRN MISC Per rx protocol 09/03/17 09:00 09/26/17 10:59 Vancomycin/Sodium Chloride 250 ml @ 166.667 mls/hr Q12H IVPB 09/03/17 09:30 09/06/17 09:29 09/04/17 08:50 Warfarin Sodium (Coumadin per pharmacy) 1 ea DAILY PRN MISC Per rx protocol 09/03/17 09:00 09/25/17 16:59 Warfarin Sodium (Coumadin) 0.5 mg COUMADIN ONCE ORAL 09/04/17 17:00 09/04/17 17:01 Joseph Joseph MD Sep 04, 2017 10:36
[2017-09-04] MEDS ORDERED: Docusate 100mg cap ORAL PRN (10:45)
[2017-09-04] MEDS ORDERED: Warfarin Sodium 1mg ORAL ONE (17:00)
[2017-09-04] MEDS: TraZODone 100mg tab ORAL SCH (20:56)
--- NOTE | 2017-09-04 21:15 | Consultation ---
DATE OF CONSULTATION: 09/04/2017 CONSULTING PHYSICIAN: Cody Melendez M.D. REFERRING PHYSICIAN: Richardson Mitchell M.D. REASON FOR CONSULTATION: 1. Hypernatremia. 2. Volume depletion. HISTORY OF PRESENT ILLNESS: The patient is a 62-year-old gentleman, who is currently on noninvasive positive pressure ventilation, who had been admitted over the past month for respiratory failure and chronic obstructive pulmonary disease exacerbation. The patient does have a history of underlying chronic obstructive pulmonary disease, previous tracheostomy, on mechanical ventilation, and underlying psychiatric condition. Currently, his serum sodium has been slowly increasing and is up to 151 at this time. PAST MEDICAL HISTORY: 1. Chronic obstructive pulmonary disease. 2. Psychiatric condition/schizophrenia. 3. Hypertension. 4. Cardiomyopathy. 5. Cardiac arrhythmias. 6. History of gastrointestinal bleeding. 7. Urinary tract infections. 8. Respiratory failure. 9. Pleural effusion. 10. Atrial fibrillation. 11. Anemia. 12. Oxygen dependence. PAST SURGICAL HISTORY: Tracheostomy. FAMILY HISTORY: Positive for hypertension REVIEW OF SYSTEMS: Cannot obtain as the patient is currently on BiPAP. PHYSICAL EXAMINATION: VITAL SIGNS: Blood pressure 114/72, respiratory rate 15, pulse 119, temperature 99.1, and FiO2 of 70%. GENERAL: The patient is on BiPAP, somnolent, and arousable. HEENT: Extraocular muscles intact. No lymphadenopathy noted. CARDIOVASCULAR: S1, S2. No rubs or gallops. PULMONARY: Mild upper airway rhonchi. Fair air movement in all lung ramon. ABDOMEN: Soft and nontender. EXTREMITY: No edema noted. SKIN: No rashes. LABORATORY DATA: Laboratories dated 09/03/2017, sodium 151, potassium 3.7, chloride 110, bicarb 40, creatinine 1, and calcium 9.4. Hemoglobin 11.7, platelet count 114,000, and white cell count 6.2. ASSESSMENT AND PLAN: 1. Hypernatremia secondary to approximately 3 to 5 liters of intravascular volume depletion. At this time, we will hydrate the patient with hypotonic solution and D5W for 1 liter total at 75 mL/hour. We will also check a stat serum sodium level as the sodium of 151 was noted to be yesterday. 2. Volume depletion secondary to dehydration. At this time, we will hydrate the patient with hypotonic solution and D5W. We will check a stat serum sodium level. 3. Respiratory failure. The patient is on BiPAP. Defer to Pulmonary. 4. Schizophrenia. Continue all antipsychotics. I would take this opportunity to thank Dr. Mitchell for confidence in my nephrological service. I will continue to follow the patient on daily basis until his hypernatremia resolves. Cody Melendez MD DR: TONY JOB#: [id number] CC:
[2017-09-05] VITALS (25 sets, daily range): BP systolic 100–139; BP diastolic 45–89
[2017-09-05] MEDS: Ipratropium 0.02% Inh Soln 2.5ml UD HHN SCH ×4 (00:43→19:00)
[2017-09-05] MEDS: Albuterol ud Inhalation HHN SCH ×4 (00:43→18:59)
[2017-09-05 05:34] LABS: BASOPHILS % (AUTO) 0.3 % (0.0-2.0); EOSINOPHILS % (AUTO) 1.4 % (0.0-3.0); HEMATOCRIT 37.3 % (42.0-52.0); LYMPHOCYTES % (AUTO) 12.5 % (20.0-45.0); MEAN CORPUSCULAR VOLUME 97 FL (80-99); MONOCYTES % (AUTO) 17.1 % (1.0-10.0); NEUTROPHILS % (AUTO) 68.6 % (45.0-75.0); PLATELET COUNT 119 K/UL (150-450); RED BLOOD COUNT 3.86 M/UL (4.70-6.10); WHITE BLOOD COUNT 5.8 K/UL (4.8-10.8)
[2017-09-05 05:53] LABS: ANION GAP -2 mmol/L (5-15); BLOOD UREA NITROGEN 13 mg/dL (7-18); CALCIUM 8.9 MG/DL (8.5-10.1); CHLORIDE 112 MMOL/L (98-107); CREATININE 1.1 MG/DL (0.55-1.30); POTASSIUM 3.3 MMOL/L (3.5-5.1); SODIUM 153 MMOL/L (136-145)
[2017-09-05 05:59] LABS: CARBON DIOXIDE 43 MMOL/L (21-32)
[2017-09-05 06:13] LABS: INR 1.9 (0.9-1.1)
--- NOTE | 2017-09-05 08:05 | Nephrology Progress Note ---
Assessment/Plan Assessment/Plan 1. Hypernatremia- Na down to 153 - Continue D5W 2. Met Alk- due to met comp and maitenence alk from hypok - IVF's and replace K+ 3. Resp FL- on BiPAP - mgmt per Pulm Subjective Date patient seen: Sep 05, 2017 Time patient seen: 08:02 ROS Limited/Unobtainable: Yes Allergies: Coded Allergies: No Known Allergies (Unverified , 08/03/17) Subjective Patient on BiPAP. No acute distress Objective Last 24 Hour Vital Signs Date Time Temp Pulse Resp B/P (MAP) Pulse Ox O2 Delivery O2 Flow Rate FiO2 09/05/17 07:22 119 24 92 Bi-pap 55 09/05/17 07:12 112 20 91 Bi-pap 55 09/05/17 07:12 Bi-pap 55 09/05/17 07:11 119 26 90 Facial 55 09/05/17 07:11 90 Bi-pap 55 09/05/17 07:00 118 20 130/83 93 Bi-pap 55 09/05/17 06:00 118 20 123/70 88 Bi-pap 55 09/05/17 05:00 112 20 127/75 88 Bi-pap 55 09/05/17 04:35 108 23 89 Facial 55 09/05/17 04:00 98.3 111 18 127/75 88 Venturi Mask 55 98.3 09/05/17 04:00 70 09/05/17 04:00 106 09/05/17 03:00 116 18 118/78 88 Venturi Mask 55 09/05/17 02:43 98 16 88 Facial 55 09/05/17 02:00 100 18 121/87 90 Venturi Mask 55 09/05/17 01:00 112 18 114/70 90 Venturi Mask 55 09/05/17 00:55 110 19 95 Bi-pap 55 09/05/17 00:42 102 18 92 Bi-pap 55 09/05/17 00:40 103 17 89 Facial 55 09/05/17 00:00 70 09/05/17 00:00 98.2 97 18 110/68 90 Venturi Mask 55 98.2 09/05/17 00:00 96 09/04/17 23:00 105 17 105/67 92 Venturi Mask 55 09/04/17 22:30 105 12 91 14.0 55 09/04/17 22:00 108 12 118/74 93 Venturi Mask 55 09/04/17 21:00 109 16 102/61 87 Venturi Mask 55 09/04/17 20:51 98 14 90 14.0 55 09/04/17 20:00 55 18 20:00 99 09/04/17 20:00 98.2 99 16 94/56 87 Venturi Mask 55 98.2 09/04/17 19:16 112 12 91 Venturi Mask 14.0 55 09/04/17 19:00 110 14 115/72 87 Bi-pap 70 09/04/17 18:40 Venturi Mask 14.0 55 09/04/17 18:40 89 Venturi Mask 14.0 55 09/04/17 18:40 108 13 89 Venturi Mask 14.0 55 09/04/17 18:00 109 14 98/49 97 Bi-pap 70 09/04/17 17:00 97.8 99 12 99/65 92 Venturi Mask 50 97.8 09/04/17 16:00 97 14 96/68 97 Bi-pap 70 09/04/17 16:00 96 09/04/17 16:00 70 09/04/17 15:00 102 14 106/74 91 Bi-pap 70 09/04/17 14:33 97 14 96 Facial 70 09/04/17 14:00 105 14 100/68 91 Bi-pap 70 09/04/17 13:21 110 16 92 Bi-pap 70 09/04/17 13:14 107 16 92 Bi-pap 70 09/04/17 13:10 107 16 93 Facial 70 09/04/17 13:00 98.3 111 12 95/65 88 Bi-pap 70 98.3 09/04/17 12:00 107 15 94/68 88 Bi-pap 70 09/04/17 12:00 119 09/04/17 12:00 70 09/04/17 11:30 115 17 91 Facial 70 09/04/17 11:00 119 15 114/72 88 Bi-pap 70 09/04/17 10:51 99.1 09/04/17 10:00 119 15 120/68 88 Bi-pap 70 09/04/17 09:52 99.1 09/04/17 09:15 114 25 91 Facial 70 09/04/17 09:00 121 15 126/75 90 Bi-pap 70 Intake and Output 09/04/17 09/05/17 18:59 06:59 Intake Total 758.33 ml 1100 ml Output Total 325 ml 250 ml Balance 433.33 ml 850 ml Intake Oral 270 ml 100 ml IV Total 488.33 ml 1000 ml Output Urine Total 325 ml 250 ml # Voids 2 Laboratory Tests 09/04/17 12:50: Sodium Level 155H 09/05/17 04:12: Sodium Level 153H, White Blood Count 5.8, Red Blood Count 3.86L, Hemoglobin 11.0L, Hematocrit 37.3L, Mean Corpuscular Volume 97, Mean Corpuscular Hemoglobin 28.6, Mean Corpuscular Hemoglobin Concent 29.6L, Red Cell Distribution Width 17.0H, Platelet Count 119L, Mean Platelet Volume 7.1, Neutrophils (%) (Auto) 68.6, Lymphocytes (%) (Auto) 12.5L, Monocytes (%) (Auto) 17.1H, Eosinophils (%) (Auto) 1.4, Basophils (%) (Auto) 0.3, Prothrombin Time 19.9H, Prothromb Time International Ratio 1.9H, Potassium Level 3.3L, Chloride Level 112H, Carbon Dioxide Level 43*H, Anion Gap -2L, Blood Urea Nitrogen 13, Creatinine 1.1, Estimat Glomerular Filtration Rate > 60, Glucose Level 75, Calcium Level 8.9 Height (Feet): 5 Height (Inches): 9.00 Weight (Pounds): 180 General Appearance: no apparent distress, lethargic EENT: normal ENT inspection Neck: normal alignment, supple Cardiovascular: normal rate Respiratory/Chest: lungs clear, normal breath sounds Abdomen: non tender, soft Edema: no edema noted Arm (L), no edema noted Arm (R), no edema noted Leg (L), no edema noted Leg (R), no edema noted Pedal (L), no edema noted Pedal (R), no edema noted Generalized Cody Melendez M.D. Sep 05, 2017 08:05
--- NOTE | 2017-09-05 08:29 | Pulmonology Progress Note ---
Assessment/Plan Assessment/Plan 1. Acute respiratory failure. resolved 2. Right hemithorax opacification. Has recurrent partial collapse 3. History of right pleural effusion. 4. Schizophrenia 5. Chronic Coumadin usage. 5. Pulmonary edema; resolved; 6. Agitation DISCUSSION: Continue abx Now in ICU Requiring multiple psych meds;On Zyprexa and Risperidone, Celexa and Trazodone Seen by psych Ordered Haldol IM Discussed with [facility] case picker and Dr Barnett May require transfer to inpatient facility for psych and medical care Na worse Will check CXR On BiPAP WIll consider bronch and suctioning to open R main stem On vest and aggressive suctioning 60%Fio2 Will again order IPPB; I am being told not available here at [facility] Subjective Interval Events: on aggressive pulm hygiene; on BiPAP Constitutional: Reports: no symptoms HEENT: Repors: no symptoms Respiratory: Reports: no symptoms Cardiovascular: Reports: no symptoms Gastrointestinal/Abdominal: Reports: no symptoms Allergies: Coded Allergies: No Known Allergies (Unverified , 08/03/17) Objective Last 24 Hour Vital Signs Date Time Temp Pulse Resp B/P (MAP) Pulse Ox O2 Delivery O2 Flow Rate FiO2 09/05/17 07:22 119 24 92 Bi-pap 55 09/05/17 07:12 112 20 91 Bi-pap 55 09/05/17 07:12 Bi-pap 55 09/05/17 07:11 119 26 90 Facial 55 09/05/17 07:11 90 Bi-pap 55 09/05/17 07:00 118 20 130/83 93 Bi-pap 55 09/05/17 06:00 118 20 123/70 88 Bi-pap 55 09/05/17 05:00 112 20 127/75 88 Bi-pap 55 09/05/17 04:35 108 23 89 Facial 55 09/05/17 04:00 98.3 111 18 127/75 88 Venturi Mask 55 98.3 09/05/17 04:00 70 09/05/17 04:00 106 09/05/17 03:00 116 18 118/78 88 Venturi Mask 55 09/05/17 02:43 98 16 88 Facial 55 09/05/17 02:00 100 18 121/87 90 Venturi Mask 55 09/05/17 01:00 112 18 114/70 90 Venturi Mask 55 09/05/17 00:55 110 19 95 Bi-pap 55 09/05/17 00:42 102 18 92 Bi-pap 55 09/05/17 00:40 103 17 89 Facial 55 09/05/17 00:00 70 09/05/17 00:00 98.2 97 18 110/68 90 Venturi Mask 55 98.2 09/05/17 00:00 96 09/04/17 23:00 105 17 105/67 92 Venturi Mask 55 09/04/17 22:30 105 12 91 14.0 55 09/04/17 22:00 108 12 118/74 93 Venturi Mask 55 09/04/17 21:00 109 16 102/61 87 Venturi Mask 55 09/04/17 20:51 98 14 90 14.0 55 09/04/17 20:00 55 09/04/17 20:00 99 09/04/17 20:00 98.2 99 16 94/56 87 Venturi Mask 55 98.2 09/04/17 19:16 112 12 91 Venturi Mask 14.0 55 09/04/17 19:00 110 14 115/72 87 Bi-pap 70 09/04/17 18:40 Venturi Mask 14.0 55 09/04/17 18:40 89 Venturi Mask 14.0 55 09/04/17 18:40 108 13 89 Venturi Mask 14.0 55 09/04/17 18:00 109 14 98/49 97 Bi-pap 70 09/04/17 17:00 97.8 99 12 99/65 92 Venturi Mask 50 97.8 09/04/17 16:00 97 14 96/68 97 Bi-pap 70 09/04/17 16:00 96 09/04/17 16:00 70 09/04/17 15:00 102 14 106/74 91 Bi-pap 70 09/04/17 14:33 97 14 96 Facial 70 09/04/17 14:00 105 14 100/68 91 Bi-pap 70 09/04/17 13:21 110 16 92 Bi-pap 70 09/04/17 13:14 107 16 92 Bi-pap 70 09/04/17 13:10 107 16 93 Facial 70 09/04/17 13:00 98.3 111 12 95/65 88 Bi-pap 70 98.3 09/04/17 12:00 107 15 94/68 88 Bi-pap 70 09/04/17 12:00 119 09/04/17 12:00 70 09/04/17 11:30 115 17 91 Facial 70 09/04/17 11:00 119 15 114/72 88 Bi-pap 70 09/04/17 10:51 99.1 09/04/17 10:00 119 15 120/68 88 Bi-pap 70 09/04/17 09:52 99.1 09/04/17 09:15 114 25 91 Facial 70 09/04/17 09:00 121 15 126/75 90 Bi-pap 70 Intake and Output 09/04/17 09/05/17 19:00 07:00 Intake Total 1083.33 ml 775 ml Output Total 325 ml 270 ml Balance 758.33 ml 505 ml Intake Oral 370 ml IV Total 713.33 ml 775 ml Output Urine Total 325 ml 270 ml # Voids 2 General Appearance: no acute distress HEENT: normocephalic Respiratory/Chest: chest wall non-tender, lungs clear Cardiovascular: normal peripheral pulses, normal rate Abdomen: normal bowel sounds Laboratory Tests 09/04/17 12:50: Sodium Level 155H 09/05/17 04:12: Sodium Level 153H, White Blood Count 5.8, Red Blood Count 3.86L, Hemoglobin 11.0L, Hematocrit 37.3L, Mean Corpuscular Volume 97, Mean Corpuscular Hemoglobin 28.6, Mean Corpuscular Hemoglobin Concent 29.6L, Red Cell Distribution Width 17.0H, Platelet Count 119L, Mean Platelet Volume 7.1, Neutrophils (%) (Auto) 68.6, Lymphocytes (%) (Auto) 12.5L, Monocytes (%) (Auto) 17.1H, Eosinophils (%) (Auto) 1.4, Basophils (%) (Auto) 0.3, Prothrombin Time 19.9H, Prothromb Time International Ratio 1.9H, Potassium Level 3.3L, Chloride Level 112H, Carbon Dioxide Level 43*H, Anion Gap -2L, Blood Urea Nitrogen 13, Creatinine 1.1, Estimat Glomerular Filtration Rate > 60, Glucose Level 75, Calcium Level 8.9 Current Medications Medications (Trade) Dose Ordered Sig/Kika Route PRN Reason Start Time Stop Time Status Last Admin Dose Admin Acetaminophen (Tylenol) 650 mg Q4H PRN ORAL Mild Pain/Temp > 100.5 09/03/17 01:00 09/23/17 16:59 09/04/17 09:52 Albuterol Sulfate (Proventil MDI) 2 puff Q6H PRN INH Shortness of Breath 09/03/17 06:00 09/25/17 17:59 Albuterol Sulfate (Proventil) 2.5 mg Q6HRT HHN 09/03/17 01:00 09/06/17 12:59 09/05/17 07:12 Atorvastatin Calcium (Lipitor) 10 mg BEDTIME ORAL 09/03/17 21:00 09/23/17 20:59 09/04/17 20:56 Citalopram Hydrobromide (celeXA) 40 mg DAILY ORAL 09/03/17 09:00 09/25/17 08:59 09/04/17 09:52 Dextrose 1,000 ml @ 75 mls/hr [id number] IV 09/05/17 08:15 10/05/17 08:14 Divalproex Sodium (Depakote Sprinkles) 500 mg EVERY 12 HOURS GT 09/03/17 09:00 09/23/17 20:59 09/04/17 20:55 Docusate Sodium (Colace) 100 mg TIDPRN PRN ORAL Constipation 09/04/17 10:45 10/04/17 10:44 Ipratropium [place] (Atrovent) 100 mcg Q6HRT HHN 09/03/17 01:00 09/06/17 12:59 09/05/17 07:12 Olanzapine (ZyPREXA) 10 mg Q12HR ORAL 09/03/17 09:00 09/27/17 20:59 09/04/17 20:56 Potassium Chloride 100 ml @ 100 mls/hr NOW ONCE IVPB 09/05/17 08:30 09/05/17 09:29 Quetiapine Fumarate (SEROquel) 100 mg TID ORAL 09/03/17 09:00 09/26/17 12:59 09/04/17 18:14 Risperidone (RisperDAL) 2 mg TID ORAL 09/03/17 09:00 09/26/17 17:59 09/04/17 18:14 Trazodone HCl (Desyrel) 200 mg BEDTIME ORAL 09/03/17 21:00 10/03/17 20:59 09/04/17 20:56 Vancomycin HCl (Vanco rx to dose) 1 ea DAILY PRN MISC Per rx protocol 09/03/17 09:00 09/26/17 10:59 Vancomycin/Sodium Chloride 250 ml @ 166.667 mls/hr Q12H IVPB 09/03/17 09:30 09/06/17 09:29 09/04/17 21:17 Warfarin Sodium (Coumadin per pharmacy) 1 ea DAILY PRN MISC Per rx protocol 09/03/17 09:00 09/25/17 16:59 Richardson Mitchell MD Sep 05, 2017 08:29
[2017-09-05] MEDS: Depakote 125mg Sprinkles GT SCH ×2 (09:15→21:17)
[2017-09-05] MEDS: Vancomycin 750mg/NS 250ml 250 ML IVPB SCH ×2 (09:15→21:34)
[2017-09-05] MEDS: Citalopram Hydrobromide 10mg Tab ORAL SCH (09:16)
[2017-09-05] MEDS: OLANZapine 10mg tab ORAL SCH ×2 (09:16→21:17)
--- NOTE | 2017-09-05 09:55 | Diagnostic Imaging Report ---
Indication: Abnormal chest sounds Technique: One view of the chest Comparison: 09/04/2017 Findings: Interim improvement of aeration of the right lung, although there is still considerable volume loss. Right basilar opacity may reflect volume loss or pleural fluid. There is mild interstitial congestive change within the aerated right lung There is increasing hazy infiltrate in the left infrahilar region. Impression: Improved right lung aeration, over one day. There is still basilar volume loss and possibly pleural fluid, however. Increasing left infrahilar hazy infiltrate
--- NOTE | 2017-09-05 11:16 | Infectious Diseases Prog Note ---
Assessment/Plan Assessment/Plan antibiotics : vancomycin iv 6.13.18 - A 1. MRSA pneumonia 2. respiratory failure 3. fungal UTI s/p rx 4. COPD 5. hypertension 6. renal stone 7. right pleural effusion P 1. continue iv vancomycin 4 more days 2. will follow up cultures Subjective ROS Limited/Unobtainable: Yes Allergies: Coded Allergies: No Known Allergies (Unverified , 08/03/17) Objective Vital Signs Last 24 Hour Vital Signs Date Time Temp Pulse Resp B/P (MAP) Pulse Ox O2 Delivery O2 Flow Rate FiO2 09/05/17 11:00 108 16 129/73 98 Venturi Mask 55 09/05/17 10:00 110 17 137/89 89 Bi-pap 55 09/05/17 09:30 102 14 99 Facial 55 09/05/17 09:00 106 15 136/83 89 Bi-pap 55 09/05/17 08:00 55 09/05/17 08:00 98.1 104 17 139/82 93 Bi-pap 55 98.1 09/05/17 08:00 115 09/05/17 07:22 119 24 92 Bi-pap 55 09/05/17 07:12 112 20 91 Bi-pap 55 09/05/17 07:12 Bi-pap 55 09/05/17 07:11 119 26 90 Facial 55 09/05/17 07:11 90 Bi-pap 55 09/05/17 07:00 118 20 130/83 93 Bi-pap 55 09/05/17 06:00 118 20 123/70 88 Bi-pap 55 09/05/17 05:00 112 20 127/75 88 Bi-pap 55 09/05/17 04:35 108 23 89 Facial 55 09/05/17 04:00 98.3 111 18 127/75 88 Venturi Mask 55 98.3 09/05/17 04:00 70 09/05/17 04:00 106 09/05/17 03:00 116 18 118/78 88 Venturi Mask 55 09/05/17 02:43 98 16 88 Facial 55 09/05/17 02:00 100 18 121/87 90 Venturi Mask 55 09/05/17 01:00 112 18 114/70 90 Venturi Mask 55 09/05/17 00:55 110 19 95 Bi-pap 55 09/05/17 00:42 102 18 92 Bi-pap 55 09/05/17 00:40 103 17 89 Facial 55 09/05/17 00:00 70 09/05/17 00:00 98.2 97 18 110/68 90 Venturi Mask 55 98.2 09/05/17 00:00 96 09/04/17 23:00 105 17 105/67 92 Venturi Mask 55 09/04/17 22:30 105 12 91 14.0 55 09/04/17 22:00 108 12 118/74 93 Venturi Mask 55 09/04/17 21:00 109 16 102/61 87 Venturi Mask 55 09/04/17 20:51 98 14 90 14.0 55 09/04/17 20:00 55 09/04/17 20:00 99 09/04/17 20:00 98.2 99 16 94/56 87 Venturi Mask 55 98.2 09/04/17 19:16 112 12 91 Venturi Mask 14.0 55 09/04/17 19:00 110 14 115/72 87 Bi-pap 70 09/04/17 18:40 Venturi Mask 14.0 55 09/04/17 18:40 89 Venturi Mask 14.0 55 09/04/17 18:40 108 13 89 Venturi Mask 14.0 55 09/04/17 18:00 109 14 98/49 97 Bi-pap 70 09/04/17 17:00 97.8 99 12 99/65 92 Venturi Mask 50 97.8 09/04/17 16:00 97 14 96/68 97 Bi-pap 70 09/04/17 16:00 96 09/04/17 16:00 70 09/04/17 15:00 102 14 106/74 91 Bi-pap 70 09/04/17 14:33 97 14 96 Facial 70 09/04/17 14:00 105 14 100/68 91 Bi-pap 70 09/04/17 13:21 110 16 92 Bi-pap 70 09/04/17 13:14 107 16 92 Bi-pap 70 09/04/17 13:10 107 16 93 Facial 70 09/04/17 13:00 98.3 111 12 95/65 88 Bi-pap 70 98.3 09/04/17 12:00 107 15 94/68 88 Bi-pap 70 09/04/17 12:00 119 09/04/17 12:00 70 09/04/17 11:30 115 17 91 Facial 70 Height (Feet): 5 Height (Inches): 9.00 Weight (Pounds): 180 Respiratory/Chest: lungs clear Cardiovascular: normal rate, regular rhythm, no gallop/murmur Abdomen: soft, non tender Extremities: no edema Laboratory Tests Test 09/04/17 12:50 09/05/17 04:12 Sodium Level 155 MMOL/L (136-145) H 153 MMOL/L (136-145) H White Blood Count 5.8 K/UL (4.8-10.8) Red Blood Count 3.86 M/UL (4.70-6.10) L Hemoglobin 11.0 G/DL (14.2-18.0) L Hematocrit 37.3 % (42.0-52.0) L Mean Corpuscular Volume 97 FL (80-99) Mean Corpuscular Hemoglobin 28.6 PG (27.0-31.0) Mean Corpuscular Hemoglobin Concent 29.6 G/DL (32.0-36.0) L Red Cell Distribution Width 17.0 % (11.6-14.8) H Platelet Count 119 K/UL (150-450) L Mean Platelet Volume 7.1 FL (6.5-10.1) Neutrophils (%) (Auto) 68.6 % (45.0-75.0) Lymphocytes (%) (Auto) 12.5 % (20.0-45.0) L Monocytes (%) (Auto) 17.1 % (1.0-10.0) H Eosinophils (%) (Auto) 1.4 % (0.0-3.0) Basophils (%) (Auto) 0.3 % (0.0-2.0) Prothrombin Time 19.9 SEC (9.30-11.50) H Prothromb Time International Ratio 1.9 (0.9-1.1) H Potassium Level 3.3 MMOL/L (3.5-5.1) L Chloride Level 112 MMOL/L (98-107) H Carbon Dioxide Level 43 MMOL/L (21-32) *H Anion Gap -2 mmol/L (5-15) L Blood Urea Nitrogen 13 mg/dL (7-18) Creatinine 1.1 MG/DL (0.55-1.30) Estimat Glomerular Filtration Rate > 60 mL/min (>60) Glucose Level 75 MG/DL (74-106) Calcium Level 8.9 MG/DL (8.5-10.1) Current Medications Medications (Trade) Dose Ordered Sig/Kika Route PRN Reason Start Time Stop Time Status Last Admin Dose Admin Acetaminophen (Tylenol) 650 mg Q4H PRN ORAL Mild Pain/Temp > 100.5 09/03/17 01:00 09/23/17 16:59 09/04/17 09:52 Albuterol Sulfate (Proventil MDI) 2 puff Q6H PRN INH Shortness of Breath 09/03/17 06:00 09/25/17 17:59 Albuterol Sulfate (Proventil) 2.5 mg Q6HRT HHN 09/03/17 01:00 09/06/17 12:59 09/05/17 07:12 Atorvastatin Calcium (Lipitor) 10 mg BEDTIME ORAL 09/03/17 21:00 09/23/17 20:59 09/04/17 20:56 Citalopram Hydrobromide (celeXA) 40 mg DAILY ORAL 09/03/17 09:00 09/25/17 08:59 09/05/17 09:16 Dextrose 1,000 ml @ 75 mls/hr [id number] IV 09/05/17 08:15 10/05/17 08:14 09/05/17 09:31 Divalproex Sodium (Depakote Sprinkles) 500 mg EVERY 12 HOURS GT 09/03/17 09:00 09/23/17 20:59 09/05/17 09:15 Docusate Sodium (Colace) 100 mg TIDPRN PRN ORAL Constipation 09/04/17 10:45 10/04/17 10:44 Ipratropium [place] (Atrovent) 100 mcg Q6HRT HHN 09/03/17 01:00 09/06/17 12:59 09/05/17 07:12 Olanzapine (ZyPREXA) 10 mg Q12HR ORAL 09/03/17 09:00 09/27/17 20:59 09/05/17 09:16 Potassium Chloride 100 ml @ 100 mls/hr NOW ONCE IVPB 09/05/17 11:15 09/05/17 12:14 UNV Quetiapine Fumarate (SEROquel) 100 mg TID ORAL 09/03/17 09:00 09/26/17 12:59 09/05/17 09:15 Risperidone (RisperDAL) 2 mg TID ORAL 09/03/17 09:00 09/26/17 17:59 09/05/17 09:16 Trazodone HCl (Desyrel) 200 mg BEDTIME ORAL 09/03/17 21:00 10/03/17 20:59 09/04/17 20:56 Vancomycin HCl (Vanco rx to dose) 1 ea DAILY PRN MISC Per rx protocol 09/03/17 09:00 09/26/17 10:59 Vancomycin/Sodium Chloride 250 ml @ 166.667 mls/hr Q12H IVPB 09/03/17 09:30 09/10/17 09:29 09/05/17 09:15 Warfarin Sodium (Coumadin per pharmacy) 1 ea DAILY PRN MISC Per rx protocol 09/03/17 09:00 09/25/17 16:59 Warfarin Sodium (Coumadin) 1.5 mg COUMADIN ORAL 09/05/17 17:00 09/05/17 18:01 LALI COCHRAN Sep 05, 2017 11:16
[2017-09-05] MEDS ORDERED: Warfarin Sodium 1mg ORAL SCH (17:00)
[2017-09-05] MEDS: TraZODone 100mg tab ORAL SCH (21:17)
[2017-09-06] VITALS (21 sets, daily range): BP systolic 108–138; BP diastolic 63–87
[2017-09-06] MEDS: Albuterol ud Inhalation HHN SCH ×2 (01:18→08:01)
[2017-09-06] MEDS: Ipratropium 0.02% Inh Soln 2.5ml UD HHN SCH ×2 (01:19→08:01)
[2017-09-06 06:08] LABS: BASOPHILS % (AUTO) 0.8 % (0.0-2.0); HEMATOCRIT 37.3 % (42.0-52.0); HEMOGLOBIN 10.7 G/DL (14.2-18.0); LYMPHOCYTES % (AUTO) 13.6 % (20.0-45.0); MEAN CORPUSCULAR VOLUME 95 FL (80-99); MONOCYTES % (AUTO) 15.4 % (1.0-10.0); NEUTROPHILS % (AUTO) 68.2 % (45.0-75.0); PLATELET COUNT 119 K/UL (150-450); RED BLOOD COUNT 3.92 M/UL (4.70-6.10); RED CELL DISTRIBUTION WIDTH 16.9 % (11.6-14.8)
[2017-09-06 06:19] LABS: INR 2.2 (0.9-1.1)
[2017-09-06 06:30] LABS: ANION GAP 4 mmol/L (5-15); BLOOD UREA NITROGEN 12 mg/dL (7-18); CALCIUM 8.7 MG/DL (8.5-10.1); CARBON DIOXIDE 38 MMOL/L (21-32); CHLORIDE 108 MMOL/L (98-107); CREATININE 1.1 MG/DL (0.55-1.30); POTASSIUM 3.9 MMOL/L (3.5-5.1); SODIUM 150 MMOL/L (136-145)
--- NOTE | 2017-09-06 08:58 | Nephrology Progress Note ---
Assessment/Plan Assessment/Plan 1. Hypernatremia- Na down to 150 on IVFs - Continue D5W for one more day 2. Met Alk- due to met comp and maitenence alk from hypok - IVF's and replacement of K+ have corrected the alkalosis 3. Resp FL- on NRB now - mgmt per Pulm Subjective Date patient seen: Sep 06, 2017 Time patient seen: 08:55 ROS Limited/Unobtainable: Yes Allergies: Coded Allergies: No Known Allergies (Unverified , 08/03/17) Subjective Patient off BiPAP on NRB. And now eating Objective Last 24 Hour Vital Signs Date Time Temp Pulse Resp B/P (MAP) Pulse Ox O2 Delivery O2 Flow Rate FiO2 09/06/17 08:10 108 22 99 Venturi Mask 10.0 45 09/06/17 08:01 118 25 94 Venturi Mask 55 09/06/17 08:01 93 Venturi Mask 10.0 45 09/06/17 08:01 Bi-pap 09/06/17 08:00 97.9 119 25 124/76 94 Venturi Mask 45 97.9 09/06/17 08:00 112 09/06/17 07:00 106 18 129/80 94 Venturi Mask 45 09/06/17 06:00 112 18 130/71 94 Bi-pap 55 09/06/17 05:07 111 15 97 Full Face 55 09/06/17 05:00 97.8 90 17 126/70 98 Bi-pap 55 97.8 09/06/17 04:00 90 09/06/17 04:00 55 09/06/17 04:00 90 16 138/86 96 Bi-pap 55 09/06/17 04:00 55 09/06/17 04:00 94 09/06/17 03:13 112 15 95 Full Face 55 09/06/17 03:00 96 13 134/78 94 Bi-pap 55 09/06/17 02:00 105 14 118/72 96 Bi-pap 55 09/06/17 01:30 104 16 99 Bi-pap 55 09/06/17 01:17 98 15 97 Bi-pap 55 09/06/17 01:16 97 15 97 Facial 55 09/06/17 01:00 98 12 133/87 98 Bi-pap 55 09/06/17 00:00 55 09/06/17 00:00 102 09/06/17 00:00 55 09/06/17 00:00 98.0 107 18 134/78 95 Bi-pap 55 98.0 09/05/17 23:25 104 14 99 Facial 55 09/05/17 23:00 101 19 132/45 96 Bi-pap 55 09/05/17 22:00 55 09/05/17 22:00 101 17 125/70 98 Bi-pap 55 09/05/17 21:00 102 16 124/74 94 Venturi Mask 45 09/05/17 20:55 102 16 99 Facial 55 09/05/17 20:00 98.3 107 11 108/60 94 Venturi Mask 45 98.3 09/05/17 20:00 45.0 09/05/17 20:00 107 09/05/17 19:25 115 16 96 Venturi Mask 10.0 45 09/05/17 19:07 93 09/05/17 19:04 Venturi Mask 10.0 45 09/05/17 19:04 93 Venturi Mask 10.0 45 09/05/17 19:00 100 15 93 Venturi Mask 10.0 45 09/05/17 19:00 101 17 112/62 94 Venturi Mask 45 09/05/17 18:00 99 17 124/69 94 Venturi Mask 45 09/05/17 17:15 97 09/05/17 17:00 90 11 125/75 97 Venturi Mask 45 09/05/17 16:01 97.8 93 12 100/54 99 Venturi Mask 45 97.8 09/05/17 16:00 94 09/05/17 16:00 40.0 09/05/17 15:00 99 19 123/72 96 Venturi Mask 40 09/05/17 14:31 106 16 99 Venturi Mask 10.0 45 09/05/17 14:21 109 15 91 Venturi Mask 10.0 45 09/05/17 14:00 111 17 120/71 92 Venturi Mask 40 09/05/17 13:00 102 10 121/70 98 Venturi Mask 40 09/05/17 12:00 102 09/05/17 12:00 55 09/05/17 12:00 98.1 107 11 129/71 97 Venturi Mask 55 98.1 09/05/17 11:01 103 18 99 09/05/17 11:00 108 16 129/73 98 Venturi Mask 55 09/05/17 10:00 110 17 137/89 89 Bi-pap 55 09/05/17 09:30 102 14 99 Facial 55 09/05/17 09:00 106 15 136/83 89 Bi-pap 55 Intake and Output 09/05/17 09/06/17 19:00 07:00 Intake Total 2962.5 ml 1250 ml Output Total 785 ml 490 ml Balance 2177.5 ml 760 ml Intake Oral 880 ml 100 ml IV Total 2062.5 ml 1150 ml Other 20 ml Output Urine Total 785 ml 490 ml # Voids 2 Laboratory Tests 09/06/17 05:00: White Blood Count 6.0, Red Blood Count 3.92L, Hemoglobin 10.7L, Hematocrit 37.3L , Mean Corpuscular Volume 95, Mean Corpuscular Hemoglobin 27.4, Mean Corpuscular Hemoglobin Concent 28.7L, Red Cell Distribution Width 16.9H, Platelet Count 119L, Mean Platelet Volume 5.8L, Neutrophils (%) (Auto) 68.2, Lymphocytes (%) (Auto) 13.6L, Monocytes (%) (Auto) 15.4H, Eosinophils (%) (Auto ) 2.0, Basophils (%) (Auto) 0.8, Prothrombin Time 23.4H, Prothromb Time International Ratio 2.2H, Sodium Level 150H, Potassium Level 3.9, Chloride Level 108H, Carbon Dioxide Level 38H, Anion Gap 4L, Blood Urea Nitrogen 12, Creatinine 1.1, Estimat Glomerular Filtration Rate > 60, Glucose Level 72L, Calcium Level 8.7 Height (Feet): 5 Height (Inches): 9.00 Weight (Pounds): 179 General Appearance: no apparent distress EENT: normal ENT inspection Neck: normal alignment, supple Cardiovascular: normal rate, regular rhythm Respiratory/Chest: rhonchi - bilaterally Abdomen: non tender, soft Edema: no edema noted Arm (L), no edema noted Arm (R), no edema noted Leg (L), no edema noted Leg (R), no edema noted Pedal (L), no edema noted Pedal (R), no edema noted Generalized Cody Melendez M.D. Sep 06, 2017 08:58
[2017-09-06] MEDS: OLANZapine 10mg tab ORAL SCH ×2 (09:18→21:31)
[2017-09-06] MEDS: Depakote 125mg Sprinkles GT SCH ×2 (09:19→21:30)
[2017-09-06] MEDS: Citalopram Hydrobromide 10mg Tab ORAL SCH (09:19)
--- NOTE | 2017-09-06 09:23 | Pulmonology Progress Note ---
Assessment/Plan Assessment/Plan 1. Acute respiratory failure. resolved; on ventimask 2. Right hemithorax opacification. Has recurrent partial collapse; much improved after aggressive pulmonary hygiene with metanebs and VEST 3. History of right pleural effusion. 4. Schizophrenia 5. Chronic Coumadin usage. 5. Pulmonary edema; resolved; 6. Agitation DISCUSSION: Continue abx Now in ICU; will transfr to [facility] Requiring multiple psych meds;On Zyprexa and Risperidone, Celexa and Trazodone Seen by psych Ordered Haldol IM Discussed with Williams Alcantara case assistant and Dr Barnett May require transfer to inpatient facility for psych and medical care Na improving Reviewed CXR Off BiPAP On vest and aggressive suctioning 50%Fio2 Subjective Interval Events: CXR reviewd; improving R lung atalectasis Constitutional: Reports: no symptoms HEENT: Repors: no symptoms Respiratory: Reports: no symptoms Cardiovascular: Reports: no symptoms Gastrointestinal/Abdominal: Reports: no symptoms Genitourinary: Reports: no symptoms Neurologic: Reports: no symptoms Allergies: Coded Allergies: No Known Allergies (Unverified , 08/03/17) Objective Last 24 Hour Vital Signs Date Time Temp Pulse Resp B/P (MAP) Pulse Ox O2 Delivery O2 Flow Rate FiO2 09/06/17 08:10 108 22 99 Venturi Mask 10.0 45 09/06/17 08:01 118 25 94 Venturi Mask 55 09/06/17 08:01 93 Venturi Mask 10.0 45 09/06/17 08:01 Bi-pap 09/06/17 08:00 97.9 119 25 124/76 94 Venturi Mask 45 97.9 09/06/17 08:00 112 09/06/17 07:00 106 18 129/80 94 Venturi Mask 45 09/06/17 06:00 112 18 130/71 94 Bi-pap 55 09/06/17 05:07 111 15 97 Full Face 55 09/06/17 05:00 97.8 90 17 126/70 98 Bi-pap 55 97.8 09/06/17 04:00 90 09/06/17 04:00 55 09/06/17 04:00 90 16 138/86 96 Bi-pap 55 09/06/17 04:00 55 09/06/17 04:00 94 09/06/17 03:13 112 15 95 Full Face 55 09/06/17 03:00 96 13 134/78 94 Bi-pap 55 09/06/17 02:00 105 14 118/72 96 Bi-pap 55 09/06/17 01:30 104 16 99 Bi-pap 55 09/06/17 01:17 98 15 97 Bi-pap 55 09/06/17 01:16 97 15 97 Facial 55 09/06/17 01:00 98 12 133/87 98 Bi-pap 55 09/06/17 00:00 55 09/06/17 00:00 102 09/06/17 00:00 55 09/06/17 00:00 98.0 107 18 134/78 95 Bi-pap 55 98.0 09/05/17 23:25 104 14 99 Facial 55 09/05/17 23:00 101 19 132/45 96 Bi-pap 55 09/05/17 22:00 55 09/05/17 22:00 101 17 125/70 98 Bi-pap 55 09/05/17 21:00 102 16 124/74 94 Venturi Mask 45 09/05/17 20:55 102 16 99 Facial 55 09/05/17 20:00 98.3 107 11 108/60 94 Venturi Mask 45 98.3 09/05/17 20:00 45.0 09/05/17 20:00 107 09/05/17 19:25 115 16 96 Venturi Mask 10.0 45 09/05/17 19:07 93 09/05/17 19:04 Venturi Mask 10.0 45 09/05/17 19:04 93 Venturi Mask 10.0 45 09/05/17 19:00 100 15 93 Venturi Mask 10.0 45 09/05/17 19:00 101 17 112/62 94 Venturi Mask 45 09/05/17 18:00 99 17 124/69 94 Venturi Mask 45 09/05/17 17:15 97 09/05/17 17:00 90 11 125/75 97 Venturi Mask 45 09/05/17 16:01 97.8 93 12 100/54 99 Venturi Mask 45 97.8 09/05/17 16:00 94 09/05/17 16:00 40.0 09/05/17 15:00 99 19 123/72 96 Venturi Mask 40 09/05/17 14:31 106 16 99 Venturi Mask 10.0 45 09/05/17 14:21 109 15 91 Venturi Mask 10.0 45 09/05/17 14:00 111 17 120/71 92 Venturi Mask 40 09/05/17 13:00 102 10 121/70 98 Venturi Mask 40 09/05/17 12:00 102 09/05/17 12:00 55 09/05/17 12:00 98.1 107 11 129/71 97 Venturi Mask 55 98.1 09/05/17 11:01 103 18 99 09/05/17 11:00 108 16 129/73 98 Venturi Mask 55 09/05/17 10:00 110 17 137/89 89 Bi-pap 55 09/05/17 09:30 102 14 99 Facial 55 Intake and Output 09/05/17 09/06/17 19:00 07:00 Intake Total 2962.5 ml 1250 ml Output Total 785 ml 490 ml Balance 2177.5 ml 760 ml Intake Oral 880 ml 100 ml IV Total 2062.5 ml 1150 ml Other 20 ml Output Urine Total 785 ml 490 ml # Voids 2 General Appearance: no acute distress HEENT: normocephalic Respiratory/Chest: chest wall non-tender, lungs clear Cardiovascular: normal peripheral pulses, normal rate Laboratory Tests 09/06/17 05:00: White Blood Count 6.0, Red Blood Count 3.92L, Hemoglobin 10.7L, Hematocrit 37.3L , Mean Corpuscular Volume 95, Mean Corpuscular Hemoglobin 27.4, Mean Corpuscular Hemoglobin Concent 28.7L, Red Cell Distribution Width 16.9H, Platelet Count 119L, Mean Platelet Volume 5.8L, Neutrophils (%) (Auto) 68.2, Lymphocytes (%) (Auto) 13.6L, Monocytes (%) (Auto) 15.4H, Eosinophils (%) (Auto ) 2.0, Basophils (%) (Auto) 0.8, Prothrombin Time 23.4H, Prothromb Time International Ratio 2.2H, Sodium Level 150H, Potassium Level 3.9, Chloride Level 108H, Carbon Dioxide Level 38H, Anion Gap 4L, Blood Urea Nitrogen 12, Creatinine 1.1, Estimat Glomerular Filtration Rate > 60, Glucose Level 72L, Calcium Level 8.7 Current Medications Medications (Trade) Dose Ordered Sig/Kika Route PRN Reason Start Time Stop Time Status Last Admin Dose Admin Acetaminophen (Tylenol) 650 mg Q4H PRN ORAL Mild Pain/Temp > 100.5 09/03/17 01:00 09/23/17 16:59 09/04/17 09:52 Albuterol Sulfate (Proventil MDI) 2 puff Q6H PRN INH Shortness of Breath 09/03/17 06:00 09/25/17 17:59 Albuterol Sulfate (Proventil) 2.5 mg Q6HRT HHN 09/03/17 01:00 09/06/17 12:59 09/06/17 08:01 Atorvastatin Calcium (Lipitor) 10 mg BEDTIME ORAL 09/03/17 21:00 09/23/17 20:59 09/05/17 21:17 Citalopram Hydrobromide (celeXA) 40 mg DAILY ORAL 09/03/17 09:00 09/25/17 08:59 09/06/17 09:19 Dextrose 1,000 ml @ 75 mls/hr [id number] IV 09/05/17 08:15 10/05/17 08:14 09/05/17 21:35 Divalproex Sodium (Depakote Sprinkles) 500 mg EVERY 12 HOURS GT 09/03/17 09:00 09/23/17 20:59 09/06/17 09:19 Docusate Sodium (Colace) 100 mg TIDPRN PRN ORAL Constipation 09/04/17 10:45 10/04/17 10:44 Ipratropium [place] (Atrovent) 100 mcg Q6HRT N 09/03/17 01:00 09/06/17 12:59 09/06/17 08:01 Olanzapine (ZyPREXA) 10 mg Q12HR ORAL 09/03/17 09:00 09/27/17 20:59 09/06/17 09:18 Quetiapine Fumarate (SEROquel) 100 mg TID ORAL 09/03/17 09:00 09/26/17 12:59 09/06/17 09:18 Risperidone (RisperDAL) 2 mg TID ORAL 09/03/17 09:00 09/26/17 17:59 09/06/17 09:18 Trazodone HCl (Desyrel) 200 mg BEDTIME ORAL 09/03/17 21:00 10/03/17 20:59 09/05/17 21:17 Vancomycin HCl (Vanco rx to dose) 1 ea DAILY PRN MISC Per rx protocol 09/03/17 09:00 09/26/17 10:59 Vancomycin/Sodium Chloride 250 ml @ 166.667 mls/hr Q12H IVPB 09/03/17 09:30 09/10/17 09:29 09/05/17 21:34 Warfarin Sodium (Coumadin per pharmacy) 1 ea DAILY PRN MISC Per rx protocol 09/03/17 09:00 09/25/17 16:59 Warfarin Sodium (Coumadin) 0.5 mg COUMADIN ORAL 09/06/17 17:00 09/06/17 18:00 Richardson Mitchell MD Sep 06, 2017 09:23
--- NOTE | 2017-09-06 09:33 | Diagnostic Imaging Report ---
History: ABN CHST Exam: XR CXR 1 VIEW Comparison: 08/31 and FINDINGS: Question possible mild increased vascular congestion on the current study. Otherwise no significant interval change in appearance of the chest. Patchy opacity at the left base again noted. Opacity, consolidation and possible partial collapse at the right base again noted. Difficult to exclude a right pleural effusion. The patient is again rotated to the right. The cardiac silhouette and mediastinal structures are not significantly changed in appearance. IMPRESSION: Question possible mild increased vascular congestion on the current study. Otherwise no significant interval change in appearance of the chest. Patchy opacity at the left base again noted. Opacity, consolidation and possible partial collapse at the right base again noted. Difficult to exclude a right pleural effusion.
[2017-09-06] MEDS: Vancomycin 750mg/NS 250ml 250 ML IVPB SCH ×2 (10:43→21:26)
[2017-09-06] MEDS ORDERED: NS 275ml ONE ×2 (10:52→10:57)
[2017-09-06] MEDS ORDERED: NS Irrig 1000ml ONE (10:52)
[2017-09-06] MEDS ORDERED: Tubing IV Secondary IV ONE (10:52)
[2017-09-06] MEDS ORDERED: Sterile Water Irrig 1000ml IRRIG ONE (10:57)
[2017-09-06] MEDS ORDERED: NS 500ML ONE (10:57)
[2017-09-06] MEDS ORDERED: Milk of Magnesia 30ml Ud ORAL PRN (13:30)
[2017-09-06] MEDS ORDERED: Sterile Water For Irrig 2000ml IRRIG ONE (16:35)
[2017-09-06] MEDS ORDERED: Warfarin Sodium 1mg ORAL SCH (17:00)
[2017-09-06] MEDS ORDERED: Docusate 100mg cap ORAL PRN (20:00)
[2017-09-06] MEDS ORDERED: Albuterol 90mcg Inhaler 8gm INH PRN (20:00)
[2017-09-06] MEDS: TraZODone 100mg tab ORAL SCH (21:29)
[2017-09-07] VITALS: BP 94/72
[2017-09-07 04:00] VITALS: BP 121/81
[2017-09-07 04:31] LABS: INR 2.6 (0.9-1.1)
[2017-09-07 04:45] LABS: ANION GAP 0 mmol/L (5-15); BLOOD UREA NITROGEN 8 mg/dL (7-18); CALCIUM 8.8 MG/DL (8.5-10.1); CARBON DIOXIDE 38 MMOL/L (21-32); CHLORIDE 107 MMOL/L (98-107); CREATININE 1.1 MG/DL (0.55-1.30); POTASSIUM 4.4 MMOL/L (3.5-5.1); SODIUM 145 MMOL/L (136-145)
[2017-09-07 08:47] VITALS: BP 129/78
--- NOTE | 2017-09-07 09:23 | Nephrology Progress Note ---
Assessment/Plan Assessment/Plan 1. Hypernatremia- Resolved - DC D5W today. Will sign off. Thank you for the consult 2. Met Alk- due to met comp and maitenence alk from hypok - corrected, DC IVF's 3. Resp FL- on NRB now - mgmt per Pulm Subjective Date patient seen: Sep 07, 2017 Time patient seen: 09:21 ROS Limited/Unobtainable: Yes Allergies: Coded Allergies: No Known Allergies (Unverified , 08/03/17) Subjective Patient on NRB and Tx out of MICU Objective Last 24 Hour Vital Signs Date Time Temp Pulse Resp B/P (MAP) Pulse Ox O2 Delivery O2 Flow Rate FiO2 09/07/17 08:47 97.9 112 19 129/78 87 Venturi Mask 50 97.9 09/07/17 08:00 107 09/07/17 07:31 Venturi Mask 12.0 50 09/07/17 07:31 94 Venturi Mask 12.0 50 09/07/17 07:31 101 22 94 09/07/17 04:35 103 20 89 09/07/17 04:00 97.5 101 15 121/81 82 Venturi Mask 45 97.5 09/07/17 03:53 103 09/07/17 02:36 102 22 89 Full Face 60 09/07/17 00:40 112 22 91 Full Face 60 09/07/17 00:00 98.2 108 21 94/72 100 Venturi Mask 45 98.2 09/06/17 23:33 107 09/06/17 23:05 101 18 93 Full Face 60 09/06/17 23:03 10.0 60 09/06/17 20:31 93 15 96 Full Face 60 09/06/17 20:00 98.1 94 14 114/73 100 Venturi Mask 45 98.1 09/06/17 19:37 93 09/06/17 19:00 98 15 126/72 90 Venturi Mask 45 09/06/17 18:59 Bi-pap 55 09/06/17 18:59 103 15 92 Full Face 55 09/06/17 18:58 92 Bi-pap 55 09/06/17 18:00 98 15 126/72 90 Venturi Mask 45 09/06/17 17:18 93 14 96 09/06/17 17:00 90 13 119/73 95 Venturi Mask 45 09/06/17 16:00 95 09/06/17 16:00 98.0 94 18 120/71 92 Venturi Mask 45 98.0 09/06/17 15:00 102 14 121/79 89 Venturi Mask 45 09/06/17 14:00 108 19 127/71 89 Venturi Mask 45 09/06/17 13:32 108 17 95 09/06/17 13:00 109 12 123/73 90 Venturi Mask 45 09/06/17 12:00 98.0 99 13 136/78 91 Venturi Mask 45 98.0 09/06/17 12:00 99 09/06/17 11:00 103 12 108/74 90 Venturi Mask 45 09/06/17 10:00 114 15 133/63 90 Venturi Mask 45 Intake and Output 09/06/17 09/07/17 19:00 07:00 Intake Total 1958.334 ml 1150.0 ml Output Total 800 ml 1100 ml Balance 1158.334 ml 50.0 ml Intake Oral 950 ml IV Total 1008.334 ml 1150.0 ml Output Urine Total 800 ml 1100 ml Laboratory Tests 09/07/17 04:05: Prothrombin Time 27.4H, Prothromb Time International Ratio 2.6H, Sodium Level 145, Potassium Level 4.4, Chloride Level 107, Carbon Dioxide Level 38H, Anion Gap 0L, Blood Urea Nitrogen 8, Creatinine 1.1, Estimat Glomerular Filtration Rate > 60, Glucose Level 89, Calcium Level 8.8 Height (Feet): 5 Height (Inches): 9.00 Weight (Pounds): 180 General Appearance: no apparent distress, alert EENT: normal ENT inspection Neck: normal alignment, supple Cardiovascular: normal rate, regular rhythm Respiratory/Chest: expiratory wheezing Abdomen: non tender, soft Edema: no edema noted Arm (L), no edema noted Arm (R), no edema noted Leg (L), no edema noted Leg (R), no edema noted Pedal (L), no edema noted Pedal (R), no edema noted Generalized Cody Melendez M.D. Sep 07, 2017 09:23
--- NOTE | 2017-09-07 09:32 | Infectious Diseases Prog Note ---
Assessment/Plan Assessment/Plan A; Pneumonia with MRSA Hypoxic respiratory failure COPD Schizophrenia R lung collapse/atelectasis Constipation P: Continue IV Vancomycin X 2 days Subjective ROS Limited/Unobtainable: Yes Respiratory: Reports: shortness of breath Neurologic: Reports: confusion, other - on restraint, more commucative Allergies: Coded Allergies: No Known Allergies (Unverified , 08/03/17) Objective Vital Signs Last 24 Hour Vital Signs Date Time Temp Pulse Resp B/P (MAP) Pulse Ox O2 Delivery O2 Flow Rate FiO2 09/07/17 08:47 97.9 112 19 129/78 87 Venturi Mask 50 97.9 09/07/17 08:00 107 09/07/17 07:31 Venturi Mask 12.0 50 09/07/17 07:31 94 Venturi Mask 12.0 50 09/07/17 07:31 101 22 94 09/07/17 04:35 103 20 89 09/07/17 04:00 97.5 101 15 121/81 82 Venturi Mask 45 97.5 09/07/17 03:53 103 09/07/17 02:36 102 22 89 Full Face 60 09/07/17 00:40 112 22 91 Full Face 60 09/07/17 00:00 98.2 108 21 94/72 100 Venturi Mask 45 98.2 09/06/17 23:33 107 09/06/17 23:05 101 18 93 Full Face 60 09/06/17 23:03 10.0 60 09/06/17 20:31 93 15 96 Full Face 60 09/06/17 20:00 98.1 94 14 114/73 100 Venturi Mask 45 98.1 09/06/17 19:37 93 09/06/17 19:00 98 15 126/72 90 Venturi Mask 45 09/06/17 18:59 Bi-pap 55 09/06/17 18:59 103 15 92 Full Face 55 09/06/17 18:58 92 Bi-pap 55 09/06/17 18:00 98 15 126/72 90 Venturi Mask 45 09/06/17 17:18 93 14 96 09/06/17 17:00 90 13 119/73 95 Venturi Mask 45 09/06/17 16:00 95 09/06/17 16:00 98.0 94 18 120/71 92 Venturi Mask 45 98.0 09/06/17 15:00 102 14 121/79 89 Venturi Mask 45 09/06/17 14:00 108 19 127/71 89 Venturi Mask 45 09/06/17 13:32 108 17 95 09/06/17 13:00 109 12 123/73 90 Venturi Mask 45 09/06/17 12:00 98.0 99 13 136/78 91 Venturi Mask 45 98.0 09/06/17 12:00 99 09/06/17 11:00 103 12 108/74 90 Venturi Mask 45 09/06/17 10:00 114 15 133/63 90 Venturi Mask 45 Height (Feet): 5 Height (Inches): 9.00 Weight (Pounds): 180 General Appearance: no acute distress HEENT: mucous membranes moist Respiratory/Chest: lungs clear, other - O2 by mask Cardiovascular: tachycardia Abdomen: soft, non tender Extremities: no edema Neurologic/Psychiatric: alert, responsive, disoriented Laboratory Tests Test 09/07/17 04:05 Prothrombin Time 27.4 SEC (9.30-11.50) H Prothromb Time International Ratio 2.6 (0.9-1.1) H Sodium Level 145 MMOL/L (136-145) Potassium Level 4.4 MMOL/L (3.5-5.1) Chloride Level 107 MMOL/L (98-107) Carbon Dioxide Level 38 MMOL/L (21-32) H Anion Gap 0 mmol/L (5-15) L Blood Urea Nitrogen 8 mg/dL (7-18) Creatinine 1.1 MG/DL (0.55-1.30) Estimat Glomerular Filtration Rate > 60 mL/min (>60) Glucose Level 89 MG/DL (74-106) Calcium Level 8.8 MG/DL (8.5-10.1) Current Medications Medications (Trade) Dose Ordered Sig/Kika Route PRN Reason Start Time Stop Time Status Last Admin Dose Admin Acetaminophen (Tylenol) 650 mg Q4H PRN ORAL Mild Pain/Temp > 100.5 09/06/17 21:00 09/23/17 16:59 Albuterol Sulfate (Proventil MDI) 2 puff Q6H PRN INH Shortness of Breath 09/06/17 20:00 10/06/17 19:59 Atorvastatin Calcium (Lipitor) 10 mg BEDTIME ORAL 09/06/17 21:00 09/23/17 20:59 09/06/17 21:30 Citalopram Hydrobromide (celeXA) 40 mg DAILY ORAL 09/07/17 09:00 09/25/17 08:59 Divalproex Sodium (Depakote Sprinkles) 500 mg EVERY 12 HOURS GT 09/06/17 21:00 09/23/17 20:59 09/06/17 21:30 Docusate Sodium (Colace) 100 mg Q8H PRN ORAL Constipation 09/06/17 20:00 10/06/17 19:59 Magnesium Hydroxide (Mom) 30 ml DAILYPRN PRN ORAL Constipation 09/06/17 20:00 10/06/17 19:59 Olanzapine (ZyPREXA) 10 mg Q12HR ORAL 09/06/17 21:00 09/27/17 20:59 09/06/17 21:31 Quetiapine Fumarate (SEROquel) 100 mg EVERY 8 HOURS ORAL 09/06/17 22:00 09/26/17 12:59 09/07/17 05:43 Risperidone (RisperDAL) 2 mg EVERY 8 HOURS ORAL 09/06/17 22:00 09/26/17 17:59 09/07/17 05:43 Trazodone HCl (Desyrel) 200 mg BEDTIME ORAL 09/06/17 21:00 10/03/17 20:59 09/06/17 21:29 Vancomycin HCl (Vanco rx to dose) 1 ea DAILY PRN MISC Per rx protocol 09/07/17 09:00 09/26/17 10:59 Vancomycin/Sodium Chloride 250 ml @ 166.667 mls/hr Q12H IVPB 09/06/17 21:30 09/10/17 09:29 09/06/17 21:26 Warfarin Sodium (Coumadin per pharmacy) 1 ea DAILY PRN MISC Per rx protocol 09/07/17 09:00 09/25/17 16:59 Joseph Joseph MD Sep 07, 2017 09:32
[2017-09-07] MEDS: Depakote 125mg Sprinkles GT SCH ×2 (09:37→21:06)
[2017-09-07] MEDS: OLANZapine 10mg tab ORAL SCH ×2 (09:37→21:04)
[2017-09-07] MEDS: Citalopram Hydrobromide 10mg Tab ORAL SCH (09:37)
[2017-09-07] MEDS: Vancomycin 750mg/NS 250ml 250 ML IVPB SCH ×2 (09:38→23:14)
--- NOTE | 2017-09-07 10:01 | Pulmonology Progress Note ---
Assessment/Plan Assessment/Plan 1. Acute respiratory failure. resolved; on ventimask 2. Right hemithorax opacification. Has recurrent partial collapse; much improved after aggressive pulmonary hygiene with metanebs and VEST 3. History of right pleural effusion. 4. Schizophrenia 5. Chronic Coumadin usage. 5. Pulmonary edema; resolved; 6. Agitation DISCUSSION: Continue abx Now in [facility] Requiring multiple psych meds;On Zyprexa and Risperidone, Celexa and Trazodone Seen by psych Ordered Haldol IM Discussed with Williams Alcantara senior case manager and Dr Barnett May require transfer to inpatient facility for psych and medical care Na improving Reviewed CXR Off BiPAP On vest and aggressive suctioning On nasal o2 Subjective Interval Events: Improved Constitutional: Reports: no symptoms HEENT: Repors: no symptoms Respiratory: Reports: no symptoms Cardiovascular: Reports: no symptoms Gastrointestinal/Abdominal: Reports: no symptoms Allergies: Coded Allergies: No Known Allergies (Unverified , 08/03/17) Objective Last 24 Hour Vital Signs Date Time Temp Pulse Resp B/P (MAP) Pulse Ox O2 Delivery O2 Flow Rate FiO2 09/07/17 08:47 97.9 112 19 129/78 87 Venturi Mask 50 97.9 09/07/17 08:00 107 09/07/17 07:31 Venturi Mask 12.0 50 09/07/17 07:31 94 Venturi Mask 12.0 50 09/07/17 07:31 101 22 94 09/07/17 04:35 103 20 89 09/07/17 04:00 97.5 101 15 121/81 82 Venturi Mask 45 97.5 09/07/17 03:53 103 09/07/17 02:36 102 22 89 Full Face 60 09/07/17 00:40 112 22 91 Full Face 60 09/07/17 00:00 98.2 108 21 94/72 100 Venturi Mask 45 98.2 09/06/17 23:33 107 09/06/17 23:05 101 18 93 Full Face 60 09/06/17 23:03 10.0 60 09/06/17 20:31 93 15 96 Full Face 60 09/06/17 20:00 98.1 94 14 114/73 100 Venturi Mask 45 98.1 09/06/17 19:37 93 09/06/17 19:00 98 15 126/72 90 Venturi Mask 45 09/06/17 18:59 Bi-pap 55 09/06/17 18:59 103 15 92 Full Face 55 09/06/17 18:58 92 Bi-pap 55 09/06/17 18:00 98 15 126/72 90 Venturi Mask 45 09/06/17 17:18 93 14 96 09/06/17 17:00 90 13 119/73 95 Venturi Mask 45 09/06/17 16:00 95 09/06/17 16:00 98.0 94 18 120/71 92 Venturi Mask 45 98.0 09/06/17 15:00 102 14 121/79 89 Venturi Mask 45 09/06/17 14:00 108 19 127/71 89 Venturi Mask 45 09/06/17 13:32 108 17 95 09/06/17 13:00 109 12 123/73 90 Venturi Mask 45 09/06/17 12:00 98.0 99 13 136/78 91 Venturi Mask 45 98.0 09/06/17 12:00 99 09/06/17 11:00 103 12 108/74 90 Venturi Mask 45 09/06/17 10:00 114 15 133/63 90 Venturi Mask 45 Intake and Output 09/06/17 09/07/17 19:00 07:00 Intake Total 1958.334 ml 1150.0 ml Output Total 800 ml 1100 ml Balance 1158.334 ml 50.0 ml Intake Oral 950 ml IV Total 1008.334 ml 1150.0 ml Output Urine Total 800 ml 1100 ml General Appearance: no acute distress HEENT: normocephalic Respiratory/Chest: chest wall non-tender, lungs clear Cardiovascular: normal peripheral pulses, normal rate Laboratory Tests 09/07/17 04:05: Prothrombin Time 27.4H, Prothromb Time International Ratio 2.6H, Sodium Level 145, Potassium Level 4.4, Chloride Level 107, Carbon Dioxide Level 38H, Anion Gap 0L, Blood Urea Nitrogen 8, Creatinine 1.1, Estimat Glomerular Filtration Rate > 60, Glucose Level 89, Calcium Level 8.8 Current Medications Medications (Trade) Dose Ordered Sig/Kika Route PRN Reason Start Time Stop Time Status Last Admin Dose Admin Acetaminophen (Tylenol) 650 mg Q4H PRN ORAL Mild Pain/Temp > 100.5 09/06/17 21:00 09/23/17 16:59 Albuterol Sulfate (Proventil MDI) 2 puff Q6H PRN INH Shortness of Breath 09/06/17 20:00 10/06/17 19:59 Atorvastatin Calcium (Lipitor) 10 mg BEDTIME ORAL 09/06/17 21:00 09/23/17 20:59 09/06/17 21:30 Citalopram Hydrobromide (celeXA) 40 mg DAILY ORAL 09/07/17 09:00 09/25/17 08:59 09/07/17 09:37 Divalproex Sodium (Depakote Sprinkles) 500 mg EVERY 12 HOURS GT 09/06/17 21:00 09/23/17 20:59 09/07/17 09:37 Docusate Sodium (Colace) 100 mg Q8H PRN ORAL Constipation 09/06/17 20:00 10/06/17 19:59 Magnesium Hydroxide (Mom) 30 ml DAILYPRN PRN ORAL Constipation 09/06/17 20:00 10/06/17 19:59 Olanzapine (ZyPREXA) 10 mg Q12HR ORAL 09/06/17 21:00 09/27/17 20:59 09/07/17 09:37 Quetiapine Fumarate (SEROquel) 100 mg EVERY 8 HOURS ORAL 09/06/17 22:00 09/26/17 12:59 09/07/17 05:43 Risperidone (RisperDAL) 2 mg EVERY 8 HOURS ORAL 09/06/17 22:00 09/26/17 17:59 09/07/17 05:43 Trazodone HCl (Desyrel) 200 mg BEDTIME ORAL 09/06/17 21:00 10/03/17 20:59 09/06/17 21:29 Vancomycin HCl (Vanco rx to dose) 1 ea DAILY PRN MISC Per rx protocol 09/07/17 09:00 09/26/17 10:59 Vancomycin/Sodium Chloride 250 ml @ 166.667 mls/hr Q12H IVPB 09/06/17 21:30 09/10/17 09:29 09/07/17 09:38 Warfarin Sodium (Coumadin per pharmacy) 1 ea DAILY PRN MISC Per rx protocol 09/07/17 09:00 09/25/17 16:59 Richardson Mitchell MD Sep 07, 2017 10:01
[2017-09-07] MEDS ORDERED: NS 275ml ONE (11:05)
[2017-09-07 12:00] VITALS: BP 105/59
[2017-09-07 16:00] VITALS: BP 136/77
[2017-09-07 20:00] VITALS: BP 127/72
[2017-09-07] MEDS: TraZODone 100mg tab ORAL SCH (21:05)
[2017-09-08] VITALS: BP 129/75
[2017-09-08 04:00] VITALS: BP 125/71
[2017-09-08 08:00] VITALS: BP 132/97
[2017-09-08] MEDS: Depakote 125mg Sprinkles GT SCH ×2 (09:35→21:37)
[2017-09-08] MEDS: Citalopram Hydrobromide 10mg Tab ORAL SCH (09:35)
[2017-09-08] MEDS: OLANZapine 10mg tab ORAL SCH ×2 (09:36→21:38)
[2017-09-08] MEDS: Vancomycin 750mg/NS 250ml 250 ML IVPB SCH (09:36)
[2017-09-08 09:45] LABS: INR 3.4 (0.9-1.1)
--- NOTE | 2017-09-08 09:56 | Pulmonology Progress Note ---
Assessment/Plan Assessment/Plan 1. Acute respiratory failure. resolved; on ventimask alternating with BiPAP 2. Right hemithorax opacification. Has recurrent partial collapse; much improved after aggressive pulmonary hygiene with metanebs and VEST 3. History of right pleural effusion. 4. Schizophrenia 5. Chronic Coumadin usage. 5. Pulmonary edema; resolved; 6. Agitation DISCUSSION: Continue abx Now in [facility] Requiring multiple psych meds;On Zyprexa and Risperidone, Celexa and Trazodone Seen by psych Ordered Haldol IM Discussed with Williams Alcantara watch caser and Dr Barnett May require transfer to inpatient facility for psych and medical care Na improving Reviewed CXR On BiPAP/venti mask Subjective Interval Events: remains intermittently on BiPAP Constitutional: Reports: no symptoms HEENT: Repors: no symptoms Respiratory: Reports: no symptoms Cardiovascular: Reports: no symptoms Gastrointestinal/Abdominal: Reports: no symptoms Genitourinary: Reports: no symptoms Allergies: Coded Allergies: No Known Allergies (Unverified , 08/03/17) Objective Last 24 Hour Vital Signs Date Time Temp Pulse Resp B/P (MAP) Pulse Ox O2 Delivery O2 Flow Rate FiO2 09/08/17 09:09 77 14 91 Facial 60 09/08/17 08:00 97.1 81 16 132/97 93 Venturi Mask 60 97.1 09/08/17 06:32 82 14 92 Facial 60 09/08/17 06:30 Bi-pap 60 09/08/17 06:30 92 Bi-pap 60 09/08/17 05:08 85 14 94 Facial 60 09/08/17 04:00 84 09/08/17 04:00 98.1 89 20 125/71 97 Venturi Mask 50 98.1 09/08/17 03:23 83 14 87 Facial 60 09/08/17 01:19 96 15 88 Facial 60 09/08/17 00:00 100 09/08/17 00:00 98.4 90 22 129/75 98 Venturi Mask 50 98.4 09/07/17 23:00 99 15 85 Facial 60 09/07/17 23:00 10.0 60 09/07/17 21:21 89 14 87 Full Face 60 09/07/17 20:00 98.3 90 19 127/72 94 Venturi Mask 50 98.3 09/07/17 20:00 94 09/07/17 18:54 Bi-pap 60 09/07/17 18:53 88 Bi-pap 60 09/07/17 18:48 107 16 88 Facial 60 09/07/17 17:38 98 20 86 Facial 60 09/07/17 16:03 100 09/07/17 16:00 98.0 103 20 136/77 94 Venturi Mask 50 98.0 09/07/17 15:27 104 20 87 09/07/17 12:52 101 22 89 09/07/17 12:22 101 22 87 09/07/17 12:00 98.5 125 22 105/59 96 Venturi Mask 50 98.5 09/07/17 12:00 124 Intake and Output 09/07/17 09/08/17 19:00 07:00 Intake Total 640.000 ml 500 ml Output Total 300 ml 350 ml Balance 340.000 ml 150 ml Intake Oral 240 ml 250 ml IV Total 400.000 ml 250 ml Output Urine Total 300 ml 350 ml General Appearance: no acute distress HEENT: normocephalic Respiratory/Chest: chest wall non-tender, lungs clear Cardiovascular: normal peripheral pulses, normal rate Laboratory Tests 09/08/17 08:30: Prothrombin Time 36.5H, Prothromb Time International Ratio 3.4H, Vancomycin Level Trough 20.2H Current Medications Medications (Trade) Dose Ordered Sig/Kika Route PRN Reason Start Time Stop Time Status Last Admin Dose Admin Acetaminophen (Tylenol) 650 mg Q4H PRN ORAL Mild Pain/Temp > 100.5 09/06/17 21:00 09/23/17 16:59 Albuterol Sulfate (Proventil MDI) 2 puff Q6H PRN INH Shortness of Breath 09/06/17 20:00 10/06/17 19:59 Atorvastatin Calcium (Lipitor) 10 mg BEDTIME ORAL 09/06/17 21:00 09/23/17 20:59 09/07/17 21:05 Citalopram Hydrobromide (celeXA) 40 mg DAILY ORAL 09/07/17 09:00 09/25/17 08:59 09/08/17 09:35 Divalproex Sodium (Depakote Sprinkles) 500 mg EVERY 12 HOURS GT 09/06/17 21:00 09/23/17 20:59 09/08/17 09:35 Docusate Sodium (Colace) 100 mg Q8H PRN ORAL Constipation 09/06/17 20:00 10/06/17 19:59 Magnesium Hydroxide (Mom) 30 ml DAILYPRN PRN ORAL Constipation 09/06/17 20:00 10/06/17 19:59 Olanzapine (ZyPREXA) 10 mg Q12HR ORAL 09/06/17 21:00 09/27/17 20:59 09/08/17 09:36 Quetiapine Fumarate (SEROquel) 100 mg EVERY 8 HOURS ORAL 09/06/17 22:00 09/26/17 12:59 09/08/17 06:24 Risperidone (RisperDAL) 2 mg EVERY 8 HOURS ORAL 09/06/17 22:00 09/26/17 17:59 09/08/17 06:24 Trazodone HCl (Desyrel) 200 mg BEDTIME ORAL 09/06/17 21:00 10/03/17 20:59 09/07/17 21:05 Vancomycin HCl (Vanco rx to dose) 1 ea DAILY PRN MISC Per rx protocol 09/07/17 09:00 09/26/17 10:59 Vancomycin/Sodium Chloride 250 ml @ 166.667 mls/hr Q12H IVPB 09/06/17 21:30 09/10/17 09:29 09/08/17 09:36 Warfarin Sodium (Coumadin per pharmacy) 1 ea DAILY PRN MISC Per rx protocol 09/07/17 09:00 09/25/17 16:59 Richardson Mitchell MD Sep 08, 2017 09:56
[2017-09-08 12:00] VITALS: BP 132/97
[2017-09-08] MEDS ORDERED: LORazepam Inj 2mg/ml 1ml IM SCH (13:50)
[2017-09-08] MEDS ORDERED: Haloperidol 5mg/ml Inj IM SCH (13:50)
--- NOTE | 2017-09-08 15:00 | Infectious Diseases Prog Note ---
Assessment/Plan Assessment/Plan antibiotics : vancomycin iv 6.13.18 - A 1. MRSA pneumonia 2. respiratory failure 3. fungal UTI s/p rx 4. COPD 5. hypertension 6. renal stone 7. right pleural effusion P 1. continue iv vancomycin 1 more day 2. will follow up cultures Subjective ROS Limited/Unobtainable: Yes Allergies: Coded Allergies: No Known Allergies (Unverified , 08/03/17) Objective Vital Signs Last 24 Hour Vital Signs Date Time Temp Pulse Resp B/P (MAP) Pulse Ox O2 Delivery O2 Flow Rate FiO2 09/08/17 12:00 97.5 90 18 132/97 96 Venturi Mask 12.0 50 97.5 09/08/17 12:00 87 09/08/17 09:09 77 14 91 Facial 60 09/08/17 08:00 97.1 81 16 132/97 93 Bi-pap 60 97.1 09/08/17 08:00 87 09/08/17 06:32 82 14 92 Facial 60 09/08/17 06:30 Bi-pap 60 09/08/17 06:30 92 Bi-pap 60 09/08/17 05:08 85 14 94 Facial 60 09/08/17 04:00 84 09/08/17 04:00 98.1 89 20 125/71 97 Venturi Mask 50 98.1 09/08/17 03:23 83 14 87 Facial 60 09/08/17 01:19 96 15 88 Facial 60 09/08/17 00:00 100 09/08/17 00:00 98.4 90 22 129/75 98 Venturi Mask 50 98.4 09/07/17 23:00 99 15 85 Facial 60 09/07/17 23:00 10.0 60 09/07/17 21:21 89 14 87 Full Face 60 09/07/17 20:00 98.3 90 19 127/72 94 Venturi Mask 50 98.3 09/07/17 20:00 94 09/07/17 18:54 Bi-pap 60 09/07/17 18:53 88 Bi-pap 60 09/07/17 18:48 107 16 88 Facial 60 09/07/17 17:38 98 20 86 Facial 60 09/07/17 16:03 100 09/07/17 16:00 98.0 103 20 136/77 94 Venturi Mask 50 98.0 09/07/17 15:27 104 20 87 Height (Feet): 5 Height (Inches): 9.00 Weight (Pounds): 180 HEENT: other - agitated Respiratory/Chest: lungs clear Cardiovascular: normal rate, regular rhythm, no gallop/murmur Abdomen: soft, non tender Extremities: no edema Laboratory Tests Test 09/08/17 08:30 Prothrombin Time 36.5 SEC (9.30-11.50) H Prothromb Time International Ratio 3.4 (0.9-1.1) H Vancomycin Level Trough 20.2 ug/mL (5.0-12.0) H Current Medications Medications (Trade) Dose Ordered Sig/Kika Route PRN Reason Start Time Stop Time Status Last Admin Dose Admin Acetaminophen (Tylenol) 650 mg Q4H PRN ORAL Mild Pain/Temp > 100.5 09/06/17 21:00 09/23/17 16:59 Albuterol Sulfate (Proventil MDI) 2 puff Q6H PRN INH Shortness of Breath 09/06/17 20:00 10/06/17 19:59 Atorvastatin Calcium (Lipitor) 10 mg BEDTIME ORAL 09/06/17 21:00 09/23/17 20:59 09/07/17 21:05 Citalopram Hydrobromide (celeXA) 40 mg DAILY ORAL 09/07/17 09:00 09/25/17 08:59 09/08/17 09:35 Divalproex Sodium (Depakote Sprinkles) 500 mg EVERY 12 HOURS GT 09/06/17 21:00 09/23/17 20:59 09/08/17 09:35 Docusate Sodium (Colace) 100 mg Q8H PRN ORAL Constipation 09/06/17 20:00 10/06/17 19:59 Magnesium Hydroxide (Mom) 30 ml DAILYPRN PRN ORAL Constipation 09/06/17 20:00 10/06/17 19:59 Olanzapine (ZyPREXA) 10 mg Q12HR ORAL 09/06/17 21:00 09/27/17 20:59 09/08/17 09:36 Quetiapine Fumarate (SEROquel) 100 mg EVERY 8 HOURS ORAL 09/06/17 22:00 09/26/17 12:59 09/08/17 13:33 Risperidone (RisperDAL) 2 mg EVERY 8 HOURS ORAL 09/06/17 22:00 09/26/17 17:59 09/08/17 13:34 Trazodone HCl (Desyrel) 200 mg BEDTIME ORAL 09/06/17 21:00 10/03/17 20:59 09/07/17 21:05 Vancomycin HCl (Vanco rx to dose) 1 ea DAILY PRN MISC Per rx protocol 09/07/17 09:00 09/26/17 10:59 Vancomycin HCl 500 mg/Dextrose 110 ml @ 110 mls/hr Q12HR IVPB 09/08/17 21:00 09/09/17 23:59 Warfarin Sodium (Coumadin per pharmacy) 1 ea DAILY PRN MISC Per rx protocol 09/07/17 09:00 09/25/17 16:59 LALI COCHRAN Sep 08, 2017 15:00
[2017-09-08 16:00] VITALS: BP 108/67
[2017-09-08 20:00] VITALS: BP 133/93
[2017-09-08] MEDS: Vancomycin 500mg/D5W 110ml IVPB SCH ×2 (21:10)
[2017-09-08] MEDS: TraZODone 100mg tab ORAL SCH (21:38)
[2017-09-08] MEDS: Milk of Magnesia 30ml Ud ORAL PRN (21:47)
[2017-09-09] VITALS: BP 139/77
[2017-09-09 04:00] VITALS: BP 110/60
[2017-09-09 08:00] VITALS: BP 129/83
[2017-09-09] MEDS: Vancomycin 500mg/D5W 110ml IVPB SCH ×2 (09:15)
[2017-09-09] MEDS: OLANZapine 10mg tab ORAL SCH ×2 (09:15→20:52)
[2017-09-09] MEDS: Citalopram Hydrobromide 10mg Tab ORAL SCH (09:15)
[2017-09-09] MEDS: Depakote 125mg Sprinkles GT SCH ×2 (09:16→20:53)
--- NOTE | 2017-09-09 09:37 | Pulmonology Progress Note ---
Assessment/Plan Assessment/Plan 1. Acute respiratory failure. resolved; on ventimask now 2. Right hemithorax opacification. Has recurrent partial collapse; much improved after aggressive pulmonary hygiene with metanebs and VEST 3. History of right pleural effusion. 4. Schizophrenia 5. Chronic Coumadin usage. 5. Pulmonary edema; resolved; 6. Agitation DISCUSSION: Continue abx Now in [facility] Requiring multiple psych meds;On Zyprexa and Risperidone, Celexa and Trazodone Seen by psych Ordered Haldol IM Discussed with Williams Alcantara case technician and Dr Barnett May require transfer to inpatient facility for psych and medical care Na improving Reviewed CXR On venti mask Subjective Interval Events: On face mask o2 Constitutional: Reports: no symptoms HEENT: Repors: no symptoms Respiratory: Reports: no symptoms Cardiovascular: Reports: no symptoms Gastrointestinal/Abdominal: Reports: no symptoms Genitourinary: Reports: no symptoms Allergies: Coded Allergies: No Known Allergies (Unverified , 08/03/17) Objective Last 24 Hour Vital Signs Date Time Temp Pulse Resp B/P (MAP) Pulse Ox O2 Delivery O2 Flow Rate FiO2 09/09/17 07:30 93 Venturi Mask 12.0 50 09/09/17 07:30 Venturi Mask 12.0 50 09/09/17 04:00 97.9 85 20 110/60 92 Venturi Mask 14.0 55 97.9 09/09/17 04:00 85 09/09/17 00:00 98.6 106 16 139/77 92 Venturi Mask 14.0 55 98.6 09/09/17 00:00 106 09/08/17 20:00 98.2 96 16 133/93 92 Venturi Mask 14.0 55 98.2 09/08/17 20:00 96 09/08/17 18:43 Venturi Mask 50 09/08/17 18:35 90 Venturi Mask 50 09/08/17 16:00 97.8 87 16 108/67 92 Venturi Mask 12.0 50 97.8 09/08/17 16:00 95 09/08/17 12:00 97.5 90 18 132/97 96 Venturi Mask 12.0 50 97.5 09/08/17 12:00 87 Intake and Output 09/08/17 09/09/17 19:00 07:00 Intake Total 1050.000 ml 350 ml Output Total 600 ml 1250 ml Balance 450.000 ml -900 ml Intake Oral 800 ml 240 ml IV Total 250.000 ml 110 ml Output Urine Total 600 ml 1250 ml General Appearance: no acute distress HEENT: normocephalic, PERRL Respiratory/Chest: chest wall non-tender Cardiovascular: normal peripheral pulses Abdomen: normal bowel sounds Laboratory Tests 09/09/17 05:21: Prothrombin Time 31.8H, Prothromb Time International Ratio 3.0H Current Medications Medications (Trade) Dose Ordered Sig/Kika Route PRN Reason Start Time Stop Time Status Last Admin Dose Admin Acetaminophen (Tylenol) 650 mg Q4H PRN ORAL Mild Pain/Temp > 100.5 09/06/17 21:00 09/23/17 16:59 Albuterol Sulfate (Proventil MDI) 2 puff Q6H PRN INH Shortness of Breath 09/06/17 20:00 10/06/17 19:59 Atorvastatin Calcium (Lipitor) 10 mg BEDTIME ORAL 09/06/17 21:00 09/23/17 20:59 09/08/17 21:37 Citalopram Hydrobromide (celeXA) 40 mg DAILY ORAL 09/07/17 09:00 09/25/17 08:59 09/09/17 09:15 Divalproex Sodium (Depakote Sprinkles) 500 mg EVERY 12 HOURS GT 09/06/17 21:00 09/23/17 20:59 09/09/17 09:16 Docusate Sodium (Colace) 100 mg Q8H PRN ORAL Constipation 09/06/17 20:00 10/06/17 19:59 Magnesium Hydroxide (Mom) 30 ml DAILYPRN PRN ORAL Constipation 09/06/17 20:00 10/06/17 19:59 09/08/17 21:47 Olanzapine (ZyPREXA) 10 mg Q12HR ORAL 09/06/17 21:00 09/27/17 20:59 09/09/17 09:15 Quetiapine Fumarate (SEROquel) 100 mg EVERY 8 HOURS ORAL 09/06/17 22:00 09/26/17 12:59 09/09/17 05:36 Risperidone (RisperDAL) 2 mg EVERY 8 HOURS ORAL 09/06/17 22:00 09/26/17 17:59 09/09/17 05:36 Trazodone HCl (Desyrel) 200 mg BEDTIME ORAL 09/06/17 21:00 10/03/17 20:59 09/08/17 21:38 Vancomycin HCl (Vanco rx to dose) 1 ea DAILY PRN MISC Per rx protocol 09/07/17 09:00 09/26/17 10:59 Vancomycin HCl 500 mg/Dextrose 110 ml @ 110 mls/hr Q12HR IVPB 09/08/17 21:00 09/09/17 23:59 09/09/17 09:15 Warfarin Sodium (Coumadin per pharmacy) 1 ea DAILY PRN MISC Per rx protocol 09/07/17 09:00 09/25/17 16:59 Richardson Mitchell MD Sep 09, 2017 09:36
[2017-09-09 12:00] VITALS: BP 136/80
--- NOTE | 2017-09-09 13:57 | Infectious Diseases Prog Note ---
Assessment/Plan Assessment/Plan antibiotics : vancomycin iv 6.13.18 - A 1. MRSA pneumonia 2. respiratory failure 3. fungal UTI s/p rx 4. COPD 5. hypertension 6. renal stone 7. right pleural effusion P 1. continue iv vancomycin 2. will follow up cultures Subjective ROS Limited/Unobtainable: Yes Allergies: Coded Allergies: No Known Allergies (Unverified , 08/03/17) Objective Vital Signs Last 24 Hour Vital Signs Date Time Temp Pulse Resp B/P (MAP) Pulse Ox O2 Delivery O2 Flow Rate FiO2 09/09/17 08:00 85 09/09/17 08:00 97.3 88 16 129/83 93 Venturi Mask 14.0 55 97.3 09/09/17 07:30 93 Venturi Mask 12.0 50 09/09/17 07:30 Venturi Mask 12.0 50 09/09/17 04:00 97.9 85 20 110/60 92 Venturi Mask 14.0 55 97.9 09/09/17 04:00 85 09/09/17 00:00 98.6 106 16 139/77 92 Venturi Mask 14.0 55 98.6 09/09/17 00:00 106 09/08/17 20:00 98.2 96 16 133/93 92 Venturi Mask 14.0 55 98.2 09/08/17 20:00 96 09/08/17 18:43 Venturi Mask 50 09/08/17 18:35 90 Venturi Mask 50 09/08/17 16:00 97.8 87 16 108/67 92 Venturi Mask 12.0 50 97.8 09/08/17 16:00 95 Height (Feet): 5 Height (Inches): 9.00 Weight (Pounds): 178 Respiratory/Chest: lungs clear Cardiovascular: normal rate, regular rhythm, no gallop/murmur Abdomen: soft, non tender Extremities: no edema Laboratory Tests Test 09/09/17 05:21 Prothrombin Time 31.8 SEC (9.30-11.50) H Prothromb Time International Ratio 3.0 (0.9-1.1) H Current Medications Medications (Trade) Dose Ordered Sig/Kika Route PRN Reason Start Time Stop Time Status Last Admin Dose Admin Acetaminophen (Tylenol) 650 mg Q4H PRN ORAL Mild Pain/Temp > 100.5 09/06/17 21:00 7/10/18 16:59 Albuterol Sulfate (Proventil MDI) 2 puff Q6H PRN INH Shortness of Breath 09/06/17 20:00 10/06/17 19:59 Atorvastatin Calcium (Lipitor) 10 mg BEDTIME ORAL 09/06/17 21:00 09/23/17 20:59 09/08/17 21:37 Citalopram Hydrobromide (celeXA) 40 mg DAILY ORAL 09/07/17 09:00 09/25/17 08:59 09/09/17 09:15 Divalproex Sodium (Depakote Sprinkles) 500 mg EVERY 12 HOURS GT 09/06/17 21:00 09/23/17 20:59 09/09/17 09:16 Docusate Sodium (Colace) 100 mg Q8H PRN ORAL Constipation 09/06/17 20:00 10/06/17 19:59 Magnesium Hydroxide (Mom) 30 ml DAILYPRN PRN ORAL Constipation 09/06/17 20:00 10/06/17 19:59 09/08/17 21:47 Olanzapine (ZyPREXA) 10 mg Q12HR ORAL 09/06/17 21:00 09/27/17 20:59 09/09/17 09:15 Quetiapine Fumarate (SEROquel) 100 mg EVERY 8 HOURS ORAL 09/06/17 22:00 09/26/17 12:59 09/09/17 05:36 Risperidone (RisperDAL) 2 mg EVERY 8 HOURS ORAL 09/06/17 22:00 09/26/17 17:59 09/09/17 05:36 Trazodone HCl (Desyrel) 200 mg BEDTIME ORAL 09/06/17 21:00 10/03/17 20:59 09/08/17 21:38 Vancomycin HCl (Vanco rx to dose) 1 ea DAILY PRN MISC Per rx protocol 09/07/17 09:00 09/26/17 10:59 Vancomycin HCl 500 mg/Dextrose 110 ml @ 110 mls/hr Q12HR IVPB 09/08/17 21:00 09/09/17 23:59 09/09/17 09:15 Warfarin Sodium (Coumadin per pharmacy) 1 ea DAILY PRN MISC Per rx protocol 09/07/17 09:00 09/25/17 16:59 Warfarin Sodium (Coumadin) 0.5 mg COUMADIN ONCE ORAL 09/09/17 17:00 09/09/17 17:01 LALI COCHRAN Sep 09, 2017 13:57
[2017-09-09 16:00] VITALS: BP 129/86
[2017-09-09] MEDS ORDERED: Warfarin Sodium 1mg ORAL ONE (17:00)
[2017-09-09] MEDS ORDERED: LORazepam Inj 2mg/ml 1ml IM ONE (19:30)
[2017-09-09] MEDS ORDERED: DiphenhydrAMINE 50mg/ml Inj IM ONE (19:30)
[2017-09-09] MEDS ORDERED: DiphenhydrAMINE 50mg/ml Inj IM SCH (19:45)
[2017-09-09] MEDS ORDERED: LORazepam Inj 2mg/ml 1ml IM SCH (19:45)
[2017-09-09 20:00] VITALS: BP 131/76
[2017-09-09] MEDS: Vancomycin 500 MG in D5W 110 ML IVPB SCH (20:52)
[2017-09-09] MEDS: TraZODone 100mg tab ORAL SCH (20:52)
[2017-09-09] MEDS ORDERED: Sterile Water Irrig 1000ml IRRIG ONE (20:58)
[2017-09-09] MEDS ORDERED: Tubing IV Secondary IV ONE (20:58)
[2017-09-09] MEDS ORDERED: NS 275ml ONE (20:58)
[2017-09-10] VITALS: BP 131/79
[2017-09-10 04:00] VITALS: BP 136/87
[2017-09-10 06:03] LABS: INR 1.8 (0.9-1.1)
[2017-09-10 08:00] VITALS: BP 119/76
--- NOTE | 2017-09-10 08:45 | Pulmonology Progress Note ---
Assessment/Plan Assessment/Plan 1. Acute respiratory failure. resolved; on ventimask now 2. Right hemithorax opacification. Has recurrent partial collapse; much improved after aggressive pulmonary hygiene with metanebs and VEST 3. History of right pleural effusion. 4. Schizophrenia 5. Chronic Coumadin usage. 5. Pulmonary edema; resolved; 6. 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 and Dr Barnett May require transfer to inpatient facility for psych and medical care Na improving Reviewed CXR On venti mask Subjective Interval Events: Requiring restraints and sedation Constitutional: Reports: no symptoms HEENT: Repors: no symptoms Respiratory: Reports: no symptoms Cardiovascular: Reports: no symptoms Gastrointestinal/Abdominal: Reports: no symptoms Genitourinary: Reports: no symptoms Allergies: Coded Allergies: No Known Allergies (Unverified , 08/03/17) Objective Last 24 Hour Vital Signs Date Time Temp Pulse Resp B/P (MAP) Pulse Ox O2 Delivery O2 Flow Rate FiO2 09/10/17 08:00 97.9 78 18 119/76 94 Venturi Mask 14.0 60 97.9 09/10/17 07:41 75 09/10/17 06:45 78 16 94 Facial 60 09/10/17 06:42 Bi-pap 09/10/17 06:41 94 Bi-pap 09/10/17 05:35 87 14 95 Facial 60 09/10/17 04:00 97.7 85 14 136/87 95 Bi-pap 60 97.7 09/10/17 04:00 60 09/10/17 03:54 84 09/10/17 02:53 89 15 94 Facial 60 09/10/17 00:00 60 09/10/17 00:00 97.7 89 20 131/79 95 Venturi Mask 14.0 97.7 09/10/17 00:00 88 09/09/17 23:04 91 18 93 Facial 60 09/09/17 20:00 97.9 110 20 131/76 92 Venturi Mask 14.0 97.9 09/09/17 19:43 Venturi Mask 14.0 55 09/09/17 19:43 92 Venturi Mask 14.0 55 09/09/17 19:42 107 09/09/17 16:00 97.3 88 16 129/86 93 Venturi Mask 14.0 97.3 09/09/17 16:00 106 09/09/17 12:00 97.0 89 18 136/80 95 Venturi Mask 14.0 97.0 09/09/17 12:00 85 Intake and Output 09/09/17 09/10/17 19:00 07:00 Intake Total 400 ml 230 ml Output Total 1000 ml Balance -600 ml 230 ml Intake Oral 400 ml 120 ml IV Total 110 ml Output Urine Total 1000 ml # Voids 2 General Appearance: no acute distress HEENT: normocephalic Respiratory/Chest: chest wall non-tender, lungs clear Cardiovascular: normal peripheral pulses, normal rate Laboratory Tests 09/10/17 05:25: Prothrombin Time 19.3H, Prothromb Time International Ratio 1.8H Current Medications Medications (Trade) Dose Ordered Sig/Kika Route PRN Reason Start Time Stop Time Status Last Admin Dose Admin Acetaminophen (Tylenol) 650 mg Q4H PRN ORAL Mild Pain/Temp > 100.5 09/06/17 21:00 09/23/17 16:59 Albuterol Sulfate (Proventil MDI) 2 puff Q6H PRN INH Shortness of Breath 09/06/17 20:00 10/06/17 19:59 Atorvastatin Calcium (Lipitor) 10 mg BEDTIME ORAL 09/06/17 21:00 09/23/17 20:59 09/09/17 20:52 Citalopram Hydrobromide (celeXA) 40 mg DAILY ORAL 09/07/17 09:00 09/25/17 08:59 09/09/17 09:15 Divalproex Sodium (Depakote Sprinkles) 500 mg EVERY 12 HOURS GT 09/06/17 21:00 09/23/17 20:59 09/09/17 20:53 Docusate Sodium (Colace) 100 mg Q8H PRN ORAL Constipation 09/06/17 20:00 10/06/17 19:59 Magnesium Hydroxide (Mom) 30 ml DAILYPRN PRN ORAL Constipation 09/06/17 20:00 10/06/17 19:59 09/08/17 21:47 Olanzapine (ZyPREXA) 10 mg Q12HR ORAL 09/06/17 21:00 09/27/17 20:59 09/09/17 20:52 Quetiapine Fumarate (SEROquel) 100 mg EVERY 8 HOURS ORAL 09/06/17 22:00 09/26/17 12:59 09/10/17 05:33 Risperidone (RisperDAL) 2 mg EVERY 8 HOURS ORAL 09/06/17 22:00 09/26/17 17:59 09/10/17 05:33 Trazodone HCl (Desyrel) 200 mg BEDTIME ORAL 09/06/17 21:00 10/03/17 20:59 09/09/17 20:52 Vancomycin HCl (Vanco rx to dose) 1 ea DAILY PRN MISC Per rx protocol 09/07/17 09:00 09/26/17 10:59 Vancomycin HCl 500 mg/Dextrose 110 ml @ 110 mls/hr Q12HR IVPB 09/09/17 21:00 09/10/17 23:59 09/09/17 20:52 Warfarin Sodium (Coumadin per pharmacy) 1 ea DAILY PRN MISC Per rx protocol 09/07/17 09:00 09/25/17 16:59 Warfarin Sodium (Coumadin) 1 mg COUMADIN ONCE ORAL 09/10/17 17:00 09/10/17 17:01 Richardson Mitchell MD Sep 10, 2017 08:45
[2017-09-10] MEDS: Vancomycin 500 MG in D5W 110 ML IVPB SCH ×2 (08:57→21:40)
[2017-09-10] MEDS: OLANZapine 10mg tab ORAL SCH ×3 (09:00→21:39)
[2017-09-10] MEDS: Citalopram Hydrobromide 10mg Tab ORAL SCH ×2 (09:00→10:00)
[2017-09-10] MEDS: Depakote 125mg Sprinkles GT SCH ×3 (09:00→21:39)
--- NOTE | 2017-09-10 09:45 | Infectious Diseases Prog Note ---
Assessment/Plan Assessment/Plan A; Pneumonia with MRSA Hypoxic respiratory failure COPD Schizophrenia R lung collapse/atelectasis Constipation P: Continue IV Vancomycin until expiration today Subjective ROS Limited/Unobtainable: Yes Neurologic: Reports: confusion, other - on restraint Allergies: Coded Allergies: No Known Allergies (Unverified , 08/03/17) Objective Vital Signs Last 24 Hour Vital Signs Date Time Temp Pulse Resp B/P (MAP) Pulse Ox O2 Delivery O2 Flow Rate FiO2 09/10/17 08:00 97.9 78 18 119/76 94 Venturi Mask 14.0 60 97.9 09/10/17 07:41 75 09/10/17 06:45 78 16 94 Facial 60 09/10/17 06:42 Bi-pap 09/10/17 06:41 94 Bi-pap 09/10/17 05:35 87 14 95 Facial 60 09/10/17 04:00 97.7 85 14 136/87 95 Bi-pap 60 97.7 09/10/17 04:00 60 09/10/17 03:54 84 09/10/17 02:53 89 15 94 Facial 60 09/10/17 00:00 60 09/10/17 00:00 97.7 89 20 131/79 95 Venturi Mask 14.0 97.7 09/10/17 00:00 88 09/09/17 23:04 91 18 93 Facial 60 09/09/17 20:00 97.9 110 20 131/76 92 Venturi Mask 14.0 97.9 09/09/17 19:43 Venturi Mask 14.0 55 09/09/17 19:43 92 Venturi Mask 14.0 55 09/09/17 19:42 107 09/09/17 16:00 97.3 88 16 129/86 93 Venturi Mask 14.0 97.3 09/09/17 16:00 106 09/09/17 12:00 97.0 89 18 136/80 95 Venturi Mask 14.0 97.0 09/09/17 12:00 85 Height (Feet): 5 Height (Inches): 9.00 Weight (Pounds): 176 General Appearance: no acute distress HEENT: mucous membranes moist Respiratory/Chest: lungs clear, other - O2 by venturi mask Cardiovascular: normal rate Abdomen: soft, non tender Extremities: no edema Neurologic/Psychiatric: disoriented Laboratory Tests Test 09/10/17 05:25 Prothrombin Time 19.3 SEC (9.30-11.50) H Prothromb Time International Ratio 1.8 (0.9-1.1) H Current Medications Medications (Trade) Dose Ordered Sig/Kika Route PRN Reason Start Time Stop Time Status Last Admin Dose Admin Acetaminophen (Tylenol) 650 mg Q4H PRN ORAL Mild Pain/Temp > 100.5 09/06/17 21:00 09/23/17 16:59 Albuterol Sulfate (Proventil MDI) 2 puff Q6H PRN INH Shortness of Breath 09/06/17 20:00 10/06/17 19:59 Atorvastatin Calcium (Lipitor) 10 mg BEDTIME ORAL 09/06/17 21:00 09/23/17 20:59 09/09/17 20:52 Citalopram Hydrobromide (celeXA) 40 mg DAILY ORAL 09/07/17 09:00 09/25/17 08:59 09/10/17 09:00 Divalproex Sodium (Depakote Sprinkles) 500 mg EVERY 12 HOURS GT 09/06/17 21:00 09/23/17 20:59 09/10/17 09:00 Docusate Sodium (Colace) 100 mg Q8H PRN ORAL Constipation 09/06/17 20:00 10/06/17 19:59 Magnesium Hydroxide (Mom) 30 ml DAILYPRN PRN ORAL Constipation 09/06/17 20:00 10/06/17 19:59 09/08/17 21:47 Olanzapine (ZyPREXA) 10 mg Q12HR ORAL 09/06/17 21:00 09/27/17 20:59 09/10/17 09:00 Quetiapine Fumarate (SEROquel) 100 mg EVERY 8 HOURS ORAL 09/06/17 22:00 09/26/17 12:59 09/10/17 05:33 Risperidone (RisperDAL) 2 mg EVERY 8 HOURS ORAL 09/06/17 22:00 09/26/17 17:59 09/10/17 05:33 Trazodone HCl (Desyrel) 200 mg BEDTIME ORAL 09/06/17 21:00 10/03/17 20:59 09/09/17 20:52 Vancomycin HCl (Vanco rx to dose) 1 ea DAILY PRN MISC Per rx protocol 09/07/17 09:00 09/26/17 10:59 Vancomycin HCl 500 mg/Dextrose 110 ml @ 110 mls/hr Q12HR IVPB 09/09/17 21:00 09/10/17 23:59 09/10/17 08:57 Warfarin Sodium (Coumadin per pharmacy) 1 ea DAILY PRN MISC Per rx protocol 09/07/17 09:00 09/25/17 16:59 Warfarin Sodium (Coumadin) 1 mg COUMADIN ONCE ORAL 09/10/17 17:00 09/10/17 17:01 Joseph Joseph MD Sep 10, 2017 09:45
[2017-09-10 11:47] VITALS: BP 117/75
[2017-09-10 15:50] VITALS: BP 120/67
[2017-09-10] MEDS ORDERED: Warfarin Sodium 1mg ORAL ONE (17:00)
[2017-09-10 20:00] VITALS: BP 121/72
[2017-09-10] MEDS: TraZODone 100mg tab ORAL SCH (21:38)
[2017-09-11] VITALS: BP 131/79
[2017-09-11 04:00] VITALS: BP 131/59
[2017-09-11 06:39] LABS: INR 1.8 (0.9-1.1)
[2017-09-11 08:00] VITALS: BP 126/73
--- NOTE | 2017-09-11 08:13 | Nephrology Progress Note ---
Assessment/Plan Assessment/Plan 1. Hypernatremia- Resolved 2. Met Alk- due to met comp and maitenence alk from hypok - corrected 3. Resp FL- on NRB - mgmt per Pulm 4. Right hemithorax opacification. Has recurrent partial collapse; much improved after aggressive pulmonary hygiene with metanebs and VEST 5. History of right pleural effusion. 6. Schizophrenia 7. Chronic Coumadin usage. Subjective Date patient seen: Sep 11, 2017 ROS Limited/Unobtainable: Yes Allergies: Coded Allergies: No Known Allergies (Unverified , 08/03/17) Subjective Patient on NRB. In no distress Objective Last 24 Hour Vital Signs Date Time Temp Pulse Resp B/P (MAP) Pulse Ox O2 Delivery O2 Flow Rate FiO2 09/11/17 04:43 99 25 97 Facial 60 09/11/17 04:00 98.2 92 20 131/59 96 Bi-pap 60 98.2 09/11/17 04:00 96 09/11/17 03:05 93 16 95 Facial 60 09/11/17 01:47 90 23 94 Facial 60 09/11/17 00:00 97 09/11/17 00:00 97.6 88 20 131/79 94 Bi-pap 60 97.6 09/10/17 22:54 101 19 96 Facial 60 09/10/17 21:02 94 22 97 Facial 60 09/10/17 20:00 97.5 90 20 121/72 93 Bi-pap 60 97.5 09/10/17 20:00 93 09/10/17 19:07 Bi-pap 60 09/10/17 19:07 92 18 94 Facial 60 09/10/17 19:07 94 Bi-pap 60 09/10/17 16:00 103 09/10/17 15:50 98.7 89 18 120/67 97 Bi-pap 60 98.7 09/10/17 15:01 93 15 93 Facial 60 09/10/17 13:07 77 15 95 Facial 60 09/10/17 12:00 76 09/10/17 11:47 98.9 72 18 117/75 93 Bi-pap 60 98.9 Intake and Output 09/10/17 09/11/17 19:00 07:00 Intake Total 410 ml 150 ml Output Total 150 ml 500 ml Balance 260 ml -350 ml Intake Oral 300 ml 150 ml IV Total 110 ml Output Urine Total 150 ml 500 ml # Voids 3 Laboratory Tests 09/11/17 04:36: Prothrombin Time 18.6H, Prothromb Time International Ratio 1.8H Height (Feet): 5 Height (Inches): 9.00 Weight (Pounds): 179 General Appearance: alert EENT: normal ENT inspection Neck: normal alignment, supple Cardiovascular: normal rate, regular rhythm Respiratory/Chest: rhonchi - bilaterally Abdomen: non tender, soft Edema: no edema noted Arm (L), no edema noted Arm (R), no edema noted Leg (L), no edema noted Leg (R), no edema noted Pedal (L), no edema noted Pedal (R), no edema noted Generalized Cody Melendez M.D. Sep 11, 2017 08:13
[2017-09-11] MEDS: Citalopram Hydrobromide 10mg Tab ORAL SCH (08:15)
[2017-09-11] MEDS: Depakote 125mg Sprinkles GT SCH ×2 (08:16→21:10)
[2017-09-11] MEDS: OLANZapine 10mg tab ORAL SCH ×2 (08:17→21:24)
[2017-09-11] MEDS: LORazepam Inj 2mg/ml 1ml IV PRN ×2 (08:26→17:23)
--- NOTE | 2017-09-11 09:51 | Infectious Diseases Prog Note ---
Assessment/Plan Assessment/Plan A; Pneumonia with MRSA Hypoxic respiratory failure COPD Schizophrenia R lung collapse/atelectasis Constipation P: observe off antibiotic Subjective ROS Limited/Unobtainable: Yes Neurologic: Reports: confusion, other - on restraint Allergies: Coded Allergies: No Known Allergies (Unverified , 08/03/17) Objective Vital Signs Last 24 Hour Vital Signs Date Time Temp Pulse Resp B/P (MAP) Pulse Ox O2 Delivery O2 Flow Rate FiO2 09/11/17 08:00 97.9 108 19 126/73 95 Bi-pap 60 97.9 09/11/17 08:00 91 09/11/17 06:50 Bi-pap 60 09/11/17 06:50 94 Bi-pap 60 09/11/17 06:50 96 20 94 14.0 55 09/11/17 04:43 99 25 97 Facial 60 09/11/17 04:00 98.2 92 20 131/59 96 Bi-pap 60 98.2 09/11/17 04:00 96 09/11/17 03:05 93 16 95 Facial 60 09/11/17 01:47 90 23 94 Facial 60 09/11/17 00:00 97 09/11/17 00:00 97.6 88 20 131/79 94 Bi-pap 60 97.6 09/10/17 22:54 101 19 96 Facial 60 09/10/17 21:02 94 22 97 Facial 60 09/10/17 20:00 97.5 90 20 121/72 93 Bi-pap 60 97.5 09/10/17 20:00 93 09/10/17 19:07 Bi-pap 60 09/10/17 19:07 92 18 94 Facial 60 09/10/17 19:07 94 Bi-pap 60 09/10/17 16:00 103 09/10/17 15:50 98.7 89 18 120/67 97 Bi-pap 60 98.7 09/10/17 15:01 93 15 93 Facial 60 09/10/17 13:07 77 15 95 Facial 60 09/10/17 12:00 76 09/10/17 11:47 98.9 72 18 117/75 93 Bi-pap 60 98.9 Height (Feet): 5 Height (Inches): 9.00 Weight (Pounds): 179 General Appearance: no acute distress HEENT: normocephalic, other - by venturi mask Respiratory/Chest: lungs clear Cardiovascular: normal rate Abdomen: soft, non tender Extremities: no edema Neurologic/Psychiatric: other - sleeping Laboratory Tests Test 09/11/17 04:36 Prothrombin Time 18.6 SEC (9.30-11.50) H Prothromb Time International Ratio 1.8 (0.9-1.1) H Current Medications Medications (Trade) Dose Ordered Sig/Kika Route PRN Reason Start Time Stop Time Status Last Admin Dose Admin Acetaminophen (Tylenol) 650 mg Q4H PRN ORAL Mild Pain/Temp > 100.5 09/06/17 21:00 09/23/17 16:59 Albuterol Sulfate (Proventil MDI) 2 puff Q6H PRN INH Shortness of Breath 09/06/17 20:00 10/06/17 19:59 Atorvastatin Calcium (Lipitor) 10 mg BEDTIME ORAL 09/06/17 21:00 09/23/17 20:59 09/10/17 21:39 Citalopram Hydrobromide (celeXA) 40 mg DAILY ORAL 09/07/17 09:00 09/25/17 08:59 09/11/17 08:15 Divalproex Sodium (Depakote Sprinkles) 500 mg EVERY 12 HOURS GT 09/06/17 21:00 09/23/17 20:59 09/11/17 08:16 Docusate Sodium (Colace) 100 mg Q8H PRN ORAL Constipation 09/06/17 20:00 10/06/17 19:59 Lorazepam (Ativan 2mg/ml 1ml) 1 mg Q6H PRN IV For Anxiety 09/11/17 08:15 09/18/17 08:14 09/11/17 08:26 Magnesium Hydroxide (Mom) 30 ml DAILYPRN PRN ORAL Constipation 09/06/17 20:00 10/06/17 19:59 09/08/17 21:47 Olanzapine (ZyPREXA) 10 mg Q12HR ORAL 09/06/17 21:00 09/27/17 20:59 09/11/17 08:17 Quetiapine Fumarate (SEROquel) 100 mg EVERY 8 HOURS ORAL 09/06/17 22:00 09/26/17 12:59 09/11/17 05:34 Risperidone (RisperDAL) 2 mg EVERY 8 HOURS ORAL 09/06/17 22:00 09/26/17 17:59 09/11/17 05:35 Trazodone HCl (Desyrel) 200 mg BEDTIME ORAL 09/06/17 21:00 10/03/17 20:59 09/10/17 21:38 Vancomycin HCl (Vanco rx to dose) 1 ea DAILY PRN MISC Per rx protocol 09/07/17 09:00 09/26/17 10:59 Warfarin Sodium (Coumadin per pharmacy) 1 ea DAILY PRN MISC Per rx protocol 09/07/17 09:00 09/25/17 16:59 Warfarin Sodium (Coumadin) 1 mg COUMADIN ONCE ORAL 09/11/17 17:00 09/11/17 17:01 Joseph Joseph MD Sep 11, 2017 09:51
[2017-09-11 12:00] VITALS: BP 109/71
[2017-09-11 16:00] VITALS: BP 115/82
[2017-09-11] MEDS ORDERED: Warfarin Sodium 1mg ORAL ONE ×2 (17:00)
--- NOTE | 2017-09-11 17:27 | Pulmonology Progress Note ---
Assessment/Plan Assessment/Plan Assessment/Plan 1. Acute respiratory failure. on ventimask now 2. Atelectasis, R lung 3. History of right pleural effusion. 4. Schizophrenia 5. Chronic Coumadin usage. 5. Pulmonary edema; resolved 6. Agitation DISCUSSION: Off abx Psych rx Zyprexa and Risperidone, Celexa and Trazodone May require transfer to inpatient facility for psych and medical care Reviewed CXR On venti mask; try nasal O2 Subjective ROS Limited/Unobtainable: Yes Allergies: Coded Allergies: No Known Allergies (Unverified , 08/03/17) Objective Last 24 Hour Vital Signs Date Time Temp Pulse Resp B/P (MAP) Pulse Ox O2 Delivery O2 Flow Rate FiO2 09/11/17 16:00 82 09/11/17 16:00 97.6 100 17 115/82 93 Venturi Mask 45 97.6 09/11/17 12:00 97.9 91 11 109/71 92 Venturi Mask 45 97.9 09/11/17 11:55 86 09/11/17 08:00 97.9 108 19 126/73 95 Bi-pap 60 97.9 09/11/17 08:00 91 09/11/17 06:50 Bi-pap 60 09/11/17 06:50 94 Bi-pap 60 09/11/17 06:50 96 20 94 14.0 55 09/11/17 04:43 99 25 97 Facial 60 09/11/17 04:00 98.2 92 20 131/59 96 Bi-pap 60 98.2 09/11/17 04:00 96 09/11/17 03:05 93 16 95 Facial 60 09/11/17 01:47 90 23 94 Facial 60 09/11/17 00:00 97 09/11/17 00:00 97.6 88 20 131/79 94 Bi-pap 60 97.6 09/10/17 22:54 101 19 96 Facial 60 09/10/17 21:02 94 22 97 Facial 60 09/10/17 20:00 97.5 90 20 121/72 93 Bi-pap 60 97.5 09/10/17 20:00 93 09/10/17 19:07 Bi-pap 60 09/10/17 19:07 92 18 94 Facial 60 09/10/17 19:07 94 Bi-pap 60 Intake and Output 09/10/17 09/11/17 19:00 07:00 Intake Total 410 ml 150 ml Output Total 150 ml 500 ml Balance 260 ml -350 ml Intake Oral 300 ml 150 ml IV Total 110 ml Output Urine Total 150 ml 500 ml # Voids 3 General Appearance: no acute distress HEENT: atraumatic Respiratory/Chest: decreased breath sounds Cardiovascular: normal rate Laboratory Tests 09/11/17 04:36: Prothrombin Time 18.6H, Prothromb Time International Ratio 1.8H Current Medications Medications (Trade) Dose Ordered Sig/Kika Route PRN Reason Start Time Stop Time Status Last Admin Dose Admin Acetaminophen (Tylenol) 650 mg Q4H PRN ORAL Mild Pain/Temp > 100.5 09/06/17 21:00 09/23/17 16:59 Albuterol Sulfate (Proventil MDI) 2 puff Q6H PRN INH Shortness of Breath 09/06/17 20:00 10/06/17 19:59 Atorvastatin Calcium (Lipitor) 10 mg BEDTIME ORAL 09/06/17 21:00 09/23/17 20:59 09/10/17 21:39 Citalopram Hydrobromide (celeXA) 40 mg DAILY ORAL 09/07/17 09:00 09/25/17 08:59 09/11/17 08:15 Divalproex Sodium (Depakote Sprinkles) 500 mg EVERY 12 HOURS GT 09/06/17 21:00 09/23/17 20:59 09/11/17 08:16 Docusate Sodium (Colace) 100 mg Q8H PRN ORAL Constipation 09/06/17 20:00 10/06/17 19:59 Lorazepam (Ativan 2mg/ml 1ml) 1 mg Q6H PRN IV For Anxiety 09/11/17 08:15 09/18/17 08:14 09/11/17 17:23 Magnesium Hydroxide (Mom) 30 ml DAILYPRN PRN ORAL Constipation 09/06/17 20:00 10/06/17 19:59 09/08/17 21:47 Olanzapine (ZyPREXA) 10 mg Q12HR ORAL 09/06/17 21:00 09/27/17 20:59 09/11/17 08:17 Quetiapine Fumarate (SEROquel) 100 mg EVERY 8 HOURS ORAL 09/06/17 22:00 09/26/17 12:59 09/11/17 14:58 Risperidone (RisperDAL) 2 mg EVERY 8 HOURS ORAL 09/06/17 22:00 09/26/17 17:59 09/11/17 14:58 Trazodone HCl (Desyrel) 200 mg BEDTIME ORAL 09/06/17 21:00 10/03/17 20:59 09/10/17 21:38 Vancomycin HCl (Vanco rx to dose) 1 ea DAILY PRN MISC Per rx protocol 09/07/17 09:00 09/26/17 10:59 Warfarin Sodium (Coumadin per pharmacy) 1 ea DAILY PRN MISC Per rx protocol 09/07/17 09:00 09/25/17 16:59 Sergio Shay MD Sep 11, 2017 17:27
[2017-09-11 20:00] VITALS: BP 103/59
[2017-09-11] MEDS: TraZODone 100mg tab ORAL SCH (21:10)
[2017-09-12] VITALS (7 sets, daily range): BP systolic 92–122; BP diastolic 69–79
[2017-09-12] MEDS: LORazepam Inj 2mg/ml 1ml IV PRN ×4 (01:10→23:19)
[2017-09-12 07:28] LABS: HEMATOCRIT 36.4 % (42.0-52.0); HEMOGLOBIN 10.8 G/DL (14.2-18.0); MEAN CORPUSCULAR VOLUME 95 FL (80-99); PLATELET COUNT 95 K/UL (150-450); RED BLOOD COUNT 3.84 M/UL (4.70-6.10); RED CELL DISTRIBUTION WIDTH 17.5 % (11.6-14.8); WHITE BLOOD COUNT 5.4 K/UL (4.8-10.8)
[2017-09-12 07:36] LABS: ANION GAP -1 mmol/L (5-15); BLOOD UREA NITROGEN 12 mg/dL (7-18); CALCIUM 9.1 MG/DL (8.5-10.1); CHLORIDE 105 MMOL/L (98-107); CREATININE 1.1 MG/DL (0.55-1.30); POTASSIUM 4.1 MMOL/L (3.5-5.1); SODIUM 147 MMOL/L (136-145)
[2017-09-12 07:40] LABS: INR 2.1 (0.9-1.1)
[2017-09-12 08:02] LABS: CARBON DIOXIDE 43 MMOL/L (21-32)
--- NOTE | 2017-09-12 08:21 | Nephrology Progress Note ---
Assessment/Plan Assessment/Plan 1. Hypernatremia- D5W x 1L 2. Met Alk- due to met comp and maitenence alk from hypok - D5W x 1L 3. Resp FL- on NRB - mgmt per Pulm 4. Right hemithorax opacification. Has recurrent partial collapse; much improved after aggressive pulmonary hygiene with metanebs and VEST 5. History of right pleural effusion. 6. Schizophrenia- per PSY mgmt Subjective Date patient seen: Sep 12, 2017 Time patient seen: 08:19 ROS Limited/Unobtainable: Yes Allergies: Coded Allergies: No Known Allergies (Unverified , 08/03/17) Subjective Patient on NRB. In no distress resting comfortably Objective Last 24 Hour Vital Signs Date Time Temp Pulse Resp B/P (MAP) Pulse Ox O2 Delivery O2 Flow Rate FiO2 09/12/17 07:20 Bi-pap 60 09/12/17 07:20 87 Bi-pap 60 09/12/17 04:54 88 22 94 Facial 60 09/12/17 04:00 89 09/12/17 04:00 97.5 90 14 114/74 97 Bi-pap 100 97.5 09/12/17 02:59 96 15 93 Facial 60 09/12/17 01:14 96 17 94 Facial 60 09/12/17 00:02 95 18 88 Facial 60 09/12/17 00:00 92 09/12/17 00:00 98.0 93 17 113/76 92 Bi-pap 60 98.0 09/11/17 20:43 88 17 89 Facial 60 09/11/17 20:00 98.0 87 20 103/59 91 Nasal Cannula 4.0 98.0 09/11/17 19:50 86 Nasal Cannula 4.0 36 09/11/17 19:50 Nasal Cannula 4.0 36 09/11/17 19:11 87 09/11/17 16:00 45 09/11/17 16:00 82 09/11/17 16:00 97.6 100 17 115/82 93 Venturi Mask 45 97.6 09/11/17 12:00 97.9 91 11 109/71 92 Venturi Mask 45 97.9 09/11/17 12:00 45 09/11/17 11:55 86 Intake and Output 09/11/17 09/12/17 19:00 07:00 Intake Total 1080 ml Balance 1080 ml Intake Oral 1080 ml # Voids 2 Laboratory Tests 09/12/17 05:07: White Blood Count 5.4, Red Blood Count 3.84L, Hemoglobin 10.8L, Hematocrit 36.4L , Mean Corpuscular Volume 95, Mean Corpuscular Hemoglobin 28.1, Mean Corpuscular Hemoglobin Concent 29.6L, Red Cell Distribution Width 17.5H, Platelet Count 95L, Mean Platelet Volume 6.2L, Neutrophils (%) (Auto) , Lymphocytes (%) (Auto) , Monocytes (%) (Auto) , Eosinophils (%) (Auto) , Basophils (%) (Auto) , Neutrophils % (Manual) [Pending], Lymphocytes % (Manual) [Pending], Platelet Estimate [Pending], Platelet Morphology [Pending], Prothrombin Time 22.2H, Prothromb Time International Ratio 2.1H, Sodium Level 147H, Potassium Level 4.1, Chloride Level 105, Carbon Dioxide Level 43*H, Anion Gap -1L, Blood Urea Nitrogen 12, Creatinine 1.1, Estimat Glomerular Filtration Rate > 60, Glucose Level 64L, Calcium Level 9.1 Height (Feet): 5 Height (Inches): 9.00 Weight (Pounds): 179 General Appearance: no apparent distress EENT: normal ENT inspection Neck: normal alignment, supple Cardiovascular: normal rate, regular rhythm Respiratory/Chest: rhonchi - bilaterally Abdomen: non tender, soft, no organomegaly Edema: no edema noted Arm (L), no edema noted Arm (R), no edema noted Leg (L), no edema noted Leg (R), no edema noted Pedal (L), no edema noted Pedal (R), no edema noted Generalized Cody Melendez M.D. Sep 12, 2017 08:21
[2017-09-12] MEDS: Depakote 125mg Sprinkles GT SCH ×2 (09:23→20:57)
[2017-09-12] MEDS: Citalopram Hydrobromide 10mg Tab ORAL SCH (09:23)
[2017-09-12] MEDS: OLANZapine 10mg tab ORAL SCH ×2 (09:23→20:58)
--- NOTE | 2017-09-12 12:43 | Infectious Diseases Prog Note ---
Assessment/Plan Assessment/Plan A; Pneumonia with MRSA Hypoxic, hypercapnic respiratory failure COPD Schizophrenia R lung collapse/atelectasis P: observe off antibiotic repeat CXR Subjective ROS Limited/Unobtainable: Yes Respiratory: Reports: other - was put back in BIPAP Neurologic: Reports: confusion, other - on restraint Allergies: Coded Allergies: No Known Allergies (Unverified , 08/03/17) Objective Vital Signs Last 24 Hour Vital Signs Date Time Temp Pulse Resp B/P (MAP) Pulse Ox O2 Delivery O2 Flow Rate FiO2 09/12/17 11:17 98 14 90 Facial 60 09/12/17 10:14 90 20 93 Facial 60 09/12/17 09:29 89 22 93 Facial 60 09/12/17 08:00 97.5 91 18 122/79 92 Bi-pap 60 97.5 09/12/17 07:51 88 09/12/17 07:29 92 20 93 Facial 60 09/12/17 07:20 Bi-pap 60 09/12/17 07:20 87 Bi-pap 60 09/12/17 04:54 88 22 94 Facial 60 09/12/17 04:00 89 09/12/17 04:00 97.5 90 14 114/74 97 Bi-pap 100 97.5 09/12/17 02:59 96 15 93 Facial 60 09/12/17 01:14 96 17 94 Facial 60 09/12/17 00:02 95 18 88 Facial 60 09/12/17 00:00 92 09/12/17 00:00 98.0 93 17 113/76 92 Bi-pap 60 98.0 09/11/17 20:43 88 17 89 Facial 60 09/11/17 20:00 98.0 87 20 103/59 91 Nasal Cannula 4.0 98.0 09/11/17 19:50 86 Nasal Cannula 4.0 36 09/11/17 19:50 Nasal Cannula 4.0 36 09/11/17 19:11 87 09/11/17 16:00 45 09/11/17 16:00 82 09/11/17 16:00 97.6 100 17 115/82 93 Venturi Mask 45 97.6 Height (Feet): 5 Height (Inches): 9.00 Weight (Pounds): 179 HEENT: mucous membranes moist Respiratory/Chest: decreased breath sounds, other - on BIPAP Cardiovascular: normal rate Abdomen: soft, non tender Extremities: no edema Neurologic/Psychiatric: other - sleeping Laboratory Tests Test 09/12/17 05:07 White Blood Count 5.4 K/UL (4.8-10.8) Red Blood Count 3.84 M/UL (4.70-6.10) L Hemoglobin 10.8 G/DL (14.2-18.0) L Hematocrit 36.4 % (42.0-52.0) L Mean Corpuscular Volume 95 FL (80-99) Mean Corpuscular Hemoglobin 28.1 PG (27.0-31.0) Mean Corpuscular Hemoglobin Concent 29.6 G/DL (32.0-36.0) L Red Cell Distribution Width 17.5 % (11.6-14.8) H Platelet Count 95 K/UL (150-450) L Mean Platelet Volume 6.2 FL (6.5-10.1) L Neutrophils (%) (Auto) % (45.0-75.0) Lymphocytes (%) (Auto) % (20.0-45.0) Monocytes (%) (Auto) % (1.0-10.0) Eosinophils (%) (Auto) % (0.0-3.0) Basophils (%) (Auto) % (0.0-2.0) Differential Total Cells Counted 100 Neutrophils % (Manual) 67 % (45-75) Lymphocytes % (Manual) 16 % (20-45) L Monocytes % (Manual) 15 % (1-10) H Eosinophils % (Manual) 2 % (0-3) Basophils % (Manual) 0 % (0-2) Band Neutrophils 0 % (0-8) Platelet Estimate Decreased L Platelet Morphology Normal Hypochromasia 1+ Anisocytosis 2+ Prothrombin Time 22.2 SEC (9.30-11.50) H Prothromb Time International Ratio 2.1 (0.9-1.1) H Sodium Level 147 MMOL/L (136-145) H Potassium Level 4.1 MMOL/L (3.5-5.1) Chloride Level 105 MMOL/L (98-107) Carbon Dioxide Level 43 MMOL/L (21-32) *H Anion Gap -1 mmol/L (5-15) L Blood Urea Nitrogen 12 mg/dL (7-18) Creatinine 1.1 MG/DL (0.55-1.30) Estimat Glomerular Filtration Rate > 60 mL/min (>60) Glucose Level 64 MG/DL (74-106) L Calcium Level 9.1 MG/DL (8.5-10.1) Current Medications Medications (Trade) Dose Ordered Sig/Kika Route PRN Reason Start Time Stop Time Status Last Admin Dose Admin Acetaminophen (Tylenol) 650 mg Q4H PRN ORAL Mild Pain/Temp > 100.5 09/06/17 21:00 09/23/17 16:59 Albuterol Sulfate (Proventil MDI) 2 puff Q6H PRN INH Shortness of Breath 09/06/17 20:00 10/06/17 19:59 Atorvastatin Calcium (Lipitor) 10 mg BEDTIME ORAL 09/06/17 21:00 09/23/17 20:59 09/11/17 21:10 Citalopram Hydrobromide (celeXA) 40 mg DAILY ORAL 09/07/17 09:00 09/25/17 08:59 09/12/17 09:23 Dextrose 1,000 ml @ 75 mls/hr [id number] IV 09/12/17 10:00 10/12/17 09:59 09/12/17 10:33 Divalproex Sodium (Depakote Sprinkles) 500 mg EVERY 12 HOURS GT 09/06/17 21:00 09/23/17 20:59 09/12/17 09:23 Docusate Sodium (Colace) 100 mg Q8H PRN ORAL Constipation 09/06/17 20:00 10/06/17 19:59 Lorazepam (Ativan 2mg/ml 1ml) 1 mg Q6H PRN IV For Anxiety 09/11/17 08:15 09/18/17 08:14 09/12/17 10:33 Magnesium Hydroxide (Mom) 30 ml DAILYPRN PRN ORAL Constipation 09/06/17 20:00 10/06/17 19:59 09/08/17 21:47 Olanzapine (ZyPREXA) 10 mg Q12HR ORAL 09/06/17 21:00 09/27/17 20:59 09/12/17 09:23 Quetiapine Fumarate (SEROquel) 100 mg EVERY 8 HOURS ORAL 09/06/17 22:00 7/13/18 12:59 09/12/17 05:37 Risperidone (RisperDAL) 2 mg EVERY 8 HOURS ORAL 09/06/17 22:00 09/26/17 17:59 09/12/17 05:37 Trazodone HCl (Desyrel) 200 mg BEDTIME ORAL 09/06/17 21:00 10/03/17 20:59 09/11/17 21:10 Vancomycin HCl (Vanco rx to dose) 1 ea DAILY PRN MISC Per rx protocol 09/07/17 09:00 09/26/17 10:59 Warfarin Sodium (Coumadin per pharmacy) 1 ea DAILY PRN MISC Per rx protocol 09/07/17 09:00 09/25/17 16:59 Joseph Joseph MD Sep 12, 2017 12:43
--- NOTE | 2017-09-12 15:14 | Pulmonology Progress Note ---
Assessment/Plan Assessment/Plan Assessment/Plan 1. Acute respiratory failure. on ventimask now 2. Atelectasis, R lung 3. History of right pleural effusion. 4. Schizophrenia 5. Chronic Coumadin usage. 5. Pulmonary edema; resolved 6. Agitation DISCUSSION: back on BiPAP due to low sat on 4 liters n/c Psych rx Zyprexa and Risperidone, Celexa and Trazodone May require transfer to inpatient facility for psych and medical care Repeat CXR Subjective ROS Limited/Unobtainable: Yes Allergies: Coded Allergies: No Known Allergies (Unverified , 08/03/17) Objective Last 24 Hour Vital Signs Date Time Temp Pulse Resp B/P (MAP) Pulse Ox O2 Delivery O2 Flow Rate FiO2 09/12/17 12:52 94 15 89 Facial 60 09/12/17 12:00 79 09/12/17 12:00 98.3 96 14 92/69 91 Bi-pap 60 98.3 09/12/17 11:17 98 14 90 Facial 60 09/12/17 10:14 90 20 93 Facial 60 09/12/17 09:29 89 22 93 Facial 60 09/12/17 08:00 97.5 91 18 122/79 92 Bi-pap 60 97.5 09/12/17 07:51 88 09/12/17 07:29 92 20 93 Facial 60 09/12/17 07:20 Bi-pap 60 09/12/17 07:20 87 Bi-pap 60 09/12/17 04:54 88 22 94 Facial 60 09/12/17 04:00 89 09/12/17 04:00 97.5 90 14 114/74 97 Bi-pap 100 97.5 09/12/17 02:59 96 15 93 Facial 60 09/12/17 01:14 96 17 94 Facial 60 09/12/17 00:02 95 18 88 Facial 60 09/12/17 00:00 92 09/12/17 00:00 98.0 93 17 113/76 92 Bi-pap 60 98.0 09/11/17 20:43 88 17 89 Facial 60 09/11/17 20:00 98.0 87 20 103/59 91 Nasal Cannula 4.0 98.0 09/11/17 19:50 86 Nasal Cannula 4.0 36 09/11/17 19:50 Nasal Cannula 4.0 36 09/11/17 19:11 87 6/28/18 16:00 45 09/11/17 16:00 82 09/11/17 16:00 97.6 100 17 115/82 93 Venturi Mask 45 97.6 Intake and Output 09/11/17 09/12/17 19:00 07:00 Intake Total 1080 ml Balance 1080 ml Intake Oral 1080 ml # Voids 2 General Appearance: no acute distress HEENT: anicteric Respiratory/Chest: rhonchi Cardiovascular: normal rate Laboratory Tests 09/12/17 05:07: White Blood Count 5.4, Red Blood Count 3.84L, Hemoglobin 10.8L, Hematocrit 36.4L , Mean Corpuscular Volume 95, Mean Corpuscular Hemoglobin 28.1, Mean Corpuscular Hemoglobin Concent 29.6L, Red Cell Distribution Width 17.5H, Platelet Count 95L, Mean Platelet Volume 6.2L, Neutrophils (%) (Auto) , Lymphocytes (%) (Auto) , Monocytes (%) (Auto) , Eosinophils (%) (Auto) , Basophils (%) (Auto) , Differential Total Cells Counted 100, Neutrophils % ( Manual) 67, Lymphocytes % (Manual) 16L, Monocytes % (Manual) 15H, Eosinophils % (Manual) 2, Basophils % (Manual) 0, Band Neutrophils 0, Platelet Estimate DecreasedL, Platelet Morphology Normal, Hypochromasia 1+, Anisocytosis 2+, Prothrombin Time 22.2H, Prothromb Time International Ratio 2.1H, Sodium Level 147H, Potassium Level 4.1, Chloride Level 105, Carbon Dioxide Level 43*H, Anion Gap -1L, Blood Urea Nitrogen 12, Creatinine 1.1, Estimat Glomerular Filtration Rate > 60, Glucose Level 64L, Calcium Level 9.1 Current Medications Medications (Trade) Dose Ordered Sig/Kika Route PRN Reason Start Time Stop Time Status Last Admin Dose Admin Acetaminophen (Tylenol) 650 mg Q4H PRN ORAL Mild Pain/Temp > 100.5 09/06/17 21:00 09/23/17 16:59 Albuterol Sulfate (Proventil MDI) 2 puff Q6H PRN INH Shortness of Breath 09/06/17 20:00 10/06/17 19:59 Atorvastatin Calcium (Lipitor) 10 mg BEDTIME ORAL 09/06/17 21:00 7/10/18 20:59 09/11/17 21:10 Citalopram Hydrobromide (celeXA) 40 mg DAILY ORAL 09/07/17 09:00 09/25/17 08:59 09/12/17 09:23 Dextrose 1,000 ml @ 75 mls/hr [id number] IV 09/12/17 10:00 10/12/17 09:59 09/12/17 10:33 Divalproex Sodium (Depakote Sprinkles) 500 mg EVERY 12 HOURS GT 09/06/17 21:00 09/23/17 20:59 09/12/17 09:23 Docusate Sodium (Colace) 100 mg Q8H PRN ORAL Constipation 09/06/17 20:00 10/06/17 19:59 Lorazepam (Ativan 2mg/ml 1ml) 1 mg Q6H PRN IV For Anxiety 09/11/17 08:15 09/18/17 08:14 09/12/17 10:33 Magnesium Hydroxide (Mom) 30 ml DAILYPRN PRN ORAL Constipation 09/06/17 20:00 10/06/17 19:59 09/08/17 21:47 Olanzapine (ZyPREXA) 10 mg Q12HR ORAL 09/06/17 21:00 09/27/17 20:59 09/12/17 09:23 Quetiapine Fumarate (SEROquel) 100 mg EVERY 8 HOURS ORAL 09/06/17 22:00 09/26/17 12:59 09/12/17 14:30 Risperidone (RisperDAL) 2 mg EVERY 8 HOURS ORAL 09/06/17 22:00 09/26/17 17:59 09/12/17 14:30 Trazodone HCl (Desyrel) 200 mg BEDTIME ORAL 09/06/17 21:00 10/03/17 20:59 09/11/17 21:10 Vancomycin HCl (Vanco rx to dose) 1 ea DAILY PRN MISC Per rx protocol 09/07/17 09:00 09/26/17 10:59 Warfarin Sodium (Coumadin per pharmacy) 1 ea DAILY PRN MISC Per rx protocol 09/07/17 09:00 09/25/17 16:59 Warfarin Sodium (Coumadin) 0.5 mg COUMADIN ONCE ORAL 09/12/17 17:00 09/12/17 17:01 Sergio Shay MD Sep 12, 2017 15:14
--- NOTE | 2017-09-12 16:17 | Diagnostic Imaging Report ---
Indication: Dyspnea Technique: One view of the chest Comparison: 09/06/2017 Findings: There is complete opacification of the right hemithorax. There is evident occlusion of the origin of the right mainstem bronchus and shift of mediastinum to the right, indicating that this is due to recurrent complete atelectasis. Left lung and pleural space remain clear. Heart size is difficult to assess, probably normal. Impression: Evidence of recurrent complete atelectasis of the right lung, likely due to endobronchial obstruction of the right mainstem bronchus Patient's nurse, Viral, notified at the time of interpretation
[2017-09-12] MEDS ORDERED: Warfarin Sodium 1mg ORAL ONE (17:00)
[2017-09-12] MEDS: Milk of Magnesia 30ml Ud ORAL PRN (20:57)
[2017-09-12] MEDS: TraZODone 100mg tab ORAL SCH (20:58)
[2017-09-12] MEDS ORDERED: Fleet's Mineral Oil Enema RECTAL ONE (22:00)
[2017-09-12] MEDS ORDERED: Fleet's Mineral Oil Enema RECTAL PRN (22:15)
[2017-09-13] VITALS: BP 100/66
[2017-09-13 04:00] VITALS: BP 100/62
[2017-09-13 05:10] LABS: INR 2.3 (0.9-1.1)
[2017-09-13 05:12] LABS: ANION GAP -5 mmol/L (5-15); BLOOD UREA NITROGEN 13 mg/dL (7-18); CALCIUM 8.8 MG/DL (8.5-10.1); CHLORIDE 102 MMOL/L (98-107); CREATININE 1.1 MG/DL (0.55-1.30); POTASSIUM 3.8 MMOL/L (3.5-5.1); SODIUM 141 MMOL/L (136-145)
[2017-09-13 05:23] LABS: CARBON DIOXIDE 44 MMOL/L (21-32)
--- NOTE | 2017-09-13 07:53 | Nephrology Progress Note ---
Assessment/Plan Assessment/Plan 1. Hypernatremia- D5W x 1L. Resolved 2. Met Alk- due to met comp and maitenence alk from hypok - s/p IVF's. Will DC D5W 3. Resp FL- on BiPAP. PCO2 90 - mgmt per Pulm. Poss re-intubation 4. Right hemithorax opacification. Has recurrent partial collapse; much improved after aggressive pulmonary hygiene 5. History of right pleural effusion. 6. Schizophrenia- per PSY mgmt Subjective Date patient seen: Sep 13, 2017 Time patient seen: 07:50 ROS Limited/Unobtainable: Yes Allergies: Coded Allergies: No Known Allergies (Unverified , 08/03/17) Subjective Patient on biPAP. Objective Last 24 Hour Vital Signs Date Time Temp Pulse Resp B/P (MAP) Pulse Ox O2 Delivery O2 Flow Rate FiO2 09/13/17 07:25 Bi-pap 09/13/17 07:25 101 19 92 Facial 80 09/13/17 07:25 91 Bi-pap 80 09/13/17 04:00 98.3 77 16 100/62 100 Bi-pap 80 98.3 09/13/17 04:00 80 09/13/17 03:44 78 09/13/17 03:30 108 21 92 Facial 80 09/13/17 01:30 82 21 94 Facial 80 09/13/17 00:48 108 18 96 Facial 80 09/13/17 00:00 98.3 107 22 100/66 100 Bi-pap 80 98.3 09/13/17 00:00 109 09/13/17 00:00 80 09/12/17 23:41 111 16 95 Facial 80 09/12/17 21:17 100 16 95 Facial 100 09/12/17 20:00 100 09/12/17 20:00 98.8 105 14 106/72 100 Bi-pap 100 98.8 09/12/17 19:55 111 15 93 Facial 100 09/12/17 19:31 Bi-pap 09/12/17 19:26 94 Bi-pap 60 09/12/17 19:21 105 09/12/17 17:16 105 15 97 Full Face 60 09/12/17 16:00 98.8 111 18 106/73 100 Bi-pap 60 98.8 09/12/17 16:00 100 09/12/17 15:29 94 15 89 Full Face 60 09/12/17 12:52 94 15 89 Facial 60 09/12/17 12:00 79 09/12/17 12:00 98.3 96 14 92/69 91 Bi-pap 60 98.3 09/12/17 11:17 98 14 90 Facial 60 09/12/17 10:14 90 20 93 Facial 60 09/12/17 09:29 89 22 93 Facial 60 09/12/17 08:00 97.5 91 18 122/79 92 Bi-pap 60 97.5 09/12/17 07:51 88 Intake and Output 09/12/17 09/13/17 19:00 07:00 Intake Total 700 ml 977 ml Balance 700 ml 977 ml Intake Oral 100 ml 120 ml IV Total 600 ml 857 ml # Voids 3 Laboratory Tests 09/13/17 03:15: Prothrombin Time 24.8H, Prothromb Time International Ratio 2.3H, Sodium Level 141, Potassium Level 3.8, Chloride Level 102, Carbon Dioxide Level 44*H, Anion Gap -5L, Blood Urea Nitrogen 13, Creatinine 1.1, Estimat Glomerular Filtration Rate > 60, Glucose Level 100, Calcium Level 8.8 09/13/17 04:00: Arterial Blood pH 7.330L, Arterial Blood Partial Pressure CO2 94.8*H, Arterial Blood Partial Pressure O2 68.7L, Arterial Blood HCO3 49.7H, Arterial Blood Oxygen Saturation 91.2L, Arterial Blood Base Excess 19.7, Roosevelt Test Positive Height (Feet): 5 Height (Inches): 9.00 Weight (Pounds): 180 General Appearance: no apparent distress, alert EENT: normal ENT inspection Neck: normal alignment Cardiovascular: normal rate, regular rhythm Respiratory/Chest: rhonchi - bilaterally Abdomen: non tender, soft Edema: no edema noted Arm (L), no edema noted Arm (R), no edema noted Leg (L), no edema noted Leg (R), no edema noted Pedal (L), no edema noted Pedal (R), no edema noted Generalized Cody Melendez M.D. Sep 13, 2017 07:53
[2017-09-13 08:00] VITALS: BP 121/76
[2017-09-13] MEDS: Depakote 125mg Sprinkles GT SCH ×2 (08:42→21:41)
[2017-09-13] MEDS: Citalopram Hydrobromide 10mg Tab ORAL SCH (08:42)
[2017-09-13] MEDS: LORazepam Inj 2mg/ml 1ml IV PRN (08:43)
--- NOTE | 2017-09-13 09:47 | Diagnostic Imaging Report ---
INDICATION: Dyspnea COMPARISON: Chest x-ray dated 09/12/17 FINDINGS: Single frontal view demonstrates complete opacification of the right hemithorax with volume loss. The visualized osseous structures are within normal limits. IMPRESSION: No significant change. Stable complete opacification of the right hemithorax with volume loss.
[2017-09-13] MEDS: OLANZapine 10mg tab ORAL SCH ×2 (11:02→22:03)
--- NOTE | 2017-09-13 11:39 | Infectious Diseases Prog Note ---
Assessment/Plan Assessment/Plan antibiotics : none A 1. MRSA pneumonia s/p rx 2. respiratory failure 3. fungal UTI s/p rx 4. COPD 5. hypertension 6. renal stone 7. right lung collapse P 1. continue off antibiotics Subjective ROS Limited/Unobtainable: Yes Allergies: Coded Allergies: No Known Allergies (Unverified , 08/03/17) Objective Vital Signs Last 24 Hour Vital Signs Date Time Temp Pulse Resp B/P (MAP) Pulse Ox O2 Delivery O2 Flow Rate FiO2 09/13/17 11:20 89 20 89 Facial 80 09/13/17 09:14 98 24 90 Facial 80 09/13/17 08:00 96.4 84 14 121/76 92 Bi-pap 80 96.4 09/13/17 07:25 Bi-pap 09/13/17 07:25 101 19 92 Facial 80 09/13/17 07:25 91 Bi-pap 80 09/13/17 04:00 98.3 77 16 100/62 100 Bi-pap 80 98.3 09/13/17 04:00 80 09/13/17 03:44 78 09/13/17 03:30 108 21 92 Facial 80 09/13/17 01:30 82 21 94 Facial 80 09/13/17 00:48 108 18 96 Facial 80 09/13/17 00:00 98.3 107 22 100/66 100 Bi-pap 80 98.3 09/13/17 00:00 109 09/13/17 00:00 80 09/12/17 23:41 111 16 95 Facial 80 09/12/17 21:17 100 16 95 Facial 100 09/12/17 20:00 100 09/12/17 20:00 98.8 105 14 106/72 100 Bi-pap 100 98.8 09/12/17 19:55 111 15 93 Facial 100 09/12/17 19:31 Bi-pap 09/12/17 19:26 94 Bi-pap 60 09/12/17 19:21 105 09/12/17 17:16 105 15 97 Full Face 60 09/12/17 16:00 98.8 111 18 106/73 100 Bi-pap 60 98.8 09/12/17 16:00 100 09/12/17 15:29 94 15 89 Full Face 60 09/12/17 12:52 94 15 89 Facial 60 09/12/17 12:00 79 09/12/17 12:00 98.3 96 14 92/69 91 Bi-pap 60 98.3 Height (Feet): 5 Height (Inches): 9.00 Weight (Pounds): 180 HEENT: other - on bipap Respiratory/Chest: lungs clear Cardiovascular: normal rate, regular rhythm, no gallop/murmur Abdomen: soft, non tender Extremities: no edema Laboratory Tests Test 09/13/17 03:15 09/13/17 04:00 Prothrombin Time 24.8 SEC (9.30-11.50) H Prothromb Time International Ratio 2.3 (0.9-1.1) H Sodium Level 141 MMOL/L (136-145) Potassium Level 3.8 MMOL/L (3.5-5.1) Chloride Level 102 MMOL/L (98-107) Carbon Dioxide Level 44 MMOL/L (21-32) *H Anion Gap -5 mmol/L (5-15) L Blood Urea Nitrogen 13 mg/dL (7-18) Creatinine 1.1 MG/DL (0.55-1.30) Estimat Glomerular Filtration Rate > 60 mL/min (>60) Glucose Level 100 MG/DL (74-106) Calcium Level 8.8 MG/DL (8.5-10.1) Arterial Blood pH 7.330 (7.350-7.450) Arterial Blood Partial Pressure CO2 94.8 mmHg (35.0-45.0) *H Arterial Blood Partial Pressure O2 68.7 mmHg (75.0-100.0) L Arterial Blood HCO3 49.7 mmol/L (22.0-26.0) H Arterial Blood Oxygen Saturation 91.2 % (92.0-98.0) L Arterial Blood Base Excess 19.7 Roosevelt Test Positive Current Medications Medications (Trade) Dose Ordered Sig/Kika Route PRN Reason Start Time Stop Time Status Last Admin Dose Admin Acetaminophen (Tylenol) 650 mg Q4H PRN ORAL Mild Pain/Temp > 100.5 09/06/17 21:00 09/23/17 16:59 Albuterol Sulfate (Proventil MDI) 2 puff Q6H PRN INH Shortness of Breath 09/06/17 20:00 10/06/17 19:59 Atorvastatin Calcium (Lipitor) 10 mg BEDTIME ORAL 09/06/17 21:00 09/23/17 20:59 09/12/17 20:58 Bisacodyl (Dulcolax) 10 mg DAILYPRN PRN RECTAL Constipation 09/12/17 22:00 10/12/17 21:59 09/12/17 23:19 Citalopram Hydrobromide (celeXA) 40 mg DAILY ORAL 09/07/17 09:00 09/25/17 08:59 09/13/17 08:42 Dextrose 1,000 ml @ 75 mls/hr [id number] IV 09/12/17 10:00 10/12/17 09:59 09/12/17 23:34 Divalproex Sodium (Depakote Sprinkles) 500 mg EVERY 12 HOURS GT 09/06/17 21:00 09/23/17 20:59 09/13/17 08:42 Docusate Sodium (Colace) 100 mg Q8H PRN ORAL Constipation 09/06/17 20:00 10/06/17 19:59 09/12/17 20:57 Lorazepam (Ativan 2mg/ml 1ml) 1 mg Q6H PRN IV For Anxiety 09/11/17 08:15 09/18/17 08:14 09/13/17 08:43 Magnesium Hydroxide (Mom) 30 ml DAILYPRN PRN ORAL Constipation 09/06/17 20:00 10/06/17 19:59 09/12/17 20:57 Mineral Oil (Fleet's Mineral Oil Enema) 133 ml DAILY PRN RECTAL Constipation 09/12/17 22:15 10/12/17 22:14 Olanzapine (ZyPREXA) 10 mg Q12HR ORAL 09/06/17 21:00 09/27/17 20:59 09/13/17 11:02 Quetiapine Fumarate (SEROquel) 100 mg EVERY 8 HOURS ORAL 09/06/17 22:00 09/26/17 12:59 09/13/17 05:16 Risperidone (RisperDAL) 2 mg EVERY 8 HOURS ORAL 09/06/17 22:00 09/26/17 17:59 09/13/17 05:17 Trazodone HCl (Desyrel) 200 mg BEDTIME ORAL 09/06/17 21:00 10/03/17 20:59 09/12/17 20:58 Vancomycin HCl (Vanco rx to dose) 1 ea DAILY PRN MISC Per rx protocol 09/07/17 09:00 09/26/17 10:59 Warfarin Sodium (Coumadin per pharmacy) 1 ea DAILY PRN MISC Per rx protocol 09/07/17 09:00 09/25/17 16:59 Warfarin Sodium (Coumadin) 0.5 mg ONCE ONCE ORAL 09/13/17 17:00 09/13/17 17:01 LALI COCHRAN Sep 13, 2017 11:39
[2017-09-13 12:00] VITALS: BP 102/63
--- NOTE | 2017-09-13 13:26 | Pulmonolgy Critical Care Note ---
Critical Care - Asmt/Plan Assessment/Plan: 1. Acute respiratory failure. on bipap 2. right lung collapse 3. History of right pleural effusion. 4. Schizophrenia 5. Chronic Coumadin usage. 5. Pulmonary edema; resolved 6. Agitation DISCUSSION: back on BiPAP FU ABG this evening, may need higher level of care and intubation agressive nebs, CPT (left lateral decubitus position) and NT suctioning (right lateral decubitus position) to try to remove mucus plug If not successful, pt may require bronch (and intubation) Psych rx Zyprexa and Risperidone, Celexa and Trazodone May require transfer to inpatient facility for psych and medical care Repeat CXR Respiratory: CXR, ABG Infectious Disease: check cultures, continue antibiotics Endocrine: check TSH Prophylaxis: Protonix Time Spent (Minutes): 60 Discussed with: nurses Critical Care - Objective Last 24 Hour Vital Signs Date Time Temp Pulse Resp B/P (MAP) Pulse Ox O2 Delivery O2 Flow Rate FiO2 09/13/17 12:46 90 24 85 Facial 100 09/13/17 11:20 89 20 89 Facial 80 09/13/17 09:14 98 24 90 Facial 80 09/13/17 08:00 81 09/13/17 08:00 96.4 84 14 121/76 92 Bi-pap 80 96.4 09/13/17 07:25 Bi-pap 09/13/17 07:25 101 19 92 Facial 80 09/13/17 07:25 91 Bi-pap 80 09/13/17 04:00 98.3 77 16 100/62 100 Bi-pap 80 98.3 09/13/17 04:00 80 09/13/17 03:44 78 09/13/17 03:30 108 21 92 Facial 80 09/13/17 01:30 82 21 94 Facial 80 09/13/17 00:48 108 18 96 Facial 80 09/13/17 00:00 98.3 107 22 100/66 100 Bi-pap 80 98.3 09/13/17 00:00 109 09/13/17 00:00 80 09/12/17 23:41 111 16 95 Facial 80 09/12/17 21:17 100 16 95 Facial 100 09/12/17 20:00 100 09/12/17 20:00 98.8 105 14 106/72 100 Bi-pap 100 98.8 09/12/17 19:55 111 15 93 Facial 100 09/12/17 19:31 Bi-pap 09/12/17 19:26 94 Bi-pap 60 09/12/17 19:21 105 09/12/17 17:16 105 15 97 Full Face 60 09/12/17 16:00 98.8 111 18 106/73 100 Bi-pap 60 98.8 09/12/17 16:00 100 09/12/17 15:29 94 15 89 Full Face 60 Status: obtunded Condition: critical Lungs: rhonchi, other - quiet on the right Heart: HR/BP stable Abdomen: soft, non-tender Critical Care - Subjective ROS Limited/Unobtainable: Yes FI02: 100 Vent Support Breath Rate: 14 Vent Support Mode: BiLevel Vent Tidal Volume: 500 Sputum Amount: None PEEP: 5.0 PIP: 35 Tube Feeding Amount: 50 I&O: Intake and Output 09/12/17 09/13/17 19:00 07:00 Intake Total 700 ml 977 ml Balance 700 ml 977 ml Intake Oral 100 ml 120 ml IV Total 600 ml 857 ml # Voids 3 Subjective: lethargic on bipap 29/07 destuarted in to the 60's now on 100% sasts 92% EPAP increased to 7 TV around 400 no reports of CP NV or bleeding NT suctioingin iwth secretions CXR: right lung collapse ET-Tube: 7.0 ET Position: 23 Labs: l Current Medications Medications (Trade) Dose Ordered Sig/Kika Route PRN Reason Start Time Stop Time Status Last Admin Dose Admin Acetaminophen (Tylenol) 650 mg Q4H PRN ORAL Mild Pain/Temp > 100.5 09/06/17 21:00 09/23/17 16:59 Albuterol Sulfate (Proventil MDI) 2 puff Q6H PRN INH Shortness of Breath 09/06/17 20:00 10/06/17 19:59 Atorvastatin Calcium (Lipitor) 10 mg BEDTIME ORAL 09/06/17 21:00 09/23/17 20:59 09/12/17 20:58 Bisacodyl (Dulcolax) 10 mg DAILYPRN PRN RECTAL Constipation 09/12/17 22:00 10/12/17 21:59 09/12/17 23:19 Citalopram Hydrobromide (celeXA) 40 mg DAILY ORAL 09/07/17 09:00 09/25/17 08:59 09/13/17 08:42 Dextrose 1,000 ml @ 75 mls/hr [id number] IV 09/12/17 10:00 10/12/17 09:59 09/12/17 23:34 Divalproex Sodium (Depakote Sprinkles) 500 mg EVERY 12 HOURS GT 09/06/17 21:00 09/23/17 20:59 09/13/17 08:42 Docusate Sodium (Colace) 100 mg Q8H PRN ORAL Constipation 09/06/17 20:00 10/06/17 19:59 09/12/17 20:57 Lorazepam (Ativan 2mg/ml 1ml) 1 mg Q6H PRN IV For Anxiety 09/11/17 08:15 09/18/17 08:14 09/13/17 08:43 Magnesium Hydroxide (Mom) 30 ml DAILYPRN PRN ORAL Constipation 09/06/17 20:00 10/06/17 19:59 09/12/17 20:57 Mineral Oil (Fleet's Mineral Oil Enema) 133 ml DAILY PRN RECTAL Constipation 09/12/17 22:15 10/12/17 22:14 Olanzapine (ZyPREXA) 10 mg Q12HR ORAL 09/06/17 21:00 09/27/17 20:59 09/13/17 11:02 Quetiapine Fumarate (SEROquel) 100 mg EVERY 8 HOURS ORAL 09/06/17 22:00 09/26/17 12:59 09/13/17 05:16 Risperidone (RisperDAL) 2 mg EVERY 8 HOURS ORAL 09/06/17 22:00 09/26/17 17:59 09/13/17 05:17 Trazodone HCl (Desyrel) 200 mg BEDTIME ORAL 09/06/17 21:00 10/03/17 20:59 09/12/17 20:58 Vancomycin HCl (Vanco rx to dose) 1 ea DAILY PRN MISC Per rx protocol 09/07/17 09:00 09/26/17 10:59 Warfarin Sodium (Coumadin per pharmacy) 1 ea DAILY PRN MISC Per rx protocol 09/07/17 09:00 7/12/18 16:59 Warfarin Sodium (Coumadin) 0.5 mg ONCE ONCE ORAL 09/13/17 17:00 09/13/17 17:01 Laboratory Tests Test 09/13/17 03:15 09/13/17 04:00 Prothrombin Time 24.8 SEC (9.30-11.50) H Prothromb Time International Ratio 2.3 (0.9-1.1) H Sodium Level 141 MMOL/L (136-145) Potassium Level 3.8 MMOL/L (3.5-5.1) Chloride Level 102 MMOL/L (98-107) Carbon Dioxide Level 44 MMOL/L (21-32) *H Anion Gap -5 mmol/L (5-15) L Blood Urea Nitrogen 13 mg/dL (7-18) Creatinine 1.1 MG/DL (0.55-1.30) Estimat Glomerular Filtration Rate > 60 mL/min (>60) Glucose Level 100 MG/DL (74-106) Calcium Level 8.8 MG/DL (8.5-10.1) Arterial Blood pH 7.330 (7.350-7.450) Arterial Blood Partial Pressure CO2 94.8 mmHg (35.0-45.0) *H Arterial Blood Partial Pressure O2 68.7 mmHg (75.0-100.0) L Arterial Blood HCO3 49.7 mmol/L (22.0-26.0) H Arterial Blood Oxygen Saturation 91.2 % (92.0-98.0) L Arterial Blood Base Excess 19.7 [place] Test Positive Jodi Smalls DO Sep 13, 2017 13:26
[2017-09-13 16:00] VITALS: BP 105/68
[2017-09-13] MEDS ORDERED: Warfarin Sodium 1mg ORAL ONE (17:00)
[2017-09-13] MEDS ORDERED: NS 500ML ONE (17:08)
[2017-09-13] MEDS: Albuterol/Ipratropium 3ml neb HHN SCH ×2 (19:22→23:13)
[2017-09-13] MEDS: Acetylcysteine 20% Soln 4ml HHN SCH ×2 (19:22→23:13)
[2017-09-13 20:00] VITALS: BP 106/70
[2017-09-13] MEDS: TraZODone 100mg tab ORAL SCH (21:42)
[2017-09-13] MEDS ORDERED: ZyPREXA Zydis 10mg tab ONE (21:59)
[2017-09-14] VITALS: BP 140/60
[2017-09-14] MEDS: Albuterol/Ipratropium 3ml neb HHN SCH ×6 (03:02→22:34)
[2017-09-14] MEDS: Acetylcysteine 20% Soln 4ml HHN SCH ×6 (03:02→22:35)
[2017-09-14 04:00] VITALS: BP 102/68
[2017-09-14 05:36] LABS: BASOPHILS % (AUTO) 0.3 % (0.0-2.0); EOSINOPHILS % (AUTO) 0.7 % (0.0-3.0); HEMATOCRIT 35.7 % (42.0-52.0); LYMPHOCYTES % (AUTO) 9.4 % (20.0-45.0); MEAN CORPUSCULAR VOLUME 93 FL (80-99); MONOCYTES % (AUTO) 15.8 % (1.0-10.0); NEUTROPHILS % (AUTO) 73.8 % (45.0-75.0); PLATELET COUNT 105 K/UL (150-450); RED BLOOD COUNT 3.84 M/UL (4.70-6.10); RED CELL DISTRIBUTION WIDTH 17.8 % (11.6-14.8); WHITE BLOOD COUNT 9.7 K/UL (4.8-10.8)
[2017-09-14 05:39] LABS: INR 2.4 (0.9-1.1)
[2017-09-14 08:46] VITALS: BP 93/63
--- NOTE | 2017-09-14 08:52 | Nephrology Progress Note ---
Assessment/Plan Assessment/Plan 1. Hypernatremia- DC D5W 2. Met Alk- due to met comp and maitenence alk from hypok - s/p IVF's. AM labs pending 3. Resp FL- on BiPAP. PCO2 88 - mgmt per Pulm. Poss re-intubation 4. Right hemithorax opacification. Has recurrent partial collapse 5. Schizophrenia- per PSY mgmt Subjective Date patient seen: Sep 14, 2017 Time patient seen: 08:49 ROS Limited/Unobtainable: Yes Allergies: Coded Allergies: No Known Allergies (Unverified , 08/03/17) Subjective Patient still on BiPAP. PC02 remains elevated Objective Last 24 Hour Vital Signs Date Time Temp Pulse Resp B/P (MAP) Pulse Ox O2 Delivery O2 Flow Rate FiO2 09/14/17 08:46 97.5 83 14 93/63 93 Bi-pap 80 97.5 09/14/17 08:45 89 17 90 Facial 80 09/14/17 08:00 80 09/14/17 07:18 90 17 99 Bi-pap 80 09/14/17 07:12 83 17 93 Facial 80 09/14/17 07:07 83 17 93 Bi-pap 80 09/14/17 07:06 Bi-pap 80 09/14/17 07:06 93 Bi-pap 80 09/14/17 05:05 87 15 95 Facial 80 09/14/17 04:00 80 09/14/17 04:00 97.0 92 17 102/68 97 Bi-pap 80 97.0 09/14/17 03:42 62 09/14/17 03:15 86 17 99 Bi-pap 80 09/14/17 03:02 89 17 96 Bi-pap 80 09/14/17 03:02 89 17 96 Facial 80 09/14/17 00:55 86 15 95 Facial 80 09/14/17 00:00 97 09/14/17 00:00 80 09/14/17 00:00 97.5 94 22 140/60 96 Bi-pap 80 97.5 09/13/17 23:25 99 18 97 Bi-pap 80 09/13/17 23:14 96 23 96 Facial 80 09/13/17 23:14 96 23 96 Bi-pap 80 09/13/17 20:46 92 21 99 Facial 80 09/13/17 20:00 100 09/13/17 20:00 97.5 97 19 106/70 95 Bi-pap 100 97.5 09/13/17 19:36 94 09/13/17 19:33 95 17 96 Bi-pap 100 09/13/17 19:21 95 19 90 Bi-pap 100 09/13/17 19:17 Bi-pap 100 09/13/17 19:17 95 19 90 Facial 100 09/13/17 19:17 90 Bi-pap 100 09/13/17 17:18 98 16 85 Facial 100 09/13/17 16:00 97.5 99 18 105/68 95 Bi-pap 100 97.5 09/13/17 16:00 94 09/13/17 15:09 96 22 88 Facial 100 09/13/17 12:46 90 24 85 Facial 100 09/13/17 12:00 90 09/13/17 12:00 97.3 84 18 102/63 93 Bi-pap 80 97.3 09/13/17 11:20 89 20 89 Facial 80 09/13/17 09:14 98 24 90 Facial 80 Intake and Output 09/13/17 09/14/17 19:00 07:00 Intake Total 1080 ml 1000 ml Output Total 80 ml Balance 1000 ml 1000 ml Intake Oral 180 ml 100 ml IV Total 900 ml 900 ml Output Urine Total 80 ml # Voids 4 2 # Bowel Movements 2 2 Laboratory Tests 09/13/17 12:34: Arterial Blood pH 7.360, Arterial Blood Partial Pressure CO2 82.0*H, Arterial Blood Partial Pressure O2 55.2L, Arterial Blood HCO3 45.6H, Arterial Blood Oxygen Saturation 85.5L, Arterial Blood Base Excess 16.7, Roosevelt Test Positive 09/14/17 04:00: White Blood Count 9.7, Red Blood Count 3.84L, Hemoglobin 11.0L, Hematocrit 35.7L , Mean Corpuscular Volume 93, Mean Corpuscular Hemoglobin 28.7, Mean Corpuscular Hemoglobin Concent 30.9L, Red Cell Distribution Width 17.8H, Platelet Count 105L, Mean Platelet Volume 7.2, Neutrophils (%) (Auto) 73.8, Lymphocytes (%) (Auto) 9.4L, Monocytes (%) (Auto) 15.8H, Eosinophils (%) (Auto) 0.7, Basophils (%) (Auto) 0.3, Prothrombin Time 25.4H, Prothromb Time International Ratio 2.4H, Sodium Level [Pending], Potassium Level [Pending], Chloride Level [Pending], Carbon Dioxide Level [Pending], Blood Urea Nitrogen [ Pending], Creatinine [Pending], Estimat Glomerular Filtration Rate [Pending], Glucose Level [Pending], Calcium Level [Pending] 09/14/17 08:15: Arterial Blood pH 7.330L, Arterial Blood Partial Pressure CO2 88.2*H, Arterial Blood Partial Pressure O2 67.9L, Arterial Blood HCO3 45.5H, Arterial Blood Oxygen Saturation 91.0L, Arterial Blood Base Excess 16.2, Roosevelt Test Positive Height (Feet): 5 Height (Inches): 9.00 Weight (Pounds): 181 General Appearance: no apparent distress EENT: normal ENT inspection Neck: normal alignment, supple Cardiovascular: normal rate, regular rhythm Respiratory/Chest: rhonchi - bilaterally Abdomen: non tender, soft Edema: no edema noted Arm (L), no edema noted Arm (R), no edema noted Leg (L), no edema noted Leg (R), no edema noted Pedal (L), no edema noted Pedal (R), no edema noted Generalized Cody Melendez M.D. Sep 14, 2017 08:52
[2017-09-14] MEDS: Depakote 125mg Sprinkles GT SCH ×2 (09:59→20:33)
[2017-09-14] MEDS: Citalopram Hydrobromide 10mg Tab ORAL SCH (10:00)
[2017-09-14] MEDS: OLANZapine 10mg tab ORAL SCH ×2 (10:00→20:33)
--- NOTE | 2017-09-14 10:16 | Infectious Diseases Prog Note ---
Assessment/Plan Assessment/Plan A; Pneumonia with MRSA Hypoxic, hypercapnic respiratory failure COPD Schizophrenia R lung collapse/atelectasis P: observe off antibiotic Subjective ROS Limited/Unobtainable: Yes Neurologic: Reports: confusion, other - on restraint Allergies: Coded Allergies: No Known Allergies (Unverified , 08/03/17) Objective Vital Signs Last 24 Hour Vital Signs Date Time Temp Pulse Resp B/P (MAP) Pulse Ox O2 Delivery O2 Flow Rate FiO2 09/14/17 08:46 97.5 83 14 93/63 93 Bi-pap 80 97.5 09/14/17 08:45 89 17 90 Facial 80 09/14/17 08:00 80 09/14/17 07:56 86 09/14/17 07:18 90 17 99 Bi-pap 80 09/14/17 07:12 83 17 93 Facial 80 09/14/17 07:07 83 17 93 Bi-pap 80 09/14/17 07:06 Bi-pap 80 09/14/17 07:06 93 Bi-pap 80 09/14/17 05:05 87 15 95 Facial 80 09/14/17 04:00 80 09/14/17 04:00 97.0 92 17 102/68 97 Bi-pap 80 97.0 09/14/17 03:42 62 09/14/17 03:15 86 17 99 Bi-pap 80 09/14/17 03:02 89 17 96 Bi-pap 80 09/14/17 03:02 89 17 96 Facial 80 09/14/17 00:55 86 15 95 Facial 80 09/14/17 00:00 97 09/14/17 00:00 80 09/14/17 00:00 97.5 94 22 140/60 96 Bi-pap 80 97.5 09/13/17 23:25 99 18 97 Bi-pap 80 09/13/17 23:14 96 23 96 Facial 80 09/13/17 23:14 96 23 96 Bi-pap 80 09/13/17 20:46 92 21 99 Facial 80 09/13/17 20:00 100 09/13/17 20:00 97.5 97 19 106/70 95 Bi-pap 100 97.5 09/13/17 19:36 94 09/13/17 19:33 95 17 96 Bi-pap 100 09/13/17 19:21 95 19 90 Bi-pap 100 09/13/17 19:17 Bi-pap 100 09/13/17 19:17 95 19 90 Facial 100 09/13/17 19:17 90 Bi-pap 100 09/13/17 17:18 98 16 85 Facial 100 09/13/17 16:00 97.5 99 18 105/68 95 Bi-pap 100 97.5 09/13/17 16:00 94 09/13/17 15:09 96 22 88 Facial 100 09/13/17 12:46 90 24 85 Facial 100 09/13/17 12:00 90 09/13/17 12:00 97.3 84 18 102/63 93 Bi-pap 80 97.3 09/13/17 11:20 89 20 89 Facial 80 Height (Feet): 5 Height (Inches): 9.00 Weight (Pounds): 181 HEENT: mucous membranes moist Respiratory/Chest: decreased breath sounds, other - on BIPAP Cardiovascular: normal rate Abdomen: soft, non tender Extremities: no edema Neurologic/Psychiatric: disoriented Laboratory Tests Test 09/13/17 12:34 09/14/17 04:00 09/14/17 08:15 Arterial Blood pH 7.360 (7.350-7.450) 7.330 (7.350-7.450) Arterial Blood Partial Pressure CO2 82.0 mmHg (35.0-45.0) *H 88.2 mmHg (35.0-45.0) *H Arterial Blood Partial Pressure O2 55.2 mmHg (75.0-100.0) L 67.9 mmHg (75.0-100.0) L Arterial Blood HCO3 45.6 mmol/L (22.0-26.0) H 45.5 mmol/L (22.0-26.0) H Arterial Blood Oxygen Saturation 85.5 % (92.0-98.0) L 91.0 % (92.0-98.0) L Arterial Blood Base Excess 16.7 16.2 Roosevelt Test Positive Positive White Blood Count 9.7 K/UL (4.8-10.8) Red Blood Count 3.84 M/UL (4.70-6.10) L Hemoglobin 11.0 G/DL (14.2-18.0) L Hematocrit 35.7 % (42.0-52.0) L Mean Corpuscular Volume 93 FL (80-99) Mean Corpuscular Hemoglobin 28.7 PG (27.0-31.0) Mean Corpuscular Hemoglobin Concent 30.9 G/DL (32.0-36.0) L Red Cell Distribution Width 17.8 % (11.6-14.8) H Platelet Count 105 K/UL (150-450) L Mean Platelet Volume 7.2 FL (6.5-10.1) Neutrophils (%) (Auto) 73.8 % (45.0-75.0) Lymphocytes (%) (Auto) 9.4 % (20.0-45.0) L Monocytes (%) (Auto) 15.8 % (1.0-10.0) H Eosinophils (%) (Auto) 0.7 % (0.0-3.0) Basophils (%) (Auto) 0.3 % (0.0-2.0) Prothrombin Time 25.4 SEC (9.30-11.50) H Prothromb Time International Ratio 2.4 (0.9-1.1) H Sodium Level Pending Potassium Level Pending Chloride Level Pending Carbon Dioxide Level Pending Blood Urea Nitrogen Pending Creatinine Pending Estimat Glomerular Filtration Rate Pending Glucose Level Pending Calcium Level Pending Current Medications Medications (Trade) Dose Ordered Sig/Kika Route PRN Reason Start Time Stop Time Status Last Admin Dose Admin Acetaminophen (Tylenol) 650 mg Q4H PRN ORAL Mild Pain/Temp > 100.5 09/06/17 21:00 09/23/17 16:59 Acetylcysteine (Mucomyst) 200 mg Q4HRT N 09/13/17 15:00 10/13/17 14:59 09/14/17 07:11 Albuterol/ Ipratropium (Albuterol/ Ipratropium) 3 ml Q4HRT N 09/13/17 15:00 09/18/17 14:59 09/14/17 07:11 Atorvastatin Calcium (Lipitor) 10 mg BEDTIME ORAL 09/06/17 21:00 09/23/17 20:59 09/13/17 21:42 Bisacodyl (Dulcolax) 10 mg DAILYPRN PRN RECTAL Constipation 09/12/17 22:00 10/12/17 21:59 09/12/17 23:19 Citalopram Hydrobromide (celeXA) 40 mg DAILY ORAL 09/07/17 09:00 09/25/17 08:59 09/14/17 10:00 Divalproex Sodium (Depakote Sprinkles) 500 mg EVERY 12 HOURS GT 09/06/17 21:00 09/23/17 20:59 09/14/17 09:59 Docusate Sodium (Colace) 100 mg Q8H PRN ORAL Constipation 09/06/17 20:00 10/06/17 19:59 09/12/17 20:57 Lorazepam (Ativan 2mg/ml 1ml) 1 mg Q6H PRN IV For Anxiety 09/11/17 08:15 09/18/17 08:14 09/13/17 08:43 Magnesium Hydroxide (Mom) 30 ml DAILYPRN PRN ORAL Constipation 09/06/17 20:00 10/06/17 19:59 09/12/17 20:57 Mineral Oil (Fleet's Mineral Oil Enema) 133 ml DAILY PRN RECTAL Constipation 09/12/17 22:15 10/12/17 22:14 09/13/17 16:53 Olanzapine (ZyPREXA) 10 mg Q12HR ORAL 09/06/17 21:00 09/27/17 20:59 09/14/17 10:00 Quetiapine Fumarate (SEROquel) 100 mg EVERY 8 HOURS ORAL 09/06/17 22:00 09/26/17 12:59 09/14/17 05:33 Risperidone (RisperDAL) 2 mg EVERY 8 HOURS ORAL 09/06/17 22:00 09/26/17 17:59 09/14/17 05:33 Trazodone HCl (Desyrel) 200 mg BEDTIME ORAL 09/06/17 21:00 10/03/17 20:59 09/13/17 21:42 Vancomycin HCl (Vanco rx to dose) 1 ea DAILY PRN MISC Per rx protocol 09/07/17 09:00 09/26/17 10:59 Warfarin Sodium (Coumadin per pharmacy) 1 ea DAILY PRN MISC Per rx protocol 09/07/17 09:00 09/25/17 16:59 Joseph Joseph MD Sep 14, 2017 10:16
[2017-09-14 10:27] LABS: ANION GAP -2 mmol/L (5-15); BLOOD UREA NITROGEN 10 mg/dL (7-18); CALCIUM 8.9 MG/DL (8.5-10.1); CHLORIDE 99 MMOL/L (98-107); CREATININE 1.1 MG/DL (0.55-1.30); POTASSIUM 4.1 MMOL/L (3.5-5.1); SODIUM 141 MMOL/L (136-145)
[2017-09-14 10:31] LABS: CARBON DIOXIDE 44 MMOL/L (21-32)
--- NOTE | 2017-09-14 10:36 | Diagnostic Imaging Report ---
EXAM: XR Chest, 1 View CLINICAL HISTORY: BRAIN BLD TECHNIQUE: Frontal view of the chest. COMPARISON: No relevant prior studies available. FINDINGS: Lungs: Bilateral ground-glass pulmonary opacities and accentuation of interstitial markings. Pleural space: Presumed skin fold rather than left pneumothorax. Heart: Cardiomegaly. Mediastinum: Unremarkable. Bones/joints: No acute fracture. IMPRESSION: 1. Favor skin fold rather than left pneumothorax. Repeat can confirm as warranted. 2. Bilateral ground-glass pulmonary opacities and accentuation of interstitial markings.
[2017-09-14 12:35] VITALS: BP 109/64
--- NOTE | 2017-09-14 15:15 | Pulmonology Progress Note ---
Assessment/Plan Assessment/Plan remains on bipap ABG not improving CXR is improved may need thoracentesis as well diuresis as bp will tolerate NPO and TF recheck CXR and ABg in am, may need intubation if no improvement of gas exchange and metnation cct 35 mintues Subjective ROS Limited/Unobtainable: Yes Allergies: Coded Allergies: No Known Allergies (Unverified , 08/03/17) Subjective remains obtunded CPT and suctioning improved and right lung up now no reports of cp nv oe bleeding Objective Last 24 Hour Vital Signs Date Time Temp Pulse Resp B/P (MAP) Pulse Ox O2 Delivery O2 Flow Rate FiO2 09/14/17 13:29 77 19 94 Facial 70 09/14/17 12:35 97.0 86 16 109/64 97 Bi-pap 70 97.0 09/14/17 11:34 85 09/14/17 11:30 70 09/14/17 11:08 100 70 09/14/17 10:56 74 20 96 Bi-pap 80 09/14/17 10:54 85 20 92 Facial 80 09/14/17 10:45 85 20 94 Bi-pap 80 09/14/17 08:46 97.5 83 14 93/63 93 Bi-pap 80 97.5 09/14/17 08:45 89 17 90 Facial 80 09/14/17 08:00 80 09/14/17 07:56 86 09/14/17 07:18 90 17 99 Bi-pap 80 09/14/17 07:12 83 17 93 Facial 80 09/14/17 07:07 83 17 93 Bi-pap 80 09/14/17 07:06 Bi-pap 80 09/14/17 07:06 93 Bi-pap 80 09/14/17 05:05 87 15 95 Facial 80 09/14/17 04:00 80 09/14/17 04:00 97.0 92 17 102/68 97 Bi-pap 80 97.0 09/14/17 03:42 62 09/14/17 03:15 86 17 99 Bi-pap 80 09/14/17 03:02 89 17 96 Bi-pap 80 09/14/17 03:02 89 17 96 Facial 80 09/14/17 00:55 86 15 95 Facial 80 09/14/17 00:00 97 09/14/17 00:00 80 09/14/17 00:00 97.5 94 22 140/60 96 Bi-pap 80 97.5 09/13/17 23:25 99 18 97 Bi-pap 80 09/13/17 23:14 96 23 96 Facial 80 09/13/17 23:14 96 23 96 Bi-pap 80 09/13/17 20:46 92 21 99 Facial 80 09/13/17 20:00 100 09/13/17 20:00 97.5 97 19 106/70 95 Bi-pap 100 97.5 09/13/17 19:36 94 09/13/17 19:33 95 17 96 Bi-pap 100 09/13/17 19:21 95 19 90 Bi-pap 100 09/13/17 19:17 Bi-pap 100 09/13/17 19:17 95 19 90 Facial 100 09/13/17 19:17 90 Bi-pap 100 09/13/17 17:18 98 16 85 Facial 100 09/13/17 16:00 97.5 99 18 105/68 95 Bi-pap 100 97.5 09/13/17 16:00 94 Intake and Output 09/13/17 09/14/17 19:00 07:00 Intake Total 1080 ml 1000 ml Output Total 80 ml Balance 1000 ml 1000 ml Intake Oral 180 ml 100 ml IV Total 900 ml 900 ml Output Urine Total 80 ml # Voids 4 2 # Bowel Movements 2 2 General Appearance: cachetic Respiratory/Chest: chest wall non-tender, lungs clear Cardiovascular: normal rate, regularly irregular Abdomen: normal bowel sounds, soft, non tender Neurologic/Psychiatric: disoriented, unresponsiveness Laboratory Tests 09/14/17 04:00: White Blood Count 9.7, Red Blood Count 3.84L, Hemoglobin 11.0L, Hematocrit 35.7L , Mean Corpuscular Volume 93, Mean Corpuscular Hemoglobin 28.7, Mean Corpuscular Hemoglobin Concent 30.9L, Red Cell Distribution Width 17.8H, Platelet Count 105L, Mean Platelet Volume 7.2, Neutrophils (%) (Auto) 73.8, Lymphocytes (%) (Auto) 9.4L, Monocytes (%) (Auto) 15.8H, Eosinophils (%) (Auto) 0.7, Basophils (%) (Auto) 0.3, Prothrombin Time 25.4H, Prothromb Time International Ratio 2.4H, Sodium Level 141, Potassium Level 4.1, Chloride Level 99, Carbon Dioxide Level 44*H, Anion Gap -2L, Blood Urea Nitrogen 10, Creatinine 1.1, Estimat Glomerular Filtration Rate > 60, Glucose Level 97, Calcium Level 8.9 09/14/17 08:15: Arterial Blood pH 7.330L, Arterial Blood Partial Pressure CO2 88.2*H, Arterial Blood Partial Pressure O2 67.9L, Arterial Blood HCO3 45.5H, Arterial Blood Oxygen Saturation 91.0L, Arterial Blood Base Excess 16.2, Roosevelt Test Positive Current Medications Medications (Trade) Dose Ordered Sig/Kika Route PRN Reason Start Time Stop Time Status Last Admin Dose Admin Acetaminophen (Tylenol) 650 mg Q4H PRN ORAL Mild Pain/Temp > 100.5 09/06/17 21:00 09/23/17 16:59 Acetylcysteine (Mucomyst) 200 mg Q4HRT N 09/13/17 15:00 10/13/17 14:59 09/14/17 10:53 Albuterol/ Ipratropium (Albuterol/ Ipratropium) 3 ml Q4HRT N 09/13/17 15:00 09/18/17 14:59 09/14/17 10:53 Atorvastatin Calcium (Lipitor) 10 mg BEDTIME ORAL 09/06/17 21:00 09/23/17 20:59 09/13/17 21:42 Bisacodyl (Dulcolax) 10 mg DAILYPRN PRN RECTAL Constipation 09/12/17 22:00 10/12/17 21:59 09/12/17 23:19 Citalopram Hydrobromide (celeXA) 40 mg DAILY ORAL 09/07/17 09:00 09/25/17 08:59 09/14/17 10:00 Divalproex Sodium (Depakote Sprinkles) 500 mg EVERY 12 HOURS GT 09/06/17 21:00 09/23/17 20:59 09/14/17 09:59 Docusate Sodium (Colace) 100 mg Q8H PRN ORAL Constipation 09/06/17 20:00 10/06/17 19:59 09/12/17 20:57 Lorazepam (Ativan 2mg/ml 1ml) 1 mg Q6H PRN IV For Anxiety 09/11/17 08:15 09/18/17 08:14 09/13/17 08:43 Magnesium Hydroxide (Mom) 30 ml DAILYPRN PRN ORAL Constipation 09/06/17 20:00 10/06/17 19:59 09/12/17 20:57 Mineral Oil (Fleet's Mineral Oil Enema) 133 ml DAILY PRN RECTAL Constipation 09/12/17 22:15 10/12/17 22:14 09/13/17 16:53 Olanzapine (ZyPREXA) 10 mg Q12HR ORAL 09/06/17 21:00 09/27/17 20:59 09/14/17 10:00 Quetiapine Fumarate (SEROquel) 100 mg EVERY 8 HOURS ORAL 09/06/17 22:00 09/26/17 12:59 09/14/17 13:12 Risperidone (RisperDAL) 2 mg EVERY 8 HOURS ORAL 09/06/17 22:00 09/26/17 17:59 09/14/17 13:12 Trazodone HCl (Desyrel) 200 mg BEDTIME ORAL 09/06/17 21:00 10/03/17 20:59 09/13/17 21:42 Warfarin Sodium (Coumadin per pharmacy) 1 ea DAILY PRN MISC Per rx protocol 09/07/17 09:00 09/25/17 16:59 Warfarin Sodium (Coumadin) 0.5 mg COUMADIN ORAL 09/14/17 17:00 09/14/17 18:00 Jodi Smalls DO Sep 14, 2017 15:15
[2017-09-14 16:00] VITALS: BP 105/68
[2017-09-14] MEDS: LORazepam Inj 2mg/ml 1ml IV PRN (16:42)
[2017-09-14] MEDS ORDERED: Warfarin Sodium 1mg ORAL SCH (17:00)
[2017-09-14 20:00] VITALS: BP 100/67
[2017-09-14] MEDS: TraZODone 100mg tab ORAL SCH (20:34)
[2017-09-15] VITALS: BP 107/62
[2017-09-15] MEDS: Albuterol/Ipratropium 3ml neb HHN SCH ×6 (02:46→23:25)
[2017-09-15] MEDS: Acetylcysteine 20% Soln 4ml HHN SCH ×6 (02:46→23:25)
[2017-09-15 04:00] VITALS: BP 100/67
[2017-09-15 04:03] LABS: BASOPHILS % (AUTO) 0.4 % (0.0-2.0); EOSINOPHILS % (AUTO) 1.6 % (0.0-3.0); HEMATOCRIT 33.7 % (42.0-52.0); HEMOGLOBIN 10.4 G/DL (14.2-18.0); LYMPHOCYTES % (AUTO) 14.2 % (20.0-45.0); MEAN CORPUSCULAR VOLUME 93 FL (80-99); MONOCYTES % (AUTO) 14.1 % (1.0-10.0); NEUTROPHILS % (AUTO) 69.8 % (45.0-75.0); PLATELET COUNT 106 K/UL (150-450); RED BLOOD COUNT 3.61 M/UL (4.70-6.10); RED CELL DISTRIBUTION WIDTH 17.5 % (11.6-14.8); WHITE BLOOD COUNT 6.1 K/UL (4.8-10.8)
[2017-09-15 04:12] LABS: ANION GAP -2 mmol/L (5-15); BLOOD UREA NITROGEN 10 mg/dL (7-18); CALCIUM 8.8 MG/DL (8.5-10.1); CHLORIDE 100 MMOL/L (98-107); CREATININE 1.1 MG/DL (0.55-1.30); POTASSIUM 3.8 MMOL/L (3.5-5.1); SODIUM 141 MMOL/L (136-145)
[2017-09-15 04:26] LABS: CARBON DIOXIDE 43 MMOL/L (21-32)
[2017-09-15 08:00] VITALS: BP 113/79
--- NOTE | 2017-09-15 08:16 | Nephrology Progress Note ---
Assessment/Plan Assessment/Plan 1. Hypernatremia- resolved 2. Met Alk- due to met comp and maitenence alk from hypok - s/p IVF's. Stable. compensatory in nature 3. Resp FL- on BiPAP. PCO2 88 - mgmt per Pulm. 4. Right hemithorax opacification. Has recurrent partial collapse 5. Schizophrenia- per PSY mgmt Subjective Date patient seen: Sep 15, 2017 Time patient seen: 08:15 ROS Limited/Unobtainable: Yes Allergies: Coded Allergies: No Known Allergies (Unverified , 08/03/17) Subjective Patient still on BiPAP with elevated PC02 Objective Last 24 Hour Vital Signs Date Time Temp Pulse Resp B/P (MAP) Pulse Ox O2 Delivery O2 Flow Rate FiO2 09/15/17 07:15 115 14 89 Bi-pap 100 09/15/17 07:13 113 26 98 Facial 100 09/15/17 07:00 118 24 96 Bi-pap 100 09/15/17 07:00 96 Bi-pap 100 09/15/17 07:00 Bi-pap 100 09/15/17 04:46 101 23 93 Facial 80 09/15/17 04:00 98.1 107 21 100/67 93 Bi-pap 100 98.1 107 09/15/17 04:00 100 09/15/17 04:00 109 09/15/17 03:00 102 23 90 Bi-pap 70 09/15/17 02:47 103 22 90 Bi-pap 80 09/15/17 02:46 103 22 90 Facial 80 09/15/17 01:04 99 16 94 Facial 80 09/15/17 00:00 100 09/15/17 00:00 97.0 105 19 107/62 94 Bi-pap 100 97.0 108 09/15/17 00:00 107 09/14/17 22:44 97 19 91 Bi-pap 70 09/14/17 22:36 97 19 89 Facial 100 09/14/17 22:35 97 19 89 Bi-pap 70 09/14/17 20:48 101 15 93 Facial 100 09/14/17 20:00 97.0 108 18 100/67 94 Bi-pap 100 97.0 108 09/14/17 20:00 100 09/14/17 20:00 105 09/14/17 18:46 87 20 93 Bi-pap 70 09/14/17 18:39 88 20 92 Bi-pap 70 09/14/17 18:37 92 Bi-pap 80 09/14/17 18:37 Bi-pap 80 09/14/17 18:37 86 20 92 Facial 70 09/14/17 16:42 78 18 94 Facial 70 09/14/17 16:00 97.5 99 18 105/68 95 Bi-pap 100 97.5 09/14/17 16:00 100 09/14/17 15:20 77 22 9 Bi-pap 70 09/14/17 15:15 73 19 94 Facial 70 09/14/17 15:10 79 19 94 Bi-pap 70 09/14/17 15:10 86 09/14/17 13:29 77 19 94 Facial 70 09/14/17 12:35 97.0 86 16 109/64 97 Bi-pap 70 97.0 09/14/17 11:34 85 09/14/17 11:30 70 09/14/17 11:08 100 70 09/14/17 10:56 74 20 96 Bi-pap 80 09/14/17 10:54 85 20 92 Facial 80 09/14/17 10:45 85 20 94 Bi-pap 80 09/14/17 08:46 97.5 83 14 93/63 93 Bi-pap 80 97.5 09/14/17 08:45 89 17 90 Facial 80 Intake and Output 09/14/17 09/15/17 19:00 07:00 Intake Total 250 ml Balance 250 ml Intake Oral 250 ml # Voids 2 Laboratory Tests 09/15/17 03:35: White Blood Count 6.1, Red Blood Count 3.61L, Hemoglobin 10.4L, Hematocrit 33.7L , Mean Corpuscular Volume 93, Mean Corpuscular Hemoglobin 28.7, Mean Corpuscular Hemoglobin Concent 30.7L, Red Cell Distribution Width 17.5H, Platelet Count 106L, Mean Platelet Volume 6.1L, Neutrophils (%) (Auto) 69.8, Lymphocytes (%) (Auto) 14.2L, Monocytes (%) (Auto) 14.1H, Eosinophils (%) (Auto ) 1.6, Basophils (%) (Auto) 0.4, Prothrombin Time 32.3H, Prothromb Time International Ratio 3.0H, Sodium Level 141, Potassium Level 3.8, Chloride Level 100, Carbon Dioxide Level 43*H, Anion Gap -2L, Blood Urea Nitrogen 10, Creatinine 1.1, Estimat Glomerular Filtration Rate > 60, Glucose Level 85, Calcium Level 8.8 Height (Feet): 5 Height (Inches): 9.00 Weight (Pounds): 178 General Appearance: no apparent distress, alert Neck: normal alignment, supple Cardiovascular: normal rate, regular rhythm Respiratory/Chest: rhonchi - bilaterally Abdomen: non tender, soft Edema: no edema noted Arm (L), no edema noted Arm (R), no edema noted Leg (L), no edema noted Leg (R), no edema noted Pedal (L), no edema noted Pedal (R), no edema noted Generalized Cody Melendez M.D. Sep 15, 2017 08:16
[2017-09-15] MEDS: Depakote 125mg Sprinkles GT SCH ×2 (09:22→20:28)
[2017-09-15] MEDS: OLANZapine 10mg tab ORAL SCH ×2 (09:22→20:29)
[2017-09-15] MEDS: Citalopram Hydrobromide 10mg Tab ORAL SCH (09:22)
[2017-09-15] MEDS ORDERED: NS 500ML ONE (09:36)
[2017-09-15 12:00] VITALS: BP 102/73
--- NOTE | 2017-09-15 12:13 | Diagnostic Imaging Report ---
Indication: Dyspnea Comparison: 09/14/2017 A single view chest radiograph was obtained. Findings: Atelectasis of the right lung demonstrated with some volume loss that has developed over the last 24 hours. Heart and mediastinum shifted to the right. Small patch of airspace disease also noted at the left lung base. IMPRESSION: Development of significant atelectasis of a portion of the right lung within the last 24 hours.
[2017-09-15] MEDS: LORazepam Inj 2mg/ml 1ml IV PRN ×2 (13:01→19:37)
--- NOTE | 2017-09-15 13:10 | Pulmonology Progress Note ---
Assessment/Plan Assessment/Plan Assessment/Plan 1. Acute respiratory failure. on ventimask now 2. Atelectasis, R lung 3. History of right pleural effusion. 4. Schizophrenia 5. Chronic Coumadin usage. 5. Pulmonary edema; resolved 6. Agitation DISCUSSION: Recurrent atelectasis ABG with Pco2 >80 I THINK HE WILL NEED TRACH FOR RESP FAILURE AND SECRETION MANAGEMENT Subjective ROS Limited/Unobtainable: Yes Allergies: Coded Allergies: No Known Allergies (Unverified , 08/03/17) Objective Last 24 Hour Vital Signs Date Time Temp Pulse Resp B/P (MAP) Pulse Ox O2 Delivery O2 Flow Rate FiO2 09/15/17 12:00 98.0 116 18 102/73 92 Bi-pap 100 98.0 116 09/15/17 12:00 100 09/15/17 11:10 121 15 88 Bi-pap 100 09/15/17 11:00 117 14 89 Full Face 100 09/15/17 11:00 110 14 89 Bi-pap 100 09/15/17 09:00 112 18 96 Full Face 100 09/15/17 08:00 100 09/15/17 08:00 98.0 108 14 113/79 89 Bi-pap 100 98.0 108 09/15/17 07:41 116 09/15/17 07:15 115 14 89 Bi-pap 100 09/15/17 07:13 113 26 98 Facial 100 09/15/17 07:10 114 16 92 Bi-pap 100 09/15/17 07:00 118 24 96 Bi-pap 100 09/15/17 07:00 96 Bi-pap 100 09/15/17 07:00 Bi-pap 100 09/15/17 04:46 101 23 93 Facial 80 09/15/17 04:00 98.1 107 21 100/67 93 Bi-pap 100 98.1 107 09/15/17 04:00 100 09/15/17 04:00 109 09/15/17 03:00 102 23 90 Bi-pap 70 09/15/17 02:47 103 22 90 Bi-pap 80 09/15/17 02:46 103 22 90 Facial 80 09/15/17 01:04 99 16 94 Facial 80 09/15/17 00:00 100 09/15/17 00:00 97.0 105 19 107/62 94 Bi-pap 100 97.0 108 09/15/17 00:00 107 7/1/18 22:44 97 19 91 Bi-pap 70 09/14/17 22:36 97 19 89 Facial 100 09/14/17 22:35 97 19 89 Bi-pap 70 09/14/17 20:48 101 15 93 Facial 100 09/14/17 20:00 97.0 108 18 100/67 94 Bi-pap 100 97.0 108 09/14/17 20:00 100 09/14/17 20:00 105 09/14/17 18:46 87 20 93 Bi-pap 70 09/14/17 18:39 88 20 92 Bi-pap 70 09/14/17 18:37 92 Bi-pap 80 09/14/17 18:37 Bi-pap 80 09/14/17 18:37 86 20 92 Facial 70 09/14/17 16:42 78 18 94 Facial 70 09/14/17 16:00 97.5 99 18 105/68 95 Bi-pap 100 97.5 09/14/17 16:00 100 09/14/17 15:20 77 22 9 Bi-pap 70 09/14/17 15:15 73 19 94 Facial 70 09/14/17 15:10 79 19 94 Bi-pap 70 09/14/17 15:10 86 09/14/17 13:29 77 19 94 Facial 70 Intake and Output 09/14/17 09/15/17 19:00 07:00 Intake Total 250 ml Balance 250 ml Intake Oral 250 ml # Voids 2 Objective BiPAP General Appearance: no acute distress HEENT: atraumatic Respiratory/Chest: decreased breath sounds Cardiovascular: regular rhythm, tachycardia Abdomen: soft, non tender Laboratory Tests 09/15/17 03:35: White Blood Count 6.1, Red Blood Count 3.61L, Hemoglobin 10.4L, Hematocrit 33.7L , Mean Corpuscular Volume 93, Mean Corpuscular Hemoglobin 28.7, Mean Corpuscular Hemoglobin Concent 30.7L, Red Cell Distribution Width 17.5H, Platelet Count 106L, Mean Platelet Volume 6.1L, Neutrophils (%) (Auto) 69.8, Lymphocytes (%) (Auto) 14.2L, Monocytes (%) (Auto) 14.1H, Eosinophils (%) (Auto ) 1.6, Basophils (%) (Auto) 0.4, Prothrombin Time 32.3H, Prothromb Time International Ratio 3.0H, Sodium Level 141, Potassium Level 3.8, Chloride Level 100, Carbon Dioxide Level 43*H, Anion Gap -2L, Blood Urea Nitrogen 10, Creatinine 1.1, Estimat Glomerular Filtration Rate > 60, Glucose Level 85, Calcium Level 8.8 09/15/17 10:50: Arterial Blood pH 7.383, Arterial Blood Partial Pressure CO2 75.3*H, Arterial Blood Partial Pressure O2 60.8L, Arterial Blood HCO3 43.8H, Arterial Blood Oxygen Saturation 88.4L, Arterial Blood Base Excess 15.7, Roosevelt Test Positive Current Medications Medications (Trade) Dose Ordered Sig/Kika Route PRN Reason Start Time Stop Time Status Last Admin Dose Admin Acetaminophen (Tylenol) 650 mg Q4H PRN ORAL Mild Pain/Temp > 100.5 09/06/17 21:00 09/23/17 16:59 Acetylcysteine (Mucomyst) 200 mg Q4HRT HHN 09/13/17 15:00 10/13/17 14:59 09/15/17 11:57 Albuterol/ Ipratropium (Albuterol/ Ipratropium) 3 ml Q4HRT HHN 09/13/17 15:00 09/18/17 14:59 09/15/17 11:56 Atorvastatin Calcium (Lipitor) 10 mg BEDTIME ORAL 09/06/17 21:00 09/23/17 20:59 09/14/17 20:34 Bisacodyl (Dulcolax) 10 mg DAILYPRN PRN RECTAL Constipation 09/12/17 22:00 10/12/17 21:59 09/12/17 23:19 Citalopram Hydrobromide (celeXA) 40 mg DAILY ORAL 09/07/17 09:00 09/25/17 08:59 09/15/17 09:22 Divalproex Sodium (Depakote Sprinkles) 500 mg EVERY 12 HOURS GT 09/06/17 21:00 09/23/17 20:59 09/15/17 09:22 Docusate Sodium (Colace) 100 mg Q8H PRN ORAL Constipation 09/06/17 20:00 10/06/17 19:59 09/12/17 20:57 Lorazepam (Ativan 2mg/ml 1ml) 1 mg Q6H PRN IV For Anxiety 09/11/17 08:15 09/18/17 08:14 09/15/17 13:01 Magnesium Hydroxide (Mom) 30 ml DAILYPRN PRN ORAL Constipation 09/06/17 20:00 10/06/17 19:59 09/12/17 20:57 Mineral Oil (Fleet's Mineral Oil Enema) 133 ml DAILY PRN RECTAL Constipation 09/12/17 22:15 10/12/17 22:14 09/13/17 16:53 Olanzapine (ZyPREXA) 10 mg Q12HR ORAL 09/06/17 21:00 09/27/17 20:59 09/15/17 09:22 Quetiapine Fumarate (SEROquel) 100 mg EVERY 8 HOURS ORAL 09/06/17 22:00 09/26/17 12:59 09/15/17 05:09 Risperidone (RisperDAL) 2 mg EVERY 8 HOURS ORAL 09/06/17 22:00 09/26/17 17:59 09/15/17 05:09 Trazodone HCl (Desyrel) 200 mg BEDTIME ORAL 09/06/17 21:00 10/03/17 20:59 09/14/17 20:34 Warfarin Sodium (Coumadin per pharmacy) 1 ea DAILY PRN MISC Per rx protocol 09/07/17 09:00 09/25/17 16:59 Sergio Shay MD Sep 15, 2017 13:10
--- NOTE | 2017-09-15 14:38 | Infectious Diseases Prog Note ---
Assessment/Plan Assessment/Plan A; Pneumonia with MRSA Hypoxic, hypercapnic respiratory failure COPD Schizophrenia R lung collapse/atelectasis worsening P: observe off antibiotic Subjective ROS Limited/Unobtainable: Yes Neurologic: Reports: confusion, other - on restraint Allergies: Coded Allergies: No Known Allergies (Unverified , 08/03/17) Objective Vital Signs Last 24 Hour Vital Signs Date Time Temp Pulse Resp B/P (MAP) Pulse Ox O2 Delivery O2 Flow Rate FiO2 09/15/17 13:17 118 21 91 Full Face 100 09/15/17 12:00 108 09/15/17 12:00 98.0 116 18 102/73 92 Bi-pap 100 98.0 116 09/15/17 12:00 100 09/15/17 11:10 121 15 88 Bi-pap 100 09/15/17 11:00 117 14 89 Full Face 100 09/15/17 11:00 110 14 89 Bi-pap 100 09/15/17 09:00 112 18 96 Full Face 100 09/15/17 08:00 100 09/15/17 08:00 98.0 108 14 113/79 89 Bi-pap 100 98.0 108 09/15/17 07:41 116 09/15/17 07:15 115 14 89 Bi-pap 100 09/15/17 07:13 113 26 98 Facial 100 09/15/17 07:10 114 16 92 Bi-pap 100 09/15/17 07:00 118 24 96 Bi-pap 100 09/15/17 07:00 96 Bi-pap 100 09/15/17 07:00 Bi-pap 100 09/15/17 04:46 101 23 93 Facial 80 09/15/17 04:00 98.1 107 21 100/67 93 Bi-pap 100 98.1 107 09/15/17 04:00 100 09/15/17 04:00 109 09/15/17 03:00 102 23 90 Bi-pap 70 09/15/17 02:47 103 22 90 Bi-pap 80 09/15/17 02:46 103 22 90 Facial 80 09/15/17 01:04 99 16 94 Facial 80 09/15/17 00:00 100 09/15/17 00:00 97.0 105 19 107/62 94 Bi-pap 100 97.0 108 09/15/17 00:00 107 09/14/17 22:44 97 19 91 Bi-pap 70 09/14/17 22:36 97 19 89 Facial 100 09/14/17 22:35 97 19 89 Bi-pap 70 09/14/17 20:48 101 15 93 Facial 100 09/14/17 20:00 97.0 108 18 100/67 94 Bi-pap 100 97.0 108 09/14/17 20:00 100 09/14/17 20:00 105 09/14/17 18:46 87 20 93 Bi-pap 70 09/14/17 18:39 88 20 92 Bi-pap 70 09/14/17 18:37 92 Bi-pap 80 09/14/17 18:37 Bi-pap 80 09/14/17 18:37 86 20 92 Facial 70 09/14/17 16:42 78 18 94 Facial 70 09/14/17 16:00 97.5 99 18 105/68 95 Bi-pap 100 97.5 09/14/17 16:00 100 09/14/17 15:20 77 22 9 Bi-pap 70 09/14/17 15:15 73 19 94 Facial 70 09/14/17 15:10 79 19 94 Bi-pap 70 09/14/17 15:10 86 Height (Feet): 5 Height (Inches): 9.00 Weight (Pounds): 178 HEENT: mucous membranes moist, other - on BIPAP Respiratory/Chest: other - decreased sounds in R side, rhonchi in left side Cardiovascular: tachycardia Abdomen: soft, non tender Extremities: no edema Neurologic/Psychiatric: disoriented Laboratory Tests Test 09/15/17 03:35 09/15/17 10:50 White Blood Count 6.1 K/UL (4.8-10.8) Red Blood Count 3.61 M/UL (4.70-6.10) L Hemoglobin 10.4 G/DL (14.2-18.0) L Hematocrit 33.7 % (42.0-52.0) L Mean Corpuscular Volume 93 FL (80-99) Mean Corpuscular Hemoglobin 28.7 PG (27.0-31.0) Mean Corpuscular Hemoglobin Concent 30.7 G/DL (32.0-36.0) L Red Cell Distribution Width 17.5 % (11.6-14.8) H Platelet Count 106 K/UL (150-450) L Mean Platelet Volume 6.1 FL (6.5-10.1) L Neutrophils (%) (Auto) 69.8 % (45.0-75.0) Lymphocytes (%) (Auto) 14.2 % (20.0-45.0) L Monocytes (%) (Auto) 14.1 % (1.0-10.0) H Eosinophils (%) (Auto) 1.6 % (0.0-3.0) Basophils (%) (Auto) 0.4 % (0.0-2.0) Prothrombin Time 32.3 SEC (9.30-11.50) H Prothromb Time International Ratio 3.0 (0.9-1.1) H Sodium Level 141 MMOL/L (136-145) Potassium Level 3.8 MMOL/L (3.5-5.1) Chloride Level 100 MMOL/L (98-107) Carbon Dioxide Level 43 MMOL/L (21-32) *H Anion Gap -2 mmol/L (5-15) L Blood Urea Nitrogen 10 mg/dL (7-18) Creatinine 1.1 MG/DL (0.55-1.30) Estimat Glomerular Filtration Rate > 60 mL/min (>60) Glucose Level 85 MG/DL (74-106) Calcium Level 8.8 MG/DL (8.5-10.1) Arterial Blood pH 7.383 (7.350-7.450) Arterial Blood Partial Pressure CO2 75.3 mmHg (35.0-45.0) *H Arterial Blood Partial Pressure O2 60.8 mmHg (75.0-100.0) L Arterial Blood HCO3 43.8 mmol/L (22.0-26.0) H Arterial Blood Oxygen Saturation 88.4 % (92.0-98.0) L Arterial Blood Base Excess 15.7 Roosevelt Test Positive Current Medications Medications (Trade) Dose Ordered Sig/Kika Route PRN Reason Start Time Stop Time Status Last Admin Dose Admin Acetaminophen (Tylenol) 650 mg Q4H PRN ORAL Mild Pain/Temp > 100.5 09/06/17 21:00 09/23/17 16:59 Acetylcysteine (Mucomyst) 200 mg Q4HRT HHN 09/13/17 15:00 10/13/17 14:59 09/15/17 11:57 Albuterol/ Ipratropium (Albuterol/ Ipratropium) 3 ml Q4HRT HHN 09/13/17 15:00 09/18/17 14:59 09/15/17 11:56 Atorvastatin Calcium (Lipitor) 10 mg BEDTIME ORAL 09/06/17 21:00 09/23/17 20:59 09/14/17 20:34 Bisacodyl (Dulcolax) 10 mg DAILYPRN PRN RECTAL Constipation 09/12/17 22:00 10/12/17 21:59 09/12/17 23:19 Citalopram Hydrobromide (celeXA) 40 mg DAILY ORAL 09/07/17 09:00 09/25/17 08:59 09/15/17 09:22 Divalproex Sodium (Depakote Sprinkles) 500 mg EVERY 12 HOURS GT 09/06/17 21:00 09/23/17 20:59 09/15/17 09:22 Docusate Sodium (Colace) 100 mg Q8H PRN ORAL Constipation 09/06/17 20:00 10/06/17 19:59 09/12/17 20:57 Lorazepam (Ativan 2mg/ml 1ml) 1 mg Q6H PRN IV For Anxiety 09/11/17 08:15 09/18/17 08:14 09/15/17 13:01 Magnesium Hydroxide (Mom) 30 ml DAILYPRN PRN ORAL Constipation 09/06/17 20:00 10/06/17 19:59 09/12/17 20:57 Mineral Oil (Fleet's Mineral Oil Enema) 133 ml DAILY PRN RECTAL Constipation 09/12/17 22:15 10/12/17 22:14 09/13/17 16:53 Olanzapine (ZyPREXA) 10 mg Q12HR ORAL 09/06/17 21:00 09/27/17 20:59 09/15/17 09:22 Quetiapine Fumarate (SEROquel) 100 mg EVERY 8 HOURS ORAL 09/06/17 22:00 09/26/17 12:59 09/15/17 05:09 Risperidone (RisperDAL) 2 mg EVERY 8 HOURS ORAL 09/06/17 22:00 09/26/17 17:59 09/15/17 05:09 Trazodone HCl (Desyrel) 200 mg BEDTIME ORAL 09/06/17 21:00 10/03/17 20:59 09/14/17 20:34 Warfarin Sodium (Coumadin per pharmacy) 1 ea DAILY PRN MISC Per rx protocol 09/07/17 09:00 09/25/17 16:59 Joseph Joseph MD Sep 15, 2017 14:38
[2017-09-15 16:00] VITALS: BP 116/81
[2017-09-15 20:00] VITALS: BP_SYST 116; BP_SYST 119; BP_DIAS 81; BP_DIAS 83
[2017-09-15] MEDS: TraZODone 100mg tab ORAL SCH (20:29)
[2017-09-16] VITALS: BP 112/71
[2017-09-16] MEDS: LORazepam Inj 2mg/ml 1ml IV PRN ×2 (02:54→19:45)
[2017-09-16] MEDS: Albuterol/Ipratropium 3ml neb HHN SCH ×6 (03:33→23:17)
[2017-09-16] MEDS: Acetylcysteine 20% Soln 4ml HHN SCH ×6 (03:33→23:17)
[2017-09-16 04:00] VITALS: BP 135/69
[2017-09-16 06:23] LABS: ANION GAP -2 mmol/L (5-15); BLOOD UREA NITROGEN 11 mg/dL (7-18); CALCIUM 9.5 MG/DL (8.5-10.1); CARBON DIOXIDE 40 MMOL/L (21-32); CHLORIDE 102 MMOL/L (98-107); POTASSIUM 3.8 MMOL/L (3.5-5.1); SODIUM 142 MMOL/L (136-145)
[2017-09-16 08:00] VITALS: BP 116/73
--- NOTE | 2017-09-16 08:27 | Nephrology Progress Note ---
Assessment/Plan Assessment/Plan 1. Hypernatremia- resolved 2. Met Alk- due to metabolic compensation and maitenence alkalosis - stable 3. Resp FL- on BiPAP. - mgmt per Pulm. 4. Right hemithorax opacification. Has recurrent partial collapse 5. Schizophrenia- per PSY mgmt Patient needs to be off biPAP and ambulate in order to be stable for discharge Subjective Date patient seen: Sep 16, 2017 Time patient seen: 08:25 ROS Limited/Unobtainable: Yes Allergies: Coded Allergies: No Known Allergies (Unverified , 08/03/17) Subjective Patient remains on BiPAP Objective Last 24 Hour Vital Signs Date Time Temp Pulse Resp B/P (MAP) Pulse Ox O2 Delivery O2 Flow Rate FiO2 09/16/17 08:00 70 09/16/17 07:14 101 18 93 Bi-pap 100 09/16/17 07:13 Bi-pap 09/16/17 07:13 92 Bi-pap 100 09/16/17 07:11 103 18 92 Facial 100 09/16/17 07:03 103 18 92 Bi-pap 100 09/16/17 05:11 92 19 91 Facial 100 09/16/17 04:00 97.8 90 22 135/69 92 Bi-pap 100 97.8 09/16/17 04:00 100 09/16/17 03:48 97 09/16/17 03:46 98 17 91 Bi-pap 100 09/16/17 03:31 94 22 91 Bi-pap 100 09/16/17 03:29 94 22 90 Facial 100 09/16/17 01:40 94 21 94 Facial 100 09/16/17 00:00 97.8 106 16 112/71 92 Bi-pap 100 97.8 09/16/17 00:00 104 09/15/17 23:31 105 18 90 Bi-pap 100 09/15/17 23:24 103 20 90 Bi-pap 100 09/15/17 23:18 103 20 90 Facial 100 09/15/17 21:08 102 19 92 Full Face 100 09/15/17 20:00 102 09/15/17 20:00 98.1 96 16 116/81 92 Bi-pap 100 98.1 96 09/15/17 20:00 100 09/15/17 20:00 98.0 109 16 119/83 93 Bi-pap 100 98.0 96 09/15/17 19:17 98 23 88 Bi-pap 100 09/15/17 19:06 108 25 88 Full Face 100 09/15/17 19:06 Bi-pap 100 09/15/17 19:06 105 19 88 Bi-pap 100 09/15/17 19:06 88 Bi-pap 100 09/15/17 17:00 94 14 93 Full Face 100 09/15/17 16:00 105 09/15/17 16:00 98.1 96 16 116/81 92 Bi-pap 100 98.1 96 09/15/17 16:00 100 09/15/17 14:49 11 22 92 Bi-pap 100 09/15/17 14:41 105 15 92 Bi-pap 100 09/15/17 14:40 105 15 92 Full Face 100 09/15/17 13:17 126 24 90 Full Face 100 09/15/17 12:00 108 09/15/17 12:00 98.0 116 18 102/73 92 Bi-pap 100 98.0 116 09/15/17 12:00 100 09/15/17 11:10 121 15 88 Bi-pap 100 09/15/17 11:00 117 14 89 Full Face 100 09/15/17 11:00 110 14 89 Bi-pap 100 09/15/17 09:00 112 18 96 Full Face 100 Intake and Output 09/15/17 09/16/17 19:00 07:00 Intake Total 100 ml Balance 100 ml Intake Oral 100 ml # Voids 1 2 Laboratory Tests 09/15/17 10:50: Arterial Blood pH 7.383, Arterial Blood Partial Pressure CO2 75.3*H, Arterial Blood Partial Pressure O2 60.8L, Arterial Blood HCO3 43.8H, Arterial Blood Oxygen Saturation 88.4L, Arterial Blood Base Excess 15.7, Roosevelt Test Positive 09/16/17 04:27: Prothrombin Time 30.1H, Prothromb Time International Ratio 3.0H, Sodium Level 142, Potassium Level 3.8, Chloride Level 102, Carbon Dioxide Level 40H, Anion Gap -2L, Blood Urea Nitrogen 11, Creatinine 1.0, Estimat Glomerular Filtration Rate > 60, Glucose Level 81, Calcium Level 9.5 Height (Feet): 5 Height (Inches): 9.00 Weight (Pounds): 180 General Appearance: no apparent distress, agitated EENT: normal ENT inspection Neck: normal alignment, supple Cardiovascular: normal rate, regular rhythm Respiratory/Chest: rhonchi - bilaterally Abdomen: non tender, soft Edema: no edema noted Arm (L), no edema noted Arm (R), no edema noted Leg (L), no edema noted Leg (R), no edema noted Pedal (L), no edema noted Pedal (R), no edema noted Generalized Cody Melendez M.D. Sep 16, 2017 08:27
[2017-09-16] MEDS: OLANZapine 10mg tab ORAL SCH ×2 (08:47→20:46)
[2017-09-16] MEDS: Citalopram Hydrobromide 10mg Tab ORAL SCH (08:47)
[2017-09-16] MEDS: Depakote 125mg Sprinkles GT SCH ×2 (08:47→20:46)
[2017-09-16 12:00] VITALS: BP 134/85
--- NOTE | 2017-09-16 14:18 | Pulmonology Progress Note ---
Assessment/Plan Assessment/Plan Assessment/Plan 1. Acute respiratory failure. on BiPAP 2. Atelectasis, R lung 3. History of right pleural effusion. 4. Schizophrenia 5. Chronic Coumadin usage. 5. Pulmonary edema; resolved 6. Agitation DISCUSSION: Recurrent atelectasis ABG with Pco2 >80 HE WILL NEED TRACH FOR RESP FAILURE AND SECRETION MANAGEMENT No family, ordered Bioethics consult Subjective ROS Limited/Unobtainable: Yes Respiratory: Reports: other - BiPAP dependent Allergies: Coded Allergies: No Known Allergies (Unverified , 08/03/17) Objective Last 24 Hour Vital Signs Date Time Temp Pulse Resp B/P (MAP) Pulse Ox O2 Delivery O2 Flow Rate FiO2 09/16/17 13:22 88 14 96 Facial 100 09/16/17 12:00 100 09/16/17 12:00 97.5 99 19 134/85 92 Bi-pap 100 97.5 09/16/17 11:41 90 09/16/17 11:25 92 17 96 Facial 100 09/16/17 11:24 93 18 96 Bi-pap 100 09/16/17 11:20 95 22 95 Bi-pap 100 09/16/17 11:10 96 17 93 Bi-pap 100 09/16/17 09:45 100 09/16/17 09:15 77 21 91 Facial 70 09/16/17 08:00 98 70 09/16/17 08:00 97.6 97 20 116/73 94 Bi-pap 70 97.6 09/16/17 08:00 70 09/16/17 07:51 92 09/16/17 07:14 101 18 93 Bi-pap 100 09/16/17 07:13 Bi-pap 09/16/17 07:13 92 Bi-pap 100 09/16/17 07:11 103 18 92 Facial 100 09/16/17 07:03 103 18 92 Bi-pap 100 09/16/17 05:11 92 19 91 Facial 100 09/16/17 04:00 97.8 90 22 135/69 92 Bi-pap 100 97.8 09/16/17 04:00 100 09/16/17 03:48 97 09/16/17 03:46 98 17 91 Bi-pap 100 09/16/17 03:31 94 22 91 Bi-pap 100 09/16/17 03:29 94 22 90 Facial 100 09/16/17 01:40 94 21 94 Facial 100 09/16/17 00:00 97.8 106 16 112/71 92 Bi-pap 100 97.8 09/16/17 00:00 104 09/15/17 23:31 105 18 90 Bi-pap 100 09/15/17 23:24 103 20 90 Bi-pap 100 09/15/17 23:18 103 20 90 Facial 100 09/15/17 21:08 102 19 92 Full Face 100 09/15/17 20:00 102 09/15/17 20:00 98.1 96 16 116/81 92 Bi-pap 100 98.1 96 09/15/17 20:00 100 09/15/17 20:00 98.0 109 16 119/83 93 Bi-pap 100 98.0 96 09/15/17 19:17 98 23 88 Bi-pap 100 09/15/17 19:06 108 25 88 Full Face 100 09/15/17 19:06 Bi-pap 100 09/15/17 19:06 105 19 88 Bi-pap 100 09/15/17 19:06 88 Bi-pap 100 09/15/17 17:00 94 14 93 Full Face 100 09/15/17 16:00 105 09/15/17 16:00 98.1 96 16 116/81 92 Bi-pap 100 98.1 96 09/15/17 16:00 100 09/15/17 14:49 11 22 92 Bi-pap 100 09/15/17 14:41 105 15 92 Bi-pap 100 09/15/17 14:40 105 15 92 Full Face 100 Intake and Output 09/15/17 09/16/17 19:00 07:00 Intake Total 100 ml Balance 100 ml Intake Oral 100 ml # Voids 1 2 Objective BiPAP General Appearance: no acute distress HEENT: atraumatic Respiratory/Chest: decreased breath sounds Cardiovascular: normal rate Laboratory Tests 09/16/17 04:27: Prothrombin Time 30.1H, Prothromb Time International Ratio 3.0H, Sodium Level 142, Potassium Level 3.8, Chloride Level 102, Carbon Dioxide Level 40H, Anion Gap -2L, Blood Urea Nitrogen 11, Creatinine 1.0, Estimat Glomerular Filtration Rate > 60, Glucose Level 81, Calcium Level 9.5 Current Medications Medications (Trade) Dose Ordered Sig/Kika Route PRN Reason Start Time Stop Time Status Last Admin Dose Admin Acetaminophen (Tylenol) 650 mg Q4H PRN ORAL Mild Pain/Temp > 100.5 09/06/17 21:00 09/23/17 16:59 Acetylcysteine (Mucomyst) 200 mg Q4HRT HHN 09/13/17 15:00 10/13/17 14:59 09/16/17 11:14 Albuterol/ Ipratropium (Albuterol/ Ipratropium) 3 ml Q4HRT N 09/13/17 15:00 09/18/17 14:59 09/16/17 11:14 Atorvastatin Calcium (Lipitor) 10 mg BEDTIME ORAL 09/06/17 21:00 09/23/17 20:59 09/15/17 20:29 Bisacodyl (Dulcolax) 10 mg DAILYPRN PRN RECTAL Constipation 09/12/17 22:00 10/12/17 21:59 09/12/17 23:19 Citalopram Hydrobromide (celeXA) 40 mg DAILY ORAL 09/07/17 09:00 09/25/17 08:59 09/16/17 08:47 Divalproex Sodium (Depakote Sprinkles) 500 mg EVERY 12 HOURS GT 09/06/17 21:00 09/23/17 20:59 09/16/17 08:47 Docusate Sodium (Colace) 100 mg Q8H PRN ORAL Constipation 09/06/17 20:00 10/06/17 19:59 09/12/17 20:57 Lorazepam (Ativan 2mg/ml 1ml) 1 mg Q6H PRN IV For Anxiety 09/11/17 08:15 09/18/17 08:14 09/16/17 02:54 Magnesium Hydroxide (Mom) 30 ml DAILYPRN PRN ORAL Constipation 09/06/17 20:00 10/06/17 19:59 09/12/17 20:57 Mineral Oil (Fleet's Mineral Oil Enema) 133 ml DAILY PRN RECTAL Constipation 09/12/17 22:15 10/12/17 22:14 09/13/17 16:53 Olanzapine (ZyPREXA) 10 mg Q12HR ORAL 09/06/17 21:00 09/27/17 20:59 09/16/17 08:47 Quetiapine Fumarate (SEROquel) 100 mg EVERY 8 HOURS ORAL 09/06/17 22:00 09/26/17 12:59 09/16/17 05:27 Risperidone (RisperDAL) 2 mg EVERY 8 HOURS ORAL 09/06/17 22:00 09/26/17 17:59 09/16/17 05:27 Trazodone HCl (Desyrel) 200 mg BEDTIME ORAL 09/06/17 21:00 10/03/17 20:59 09/15/17 20:29 Warfarin Sodium (Coumadin per pharmacy) 1 ea DAILY PRN MISC Per rx protocol 09/07/17 09:00 09/25/17 16:59 Sergio Shay MD Sep 16, 2017 14:18
[2017-09-16 16:00] VITALS: BP 112/70
[2017-09-16 20:00] VITALS: BP 124/82
[2017-09-16] MEDS: TraZODone 100mg tab ORAL SCH (21:13)
[2017-09-17] VITALS: BP 123/81
[2017-09-17] MEDS: Albuterol/Ipratropium 3ml neb HHN SCH ×6 (03:19→23:00)
[2017-09-17] MEDS: Acetylcysteine 20% Soln 4ml HHN SCH ×6 (03:20→23:00)
[2017-09-17 04:00] VITALS: BP 128/75
[2017-09-17 06:13] LABS: BASOPHILS % (AUTO) 0.7 % (0.0-2.0); EOSINOPHILS % (AUTO) 1.4 % (0.0-3.0); HEMATOCRIT 35.6 % (42.0-52.0); HEMOGLOBIN 10.6 G/DL (14.2-18.0); LYMPHOCYTES % (AUTO) 16.3 % (20.0-45.0); MEAN CORPUSCULAR VOLUME 94 FL (80-99); MONOCYTES % (AUTO) 12.7 % (1.0-10.0); NEUTROPHILS % (AUTO) 68.9 % (45.0-75.0); PLATELET COUNT 132 K/UL (150-450); WHITE BLOOD COUNT 5.1 K/UL (4.8-10.8)
[2017-09-17 08:00] VITALS: BP 111/73
--- NOTE | 2017-09-17 08:27 | Nephrology Progress Note ---
Assessment/Plan Assessment/Plan 1. Hypernatremia- resolved 2. Met Alk- due to metabolic compensation and maitenence alkalosis - stable. Check BMP in am 3. Resp FL- on BiPAP. - mgmt per Pulm. Fails weaning 4. Right hemithorax opacification. Has recurrent partial collapse, chronic 5. Schizophrenia- per PSY mgmt Disposition Patient needs to be off biPAP and ambulate in order to be stable for discharge Subjective Date patient seen: Sep 17, 2017 ROS Limited/Unobtainable: Yes Respiratory: Reports: shortness of breath Allergies: Coded Allergies: No Known Allergies (Unverified , 08/03/17) All Systems: reviewed and negative except above Subjective Patient remains on BiPAP and not ambulating Objective Last 24 Hour Vital Signs Date Time Temp Pulse Resp B/P (MAP) Pulse Ox O2 Delivery O2 Flow Rate FiO2 09/17/17 08:00 100 09/17/17 08:00 98.2 119 18 111/73 92 Bi-pap 100 98.2 09/17/17 07:16 125 23 88 Bi-pap 100 09/17/17 07:09 120 18 89 Bi-pap 100 09/17/17 07:05 128 18 88 Facial 100 09/17/17 07:04 88 Bi-pap 100 09/17/17 07:04 Bi-pap 100 09/17/17 05:15 110 29 91 Full Face 100 09/17/17 04:00 100 09/17/17 04:00 110 09/17/17 04:00 98.0 78 14 128/75 95 Bi-pap 100 98.0 09/17/17 03:29 96 14 93 Bi-pap 100 09/17/17 03:19 96 14 93 Bi-pap 100 09/17/17 03:17 96 19 93 Full Face 100 09/17/17 01:29 101 15 92 Full Face 100 09/17/17 00:00 100 09/17/17 00:00 97.7 106 14 123/81 96 Bi-pap 100 97.7 09/17/17 00:00 102 09/16/17 23:27 106 14 94 Bi-pap 100 09/16/17 23:17 102 14 92 Bi-pap 100 09/16/17 23:17 102 14 92 Full Face 100 09/16/17 20:53 101 14 93 Facial 100 09/16/17 20:00 93 09/16/17 20:00 100 09/16/17 20:00 97.6 87 14 124/82 96 Bi-pap 100 97.6 09/16/17 19:26 91 16 92 Bi-pap 90 09/16/17 19:16 91 15 95 Bi-pap 90 09/16/17 19:14 91 15 95 Facial 90 09/16/17 19:07 95 Bi-pap 100 09/16/17 19:03 Bi-pap 09/16/17 17:02 90 14 96 Facial 90 09/16/17 16:00 97.6 87 14 112/70 96 Bi-pap 90 97.6 09/16/17 15:39 90 09/16/17 15:35 100 09/16/17 15:29 86 20 96 Facial 90 09/16/17 15:28 94 15 97 Bi-pap 90 09/16/17 15:18 96 19 92 Bi-pap 90 09/16/17 13:22 88 14 96 Facial 100 09/16/17 12:00 100 09/16/17 12:00 97.5 99 19 134/85 92 Bi-pap 100 97.5 09/16/17 11:41 90 09/16/17 11:25 92 17 96 Facial 100 09/16/17 11:24 93 18 96 Bi-pap 100 09/16/17 11:20 95 22 95 Bi-pap 100 09/16/17 11:10 96 17 93 Bi-pap 100 09/16/17 09:45 100 09/16/17 09:15 77 21 91 Facial 70 Intake and Output 09/16/17 09/17/17 19:00 07:00 Intake Total 120 ml Balance 120 ml Intake Oral 120 ml # Voids 1 2 Laboratory Tests 09/17/17 04:49: White Blood Count 5.1, Red Blood Count 3.80L, Hemoglobin 10.6L, Hematocrit 35.6L , Mean Corpuscular Volume 94, Mean Corpuscular Hemoglobin 27.9, Mean Corpuscular Hemoglobin Concent 29.8L, Red Cell Distribution Width 18.0H, Platelet Count 132L, Mean Platelet Volume 6.7, Neutrophils (%) (Auto) 68.9, Lymphocytes (%) (Auto) 16.3L, Monocytes (%) (Auto) 12.7H, Eosinophils (%) (Auto ) 1.4, Basophils (%) (Auto) 0.7 Height (Feet): 5 Height (Inches): 9.00 Weight (Pounds): 179 General Appearance: mild distress Neck: normal alignment Cardiovascular: normal rate, regular rhythm Respiratory/Chest: rhonchi - bilaterally Abdomen: non tender, soft Edema: no edema noted Arm (L), no edema noted Arm (R), no edema noted Leg (L), no edema noted Leg (R), no edema noted Pedal (L), no edema noted Pedal (R), no edema noted Generalized Cody Melendez M.D. Sep 17, 2017 08:27
[2017-09-17] MEDS: OLANZapine 10mg tab ORAL SCH ×2 (10:04→21:26)
[2017-09-17] MEDS: Depakote 125mg Sprinkles GT SCH ×2 (10:04→20:17)
[2017-09-17] MEDS: Citalopram Hydrobromide 10mg Tab ORAL SCH (10:07)
--- NOTE | 2017-09-17 10:58 | Infectious Diseases Prog Note ---
Assessment/Plan Assessment/Plan antibiotics : none A 1. MRSA pneumonia s/p rx 2. respiratory failure 3. fungal UTI s/p rx 4. COPD 5. hypertension 6. renal stone 7. right lung collapse P 1. continue off antibiotics Subjective ROS Limited/Unobtainable: Yes Allergies: Coded Allergies: No Known Allergies (Unverified , 08/03/17) Objective Vital Signs Last 24 Hour Vital Signs Date Time Temp Pulse Resp B/P (MAP) Pulse Ox O2 Delivery O2 Flow Rate FiO2 09/17/17 08:55 119 17 90 Facial 100 09/17/17 08:00 100 09/17/17 08:00 119 09/17/17 08:00 98.2 119 18 111/73 92 Bi-pap 100 98.2 09/17/17 07:16 125 23 88 Bi-pap 100 09/17/17 07:09 120 18 89 Bi-pap 100 09/17/17 07:05 128 18 88 Facial 100 09/17/17 07:04 88 Bi-pap 100 09/17/17 07:04 Bi-pap 100 09/17/17 05:15 110 29 91 Full Face 100 09/17/17 04:00 100 09/17/17 04:00 110 09/17/17 04:00 98.0 78 14 128/75 95 Bi-pap 100 98.0 09/17/17 03:29 96 14 93 Bi-pap 100 09/17/17 03:19 96 14 93 Bi-pap 100 09/17/17 03:17 96 19 93 Full Face 100 09/17/17 01:29 101 15 92 Full Face 100 09/17/17 00:00 100 09/17/17 00:00 97.7 106 14 123/81 96 Bi-pap 100 97.7 09/17/17 00:00 102 09/16/17 23:27 106 14 94 Bi-pap 100 09/16/17 23:17 102 14 92 Bi-pap 100 09/16/17 23:17 102 14 92 Full Face 100 09/16/17 20:53 101 14 93 Facial 100 09/16/17 20:00 93 09/16/17 20:00 100 09/16/17 20:00 97.6 87 14 124/82 96 Bi-pap 100 97.6 09/16/17 19:26 91 16 92 Bi-pap 90 09/16/17 19:16 91 15 95 Bi-pap 90 09/16/17 19:14 91 15 95 Facial 90 09/16/17 19:07 95 Bi-pap 100 09/16/17 19:03 Bi-pap 09/16/17 17:02 90 14 96 Facial 90 09/16/17 16:00 97.6 87 14 112/70 96 Bi-pap 90 97.6 09/16/17 15:39 90 09/16/17 15:35 100 09/16/17 15:29 86 20 96 Facial 90 09/16/17 15:28 94 15 97 Bi-pap 90 09/16/17 15:18 96 19 92 Bi-pap 90 09/16/17 13:22 88 14 96 Facial 100 09/16/17 12:00 100 09/16/17 12:00 97.5 99 19 134/85 92 Bi-pap 100 97.5 09/16/17 11:41 90 09/16/17 11:25 92 17 96 Facial 100 09/16/17 11:24 93 18 96 Bi-pap 100 09/16/17 11:20 95 22 95 Bi-pap 100 09/16/17 11:10 96 17 93 Bi-pap 100 Height (Feet): 5 Height (Inches): 9.00 Weight (Pounds): 179 Respiratory/Chest: lungs clear Cardiovascular: normal rate, regular rhythm, no gallop/murmur Abdomen: soft, non tender Extremities: no edema Laboratory Tests Test 09/17/17 04:49 White Blood Count 5.1 K/UL (4.8-10.8) Red Blood Count 3.80 M/UL (4.70-6.10) L Hemoglobin 10.6 G/DL (14.2-18.0) L Hematocrit 35.6 % (42.0-52.0) L Mean Corpuscular Volume 94 FL (80-99) Mean Corpuscular Hemoglobin 27.9 PG (27.0-31.0) Mean Corpuscular Hemoglobin Concent 29.8 G/DL (32.0-36.0) L Red Cell Distribution Width 18.0 % (11.6-14.8) H Platelet Count 132 K/UL (150-450) L Mean Platelet Volume 6.7 FL (6.5-10.1) Neutrophils (%) (Auto) 68.9 % (45.0-75.0) Lymphocytes (%) (Auto) 16.3 % (20.0-45.0) L Monocytes (%) (Auto) 12.7 % (1.0-10.0) H Eosinophils (%) (Auto) 1.4 % (0.0-3.0) Basophils (%) (Auto) 0.7 % (0.0-2.0) Current Medications Medications (Trade) Dose Ordered Sig/Kika Route PRN Reason Start Time Stop Time Status Last Admin Dose Admin Acetaminophen (Tylenol) 650 mg Q4H PRN ORAL Mild Pain/Temp > 100.5 09/06/17 21:00 09/23/17 16:59 Acetylcysteine (Mucomyst) 200 mg Q4HRT N 09/13/17 15:00 10/13/17 14:59 09/17/17 07:03 Albuterol/ Ipratropium (Albuterol/ Ipratropium) 3 ml Q4HRT N 09/13/17 15:00 09/18/17 14:59 09/17/17 07:03 Atorvastatin Calcium (Lipitor) 10 mg BEDTIME ORAL 09/06/17 21:00 09/23/17 20:59 09/16/17 20:46 Bisacodyl (Dulcolax) 10 mg DAILYPRN PRN RECTAL Constipation 09/12/17 22:00 10/12/17 21:59 09/16/17 22:16 Citalopram Hydrobromide (celeXA) 40 mg DAILY ORAL 09/07/17 09:00 09/25/17 08:59 09/17/17 10:07 Divalproex Sodium (Depakote Sprinkles) 500 mg EVERY 12 HOURS GT 09/06/17 21:00 09/23/17 20:59 09/17/17 10:04 Docusate Sodium (Colace) 100 mg Q8H PRN ORAL Constipation 09/06/17 20:00 10/06/17 19:59 09/12/17 20:57 Lorazepam (Ativan 2mg/ml 1ml) 1 mg Q6H PRN IV For Anxiety 09/11/17 08:15 09/18/17 08:14 09/16/17 19:45 Magnesium Hydroxide (Mom) 30 ml DAILYPRN PRN ORAL Constipation 09/06/17 20:00 10/06/17 19:59 09/12/17 20:57 Mineral Oil (Fleet's Mineral Oil Enema) 133 ml DAILY PRN RECTAL Constipation 09/12/17 22:15 10/12/17 22:14 09/13/17 16:53 Olanzapine (ZyPREXA) 10 mg Q12HR ORAL 09/06/17 21:00 09/27/17 20:59 09/17/17 10:04 Quetiapine Fumarate (SEROquel) 100 mg EVERY 8 HOURS ORAL 09/06/17 22:00 09/26/17 12:59 09/17/17 05:47 Risperidone (RisperDAL) 2 mg EVERY 8 HOURS ORAL 09/06/17 22:00 09/26/17 17:59 09/17/17 05:47 Trazodone HCl (Desyrel) 200 mg BEDTIME ORAL 09/06/17 21:00 10/03/17 20:59 09/16/17 21:13 Warfarin Sodium (Coumadin per pharmacy) 1 ea DAILY PRN MISC Per rx protocol 09/07/17 09:00 09/25/17 16:59 LALI COCHRAN Sep 17, 2017 10:58
[2017-09-17] MEDS: LORazepam Inj 2mg/ml 1ml IV PRN ×2 (10:59→22:25)
[2017-09-17 12:00] VITALS: BP 109/77
--- NOTE | 2017-09-17 14:27 | Pulmonology Progress Note ---
Assessment/Plan Assessment/Plan Assessment/Plan 1. Acute respiratory failure. on BiPAP 2. Atelectasis, R lung 3. History of right pleural effusion. 4. Schizophrenia 5. Chronic Coumadin usage. 5. Pulmonary edema; resolved 6. Agitation DISCUSSION: doing poorly, high HR [address] ST Recurrent atelectasis, CXR pending ABG ordered; may need intubation HE WILL NEED TRACH FOR RESP FAILURE AND SECRETION MANAGEMENT Await Bioethics consult Subjective ROS Limited/Unobtainable: Yes Allergies: Coded Allergies: No Known Allergies (Unverified , 08/03/17) Objective Last 24 Hour Vital Signs Date Time Temp Pulse Resp B/P (MAP) Pulse Ox O2 Delivery O2 Flow Rate FiO2 09/17/17 13:22 129 19 92 Facial 100 09/17/17 12:00 129 09/17/17 12:00 98.2 131 21 109/77 95 Bi-pap 100 98.2 09/17/17 11:10 131 20 91 Bi-pap 100 09/17/17 11:05 128 18 93 Bi-pap 100 09/17/17 11:03 128 17 93 Facial 100 09/17/17 08:55 119 17 90 Facial 100 09/17/17 08:00 100 09/17/17 08:00 119 09/17/17 08:00 98.2 119 18 111/73 92 Bi-pap 100 98.2 09/17/17 07:16 125 23 88 Bi-pap 100 09/17/17 07:09 120 18 89 Bi-pap 100 09/17/17 07:05 128 18 88 Facial 100 09/17/17 07:04 88 Bi-pap 100 09/17/17 07:04 Bi-pap 100 09/17/17 05:15 110 29 91 Full Face 100 09/17/17 04:00 100 09/17/17 04:00 110 09/17/17 04:00 98.0 78 14 128/75 95 Bi-pap 100 98.0 09/17/17 03:29 96 14 93 Bi-pap 100 09/17/17 03:19 96 14 93 Bi-pap 100 09/17/17 03:17 96 19 93 Full Face 100 09/17/17 01:29 101 15 92 Full Face 100 09/17/17 00:00 100 09/17/17 00:00 97.7 106 14 123/81 96 Bi-pap 100 97.7 09/17/17 00:00 102 09/16/17 23:27 106 14 94 Bi-pap 100 09/16/17 23:17 102 14 92 Bi-pap 100 09/16/17 23:17 102 14 92 Full Face 100 09/16/17 20:53 101 14 93 Facial 100 09/16/17 20:00 93 09/16/17 20:00 100 09/16/17 20:00 97.6 87 14 124/82 96 Bi-pap 100 97.6 09/16/17 19:26 91 16 92 Bi-pap 90 09/16/17 19:16 91 15 95 Bi-pap 90 09/16/17 19:14 91 15 95 Facial 90 09/16/17 19:07 95 Bi-pap 100 09/16/17 19:03 Bi-pap 09/16/17 17:02 90 14 96 Facial 90 09/16/17 16:00 97.6 87 14 112/70 96 Bi-pap 90 97.6 09/16/17 15:39 90 09/16/17 15:35 100 09/16/17 15:29 86 20 96 Facial 90 09/16/17 15:28 94 15 97 Bi-pap 90 09/16/17 15:18 96 19 92 Bi-pap 90 Intake and Output 09/16/17 09/17/17 19:00 07:00 Intake Total 120 ml Balance 120 ml Intake Oral 120 ml # Voids 1 2 Objective BiPAP HEENT: atraumatic Respiratory/Chest: decreased breath sounds Cardiovascular: regular rhythm, tachycardia Laboratory Tests 09/17/17 04:49: White Blood Count 5.1, Red Blood Count 3.80L, Hemoglobin 10.6L, Hematocrit 35.6L , Mean Corpuscular Volume 94, Mean Corpuscular Hemoglobin 27.9, Mean Corpuscular Hemoglobin Concent 29.8L, Red Cell Distribution Width 18.0H, Platelet Count 132L, Mean Platelet Volume 6.7, Neutrophils (%) (Auto) 68.9, Lymphocytes (%) (Auto) 16.3L, Monocytes (%) (Auto) 12.7H, Eosinophils (%) (Auto ) 1.4, Basophils (%) (Auto) 0.7 Current Medications Medications (Trade) Dose Ordered Sig/Kika Route PRN Reason Start Time Stop Time Status Last Admin Dose Admin Acetaminophen (Tylenol) 650 mg Q4H PRN ORAL Mild Pain/Temp > 100.5 09/06/17 21:00 09/23/17 16:59 Acetylcysteine (Mucomyst) 200 mg Q4HRT N 09/13/17 15:00 10/13/17 14:59 09/17/17 11:02 Albuterol/ Ipratropium (Albuterol/ Ipratropium) 3 ml Q4HRT N 09/13/17 15:00 09/18/17 14:59 09/17/17 11:02 Atorvastatin Calcium (Lipitor) 10 mg BEDTIME ORAL 09/06/17 21:00 09/23/17 20:59 09/16/17 20:46 Bisacodyl (Dulcolax) 10 mg DAILYPRN PRN RECTAL Constipation 09/12/17 22:00 10/12/17 21:59 09/16/17 22:16 Citalopram Hydrobromide (celeXA) 40 mg DAILY ORAL 09/07/17 09:00 09/25/17 08:59 09/17/17 10:07 Divalproex Sodium (Depakote Sprinkles) 500 mg EVERY 12 HOURS GT 09/06/17 21:00 09/23/17 20:59 09/17/17 10:04 Docusate Sodium (Colace) 100 mg Q8H PRN ORAL Constipation 09/06/17 20:00 10/06/17 19:59 09/12/17 20:57 Lorazepam (Ativan 2mg/ml 1ml) 1 mg Q6H PRN IV For Anxiety 09/11/17 08:15 09/18/17 08:14 09/17/17 10:59 Magnesium Hydroxide (Mom) 30 ml DAILYPRN PRN ORAL Constipation 09/06/17 20:00 10/06/17 19:59 09/12/17 20:57 Mineral Oil (Fleet's Mineral Oil Enema) 133 ml DAILY PRN RECTAL Constipation 09/12/17 22:15 10/12/17 22:14 09/13/17 16:53 Olanzapine (ZyPREXA) 10 mg Q12HR ORAL 09/06/17 21:00 09/27/17 20:59 09/17/17 10:04 Quetiapine Fumarate (SEROquel) 100 mg EVERY 8 HOURS ORAL 09/06/17 22:00 09/26/17 12:59 09/17/17 14:07 Risperidone (RisperDAL) 2 mg EVERY 8 HOURS ORAL 09/06/17 22:00 09/26/17 17:59 09/17/17 14:07 Trazodone HCl (Desyrel) 200 mg BEDTIME ORAL 09/06/17 21:00 10/03/17 20:59 09/16/17 21:13 Warfarin Sodium (Coumadin per pharmacy) 1 ea DAILY PRN MISC Per rx protocol 09/07/17 09:00 09/25/17 16:59 Sergio Shay MD Sep 17, 2017 14:27
--- NOTE | 2017-09-17 15:07 | Cardiac Electrophysiology PN ---
Subjective Subjective [id number] Objective Last 24 Hour Vital Signs Date Time Temp Pulse Resp B/P (MAP) Pulse Ox O2 Delivery O2 Flow Rate FiO2 09/17/17 13:22 129 19 92 Facial 100 09/17/17 12:00 129 09/17/17 12:00 98.2 131 21 109/77 95 Bi-pap 100 98.2 09/17/17 11:10 131 20 91 Bi-pap 100 09/17/17 11:05 128 18 93 Bi-pap 100 09/17/17 11:03 128 17 93 Facial 100 09/17/17 08:55 119 17 90 Facial 100 09/17/17 08:00 100 09/17/17 08:00 119 09/17/17 08:00 98.2 119 18 111/73 92 Bi-pap 100 98.2 09/17/17 07:16 125 23 88 Bi-pap 100 09/17/17 07:09 120 18 89 Bi-pap 100 09/17/17 07:05 128 18 88 Facial 100 09/17/17 07:04 88 Bi-pap 100 09/17/17 07:04 Bi-pap 100 09/17/17 05:15 110 29 91 Full Face 100 09/17/17 04:00 100 09/17/17 04:00 110 09/17/17 04:00 98.0 78 14 128/75 95 Bi-pap 100 98.0 09/17/17 03:29 96 14 93 Bi-pap 100 09/17/17 03:19 96 14 93 Bi-pap 100 09/17/17 03:17 96 19 93 Full Face 100 09/17/17 01:29 101 15 92 Full Face 100 09/17/17 00:00 100 09/17/17 00:00 97.7 106 14 123/81 96 Bi-pap 100 97.7 09/17/17 00:00 102 09/16/17 23:27 106 14 94 Bi-pap 100 09/16/17 23:17 102 14 92 Bi-pap 100 09/16/17 23:17 102 14 92 Full Face 100 09/16/17 20:53 101 14 93 Facial 100 09/16/17 20:00 93 09/16/17 20:00 100 09/16/17 20:00 97.6 87 14 124/82 96 Bi-pap 100 97.6 09/16/17 19:26 91 16 92 Bi-pap 90 09/16/17 19:16 91 15 95 Bi-pap 90 09/16/17 19:14 91 15 95 Facial 90 09/16/17 19:07 95 Bi-pap 100 09/16/17 19:03 Bi-pap 09/16/17 17:02 90 14 96 Facial 90 09/16/17 16:00 97.6 87 14 112/70 96 Bi-pap 90 97.6 09/16/17 15:39 90 09/16/17 15:35 100 09/16/17 15:29 86 20 96 Facial 90 09/16/17 15:28 94 15 97 Bi-pap 90 09/16/17 15:18 96 19 92 Bi-pap 90 Intake and Output 09/16/17 09/17/17 19:00 07:00 Intake Total 120 ml Balance 120 ml Intake Oral 120 ml # Voids 1 2 Laboratory Tests Test 09/17/17 04:49 09/17/17 14:22 White Blood Count 5.1 K/UL (4.8-10.8) Red Blood Count 3.80 M/UL (4.70-6.10) L Hemoglobin 10.6 G/DL (14.2-18.0) L Hematocrit 35.6 % (42.0-52.0) L Mean Corpuscular Volume 94 FL (80-99) Mean Corpuscular Hemoglobin 27.9 PG (27.0-31.0) Mean Corpuscular Hemoglobin Concent 29.8 G/DL (32.0-36.0) L Red Cell Distribution Width 18.0 % (11.6-14.8) H Platelet Count 132 K/UL (150-450) L Mean Platelet Volume 6.7 FL (6.5-10.1) Neutrophils (%) (Auto) 68.9 % (45.0-75.0) Lymphocytes (%) (Auto) 16.3 % (20.0-45.0) L Monocytes (%) (Auto) 12.7 % (1.0-10.0) H Eosinophils (%) (Auto) 1.4 % (0.0-3.0) Basophils (%) (Auto) 0.7 % (0.0-2.0) Arterial Blood pH 7.401 (7.350-7.450) Arterial Blood Partial Pressure CO2 71.4 mmHg (35.0-45.0) *H Arterial Blood Partial Pressure O2 49.2 mmHg (75.0-100.0) Arterial Blood HCO3 43.3 mmol/L (22.0-26.0) H Arterial Blood Oxygen Saturation 81.6 % (92.0-98.0) L Arterial Blood Base Excess 15.7 [facility] Test Positive Chris Pollard MD Sep 17, 2017 15:06
[2017-09-17 16:00] VITALS: BP 116/70
--- NOTE | 2017-09-17 18:00 | Consultation ---
DATE OF CONSULTATION: 09/17/2017 CARDIOLOGY CONSULTATION CONSULTING PHYSICIAN: Chris Pollard M.D. REFERRING PHYSICIAN: Dr. Qamar Melendez M.D. REASON FOR CONSULTATION: Tachycardia. HISTORY OF PRESENT ILLNESS: The patient is a 62-year-old gentleman with schizophrenia, COPD, hypertension, cardiomyopathy, cardiac arrhythmia, UTI, respiratory failure, atrial fibrillation, who has been admitted over the past month for respiratory failure and COPD exacerbation. The patient has been running heart rate of 100s, however, the heart rate increased to 130s. Cardiology consultation was requested for further evaluation and management. REVIEW OF SYSTEMS: Cannot be obtained as the patient is currently on BiPaP and restrained. PAST MEDICAL HISTORY: 1. Hypertension. 2. Paroxysmal atrial fibrillation. 3. Cardiomyopathy. 4. COPD. 5. Schizophrenia. 6. History of GI bleed. 7. Respiratory failure. 8. Oxygen dependence. PAST SURGICAL HISTORY: Includes tracheostomy. PHYSICAL EXAMINATION: VITAL SIGNS: Blood pressure is 109/77, pulse is 130, respirations 18, and temperature 98.2 degrees. HEAD AND NECK: Shows no JVD. LUNGS: Coarse rhonchi bilaterally. CARDIOVASCULAR: Shows tachycardic. S1, S2 with no gallop or murmur. ABDOMEN: Soft. EXTREMITIES: He has 1+ pitting edema. LABORATORY DATA: White count of 5.1, hemoglobin 10.2, hematocrit 35.6, and platelet count is 132,000. Sodium 142, potassium 3.8, BUN of 11, creatinine 1. INR is 3. ASSESSMENT AND PLAN: 1. Tachycardia. This is due to sinus tachycardia. This is likely due to the patient's respiratory failure and sepsis. The patient is already on IV antibiotics. 2. Paroxysmal atrial fibrillation. The patient is on Coumadin, but currently in sinus rhythm. 3. Hyperlipidemia, on Lipitor. 4. Respiratory failure. 5. Schizophrenia. He is currently on BiPAP. The patient was also evaluated by Dr. Shay. He recommended he would need tracheostomy for respiratory failure and secretion management. Thank you very much, Dr. Melendez, for allowing me to participate in the care of this patient. Please do not hesitate to contact me for any questions regarding my evaluation. Chris Pollard M.D. DR: Jane JOB#: [id number] CC:
[2017-09-17 20:00] VITALS: BP 110/80
[2017-09-17] MEDS: TraZODone 100mg tab ORAL SCH (20:17)
[2017-09-17] MEDS: D5NS 1,000 ML IV SCH (20:37)
[2017-09-18] VITALS: BP 105/70
[2017-09-18] MEDS: Albuterol/Ipratropium 3ml neb HHN SCH ×4 (03:04→14:49)
[2017-09-18] MEDS: Acetylcysteine 20% Soln 4ml HHN SCH ×6 (03:04→22:50)
[2017-09-18 04:00] VITALS: BP 108/70
[2017-09-18 06:56] LABS: ANION GAP 0 mmol/L (5-15); BLOOD UREA NITROGEN 15 mg/dL (7-18); CALCIUM 9.3 MG/DL (8.5-10.1); CARBON DIOXIDE 40 MMOL/L (21-32); CHLORIDE 105 MMOL/L (98-107); CREATININE 1.2 MG/DL (0.55-1.30); POTASSIUM 3.8 MMOL/L (3.5-5.1); SODIUM 145 MMOL/L (136-145)
[2017-09-18 08:00] VITALS: BP 119/58
[2017-09-18 08:09] LABS: INR 2.2 (0.9-1.1)
--- NOTE | 2017-09-18 09:09 | Nephrology Progress Note ---
Assessment/Plan Assessment/Plan 1. Hypernatremia- resolved 2. Met Alk- due to metabolic compensation and maitenence alkalosis - resolved 3. Resp FL- on BiPAP. - mgmt per Pulm. Fails weaning 4. Right hemithorax opacification. Has recurrent partial collapse, chronic 5. Schizophrenia- per PSY mgmt 6. Nutrition- NG and start TF's 7. Sepsis/PNA- Abx per ID mgmt Disposition Patient needs to be off biPAP and ambulate in order to be stable for discharge Subjective Date patient seen: Sep 18, 2017 Time patient seen: 09:01 ROS Limited/Unobtainable: Yes Allergies: Coded Allergies: No Known Allergies (Unverified , 08/03/17) Subjective Patient remains on BiPAP and not ambulating. Has not eaten in 2 days Objective Last 24 Hour Vital Signs Date Time Temp Pulse Resp B/P (MAP) Pulse Ox O2 Delivery O2 Flow Rate FiO2 09/18/17 06:56 120 16 90 Bi-pap 100 09/18/17 06:48 84 Bi-pap 100 09/18/17 06:48 Bi-pap 100 09/18/17 06:44 127 19 84 Bi-pap 100 09/18/17 06:40 127 19 88 Facial 100 09/18/17 05:10 111 21 89 Facial 100 09/18/17 04:00 98.2 100 20 108/70 94 Bi-pap 100 98.2 09/18/17 04:00 100 09/18/17 04:00 100 09/18/17 03:18 105 21 93 Bi-pap 100 09/18/17 03:04 106 14 95 Facial 100 09/18/17 03:04 106 14 95 Bi-pap 100 09/18/17 01:16 120 21 93 Full Face 100 09/18/17 00:00 100 09/18/17 00:00 124 09/18/17 00:00 98.8 128 18 105/70 93 Bi-pap 100 98.8 09/17/17 23:29 Bi-pap 100 09/17/17 23:29 Bi-pap 100 09/17/17 23:28 131 15 92 Full Face 100 09/17/17 23:00 99.5 09/17/17 22:01 100.5 09/17/17 22:00 100.5 100.5 09/17/17 20:59 140 27 92 Full Face 100 09/17/17 20:00 100 09/17/17 20:00 138 09/17/17 20:00 99.1 135 20 110/80 92 Bi-pap 100 99.1 09/17/17 19:11 Bi-pap 100 09/17/17 19:11 Bi-pap 100 09/17/17 19:10 132 28 91 Full Face 100 09/17/17 19:10 Bi-pap 100 09/17/17 19:10 91 Bi-pap 100 09/17/17 16:54 135 16 89 Full Face 100 09/17/17 16:00 131 09/17/17 16:00 98.4 132 16 116/70 94 Bi-pap 100 98.4 09/17/17 16:00 100 09/17/17 15:05 136 22 92 Bi-pap 100 09/17/17 15:00 128 29 92 Facial 100 09/17/17 15:00 129 29 94 Bi-pap 100 09/17/17 13:22 129 19 92 Facial 100 09/17/17 12:00 129 09/17/17 12:00 100 09/17/17 12:00 98.2 131 21 109/77 95 Bi-pap 100 98.2 09/17/17 11:10 131 20 91 Bi-pap 100 09/17/17 11:05 128 18 93 Bi-pap 100 09/17/17 11:03 128 17 93 Facial 100 Intake and Output 09/17/17 09/18/17 19:00 07:00 Intake Total 838 ml Balance 838 ml Intake Oral 60 ml IV Total 778 ml # Voids 2 2 # Bowel Movements 2 Laboratory Tests 09/17/17 14:22: Arterial Blood pH 7.401, Arterial Blood Partial Pressure CO2 71.4*H, Arterial Blood Partial Pressure O2 49.2*L, Arterial Blood HCO3 43.3H, Arterial Blood Oxygen Saturation 81.6L, Arterial Blood Base Excess 15.7, Roosevelt Test Positive 09/18/17 05:05: Sodium Level 145, Potassium Level 3.8, Chloride Level 105, Carbon Dioxide Level 40H, Anion Gap 0L, Blood Urea Nitrogen 15, Creatinine 1.2, Estimat Glomerular Filtration Rate > 60, Glucose Level 106, Calcium Level 9.3, Troponin I 0.000, Pro-B-Type Natriuretic Peptide 541H, Thyroid Stimulating Hormone (TSH) 1.123, Free Thyroxine 1.01, Valproic Acid (Depakene) Level 68 09/18/17 07:30: Prothrombin Time 22.2H, Prothromb Time International Ratio 2.2H Height (Feet): 5 Height (Inches): 9.00 Weight (Pounds): 180 General Appearance: no apparent distress, confused, mild distress EENT: normal ENT inspection Neck: normal alignment Cardiovascular: normal rate, regular rhythm Respiratory/Chest: rhonchi - bilaterally Abdomen: non tender, soft Edema: no edema noted Arm (L), no edema noted Arm (R), no edema noted Leg (L), no edema noted Leg (R), no edema noted Pedal (L), no edema noted Pedal (R), no edema noted Generalized Cody Melendez M.D. Sep 18, 2017 09:09
[2017-09-18] MEDS ORDERED: D5NS 1000ml IV ONE (09:39)
[2017-09-18] MEDS: Depakote 125mg Sprinkles GT SCH ×2 (10:12→20:44)
[2017-09-18] MEDS: Citalopram Hydrobromide 10mg Tab ORAL SCH (10:13)
[2017-09-18] MEDS: OLANZapine 10mg tab ORAL SCH ×2 (10:13→20:43)
[2017-09-18] MEDS: D5NS 1,000 ML IV SCH ×2 (10:13→23:06)
--- NOTE | 2017-09-18 10:35 | Infectious Diseases Prog Note ---
Assessment/Plan Assessment/Plan A; Pneumonia with MRSA Hypoxic, hypercapnic respiratory failure COPD Schizophrenia R lung collapse/atelectasis worsening P: Repeat CXR, sputum culture Start on Vancomycin & Cefepime Subjective ROS Limited/Unobtainable: Yes Constitutional: Reports: fever, other - Sxqv=488.5 Allergies: Coded Allergies: No Known Allergies (Unverified , 08/03/17) Objective Vital Signs Last 24 Hour Vital Signs Date Time Temp Pulse Resp B/P (MAP) Pulse Ox O2 Delivery O2 Flow Rate FiO2 09/18/17 09:15 114 20 92 Facial 60 09/18/17 08:00 119 09/18/17 08:00 60 09/18/17 08:00 97.7 99 24 119/58 99 Bi-pap 60 97.7 09/18/17 06:56 120 16 90 Bi-pap 100 09/18/17 06:48 84 Bi-pap 100 09/18/17 06:48 Bi-pap 100 09/18/17 06:44 127 19 84 Bi-pap 100 09/18/17 06:40 127 19 88 Facial 100 09/18/17 05:10 111 21 89 Facial 100 09/18/17 04:00 98.2 100 20 108/70 94 Bi-pap 100 98.2 09/18/17 04:00 100 09/18/17 04:00 100 09/18/17 03:18 105 21 93 Bi-pap 100 09/18/17 03:04 106 14 95 Facial 100 09/18/17 03:04 106 14 95 Bi-pap 100 09/18/17 01:16 120 21 93 Full Face 100 09/18/17 00:00 100 09/18/17 00:00 124 09/18/17 00:00 98.8 128 18 105/70 93 Bi-pap 100 98.8 09/17/17 23:29 Bi-pap 100 09/17/17 23:29 Bi-pap 100 09/17/17 23:28 131 15 92 Full Face 100 09/17/17 23:00 99.5 09/17/17 22:01 100.5 09/17/17 22:00 100.5 100.5 09/17/17 20:59 140 27 92 Full Face 100 09/17/17 20:00 100 09/17/17 20:00 138 09/17/17 20:00 99.1 135 20 110/80 92 Bi-pap 100 99.1 09/17/17 19:11 Bi-pap 100 09/17/17 19:11 Bi-pap 100 09/17/17 19:10 132 28 91 Full Face 100 09/17/17 19:10 Bi-pap 100 09/17/17 19:10 91 Bi-pap 100 09/17/17 16:54 135 16 89 Full Face 100 09/17/17 16:00 131 09/17/17 16:00 98.4 132 16 116/70 94 Bi-pap 100 98.4 09/17/17 16:00 100 09/17/17 15:05 136 22 92 Bi-pap 100 09/17/17 15:00 128 29 92 Facial 100 09/17/17 15:00 129 29 94 Bi-pap 100 09/17/17 13:22 129 19 92 Facial 100 09/17/17 12:00 129 09/17/17 12:00 100 09/17/17 12:00 98.2 131 21 109/77 95 Bi-pap 100 98.2 09/17/17 11:10 131 20 91 Bi-pap 100 09/17/17 11:05 128 18 93 Bi-pap 100 09/17/17 11:03 128 17 93 Facial 100 Height (Feet): 5 Height (Inches): 9.00 Weight (Pounds): 180 HEENT: other - ON BIPAP Respiratory/Chest: other - decreased sounds on right Cardiovascular: tachycardia Abdomen: soft, non tender Extremities: no edema Neurologic/Psychiatric: unresponsiveness Laboratory Tests Test 09/17/17 14:22 09/18/17 05:05 09/18/17 07:30 Arterial Blood pH 7.401 (7.350-7.450) Arterial Blood Partial Pressure CO2 71.4 mmHg (35.0-45.0) *H Arterial Blood Partial Pressure O2 49.2 mmHg (75.0-100.0) Arterial Blood HCO3 43.3 mmol/L (22.0-26.0) H Arterial Blood Oxygen Saturation 81.6 % (92.0-98.0) L Arterial Blood Base Excess 15.7 [facility] Test Positive Sodium Level 145 MMOL/L (136-145) Potassium Level 3.8 MMOL/L (3.5-5.1) Chloride Level 105 MMOL/L (98-107) Carbon Dioxide Level 40 MMOL/L (21-32) H Anion Gap 0 mmol/L (5-15) L Blood Urea Nitrogen 15 mg/dL (7-18) Creatinine 1.2 MG/DL (0.55-1.30) Estimat Glomerular Filtration Rate > 60 mL/min (>60) Glucose Level 106 MG/DL (74-106) Calcium Level 9.3 MG/DL (8.5-10.1) Troponin I 0.000 ng/mL (0.000-0.056) Pro-B-Type Natriuretic Peptide 541 pg/mL (0-125) H Thyroid Stimulating Hormone (TSH) 1.123 uiU/mL (0.358-3.740) Free Thyroxine 1.01 NG/DL (0.76-1.46) Valproic Acid (Depakene) Level 68 MCG/ML (50-100) Prothrombin Time 22.2 SEC (9.30-11.50) H Prothromb Time International Ratio 2.2 (0.9-1.1) H Current Medications Medications (Trade) Dose Ordered Sig/Kika Route PRN Reason Start Time Stop Time Status Last Admin Dose Admin Acetaminophen (Tylenol) 650 mg Q4H PRN ORAL Mild Pain/Temp > 100.5 09/06/17 21:00 09/23/17 16:59 09/17/17 22:01 Acetylcysteine (Mucomyst) 200 mg Q4HRT N 09/13/17 15:00 10/13/17 14:59 09/18/17 06:44 Albuterol/ Ipratropium (Albuterol/ Ipratropium) 3 ml Q4HRT N 09/13/17 15:00 09/18/17 14:59 09/18/17 06:44 Atorvastatin Calcium (Lipitor) 10 mg BEDTIME ORAL 09/06/17 21:00 09/23/17 20:59 09/17/17 20:18 Bisacodyl (Dulcolax) 10 mg DAILYPRN PRN RECTAL Constipation 09/12/17 22:00 10/12/17 21:59 09/16/17 22:16 Citalopram Hydrobromide (celeXA) 40 mg DAILY ORAL 09/07/17 09:00 09/25/17 08:59 09/18/17 10:13 Dextrose/Sodium Chloride 1,000 ml @ 75 mls/hr [id number] IV 09/17/17 20:30 10/17/17 20:29 09/18/17 10:13 Divalproex Sodium (Depakote Sprinkles) 500 mg EVERY 12 HOURS GT 09/06/17 21:00 09/23/17 20:59 09/18/17 10:12 Docusate Sodium (Colace) 100 mg Q8H PRN ORAL Constipation 09/06/17 20:00 10/06/17 19:59 09/12/17 20:57 Magnesium Hydroxide (Mom) 30 ml DAILYPRN PRN ORAL Constipation 09/06/17 20:00 10/06/17 19:59 09/12/17 20:57 Mineral Oil (Fleet's Mineral Oil Enema) 133 ml DAILY PRN RECTAL Constipation 09/12/17 22:15 10/12/17 22:14 09/13/17 16:53 Olanzapine (ZyPREXA) 10 mg Q12HR ORAL 09/06/17 21:00 09/27/17 20:59 09/18/17 10:13 Quetiapine Fumarate (SEROquel) 100 mg EVERY 8 HOURS ORAL 09/06/17 22:00 09/26/17 12:59 09/18/17 06:07 Risperidone (RisperDAL) 2 mg EVERY 8 HOURS ORAL 09/06/17 22:00 09/26/17 17:59 09/18/17 06:06 Trazodone HCl (Desyrel) 200 mg BEDTIME ORAL 09/06/17 21:00 10/03/17 20:59 09/17/17 20:17 Warfarin Sodium (Coumadin per pharmacy) 1 ea DAILY PRN MISC Per rx protocol 09/07/17 09:00 09/25/17 16:59 Warfarin Sodium (Coumadin) 0.5 mg COUMADIN ONCE ORAL 09/18/17 17:00 09/18/17 17:01 Joseph Joseph MD Sep 18, 2017 10:35
--- NOTE | 2017-09-18 10:53 | Cardiac Electrophysiology PN ---
Assessment/Plan Assessment/Plan 1. Sinus Tachycardia. This is due to sinus tachycardia. This is likely due to the patient's respiratory failure and sepsis. Already on IV antibiotics. 2. Paroxysmal atrial fibrillation. The patient is on Coumadin, but currently in sinus rhythm. 3. Hyperlipidemia, on Lipitor. 4. Respiratory failure.On BIPAP. HAs right lung collapse 5. Schizophrenia. BIBI RN Subjective Subjective On BIPAP. RN and RT at bedside. Objective Last 24 Hour Vital Signs Date Time Temp Pulse Resp B/P (MAP) Pulse Ox O2 Delivery O2 Flow Rate FiO2 09/18/17 10:42 110 18 95 Bi-pap 45 09/18/17 10:40 110 96 45 09/18/17 10:34 110 20 97 Bi-pap 60 09/18/17 10:30 111 19 97 Facial 60 09/18/17 09:15 114 20 92 Facial 60 09/18/17 08:00 119 09/18/17 08:00 60 09/18/17 08:00 97.7 99 24 119/58 99 Bi-pap 60 97.7 09/18/17 06:56 120 16 90 Bi-pap 100 09/18/17 06:48 84 Bi-pap 100 09/18/17 06:48 Bi-pap 100 09/18/17 06:44 127 19 84 Bi-pap 100 09/18/17 06:40 127 19 88 Facial 100 09/18/17 05:10 111 21 89 Facial 100 09/18/17 04:00 98.2 100 20 108/70 94 Bi-pap 100 98.2 09/18/17 04:00 100 09/18/17 04:00 100 09/18/17 03:18 105 21 93 Bi-pap 100 09/18/17 03:04 106 14 95 Facial 100 09/18/17 03:04 106 14 95 Bi-pap 100 09/18/17 01:16 120 21 93 Full Face 100 09/18/17 00:00 100 09/18/17 00:00 124 09/18/17 00:00 98.8 128 18 105/70 93 Bi-pap 100 98.8 09/17/17 23:29 Bi-pap 100 09/17/17 23:29 Bi-pap 100 09/17/17 23:28 131 15 92 Full Face 100 09/17/17 23:00 99.5 09/17/17 22:01 100.5 09/17/17 22:00 100.5 100.5 09/17/17 20:59 140 27 92 Full Face 100 09/17/17 20:00 100 09/17/17 20:00 138 09/17/17 20:00 99.1 135 20 110/80 92 Bi-pap 100 99.1 09/17/17 19:11 Bi-pap 100 09/17/17 19:11 Bi-pap 100 09/17/17 19:10 132 28 91 Full Face 100 09/17/17 19:10 Bi-pap 100 09/17/17 19:10 91 Bi-pap 100 09/17/17 16:54 135 16 89 Full Face 100 09/17/17 16:00 131 09/17/17 16:00 98.4 132 16 116/70 94 Bi-pap 100 98.4 09/17/17 16:00 100 09/17/17 15:05 136 22 92 Bi-pap 100 09/17/17 15:00 128 29 92 Facial 100 09/17/17 15:00 129 29 94 Bi-pap 100 09/17/17 13:22 129 19 92 Facial 100 09/17/17 12:00 129 09/17/17 12:00 100 09/17/17 12:00 98.2 131 21 109/77 95 Bi-pap 100 98.2 09/17/17 11:10 131 20 91 Bi-pap 100 09/17/17 11:05 128 18 93 Bi-pap 100 09/17/17 11:03 128 17 93 Facial 100 Intake and Output 09/17/17 09/18/17 19:00 07:00 Intake Total 838 ml Balance 838 ml Intake Oral 60 ml IV Total 778 ml # Voids 2 2 # Bowel Movements 2 Laboratory Tests Test 09/17/17 14:22 09/18/17 05:05 09/18/17 07:30 Arterial Blood pH 7.401 (7.350-7.450) Arterial Blood Partial Pressure CO2 71.4 mmHg (35.0-45.0) *H Arterial Blood Partial Pressure O2 49.2 mmHg (75.0-100.0) Arterial Blood HCO3 43.3 mmol/L (22.0-26.0) H Arterial Blood Oxygen Saturation 81.6 % (92.0-98.0) L Arterial Blood Base Excess 15.7 [place] Test Positive Sodium Level 145 MMOL/L (136-145) Potassium Level 3.8 MMOL/L (3.5-5.1) Chloride Level 105 MMOL/L (98-107) Carbon Dioxide Level 40 MMOL/L (21-32) H Anion Gap 0 mmol/L (5-15) L Blood Urea Nitrogen 15 mg/dL (7-18) Creatinine 1.2 MG/DL (0.55-1.30) Estimat Glomerular Filtration Rate > 60 mL/min (>60) Glucose Level 106 MG/DL (74-106) Calcium Level 9.3 MG/DL (8.5-10.1) Troponin I 0.000 ng/mL (0.000-0.056) Pro-B-Type Natriuretic Peptide 541 pg/mL (0-125) H Thyroid Stimulating Hormone (TSH) 1.123 uiU/mL (0.358-3.740) Free Thyroxine 1.01 NG/DL (0.76-1.46) Valproic Acid (Depakene) Level 68 MCG/ML (50-100) Prothrombin Time 22.2 SEC (9.30-11.50) H Prothromb Time International Ratio 2.2 (0.9-1.1) H Objective HEAD AND NECK: No JVD. BIPAP on. LUNGS: Coarse rhonchi bilaterally.Decrease breath sounds on Right CARDIOVASCULAR: Tachycardic S1, S2 with no gallop or murmur. ABDOMEN: Soft. EXTREMITIES: 1+ pitting edema. Chris Pollard MD Sep 18, 2017 10:53
[2017-09-18 12:00] VITALS: BP 112/64
[2017-09-18] MEDS ORDERED: Vancomycin 1.5 GM/D5W 250ML IVPB ONE (12:00)
[2017-09-18] MEDS: Cefepime HCl 1 GM in D5W 55 ML IVPB SCH ×2 (12:16→23:05)
--- NOTE | 2017-09-18 12:57 | Diagnostic Imaging Report ---
Indication: Dyspnea Technique: XRAY Chest 1v Comparison: 09/17/2017 FINDINGS/IMPRESSION: Interval resolution of the previously seen right lung white out with shift of the mediastinum back to midline. Correlate for recent bronchoscopy/intervention. There is persistent interstitial opacities/edema and patchy bibasilar atelectasis versus infiltrate. No pneumothorax. Osseous structures stable.
--- NOTE | 2017-09-18 13:19 | Diagnostic Imaging Report ---
Indication: Dyspnea Technique: XRAY Chest 1v Comparison: 09/15/2017 FINDINGS/IMPRESSION: Continued worsening of aeration of the right lung with near total whiteout and shift of the mediastinal structures to the right. These findings are suggestive of worsening right-sided atelectasis/lung collapse. No pneumothorax. Osseous structures stable.
--- NOTE | 2017-09-18 14:55 | Consultation ---
Consult Note Assessment/Plan Bioethics consult was requested on this unrepresented patient by attending MD Shay. Pt is 62 yo chronic schizophrenic resident of a [facility] x 5 years. Has no known family and is not under conservatorship and has no advanced directives/POLST. He was admitted for respiratory failure but has not responded to therapy. Review of the clinical picture does not reveal any reasonable expectation for improvement, and that further aggressive care ( i.e., trach/G-tube) is futile. The committee is supportive of palliative care/ hospice/comfort measures for this patient. Regis Layton MD Sep 18, 2017 14:55
[2017-09-18 16:00] VITALS: BP 114/76
--- NOTE | 2017-09-18 16:35 | Pulmonology Progress Note ---
Assessment/Plan Assessment/Plan Assessment/Plan 1. Acute respiratory failure. on BiPAP 2. Atelectasis, R lung 3. History of right pleural effusion. 4. Schizophrenia 5. Chronic Coumadin usage. 5. Pulmonary edema; resolved 6. Agitation DISCUSSION: doing poorly, high HR [address] ST Recurrent atelectasis, CXR better emesis x 1 low grade fever ABG stable, PCO2 71 Bioethics consult feels treatment is futile and recommends palliative care NO TPN will contact Dr Mitchell re plan for comfort care Subjective ROS Limited/Unobtainable: Yes Constitutional: Reports: fever Allergies: Coded Allergies: No Known Allergies (Unverified , 08/03/17) Objective Last 24 Hour Vital Signs Date Time Temp Pulse Resp B/P (MAP) Pulse Ox O2 Delivery O2 Flow Rate FiO2 09/18/17 16:00 40 09/18/17 14:57 118 22 91 Bi-pap 40 09/18/17 14:52 120 21 90 Full Face 40 09/18/17 14:50 121 22 90 Bi-pap 40 09/18/17 12:34 124 24 92 Facial 40 09/18/17 12:00 98.1 120 24 112/64 90 Bi-pap 40 98.1 09/18/17 12:00 40 09/18/17 12:00 122 09/18/17 11:51 115 95 40 09/18/17 10:42 110 18 95 Bi-pap 45 09/18/17 10:40 110 96 45 09/18/17 10:34 110 20 97 Bi-pap 60 09/18/17 10:30 111 19 97 Facial 60 09/18/17 09:15 114 20 92 Facial 60 09/18/17 08:00 119 09/18/17 08:00 60 09/18/17 08:00 97.7 99 24 119/58 99 Bi-pap 60 97.7 09/18/17 06:56 120 16 90 Bi-pap 100 09/18/17 06:48 84 Bi-pap 100 09/18/17 06:48 Bi-pap 100 09/18/17 06:44 127 19 84 Bi-pap 100 09/18/17 06:40 127 19 88 Facial 100 09/18/17 05:10 111 21 89 Facial 100 09/18/17 04:00 98.2 100 20 108/70 94 Bi-pap 100 98.2 09/18/17 04:00 100 09/18/17 04:00 100 09/18/17 03:18 105 21 93 Bi-pap 100 09/18/17 03:04 106 14 95 Facial 100 09/18/17 03:04 106 14 95 Bi-pap 100 09/18/17 01:16 120 21 93 Full Face 100 09/18/17 00:00 100 09/18/17 00:00 124 09/18/17 00:00 98.8 128 18 105/70 93 Bi-pap 100 98.8 09/17/17 23:29 Bi-pap 100 09/17/17 23:29 Bi-pap 100 09/17/17 23:28 131 15 92 Full Face 100 09/17/17 23:00 99.5 09/17/17 22:01 100.5 09/17/17 22:00 100.5 100.5 09/17/17 20:59 140 27 92 Full Face 100 09/17/17 20:00 100 09/17/17 20:00 138 09/17/17 20:00 99.1 135 20 110/80 92 Bi-pap 100 99.1 09/17/17 19:11 Bi-pap 100 09/17/17 19:11 Bi-pap 100 09/17/17 19:10 132 28 91 Full Face 100 09/17/17 19:10 Bi-pap 100 09/17/17 19:10 91 Bi-pap 100 09/17/17 16:54 135 16 89 Full Face 100 Intake and Output 09/17/17 09/18/17 19:00 07:00 Intake Total 838 ml Balance 838 ml Intake Oral 60 ml IV Total 778 ml # Voids 2 2 # Bowel Movements 2 Objective BiPAP General Appearance: WD/WN, other - agitated HEENT: atraumatic Respiratory/Chest: decreased breath sounds Cardiovascular: normal rate Abdomen: soft, non tender Laboratory Tests 09/18/17 05:05: Sodium Level 145, Potassium Level 3.8, Chloride Level 105, Carbon Dioxide Level 40H, Anion Gap 0L, Blood Urea Nitrogen 15, Creatinine 1.2, Estimat Glomerular Filtration Rate > 60, Glucose Level 106, Calcium Level 9.3, Troponin I 0.000, Pro-B-Type Natriuretic Peptide 541H, Thyroid Stimulating Hormone (TSH) 1.123, Free Thyroxine 1.01, Valproic Acid (Depakene) Level 68 09/18/17 07:30: Prothrombin Time 22.2H, Prothromb Time International Ratio 2.2H Current Medications Medications (Trade) Dose Ordered Sig/Kika Route PRN Reason Start Time Stop Time Status Last Admin Dose Admin Acetaminophen (Tylenol) 650 mg Q4H PRN ORAL Mild Pain/Temp > 100.5 09/06/17 21:00 09/23/17 16:59 09/17/17 22:01 Acetylcysteine (Mucomyst) 200 mg Q4HRT HHN 09/13/17 15:00 10/13/17 14:59 09/18/17 14:49 Atorvastatin Calcium (Lipitor) 10 mg BEDTIME ORAL 09/06/17 21:00 09/23/17 20:59 09/17/17 20:18 Bisacodyl (Dulcolax) 10 mg DAILYPRN PRN RECTAL Constipation 09/12/17 22:00 10/12/17 21:59 09/16/17 22:16 Cefepime HCl 1 gm/ Dextrose 55 ml @ 110 mls/hr Q12H IVPB 09/18/17 11:30 09/25/17 11:29 09/18/17 12:16 Citalopram Hydrobromide (celeXA) 40 mg DAILY ORAL 09/07/17 09:00 09/25/17 08:59 09/18/17 10:13 Dextrose/Sodium Chloride 1,000 ml @ 75 mls/hr [id number] IV 09/17/17 20:30 10/17/17 20:29 09/18/17 10:13 Divalproex Sodium (Depakote Sprinkles) 500 mg EVERY 12 HOURS GT 09/06/17 21:00 09/23/17 20:59 09/18/17 10:12 Docusate Sodium (Colace) 100 mg Q8H PRN ORAL Constipation 09/06/17 20:00 10/06/17 19:59 09/12/17 20:57 Magnesium Hydroxide (Mom) 30 ml DAILYPRN PRN ORAL Constipation 09/06/17 20:00 10/06/17 19:59 09/12/17 20:57 Mineral Oil (Fleet's Mineral Oil Enema) 133 ml DAILY PRN RECTAL Constipation 09/12/17 22:15 10/12/17 22:14 09/13/17 16:53 Olanzapine (ZyPREXA) 10 mg Q12HR ORAL 09/06/17 21:00 09/27/17 20:59 09/18/17 10:13 Quetiapine Fumarate (SEROquel) 100 mg EVERY 8 HOURS ORAL 09/06/17 22:00 09/26/17 12:59 09/18/17 06:07 Risperidone (RisperDAL) 2 mg EVERY 8 HOURS ORAL 09/06/17 22:00 09/26/17 17:59 09/18/17 06:06 Trazodone HCl (Desyrel) 200 mg BEDTIME ORAL 09/06/17 21:00 10/03/17 20:59 09/17/17 20:17 Vancomycin HCl (Vanco rx to dose) 1 ea DAILY PRN MISC Per rx protocol 09/18/17 10:45 10/18/17 10:44 Vancomycin HCl 500 mg/Dextrose 110 ml @ 110 mls/hr Q12HR@0000,1200 IVPB 09/19/17 00:00 09/24/17 00:00 Warfarin Sodium (Coumadin per pharmacy) 1 ea DAILY PRN MISC Per rx protocol 09/07/17 09:00 09/25/17 16:59 Warfarin Sodium (Coumadin) 0.5 mg COUMADIN ONCE ORAL 09/18/17 17:00 09/18/17 17:01 Sergio Shay MD Sep 18, 2017 16:35
[2017-09-18] MEDS ORDERED: Warfarin Sodium 1mg ORAL ONE (17:00)
[2017-09-18 20:00] VITALS: BP 133/69
[2017-09-18] MEDS: TraZODone 100mg tab ORAL SCH (20:43)
[2017-09-19] VITALS: BP 128/73
[2017-09-19] MEDS ORDERED: Vancomycin 500mg/D5W 110ml IVPB SCH ×2
--- NOTE | 2017-09-19 00:37 | Cardiology Report ---
APPROVED REPORT EKG Measurement Heart [id number] DC 126P49 [id number] Sinus tachycardia Right bundle branch block Abnormal ECG
[2017-09-19] MEDS: Acetylcysteine 20% Soln 4ml HHN SCH ×3 (03:00→11:00)
[2017-09-19 04:00] VITALS: BP 128/73
[2017-09-19 07:27] LABS: BASOPHILS % (AUTO) 0.3 % (0.0-2.0); EOSINOPHILS % (AUTO) 0.1 % (0.0-3.0); HEMATOCRIT 28.7 % (42.0-52.0); LYMPHOCYTES % (AUTO) 3.2 % (20.0-45.0); MEAN CORPUSCULAR VOLUME 94 FL (80-99); MONOCYTES % (AUTO) 13.4 % (1.0-10.0); PLATELET COUNT 136 K/UL (150-450); RED BLOOD COUNT 3.05 M/UL (4.70-6.10); RED CELL DISTRIBUTION WIDTH 18.3 % (11.6-14.8); WHITE BLOOD COUNT 15.9 K/UL (4.8-10.8)
[2017-09-19 07:40] LABS: ANION GAP 0 mmol/L (5-15); BLOOD UREA NITROGEN 15 mg/dL (7-18); CALCIUM 8.8 MG/DL (8.5-10.1); CARBON DIOXIDE 39 MMOL/L (21-32); CHLORIDE 108 MMOL/L (98-107); CREATININE 1.1 MG/DL (0.55-1.30); POTASSIUM 3.3 MMOL/L (3.5-5.1); SODIUM 145 MMOL/L (136-145)
[2017-09-19 07:57] VITALS: BP 110/66
--- NOTE | 2017-09-19 08:38 | Nephrology Progress Note ---
Assessment/Plan Assessment/Plan 1. Hypernatremia- resolved 2. Met Alk- due to metabolic compensation and maitenence alkalosis- resolved 3. Resp FL- on BiPAP- mgmt per Pulm 4. Right hemithorax opacification. Has recurrent partial collapse, chronic 5. Schizophrenia- per PSY mgmt 6. Nutrition- NG and start TF's. Replace potassium 7. Sepsis/PNA- Abx per ID mgmt - WBC elevated this am 8. Awaiting decision on nutrition Disposition Patient needs to be off BiPAP and ambulate in order to be stable for discharge Subjective Date patient seen: Sep 19, 2017 Time patient seen: 08:36 ROS Limited/Unobtainable: Yes Allergies: Coded Allergies: No Known Allergies (Unverified , 08/03/17) Subjective Patient remains on BiPAP and not ambulating and agitated Objective Last 24 Hour Vital Signs Date Time Temp Pulse Resp B/P (MAP) Pulse Ox O2 Delivery O2 Flow Rate FiO2 09/19/17 07:57 97.7 112 21 110/66 93 Bi-pap 100 97.7 09/19/17 06:43 Bi-pap 09/19/17 06:42 Bi-pap 09/19/17 06:40 112 17 96 Full Face 40 09/19/17 06:37 96 Bi-pap 09/19/17 06:37 Bi-pap 09/19/17 05:28 122 15 91 Full Face 40 09/19/17 04:00 98.3 112 20 128/73 94 Bi-pap 100 98.3 09/19/17 04:00 116 09/19/17 04:00 100 09/19/17 03:28 Bi-pap 09/19/17 03:27 Bi-pap 09/19/17 03:26 123 20 93 Full Face 40 09/19/17 00:48 113 15 90 Full Face 40 09/19/17 00:00 98.1 108 22 128/73 96 Bi-pap 40 98.1 09/19/17 00:00 100 09/19/17 00:00 116 09/18/17 22:49 Bi-pap 09/18/17 22:48 129 Bi-pap 40 09/18/17 22:47 129 17 93 Full Face 40 09/18/17 21:03 130 18 88 Full Face 50 09/18/17 20:00 99.2 103 26 133/69 94 Bi-pap 100 99.2 09/18/17 20:00 129 09/18/17 20:00 100 09/18/17 19:11 Bi-pap 09/18/17 19:11 Bi-pap 09/18/17 19:11 Bi-pap 09/18/17 19:09 137 16 90 Bi-pap 50 09/18/17 19:08 137 16 90 Full Face 50 09/18/17 17:25 139 22 89 Full Face 40 09/18/17 16:00 98.4 133 18 114/76 92 Bi-pap 40 98.4 09/18/17 16:00 136 09/18/17 16:00 40 09/18/17 14:57 118 22 91 Bi-pap 40 09/18/17 14:52 120 21 90 Full Face 40 09/18/17 14:50 121 22 90 Bi-pap 40 09/18/17 12:34 124 24 92 Facial 40 09/18/17 12:00 98.1 120 24 112/64 90 Bi-pap 40 98.1 09/18/17 12:00 40 09/18/17 12:00 122 09/18/17 11:51 115 95 40 09/18/17 10:42 110 18 95 Bi-pap 45 09/18/17 10:40 110 96 45 09/18/17 10:34 110 20 97 Bi-pap 60 09/18/17 10:30 111 19 97 Facial 60 09/18/17 09:15 114 20 92 Facial 60 Intake and Output 09/18/17 09/19/17 19:00 07:00 Intake Total 175 ml 1117 ml Balance 175 ml 1117 ml Intake Oral 100 ml IV Total 75 ml 1117 ml # Voids 1 2 Laboratory Tests 09/19/17 06:10: White Blood Count 15.9H, Red Blood Count 3.05L, Hemoglobin 9.0L, Hematocrit 28.7L, Mean Corpuscular Volume 94, Mean Corpuscular Hemoglobin 29.5, Mean Corpuscular Hemoglobin Concent 31.3L, Red Cell Distribution Width 18.3H, Platelet Count 136L, Mean Platelet Volume 7.3, Neutrophils (%) (Auto) 83.0H, Lymphocytes (%) (Auto) 3.2L, Monocytes (%) (Auto) 13.4H, Eosinophils (%) (Auto) 0.1, Basophils (%) (Auto) 0.3, Prothrombin Time 19.9H, Prothromb Time International Ratio 2.0H, Sodium Level 145, Potassium Level 3.3L, Chloride Level 108H, Carbon Dioxide Level 39H, Anion Gap 0L, Blood Urea Nitrogen 15, Creatinine 1.1, Estimat Glomerular Filtration Rate > 60, Glucose Level 89, Calcium Level 8.8 Height (Feet): 5 Height (Inches): 9.00 Weight (Pounds): 178 General Appearance: no apparent distress, confused EENT: PERRL/EOMI Neck: normal alignment, supple Cardiovascular: normal rate, regular rhythm Respiratory/Chest: rhonchi - bilaterally Abdomen: non tender, soft Edema: no edema noted Arm (L), no edema noted Arm (R), no edema noted Leg (L), no edema noted Leg (R), no edema noted Pedal (L), no edema noted Pedal (R), no edema noted Generalized Cody Melendez M.D. Sep 19, 2017 08:38
[2017-09-19] MEDS: Depakote 125mg Sprinkles GT SCH (09:07)
[2017-09-19] MEDS: OLANZapine 10mg tab ORAL SCH (09:08)
[2017-09-19] MEDS: Citalopram Hydrobromide 10mg Tab ORAL SCH (09:08)
[2017-09-19] MEDS ORDERED: Morphine Sulfate 4mg/ml Inj IVP SCH (09:23)
[2017-09-19] MEDS ORDERED: LORazepam Inj 2mg/ml 1ml IV PRN (09:29)
[2017-09-19] MEDS ORDERED: LORazepam Inj 2mg/ml 1ml IV SCH (09:29)
[2017-09-19] MEDS ORDERED: NS 275ml ONE ×2 (10:05→22:42)
[2017-09-19] MEDS ORDERED: Tubing IV Secondary IV ONE ×2 (10:05→22:42)
[2017-09-19] MEDS ORDERED: D5NS 1000ml IV ONE (10:05)
--- NOTE | 2017-09-19 10:34 | Infectious Diseases Prog Note ---
Assessment/Plan Assessment/Plan antibiotics : vancomycin iv 7.5.18- cefepime 7.5.18 - A 1. MRSA pneumonia 2. respiratory failure on bipap 3. COPD 4. hypertension 5. renal stone 6. right lung collapse P 1. continue iv vancomycin, cefepime 2. comfort measures planned Subjective ROS Limited/Unobtainable: Yes Allergies: Coded Allergies: No Known Allergies (Unverified , 08/03/17) Objective Vital Signs Last 24 Hour Vital Signs Date Time Temp Pulse Resp B/P (MAP) Pulse Ox O2 Delivery O2 Flow Rate FiO2 09/19/17 09:01 109 18 91 Full Face 40 09/19/17 07:57 97.7 112 21 110/66 93 Bi-pap 100 97.7 09/19/17 06:43 Bi-pap 09/19/17 06:42 Bi-pap 09/19/17 06:40 112 17 96 Full Face 40 09/19/17 06:37 96 Bi-pap 09/19/17 06:37 Bi-pap 09/19/17 05:28 122 15 91 Full Face 40 09/19/17 04:00 98.3 112 20 128/73 94 Bi-pap 100 98.3 09/19/17 04:00 116 09/19/17 04:00 100 09/19/17 03:28 Bi-pap 09/19/17 03:27 Bi-pap 09/19/17 03:26 123 20 93 Full Face 40 09/19/17 00:48 113 15 90 Full Face 40 09/19/17 00:00 98.1 108 22 128/73 96 Bi-pap 40 98.1 09/19/17 00:00 100 09/19/17 00:00 116 09/18/17 22:49 Bi-pap 09/18/17 22:48 129 Bi-pap 40 09/18/17 22:47 129 17 93 Full Face 40 09/18/17 21:03 130 18 88 Full Face 50 09/18/17 20:00 99.2 103 26 133/69 94 Bi-pap 100 99.2 09/18/17 20:00 129 09/18/17 20:00 100 09/18/17 19:11 Bi-pap 09/18/17 19:11 Bi-pap 09/18/17 19:11 Bi-pap 7/5/18 19:09 137 16 90 Bi-pap 50 09/18/17 19:08 137 16 90 Full Face 50 09/18/17 17:25 139 22 89 Full Face 40 09/18/17 16:00 98.4 133 18 114/76 92 Bi-pap 40 98.4 09/18/17 16:00 136 09/18/17 16:00 40 09/18/17 14:57 118 22 91 Bi-pap 40 09/18/17 14:52 120 21 90 Full Face 40 09/18/17 14:50 121 22 90 Bi-pap 40 09/18/17 12:34 124 24 92 Facial 40 09/18/17 12:00 98.1 120 24 112/64 90 Bi-pap 40 98.1 09/18/17 12:00 40 09/18/17 12:00 122 09/18/17 11:51 115 95 40 09/18/17 10:42 110 18 95 Bi-pap 45 09/18/17 10:40 110 96 45 09/18/17 10:34 110 20 97 Bi-pap 60 Height (Feet): 5 Height (Inches): 9.00 Weight (Pounds): 178 HEENT: other - on bipap Respiratory/Chest: lungs clear Cardiovascular: normal rate, regular rhythm, no gallop/murmur Abdomen: soft, non tender Extremities: no edema Laboratory Tests Test 09/19/17 06:10 White Blood Count 15.9 K/UL (4.8-10.8) H Red Blood Count 3.05 M/UL (4.70-6.10) L Hemoglobin 9.0 G/DL (14.2-18.0) L Hematocrit 28.7 % (42.0-52.0) L Mean Corpuscular Volume 94 FL (80-99) Mean Corpuscular Hemoglobin 29.5 PG (27.0-31.0) Mean Corpuscular Hemoglobin Concent 31.3 G/DL (32.0-36.0) L Red Cell Distribution Width 18.3 % (11.6-14.8) H Platelet Count 136 K/UL (150-450) L Mean Platelet Volume 7.3 FL (6.5-10.1) Neutrophils (%) (Auto) 83.0 % (45.0-75.0) H Lymphocytes (%) (Auto) 3.2 % (20.0-45.0) L Monocytes (%) (Auto) 13.4 % (1.0-10.0) H Eosinophils (%) (Auto) 0.1 % (0.0-3.0) Basophils (%) (Auto) 0.3 % (0.0-2.0) Prothrombin Time 19.9 SEC (9.30-11.50) H Prothromb Time International Ratio 2.0 (0.9-1.1) H Sodium Level 145 MMOL/L (136-145) Potassium Level 3.3 MMOL/L (3.5-5.1) L Chloride Level 108 MMOL/L (98-107) H Carbon Dioxide Level 39 MMOL/L (21-32) H Anion Gap 0 mmol/L (5-15) L Blood Urea Nitrogen 15 mg/dL (7-18) Creatinine 1.1 MG/DL (0.55-1.30) Estimat Glomerular Filtration Rate > 60 mL/min (>60) Glucose Level 89 MG/DL (74-106) Calcium Level 8.8 MG/DL (8.5-10.1) Lorazepam (Ativan) Level Pending Current Medications Medications (Trade) Dose Ordered Sig/Kika Route PRN Reason Start Time Stop Time Status Last Admin Dose Admin Acetaminophen (Tylenol) 650 mg Q4H PRN ORAL Mild Pain/Temp > 100.5 09/06/17 21:00 09/23/17 16:59 09/17/17 22:01 Acetylcysteine (Mucomyst) 200 mg Q4HRT HHN 09/13/17 15:00 10/13/17 14:59 09/18/17 14:49 Atorvastatin Calcium (Lipitor) 10 mg BEDTIME ORAL 09/06/17 21:00 09/23/17 20:59 09/18/17 20:43 Bisacodyl (Dulcolax) 10 mg DAILYPRN PRN RECTAL Constipation 09/12/17 22:00 10/12/17 21:59 09/16/17 22:16 Cefepime HCl 1 gm/ Dextrose 55 ml @ 110 mls/hr Q12H IVPB 09/18/17 11:30 09/25/17 11:29 09/18/17 23:05 Citalopram Hydrobromide (celeXA) 40 mg DAILY ORAL 09/07/17 09:00 09/25/17 08:59 09/19/17 09:08 Dextrose/Sodium Chloride 1,000 ml @ 75 mls/hr [id number] IV 09/17/17 20:30 10/17/17 20:29 09/18/17 23:06 Divalproex Sodium (Depakote Sprinkles) 500 mg EVERY 12 HOURS GT 09/06/17 21:00 09/23/17 20:59 09/19/17 09:07 Docusate Sodium (Colace) 100 mg Q8H PRN ORAL Constipation 09/06/17 20:00 10/06/17 19:59 09/12/17 20:57 Lorazepam (Ativan 2mg/ml 1ml) 2 mg Q2H PRN IV Agitation 09/19/17 09:29 09/26/17 09:28 Magnesium Hydroxide (Mom) 30 ml DAILYPRN PRN ORAL Constipation 09/06/17 20:00 10/06/17 19:59 09/12/17 20:57 Mineral Oil (Fleet's Mineral Oil Enema) 133 ml DAILY PRN RECTAL Constipation 09/12/17 22:15 10/12/17 22:14 09/13/17 16:53 Olanzapine (ZyPREXA) 10 mg Q12HR ORAL 09/06/17 21:00 09/27/17 20:59 09/19/17 09:08 Quetiapine Fumarate (SEROquel) 100 mg EVERY 8 HOURS ORAL 09/06/17 22:00 09/26/17 12:59 09/19/17 05:11 Risperidone (RisperDAL) 2 mg EVERY 8 HOURS ORAL 09/06/17 22:00 09/26/17 17:59 09/19/17 05:11 Trazodone HCl (Desyrel) 200 mg BEDTIME ORAL 09/06/17 21:00 10/03/17 20:59 09/18/17 20:43 Vancomycin HCl (Vanco rx to dose) 1 ea DAILY PRN MISC Per rx protocol 09/18/17 10:45 10/18/17 10:44 Vancomycin HCl 500 mg/Dextrose 110 ml @ 110 mls/hr Q12HR@0000,1200 IVPB 09/19/17 00:00 09/24/17 00:00 09/19/17 00:18 Warfarin Sodium (Coumadin per pharmacy) 1 ea DAILY PRN MISC Per rx protocol 09/07/17 09:00 09/25/17 16:59 Warfarin Sodium (Coumadin) 0.5 mg COUMADIN ONCE ORAL 09/19/17 17:00 09/19/17 17:01 LALI COCHRAN Sep 19, 2017 10:34
[2017-09-19] MEDS ORDERED: Rate Change PCA 1 Each MISC PRN (10:45)
[2017-09-19] MEDS ORDERED: PCA Education Pamphlet MISC ONE (11:00)
[2017-09-19] MEDS ORDERED: PCA Morphine 1mg/ml 30 ML IV PRN (11:00)
[2017-09-19] MEDS ORDERED: Rate Change Narcotic Drip MISC PRN (11:00)
[2017-09-19 12:00] VITALS: BP 111/62
--- NOTE | 2017-09-19 13:33 | Pulmonology Progress Note ---
Assessment/Plan Assessment/Plan Assessment/Plan 1. Acute respiratory failure. on BiPAP 2. Atelectasis, R lung 3. History of right pleural effusion. 4. Schizophrenia 5. Chronic Coumadin usage. 5. Pulmonary edema; resolved 6. Agitation DISCUSSION: doing poorly, high HR WBC higher DR Mitchell agrees that this is futile care and recommends palliative care NO TPN morphine, ativan, dc active treatment DNR/DNI Subjective ROS Limited/Unobtainable: Yes Allergies: Coded Allergies: No Known Allergies (Unverified , 08/03/17) Objective Last 24 Hour Vital Signs Date Time Temp Pulse Resp B/P (MAP) Pulse Ox O2 Delivery O2 Flow Rate FiO2 09/19/17 12:55 105 17 89 Full Face 40 09/19/17 12:29 97.7 09/19/17 12:00 97.7 103 22 111/62 (78) 90 97.7 09/19/17 11:59 97.7 09/19/17 11:24 Bi-pap 09/19/17 11:22 Bi-pap 09/19/17 11:19 103 15 91 Full Face 40 09/19/17 09:36 97.7 09/19/17 09:01 109 18 91 Full Face 40 09/19/17 08:00 111 09/19/17 07:57 97.7 112 21 110/66 93 Bi-pap 100 97.7 09/19/17 06:43 Bi-pap 09/19/17 06:42 Bi-pap 09/19/17 06:40 112 17 96 Full Face 40 09/19/17 06:37 96 Bi-pap 09/19/17 06:37 Bi-pap 09/19/17 05:28 122 15 91 Full Face 40 09/19/17 04:00 98.3 112 20 128/73 94 Bi-pap 100 98.3 09/19/17 04:00 116 09/19/17 04:00 100 09/19/17 03:28 Bi-pap 09/19/17 03:27 Bi-pap 09/19/17 03:26 123 20 93 Full Face 40 09/19/17 00:48 113 15 90 Full Face 40 09/19/17 00:00 98.1 108 22 128/73 96 Bi-pap 40 98.1 09/19/17 00:00 100 09/19/17 00:00 116 7/5/18 22:49 Bi-pap 09/18/17 22:48 129 Bi-pap 40 09/18/17 22:47 129 17 93 Full Face 40 09/18/17 21:03 130 18 88 Full Face 50 09/18/17 20:00 99.2 103 26 133/69 94 Bi-pap 100 99.2 09/18/17 20:00 129 09/18/17 20:00 100 09/18/17 19:11 Bi-pap 09/18/17 19:11 Bi-pap 09/18/17 19:11 Bi-pap 09/18/17 19:09 137 16 90 Bi-pap 50 09/18/17 19:08 137 16 90 Full Face 50 09/18/17 17:25 139 22 89 Full Face 40 09/18/17 16:00 98.4 133 18 114/76 92 Bi-pap 40 98.4 09/18/17 16:00 136 09/18/17 16:00 40 09/18/17 14:57 118 22 91 Bi-pap 40 09/18/17 14:52 120 21 90 Full Face 40 09/18/17 14:50 121 22 90 Bi-pap 40 Intake and Output 09/18/17 09/19/17 19:00 07:00 Intake Total 175 ml 1117 ml Balance 175 ml 1117 ml Intake Oral 100 ml IV Total 75 ml 1117 ml # Voids 1 2 Objective BiPAP General Appearance: other - agitated HEENT: atraumatic Respiratory/Chest: rhonchi Cardiovascular: tachycardia Laboratory Tests 09/19/17 06:10: White Blood Count 15.9H, Red Blood Count 3.05L, Hemoglobin 9.0L, Hematocrit 28.7L, Mean Corpuscular Volume 94, Mean Corpuscular Hemoglobin 29.5, Mean Corpuscular Hemoglobin Concent 31.3L, Red Cell Distribution Width 18.3H, Platelet Count 136L, Mean Platelet Volume 7.3, Neutrophils (%) (Auto) 83.0H, Lymphocytes (%) (Auto) 3.2L, Monocytes (%) (Auto) 13.4H, Eosinophils (%) (Auto) 0.1, Basophils (%) (Auto) 0.3, Prothrombin Time 19.9H, Prothromb Time International Ratio 2.0H, Sodium Level 145, Potassium Level 3.3L, Chloride Level 108H, Carbon Dioxide Level 39H, Anion Gap 0L, Blood Urea Nitrogen 15, Creatinine 1.1, Estimat Glomerular Filtration Rate > 60, Glucose Level 89, Calcium Level 8.8, Lorazepam (Ativan) Level [Pending] Current Medications Medications (Trade) Dose Ordered Sig/Kika Route PRN Reason Start Time Stop Time Status Last Admin Dose Admin Acetaminophen (Tylenol) 650 mg Q4H PRN ORAL Mild Pain/Temp > 100.5 09/06/17 21:00 09/23/17 16:59 09/17/17 22:01 Acetylcysteine (Mucomyst) 200 mg Q4HRT HHN 09/13/17 15:00 10/13/17 14:59 09/18/17 14:49 Dextrose/Sodium Chloride 1,000 ml @ 75 mls/hr [id number] IV 09/17/17 20:30 10/17/17 20:29 09/18/17 23:06 Lorazepam (Ativan 2mg/ml 1ml) 2 mg Q2H PRN IV Agitation 09/19/17 09:29 09/26/17 09:28 Miscellaneous Medication (Narcotic Drip Rate Change) 1 ea DAILY PRN MISC See protocol text of DISABILITY MANAGER 09/19/17 11:00 10/19/17 10:59 Miscellaneous Medication (Narcotic Shift Volume) 1 ea Q12HR@0700,1900 MISC 09/19/17 19:00 10/19/17 18:59 Morphine Sulfate 30 ml @ 0 mls/hr Q24H PRN IV comfort care 09/19/17 11:00 09/21/17 10:59 09/19/17 11:59 Quetiapine Fumarate (SEROquel) 100 mg EVERY 8 HOURS ORAL 09/06/17 22:00 09/26/17 12:59 09/19/17 05:11 Risperidone (RisperDAL) 2 mg EVERY 8 HOURS ORAL 09/06/17 22:00 09/26/17 17:59 09/19/17 05:11 Trazodone HCl (Desyrel) 200 mg BEDTIME ORAL 09/06/17 21:00 10/03/17 20:59 09/18/17 20:43 Vancomycin HCl (Vanco rx to dose) 1 ea DAILY PRN MISC Per rx protocol 09/18/17 10:45 10/18/17 10:44 Warfarin Sodium (Coumadin per pharmacy) 1 ea DAILY PRN MISC Per rx protocol 09/07/17 09:00 09/25/17 16:59 Warfarin Sodium (Coumadin) 0.5 mg COUMADIN ONCE ORAL 09/19/17 17:00 09/19/17 17:01 Sergio Shay MD Sep 19, 2017 13:33
--- NOTE | 2017-09-19 15:44 | Cardiac Electrophysiology PN ---
Assessment/Plan Assessment/Plan 1. Sinus Tachycardia. This is due to sinus tachycardia. This is likely due to the patient's respiratory failure and sepsis. IV antibiotics DCed as now comfort care 2. Paroxysmal atrial fibrillation. Coumadin DCed as now comfort care 3. Hyperlipidemia 4. Respiratory failure. BIBI RN Subjective Subjective Patient now comfort care on Morphine drip. BIPAP DCed. RN @ bedside. Objective Last 24 Hour Vital Signs Date Time Temp Pulse Resp B/P (MAP) Pulse Ox O2 Delivery O2 Flow Rate FiO2 09/19/17 12:55 105 17 89 Full Face 40 09/19/17 12:29 97.7 09/19/17 12:00 102 09/19/17 12:00 97.7 103 22 111/62 (78) 90 97.7 09/19/17 11:59 97.7 09/19/17 11:24 Bi-pap 09/19/17 11:22 Bi-pap 09/19/17 11:19 103 15 91 Full Face 40 09/19/17 09:36 97.7 09/19/17 09:01 109 18 91 Full Face 40 09/19/17 08:00 111 09/19/17 07:57 97.7 112 21 110/66 93 Bi-pap 100 97.7 09/19/17 06:43 Bi-pap 09/19/17 06:42 Bi-pap 09/19/17 06:40 112 17 96 Full Face 40 09/19/17 06:37 96 Bi-pap 09/19/17 06:37 Bi-pap 09/19/17 05:28 122 15 91 Full Face 40 09/19/17 04:00 98.3 112 20 128/73 94 Bi-pap 100 98.3 09/19/17 04:00 116 09/19/17 04:00 100 09/19/17 03:28 Bi-pap 09/19/17 03:27 Bi-pap 09/19/17 03:26 123 20 93 Full Face 40 09/19/17 00:48 113 15 90 Full Face 40 09/19/17 00:00 98.1 108 22 128/73 96 Bi-pap 40 98.1 09/19/17 00:00 100 09/19/17 00:00 116 09/18/17 22:49 Bi-pap 09/18/17 22:48 129 Bi-pap 40 09/18/17 22:47 129 17 93 Full Face 40 09/18/17 21:03 130 18 88 Full Face 50 09/18/17 20:00 99.2 103 26 133/69 94 Bi-pap 100 99.2 09/18/17 20:00 129 09/18/17 20:00 100 09/18/17 19:11 Bi-pap 09/18/17 19:11 Bi-pap 09/18/17 19:11 Bi-pap 09/18/17 19:09 137 16 90 Bi-pap 50 09/18/17 19:08 137 16 90 Full Face 50 09/18/17 17:25 139 22 89 Full Face 40 09/18/17 16:00 98.4 133 18 114/76 92 Bi-pap 40 98.4 09/18/17 16:00 136 09/18/17 16:00 40 Intake and Output 09/18/17 09/19/17 19:00 07:00 Intake Total 175 ml 1117 ml Balance 175 ml 1117 ml Intake Oral 100 ml IV Total 75 ml 1117 ml # Voids 1 2 Laboratory Tests Test 09/19/17 06:10 White Blood Count 15.9 K/UL (4.8-10.8) H Red Blood Count 3.05 M/UL (4.70-6.10) L Hemoglobin 9.0 G/DL (14.2-18.0) L Hematocrit 28.7 % (42.0-52.0) L Mean Corpuscular Volume 94 FL (80-99) Mean Corpuscular Hemoglobin 29.5 PG (27.0-31.0) Mean Corpuscular Hemoglobin Concent 31.3 G/DL (32.0-36.0) L Red Cell Distribution Width 18.3 % (11.6-14.8) H Platelet Count 136 K/UL (150-450) L Mean Platelet Volume 7.3 FL (6.5-10.1) Neutrophils (%) (Auto) 83.0 % (45.0-75.0) H Lymphocytes (%) (Auto) 3.2 % (20.0-45.0) L Monocytes (%) (Auto) 13.4 % (1.0-10.0) H Eosinophils (%) (Auto) 0.1 % (0.0-3.0) Basophils (%) (Auto) 0.3 % (0.0-2.0) Prothrombin Time 19.9 SEC (9.30-11.50) H Prothromb Time International Ratio 2.0 (0.9-1.1) H Sodium Level 145 MMOL/L (136-145) Potassium Level 3.3 MMOL/L (3.5-5.1) L Chloride Level 108 MMOL/L (98-107) H Carbon Dioxide Level 39 MMOL/L (21-32) H Anion Gap 0 mmol/L (5-15) L Blood Urea Nitrogen 15 mg/dL (7-18) Creatinine 1.1 MG/DL (0.55-1.30) Estimat Glomerular Filtration Rate > 60 mL/min (>60) Glucose Level 89 MG/DL (74-106) Calcium Level 8.8 MG/DL (8.5-10.1) Lorazepam (Ativan) Level Pending Objective HEAD AND NECK: No JVD. LUNGS: Coarse rhonchi bilaterally.Decrease breath sounds on Right CARDIOVASCULAR: Tachycardic S1, S2 with no gallop or murmur. ABDOMEN: Soft. EXTREMITIES: 1+ pitting edema. Chris Pollard MD Sep 19, 2017 15:44
[2017-09-19] MEDS ORDERED: Warfarin Sodium 1mg ORAL ONE (17:00)
[2017-09-19] MEDS ORDERED: PCA shift volume MISC SCH (19:00)
[2017-09-19] MEDS ORDERED: Narcotic Shift Volume MISC SCH (19:00)
--- NOTE | 2017-09-23 12:47 | Discharge Summary ---
Discharge Summary Hospital Course Date of Admission August 03, 2017 at 17:47 Date of Discharge Sep 19, 2017 at 22:43 Admitting Diagnosis COPD exacerbation HPI Francois Westbrook is a 62 year old male who was admitted on August 03, 2017 at 17 :47 for Chronic Obstructive Pulmonary Disease Exacerbation Hospital Course dc summary #[id number] Discharge Discharge Disposition Patient Discharge Instructions For Congestive Heart Failure Reminder I have been assigned to complete a D/C Summary on this account. I was not involved in the patient management Jumana Brewer NP Sep 23, 2017 12:47
--- NOTE | 2017-09-23 21:58 | Physician Query ---
--------- THIS DOCUMENT IS A PERMANENT PART OF THE MEDICAL RECORD --------- PLEASE COMPLETE DOCUMENT BEFORE SIGNING Dear Dr. Mitchell Date: 09/23/2017 Mapping Analyst/CDS Name: Debbie Agarwal, CCS, CCDS Exercise your independent professional judgment when responding to the query. Questions asked do not imply a particular answer is desired or expected. We greatly appreciate your clarification on this issue. CLINICAL DOCUMENTATION STATES: Per your procedure report "The right and left side bronchial tubes inspected sequentially and copious secretion removed from the right side. These were lavaged. Post-lavage, the second generation bronchi remained open without any obvious mucus plugging, irregular masses noted." 1- For coding clarification purposes, please specify site(s) and laterality suctioned. PHYSICIAN RESPONSE:_Right side Richardson Mitchell M.D. Date & Time [facility]
--- NOTE | 2017-09-24 04:30 | Discharge Summary 2 SIG ---
SUMMARY DATE OF ADMISSION: 08/03/2017 DATE OF DISCHARGE: 09/19/2017 REASON FOR ADMISSION: 62-year-old male with past medical history of atrial fibrillation, on Coumadin, congestive heart failure, cardiomyopathy, hypertension, chronic obstructive pulmonary disease, heavy smoker, high cholesterol, and schizophrenia was sent to emergency room for evaluation due to difficulty with breathing. The patient was found to be hypoxic. Chest x-ray revealed completely opacified right hemithorax. The patient was placed on BiPAP. CT of the head revealed no acute intracranial pathology. Laboratory workup revealed no leukocytosis. Stable hemoglobin and hematocrit. ADMITTING DIAGNOSES: The patient was admitted to [facility] with diagnoses: 1. Right lung collapse. 2. Acute hypoxemic hypercapnic respiratory failure requiring BiPAP. 3. History of right pleural effusion. 4. Schizophrenia. 5. Chronic Coumadin usage. CONSULTANTS: 1. Chris Pollard M.D., Health Education Specialist. 2. Cody Melendez M.D., Home Health Clinical Liaison. 3. Noel Yan M.D., Infectious Disease specialist. 4. Marlene Cortez M.D., Psychiatrist. 5. Dr. Layton, Bioethics Committee Chair. HOSPITAL COURSE: The patient was admitted. The patient was kept NPO. Overnight, the patient decompensated and required oral intubation. ABG revealed severe hypoxic respiratory acidosis with hypoxemia and hypercapnia. The patient was transferred to intensive care unit. Ventilator support provided. Pulmonary toilet provided. The patient was followed up with daily chest x-ray and ABG. Subsequently, on 08/05/2017, the patient undergone bronchoscopy secondary to right lung collapse. Chest x-ray post bronchoscopy revealed improvement in aeration. The patient was on antibiotic. ID specialist closely followed. Sputum culture initially revealed Klebsiella. Influenza screen was negative. Urine culture showed mixed gram-positive organisms. Blood cultures were negative. Repeated sputum culture showed MRSA. The patient was on antibiotic under ID specialist management. Psychiatrist closely followed and diagnosed the patient with schizoaffective bipolar type disorder. Psychiatric medication regimen was optimized as per psychiatrist. The patient with a prior history of tracheostomy and recurrent respiratory failure. Spice Mixer closely followed. The patient was able to be extubated on 2017. The patient initially was placed on the BiPAP and then was able to be weaned down to Venturi mask. Later on, he required the BiPAP again and from that time was unable to be weaned from BiPAP. The patient was on the BiPAP with FiO2 of 100%. The patient was followed up with the ABG and continued to be hypercapnic , but acidosis resolved. Gastric support provided. Home Health Clinical Liaison followed the patient for hypernatremia. According to hospital manager, hypernatremia was secondary to intravascular volume depletion. The patient was started on hypotonic solution with D5 water. Renal parameters and electrolytes were closely monitored. Nephrotoxics were avoided, and electrolytes were corrected as needed. The patient also showed evidence of metabolic alkalosis, which resolved. Health Education Specialist followed the patient. The patient exhibited sinus tachycardia on telemetry likely due to the respiratory failure and sepsis as per rn nursery. The patient also had evidence of paroxysmal atrial fibrillation. The patient was on Coumadin with maintaining the INR in therapeutic range 2 to 3. The patient showed no evidence of improvement. The patient was unable to be weaned from the BiPAP. Chest x-ray on 09/04/2017 showed recurrent right lung collapse. Another bronchoscopy on 09/05/2017 was attempted, however, was unsuccessful since the patient was not cooperative. The patient had no family members to make advance decision for him. Subsequently, bioethics consult was requested because this patient was un-represented. The patient with chronic schizophrenia, heavy smoker, under no conservator, and no advanced directive available. The patient was not responding to therapy and review of the hospital course and current condition did not reveal any reasonable expectations for improvement. Bioethics Committee recommended that further aggressive care such as tracheostomy and G-tube would be futile. Bioethics Committee also was supportive of comfort measures for this patient. Subsequently on 09/19/2017, code status was changed to DNR/DNI. The patient was placed on morphine drip and Ativan as needed. All active treatment was discontinued. The patient was pronounced at 16:45 on 09/19/2017. CAUSE OF : Cardiopulmonary arrest. FINAL DIAGNOSES: 1. Acute hypoxemic hypercapnic respiratory failure requiring intubation, status post extubation. 2. Recurrent right lung collapse 3. status post bronchoscopy x2 4. History of right pleural effusion. 5. Pulmonary edema. 6. Atelectasis. 7. Methicillin-resistant Staphylococcus aureus pneumonia. 8. Schizoaffective disorder, bipolar type. 9. Toxic metabolic encephalopathy. 10. Chronic obstructive pulmonary disease. 11. Smoker. 12. Chronic Coumadin use. 13. Paroxysmal atrial fibrillation. 14. Dehydration. 15. Hypernatremia secondary to intravascular volume depletion and metabolic alkalosis, resolved. 16. Agitation. 17. Comfort care. Richardson Mitchell M.D. I have been assigned to dictate discharge summary on this account and I was not involved in the patient's management. Jumana Brewer (Vanchtein) N.PBing DR: IMELDA JOB#: [id number] CC: DERICK
== END 2017-09-19 22:43 | disposition expired | DRG 120 ==
LOC: EDBD 15:54 → EMR 16:00 → 2E 17:47 → EDBEDREQ 18:38 → 2E 22:21 → 2W 08-04 01:07 → ICU 08-04 03:44 → 2W 08-18 21:30 → 4E 08-21 10:43 → ICU 08-24 11:09 → 2W 08-26 16:52 → ICU 09-02 23:43 → 2W 09-06 18:55
PROC: 5A1955Z Respiratory Ventilation, Greater than 96 Consecutive Hours (ICD-10-PCS; principal; 2017-08-04)
PROC: 0BH17EZ Insertion of Endotracheal Airway into Trachea, Via Natural or Artificial Opening (ICD-10-PCS; 2017-08-04)
PROC: 0B938ZZ Drainage of Right Main Bronchus, Via Natural or Artificial Opening Endoscopic (ICD-10-PCS; 2017-08-05)
PROC: 0CJ Mouth and Throat, Inspection (ICD-10-PCS; 2017-09-03)
DX: J96.22 Acute and chronic respiratory failure with hypercapnia (principal); A41.9 Sepsis, unspecified organism; J15.212 Pneumonia due to Methicillin resistant Staphylococcus aureus; J15.0 Pneumonia due to Klebsiella pneumoniae; N17.9 Acute kidney failure, unspecified; J91.8 Pleural effusion in other conditions classified elsewhere; J44.0 Chronic obstructive pulmonary disease with (acute) lower respiratory infection; E87.3 Alkalosis; I95.9 Hypotension, unspecified; Z99.81 Dependence on supplemental oxygen; J96.21 Acute and chronic respiratory failure with hypoxia; F17.210 Nicotine dependence, cigarettes, uncomplicated; J44.1 Chronic obstructive pulmonary disease with (acute) exacerbation; F25.0 Schizoaffective disorder, bipolar type; I10 Essential (primary) hypertension; I42.9 Cardiomyopathy, unspecified; I48.0 Paroxysmal atrial fibrillation; Z79.01 Long term (current) use of anticoagulants; E78.5 Hyperlipidemia, unspecified; E87.0 Hyperosmolality and hypernatremia; E86.0 Dehydration; N39.0 Urinary tract infection, site not specified; R00.0 Tachycardia, unspecified; Z51.5 Encounter for palliative care; Z66 Do not resuscitate; J98.11 Atelectasis; K59.00 Constipation, unspecified; N20.0 Calculus of kidney; E87.6 Hypokalemia; R45.1 Restlessness and agitation; Z78.1 Physical restraint status
CPT/HCPCS: 31645; 36415; 36600; 70450; 71045; 76770; 80048; 80053; 80164; 80202; 81003; 82542; 82550; 82553; 82803; 82962; 83605; 83735; 83880; 84100; 84295; 84439; 84443; 84484; 85007; 85025; 85379; 85610; 85730; 86710; 87040; 87070; 87081; 87086; 87181; 87205; 93005; 93306; 93970; 94002; 94003; 94640; 94660; 94664; 94760; 99285; J7620